=== PATIENT | female | born 1965 | race Caucasian/White ===

== ENCOUNTER 2020-01-24 09:22 | Emergency (ER) | payer OTHER, SELFPAY ==
[2020-01-24 09:30] VITALS: BP 113/73; PULSE 98; RESP 18; TEMP 36.8; O2SAT 97; BMI 27.4
[2020-01-24 09:40] VITALS: BP 113/73; PULSE 93; RESP 16; TEMP 36.8; O2SAT 96
--- NOTE | 2020-01-24 09:48 | XRR_ITS ---
PROCEDURE INFORMATION: Exam: XR Left Shoulder Exam date and time: 01/24/2020 9:48 AM Age: 54 years old Clinical indication: Pain; Shoulder; Left; Additional info: L shoulder pain TECHNIQUE: Imaging protocol: XR Left shoulder. Views: 2 or more views. COMPARISON: No relevant prior studies available. FINDINGS: Bones/joints: Moderate degenerative changes of the acromioclavicular joint. Degenerative changes of the glenohumeral joint including osteophytosis Scapula normal Visualized ribs and visualized pulmonary parenchyma normal Coracoid process normal Soft tissues: Normal. XR/XR shoulder LT min 2V* [id number] IMPRESSION: Degenerative changes of the acromioclavicular joint and glenohumeral joint.
--- NOTE | 2020-01-24 09:48 | W.ED.EXTPRO ---
HPI - Extremity Problem General: Chief complaint: Extremity Injury, Upper Stated complaint: l shoulder & arm pain Time Seen by Provider: 01/24/20 09:28 History of Present Illness: HPI Narrative: Left shoulder pain that began about 6 weeks ago she did use a heavy power until the day prior she been taking ibuprofen for it since then. She is not really seeing body she not had any previous injury or surgery to that shoulder. She has no radiation of pain down into the hand she does not have any neck pain. Sensation in the hand is normal strength 5 of 5 in the hand at the elbow she has some weakness at the shoulder girdle. She has noticed when she moves her neck that worsen the pain radiates down to the elbow but not past the elbow. MD Complaint: extremity pain Onset (ago): week(s) (6) Pain Consistency: intermittent Location: left (shoulder) Quality: aching Radiation: none Relieving factors: immobilization Exacerbating factors: range of motion Associated symptoms: Reports arthralgias; Deny chest pain, fever(s) or rash Review of Systems Const: Denies: fever(s) ENMT: Denies: throat pain, ear or mastoid pain, nasal discharge or nasal congestion Card: Denies: chest pain, edema, dyspnea on exertion or orthopnea Resp: Denies: dyspnea, productive cough or non-productive cough GI: Denies: abdominal pain, nausea, vomiting, hematemesis, coffee ground emesis, diarrhea, constipation, bloating, hematochezia or melena : Denies: flank pain, difficulty voiding, dysuria, urinary frequency or urinary urgency Skin/Breast: Denies: rash or pruritus PFSH ED PFSH: Medical History (Updated 01/24/20 @ 10:29 by Wilfred Hernandez DO) Asthma Diabetes mellitus Surgical History (Updated 01/24/20 @ 09:52 by Wilfred Hernandez DO) H/O section X5 History of bladder suspension procedure History of endometrial ablation History of tonsillectomy and adenoidectomy Status post tonsillectomy and adenoidectomy Social History (Updated 01/24/20 @ 09:52 by Wilfred Hernandez DO) Smoking and tobacco status: never smoked Alcohol intake: never Physical Exam Const: COMMON NORMALS: no acute distress GENERAL APPEARANCE: cooperative and comfortable ORIENTATION/CONSCIOUSNESS: Yes awake, Yes oriented to person, Yes oriented to place and Yes oriented to time HENMT: COMMON NORMALS: normocephalic and atraumatic HEAD & SCALP: normocephalic and atraumatic Eye: COMMON NORMALS: Equal, round and reactive pupils present, EOMs intact bilaterally, conjunctivae normal and no scleral icterus CONJUNCTIVA: Yes conjunctivae normal PUPIL: Yes Equal, round and reactive pupils present Neck/C-Spine: COMMON NORMALS: full ROM, no lymphadenopathy, supple and no JVD Lymph: LYMPHATIC: no lymphadenopathy noted and no lymphedema noted Resp: COMMON NORMALS: normal respiratory effort, No retractions, No use of accessory muscles and clear to auscultation bilaterally AUSCULTATION: clear to auscultation bilaterally Cardio: COMMON NORMALS: no JVD, regular rate, regular rhythm and No murmurs present (Cardio) RATE: regular rate RHYTHM: regular rhythm GI: COMMON NORMALS: Soft to palpation and No hepatosplenomegaly present AUSCULTATION: Yes normoactive bowel sounds PALPATION: Yes Soft to palpation, No Tenderness to palpation present (GI), No Guarding due to palpation present (GI) and Yes No hepatosplenomegaly present Extremity: COMMON NORMALS: normal to inspection, capillary refill normal, no clubbing, cyanosis or edema, no calf tenderness and no pedal edema NARRATIVE EXTREMITY EXAM: Negative shoulder impingement on range of motion full strength in the upper extremity sensation slightly diminished Neuro: SENSORIUM/ORIENTATION: Yes oriented to person, Yes oriented to place and Yes oriented to time Skin: COMMON NORMALS: no rashes or lesions noted GENERAL SKIN EXAM: no rashes or lesions noted Course Vital Signs: Vital signs: Vital Signs Temperature 98.3 F 01/24/20 09:40 Pulse Rate 93 01/24/20 09:40 Respiratory Rate 16 01/24/20 09:40 Blood Pressure 113/73 01/24/20 09:40 Pulse Oximetry 96 01/24/20 09:40 MDM - Extremity (Nontraumatic) MDM Narrative: Medical decision making narrative: We will go ahead and get her set up for an MRI of her neck and then referral to neurosurgery started on Lyrica tizanidine and diclofenac. Discharge Plan Discharge Patient Disposition: Home Clinical Impression: Cervical radiculopathy Condition: Stable Prescriptions: New diclofenac sodium 75 mg tablet,delayed release (DR/EC) 75 mg PO Q12H PRN (Reason: pain) Qty: 20 RF: 0 Lyrica 75 mg capsule 75 mg PO BID Qty: 60 RF: 0 tizanidine 4 mg capsule 4 mg PO Q6H PRN (Reason: muscle spasticity) Qty: 30 RF: 0 No Action ibuprofen 600 mg Tablet 600 mg PO DAILY PRN (Reason: Pain) RF: 0 Discharge Orders: Discharge Order (Routine); Ordered 01/24/20 Ordered By: Wilfred Hernandez Discharge Diet: Usual diet Discharge Activity: Limit activity as instructed Activity Restrictions/Additional Instructions: Case management will call with referral to MRI of the neck and referral to neurosurgery Interventions: ED Discharge Assessment Last Done: 01/24/20 10:25 ED Charges Last Done: 01/24/20 10:25 Coding Level of Care Code ED Roll Up Machine Operator for Yelena Fwd Exam Comprehensive
[2020-01-24] MEDS: ketorolac 30 mg/mL INJ 60 MG IM (10:12)
[2020-01-24 10:25] VITALS: BP 117/66; PULSE 82; RESP 16; TEMP 36.4; O2SAT 96
--- NOTE | 2020-02-05 14:31 | DCPLANNER ---
wine manager had message to schedule an outpatient MRI for patient. Patient has [employer] insurance, case advocate called [facility] to inform the [facility] that patient was seen in the ED and what patient needed. wine manager was told that patient does not have VA benefits, has insurance thru her , patient is not a vet. wine manager called patient to confirm who patient sees for primary care, patient stated that she does not have a primary care physician at this time, case advocate will get patient established with Dr. Salgado. wine manager will have the results sent to Dr. Salgado and to Mercedes Barrera. wine manager faxed order to centralized scheduling for the MRI, after MRI is scheduled, case advocate will call the office of Dr. Salgado, and Mercedes Barrera to scheduled follow up appointments for patient.
--- NOTE | 2020-02-12 11:36 | DCPLANNER ---
Patient has an outpatient MRI scheduled for Tuesday, February 17 at 4:00 patient is aware of appointment. rehab department manager called the office of Dr. Salgado spoke with Sylvia, a follow up appointment is scheduled for Thursday, February 27, 2020 at 10:[address] Salgado. rehab department manager called patient and informed patient of the scheduled appointment. rehab department manager also called [facility] in [place] to schedule a follow up appointment for patient after MRI. rehab department manager had MRI results sent to [facility], will fax patients records from ED visit to [facility] to start referral. rehab department manager faxed records to [phone]. rehab department manager will call for appointment information.
--- NOTE | 2020-02-26 15:34 | DCPLANNER ---
Patient did attend appointment scheduled for 02.18.20 for an MRI. Patient has an appointment scheduled for Tuesday, March 10, 2020 at [facility] in [place] with [facility].
--- NOTE | 2020-03-13 14:51 | DCPLANNER ---
Patient had an appointment scheduled for 02.27.[address] Salgado - patient did attend the appointment. Patient had an appointment scheduled for 03.10.20 with Mercedes Barrera - patient did attend the appointment.
== END 2020-01-24 10:30 | disposition home or self-care (01) ==
PROVIDERS: Emergency Provider Family Medicine
DX: M54.12 Radiculopathy, cervical region (principal); E11.9 Type 2 diabetes mellitus without complications
CPT/HCPCS: 12345; 73030; 96372; 99281; 99283; J1885

== ENCOUNTER 2020-02-18 15:14 | Outpatient (CLI) | payer OTHER, SELFPAY ==
--- NOTE | 2020-02-18 15:24 | MR_ITS ---
WS: [id number] MRI CERVICAL SPINE NONCONTRAST TECHNIQUE: Sagittal T1, T2 and STIR imaging. Axial T2, gradient, and fiesta imaging. CLINICAL INFORMATION: CERIVICAL RADICULOPATHY COMPARISON: None. FINDINGS: Straightening of the normal cervical lordosis. Disc bulging worse at C5-C6. Cord signal is normal. C2-C3: Mild left and no significant right foraminal narrowing. Mild facet arthropathy. Spinal canal i s patent. C3-C4: Mild disc osteophyte complex with endplate ridging. Moderate left and no significant right for aminal narrowing. Mild facet arthropathy. Mild central canal stenosis. C4-C5: Disc osteophyte complex with endplate ridging. Mild central canal stenosis. Moderate left fora seng narrowing. Mild to moderate facet arthropathy. C5-C6: Disc osteophyte complex with endplate ridging. Moderate central canal stenosis. Severe left [place] foraminal narrowing. Mild contact of the cord with mild flattening. Right foramen is patent. Mild facet arthropathy. C6-C7: Mild disc osteophytic ridging. Mild bilateral foraminal narrowing. Mild facet arthropathy. Spi nal canal is patent. C7-T1: Tiny right pericentral protrusion. Spinal canal is patent. Mild left and no significant right foraminal narrowing. Visualized brain stem structures: Normal. Prevertebral soft tissues: Normal. MR/MR cervical spin wo con* [id number] IMPRESSION: 1. Mild cervical curve with straightening of the normal cervical lordosis. 2. Prominent left pericentral disc osteophyte protrusion with indentation on t he left ventral cervical cord. Moderate central canal stenosis. Severe left for aminal narrowing at this level. 3. Mild central canal stenosis C3-C4 and C4-C5. Mild central canal stenosis C6 -C7. 4. Multilevel bony foraminal narrowing worse at left C3-C4, left C4-C5, left C 5-C6 and right C6-C7. 5. Tiny right pericentral protrusion C7-T1 without significant spinal canal na rrowing.
== END 2020-02-18 15:15 | disposition home or self-care (01) ==
LOC: RADSHAW 15:20
PROVIDERS: Visit Provider Family Medicine
DX: M54.12 Radiculopathy, cervical region (principal); M25.78 Osteophyte, vertebrae; M48.02 Spinal stenosis, cervical region; M50.23 Other cervical disc displacement, cervicothoracic region
CPT/HCPCS: 72141

== ENCOUNTER → 2020-02-27 11:33 | Outpatient (BNVA) | payer OTHER, SELFPAY | PROVIDERS: Visit Provider Family Medicine | DX: E11.9 Type 2 diabetes mellitus without complications (principal); Z79.4 Long term (current) use of insulin | CPT/HCPCS: 80053; 80061; 82043; 83036; 83721; 85025 ==

== ENCOUNTER → 2020-03-31 08:43 | Outpatient (BNVA) | payer OTHER, SELFPAY | PROVIDERS: Visit Provider Family Medicine | DX: R79.89 Other specified abnormal findings of blood chemistry (principal); E11.9 Type 2 diabetes mellitus without complications; Z79.4 Long term (current) use of insulin; K29.60 Other gastritis without bleeding | CPT/HCPCS: 80053; 80074 ==

== ENCOUNTER → 2020-04-30 10:11 | Outpatient (BNVA) | payer OTHER, SELFPAY | PROVIDERS: Visit Provider Family Medicine | DX: Z23 Encounter for immunization (principal); R79.89 Other specified abnormal findings of blood chemistry; M54.12 Radiculopathy, cervical region; E78.5 Hyperlipidemia, unspecified; E11.9 Type 2 diabetes mellitus without complications; Z79.4 Long term (current) use of insulin; Z68.29 Body mass index [BMI] 29.0-29.9, adult; Z71.89 Other specified counseling | CPT/HCPCS: 80053 ==

== ENCOUNTER → 2020-06-25 08:18 | Outpatient (BNVA) | payer OTHER, SELFPAY | PROVIDERS: Visit Provider Family Medicine | DX: E11.9 Type 2 diabetes mellitus without complications (principal); Z79.4 Long term (current) use of insulin; E78.5 Hyperlipidemia, unspecified; K29.60 Other gastritis without bleeding; R53.83 Other fatigue | CPT/HCPCS: 80053; 80061; 83036; 85025 ==

== ENCOUNTER → 2020-09-09 08:47 | Outpatient (BNVA) | payer OTHER, SELFPAY | PROVIDERS: PCP Family Medicine; Visit Provider Family Medicine | DX: E11.9 Type 2 diabetes mellitus without complications (principal); Z79.4 Long term (current) use of insulin; E78.5 Hyperlipidemia, unspecified; K29.60 Other gastritis without bleeding; R53.83 Other fatigue; J30.89 Other allergic rhinitis; F51.02 Adjustment insomnia; Z68.26 Body mass index [BMI] 26.0-26.9, adult | CPT/HCPCS: 80053; 80061; 83036 ==

== ENCOUNTER → 2020-12-09 08:37 | Outpatient (BNVA) | payer OTHER, SELFPAY | PROVIDERS: PCP Family Medicine; Visit Provider Family Medicine | DX: E11.9 Type 2 diabetes mellitus without complications (principal); Z79.4 Long term (current) use of insulin; E78.5 Hyperlipidemia, unspecified | CPT/HCPCS: 82043; 83036 ==

== ENCOUNTER → 2020-12-10 14:51 | Outpatient (BNVA) | payer OTHER, SELFPAY | PROVIDERS: PCP Family Medicine; Visit Provider Family Medicine | DX: E78.5 Hyperlipidemia, unspecified (principal); E11.9 Type 2 diabetes mellitus without complications; Z79.4 Long term (current) use of insulin | CPT/HCPCS: 80053; 80061 ==

== ENCOUNTER → 2021-06-09 09:45 | Outpatient (BNVA) | payer OTHER, SELFPAY | PROVIDERS: PCP Family Medicine; Visit Provider Family Medicine | DX: E11.9 Type 2 diabetes mellitus without complications (principal); Z79.4 Long term (current) use of insulin; R19.4 Change in bowel habit | CPT/HCPCS: 80053; 80061; 82043; 83036; 85025 ==

== ENCOUNTER → 2021-07-06 09:17 | Outpatient (BNVA) | payer OTHER, SELFPAY | PROVIDERS: PCP Family Medicine; Visit Provider Surgery | DX: Z20.822 Contact with and (suspected) exposure to COVID-19 (principal) | CPT/HCPCS: 87635 ==

== ENCOUNTER 2021-07-10 06:50 | Day surgery (SDC) | payer OTHER, SELFPAY ==
[2021-07-07 10:56] VITALS: BMI 26.6
--- NOTE | 2021-07-10 07:20 | ANES.PREANE2 ---
Pre-Anesthetic Assessment Pre-Anesthetic Assessment: Height/Weight: Height 1.63 m Weight 70.307 kg Preop Diagnosis: diagnostic Proposed Procedure: Operation Date: 07/10/21 08:00 Proposed Procedures p Colonoscopy 77045 R19.4(Not Applicable) - Carlos Chavira MD Familial anesthetic complications: None Was Beta Stanton taken within 24 hours: N/A Was Clonidine taken within 24 hours: N/A Last intake: > 8hrs Social: Social History: No alcohol and No tobacco Exam: Pre-Anes Outpt Exam: alert, oriented x 3, clear to auscultation bilaterally and regular rate & rhythm Airway: MP: 2 Dentition: Chipped (multiple) Pulmonary: Pulmonary: Asthma Metabolic: Metabolic: DM (type 2 ) Anesthetic Plan: ASA status: 2 Anesthesia: MAC Risk of > 500 ml blood loss (7ml/kg in children): No PFSH Anesthesia PFSH: Medical History (Updated 06/09/21 @ 11:40 by Effie Salgado DO) Asthma Surgical History H/O section X5 History of bladder suspension procedure History of endometrial ablation History of neck surgery History of tonsillectomy and adenoidectomy Status post tonsillectomy and adenoidectomy Social History Second hand smoke exposure: No Alcohol intake: never Desire information about alcohol rehabilitation?: No Desire information about substance/drug rehabilitation?: No Data Anesthesia Cardiac Studies: No Data to Display
[2021-07-10 07:35] VITALS: BP 100/61; PULSE 88; RESP 18; TEMP 36.3; O2SAT 97
[2021-07-10] MEDS: sodium chloride 0.9% 1,000 ML 30 ML IV (07:40)
--- NOTE | 2021-07-10 07:42 | W.PM.OPSFHP ---
Same Day Surgery H&P Indication for Procedure/HPI DATE OF PROCEDURE: July 10, 2021 CHIEF COMPLAINT/INDICATIONFOR SURGICAL PROCEDURE: colonoscopy PREOP DIAGNOSIS: diagnostic PLANNED PROCEDURE: Operation Date: 07/10/21 08:00 Proposed Procedures p Colonoscopy 51380 R19.4(Not Applicable) - Carlos Chavira MD Medications/Allergies* Home Medications Medication Instructions Recorded Confirmed Type No Known Home Medications 04/14/21 07/07/21 History Allergies/Adverse Reactions Allergy/AdvReac Type Severity Reaction Status Date / Time morphine Allergy ADR-Itching Verified 06/29/21 10:44 Current Medications: Generic Name Dose Route Start Last Admin Trade Name Freq PRN Reason Stop Dose Admin Sodium Chloride 1,000 mls @ 30 mls/hr 07/10/21 07:15 07/10/21 07:40 Sodium Chloride 0.9% IV 07/11/21 07:14 30 mls/hr .Q24H MELANIE Administration Pertinent History/Comorbid Conditions* Medical History (Updated 06/09/21 @ 11:40 by Effie Salgado DO) Asthma Surgical History (Updated 05/28/20 @ 10:14 by Effie Salgado DO) H/O section X5 History of bladder suspension procedure History of endometrial ablation History of neck surgery History of tonsillectomy and adenoidectomy Status post tonsillectomy and adenoidectomy Social History Second hand smoke exposure: No Alcohol intake: never Desire information about alcohol rehabilitation?: No Desire information about substance/drug rehabilitation?: No Pertinent Exam Findings alert, oriented x 3 and regular rate & rhythm Recommendations Surgery/Procedure today Coding Level of Care Code Acute Dough Mixing Machine Operator for Yelena Tyler
[2021-07-10 08:09] VITALS: BP 92/55; PULSE 65; RESP 15; TEMP 36.1; O2SAT 100
[2021-07-10 08:22] VITALS: BP 94/66; PULSE 75; RESP 18; O2SAT 97
--- NOTE | 2021-07-10 10:26 | ANE.PACU2 ---
Inpatient post-anesthesia follow up: Airway intact: Yes Vital signs: Temperature 97.0 F Pulse Rate 75 Respiratory Rate 18 Blood Pressure 94/66 Pulse Oximetry 97 Oxygen Delivery Me thod Room Air Oxygen Flow Rate 3 Fraction of Inspir ed Oxygen Hydration adequate: Yes Mental status: Baseline
== END 2021-07-10 08:42 | disposition home or self-care (01) ==
PROVIDERS: PCP Family Medicine; Visit Provider Surgery
PROC: 0DJD8ZZ Inspection of Lower Intestinal Tract, Via Natural or Artificial Opening Endoscopic (ICD-10-PCS; CPT 45378; principal; 2021-07-10 08:00)
DX: R19.4 Change in bowel habit (principal)
CPT/HCPCS: 45378; J2704; J7030

== ENCOUNTER → 2021-12-13 13:08 | Outpatient (BNVA) | payer OTHER, SELFPAY | PROVIDERS: PCP Family Medicine; Visit Provider Family Medicine | DX: R39.9 Unspecified symptoms and signs involving the genitourinary system (principal); N39.0 Urinary tract infection, site not specified; N76.0 Acute vaginitis; B96.89 Other specified bacterial agents as the cause of diseases classified elsewhere; B37.3 Candidiasis of vulva and vagina | CPT/HCPCS: 81000 ==

== ENCOUNTER 2023-10-04 13:32 | Emergency (ER) | payer OTHER, SELFPAY ==
[2023-10-04 13:35] VITALS: BP 125/72; PULSE 92; RESP 16; TEMP 36.7; O2SAT 97
--- NOTE | 2023-10-04 14:24 | ED_ITS ---
HPI - General Adult 2 General: Chief complaint: General Medical Stated complaint: right foot, middle two pain Time Seen by Provider: 10/04/23 14:10 Source: patient Mode of arrival: ambulatory Limitations: no limitations History of Present Illness: 57-year-old female who has history of di abetes states she has had redness to her left middle toe for the last 3 weeks she states she has had some gradual redness to her foot now states she has not seen her primary care doctor was concerned she is getting a cellulitis she denies any fever denies any pain denies any worse improved factors Associated symptoms: Deny chest pain, dyspnea, headache(s), nausea, rash or vomiting Review of Systems 2 Const: Denies: fever(s), chills, body aches or change in appetite Eyes: Denies: blurry vision or eye discomfort Card: Denies: chest pain Resp: Denies: dyspnea GI: Denies: abdominal pain, nausea, vomiting or diarrhea Musc: Reports: extremity pain; Denies: neck pain or back pain Skin/Breast: Reports: erythema; Denies: rash Neuro: Denies: headache(s) PFSH ED 2 PFSH: Medical History Asthma Surgical History Status post colonoscopy (07/10/21) Repeat in 10 years History of neck surgery History of tonsillectomy and adenoidectomy History of endometrial ablation Status post tonsillectomy and adenoidectomy History of bladder suspension procedure H/O section X5 Social History Smoking and tobacco/nicotine status: never used tobacco/nicotine Second hand smoke exposure: No Alcohol intake: never Substance/Drug Use: never Physical Exam 2 Const: COMMON NORMALS: no acute distress, patient oriented x3 and healthy appearing HENMT: COMMON NORMALS: normocephalic and atraumatic HEAD & SCALP: n ormocephalic and atraumatic Neck/C-Spine: COMMON NORMALS: full ROM and supple Chest: COMMONS NORMALS: normal inspection of the chest Resp: COMMON NORMALS: normal respiratory effort Cardio: COMMON NORMALS: regular rate, regular rhythm and No murmurs present (Cardio) RATE: regular rate RHYTHM: regular rhythm Extremity: COMMON NORMALS: full ROM NARRATIVE EXTREMITY EXAM: Erythema noted to the right middle toe Neuro: COMMON NORMALS: patient oriented x3, moves all extremities and no focal motor deficits Psych: COMMON NORMALS: mental status grossly normal, Normal thought process present and cooperative THOUGHT PROCESS: Normal thought process present Skin: COMMON NORMALS: no rashes or lesions noted and no wounds GENERAL SKIN EXAM: no rashes or lesions noted Course 2 Vital Signs: Vital signs: Vital Signs Temperature 98.0 F 10/04/23 13:35 Pulse Rate 86 10/04/23 14:54 Respiratory Rate 18 10/04/23 14:54 Blood Pressure 125/72 10/04/23 13:35 Pulse Oximetry 96 10/04/23 14:54 Oxygen Delivery Me thod Room Air 10/04/23 14:54 MDM - General Adult Medical Decision Making Patient presents here with cellulitis to her right middle toe she refused her x- ray here blood works normal no signs of necrosis we will start her on antibiotics we will get her follow-up with podiatry she is return if worsening she understands agrees to plan. Distal pulses were intact her foot. Medical Records I reviewed the patient's medical records. Lab Data I reviewed the patient's lab results. 10/04/23 14:32 10/04/23 14:32 Laboratory Results WBC 7.39 10^3/uL (3.29-11.43) 10/04/23 14:32 RBC 4.13 10^6/uL (3.85-5.65) 10/04/23 14:32 Hgb 12.50 g/dL (11.27-16.99) 10/04/23 14:32 Hct 37.6 % (36-47) 10/04/23 14:32 MCV 91.0 fl (85-98) 10/04/23 14:32 MCH 30.3 pg (27-33) 10/04/23 14:32 MCHC 33.2 g/dL (30-55) 10/04/23 14:32 RDW 12.5 % (12.1-15.1) 10/04/23 14:32 Plt Count 312 10^3/cmm (157-399) 10/04/23 14:32 MPV 10.2 fL (7.4-10.4) 10/04/23 14:32 Neut % (Auto) 51.3 % 10/04/23 14:32 Lymph % (Auto) 36.4 % 10/04/23 14:32 Alpine % (Auto) 8.0 % 10/04/23 14:32 Eos % (Auto) 3.7 % 10/04/23 14:32 Baso % (Auto) 0.5 % 10/04/23 14:32 Neut # (Auto) 3.79 10^3/uL (1.8-7.7) 10/04/23 14:32 Lymph # (Auto) 2.7 10^3/uL (0.8-4.8) 10/04/23 14:32 Alpine # (Auto) 0.6 10^3/uL (0.2-0.9) 10/04/23 14:32 Eos # (Auto) 0.3 10^3/uL (0.0-0.8) 10/04/23 14:32 Baso # (Auto) 0.0 10^3/uL (0.0-0.1) 10/04/23 14:32 Nucleated RBC % (auto) 0 % 10/04/23 14:32 Nucleated RBCs # 0.0 /100WBC 10/04/23 14:32 Sodium 135 mmol/L (136-145) L 10/04/23 14:32 Potassium 4.6 mmol/L (3.5-5.1) 10/04/23 14:32 Chloride 99 mmol/L (98-107) 10/04/23 14:32 Carbon Dioxide 27 mmol/L (22-29) 10/04/23 14:32 Anion Gap 13.6 (5-19) 10/04/23 14:32 BUN 14 mg/dL (6-20) 10/04/23 14:32 Creatinine 1.1 mg/dL (0.5-0.9) H 10/04/23 14:32 GFR Calculation 50.8 mL/min (90-130) L 10/04/23 14:32 Glucose 377 mg/dL (65-115) H 10/04/23 14:32 Calculated Osmolality 296 mOsm/kg (285-295) H 10/04/23 14:32 Calcium 9.2 mg/dL (8.5-10.5) 10/04/23 14:32 C-Reactive Protein 14.3 mg/L (0.0-4.9) H 10/04/23 14:32 No radiology studies performed this visit Discharge Plan Discharge Patient Disposition: Home Clinical Impression: Cellulitis Condition: Stable Prescriptions: New Augmentin 500-125 mg tablet 1 tab PO BID Qty: 14 0RF Discharge Orders: Discharge ED (Routine); Ordered 10/04/23 Ordered By: Will Roque Referrals: Channing Bolanos DPM [Physician] - 1-3 days Effie Salgado DO [Primary Care Provider] - Discharge Diet: Advance as tolerated Discharge Activity: Resume usual activity Patient Instructions: Cellulitis (ED) Coding Level of Care Code ED Aircraft Instrument Mechanic for Yelena Tyler
[2023-10-04 14:42] LABS: Basophils % 0.5 %; Eosinophils # 0.3 10^3/uL (0.0-0.8); Eosinophils % 3.7 %; Hematocrit 37.6 % (36-47); Lymphocytes # 2.7 10^3/uL (0.8-4.8); Lymphocytes % 36.4 %; Mean Corpuscular HGB Conc 33.2 g/dL (30-55); Mean Corpuscular Hemoglobin 30.3 pg (27-33); Mean Platelet Volume 10.2 fL (7.4-10.4); Monocytes # 0.6 10^3/uL (0.2-0.9); Neutrophils # 3.79 10^3/uL (1.8-7.7); Neutrophils % 51.3 %; Nucleated Red Blood Cells % 0 %; Platelet Count 312 10^3/cmm (157-399); Red Blood Count 4.13 10^6/uL (3.85-5.65); Red Cell Distribution Width 12.5 % (12.1-15.1); White Blood Count 7.39 10^3/uL (3.29-11.43)
[2023-10-04 14:54] VITALS: PULSE 86; RESP 18; O2SAT 96
[2023-10-04 15:02] LABS: Anion Gap 13.6 (5-19); Blood Urea Nitrogen 14 mg/dL (6-20); C Reactive Protein 14.3 mg/L (0.0-4.9); Calcium 9.2 mg/dL (8.5-10.5); Carbon Dioxide 27 mmol/L (22-29); Chloride 99 mmol/L (98-107); Creatinine Clr Calc Pharmacy 53.7673; Glomerular Filtration Rate 50.8 mL/min (90-130); Glucose 377 mg/dL (65-115); Osmolality Calculated 296 mOsm/kg (285-295); Potassium 4.6 mmol/L (3.5-5.1); Sodium 135 mmol/L (136-145)
[2023-10-04 15:14] VITALS: PULSE 80; RESP 16; O2SAT 97
--- NOTE | 2023-10-04 15:33 | PC.SOCIAL ---
Podiatry Referral Referral to clinic at this time. Clinic to contact patient with appt date/time.
== END 2023-10-04 15:15 | disposition home or self-care (01) ==
PROVIDERS: Emergency Provider Emergency Medicine; PCP Family Medicine
DX: L03.031 Cellulitis of right toe (principal)
CPT/HCPCS: 36415; 80048; 85025; 86140; 87070; 87075; 87077; 87186; 87205; 99283

== ENCOUNTER → 2023-10-06 10:07 | Outpatient (BNVA) | payer OTHER, SELFPAY | PROVIDERS: PCP Family Medicine; Visit Provider Podiatrist Foot & Ankle Surgery | DX: E11.621 Type 2 diabetes mellitus with foot ulcer; L97.514 Non-pressure chronic ulcer of other part of right foot with necrosis of bone; L03.115 Cellulitis of right lower limb; G62.9 Polyneuropathy, unspecified; M86.8X7 Other osteomyelitis, ankle and foot | CPT/HCPCS: 11044; 73630; 99203; A6219 ==

== ENCOUNTER → 2023-10-10 12:51 | Outpatient (BNVA) | payer OTHER, SELFPAY | PROVIDERS: PCP Family Medicine; Visit Provider Podiatrist Foot & Ankle Surgery | DX: I96 Gangrene, not elsewhere classified (principal); E11.621 Type 2 diabetes mellitus with foot ulcer; G62.9 Polyneuropathy, unspecified; L03.031 Cellulitis of right toe; L97.514 Non-pressure chronic ulcer of other part of right foot with necrosis of bone | CPT/HCPCS: 99214 ==

== ENCOUNTER 2023-10-12 09:40 | Day surgery (SDC) | payer OTHER, SELFPAY ==
[2023-10-12 09:58] VITALS: BMI 27.4
[2023-10-12] MEDS: sodium chloride 0.9% 1,000 ML 30 ML IV (10:27)
[2023-10-12] MEDS: acetaminophen 1,000 MG/100 ML PIGGYBACK 400 MG IV (10:28)
[2023-10-12] MEDS: gabapentin 300 mg Capsule PO (10:28)
[2023-10-12 10:30] LABS: Glucose Point of Care 201 mg/dL (70-110)
--- NOTE | 2023-10-12 11:16 | P.ANESASSM_ITS ---
Pre-Anesthetic Assessment Height/Weight: Height 1.63 m Weight 72.575 kg O2 Del Method Room Air 10/12/23 09:59 Preop Diagnosis: Gangrene Operation Date: 10/12/23 11:40 Proposed Procedures p Amputation Toe/s/ Right foot third digit amputation(Right) - Hao Denton DPM Last intake: Intake Last Liquid Date 10/11/23 Last Liquid Time 20:00 Last Solid Date 10/11/23 Last Solid Time 16:00 Social No tobacco Exam alert, oriented x 3, clear to auscultation bilaterally and regular rate & rhythm Airway Submandibular: within normal limits Cervical ROM: within normal limits Mallampati: Class I Pulmonary None reported Metabolic Diabetes Mellitus Anesthetic Plan ASA status: 3 Anesthesia: MAC Risk of > 500 ml blood loss (7ml/kg in children): No Medications/Allergies Home Medications Medication Instructions Recorded Confirmed Last Taken Type clindamycin HCl 300 mg capsule 300 mg PO TID #21 caps 10/10/23 10/11/23 10/11/23 Rx insulin aspart U-100 100 unit/mL 30 unit SUBCUT TID 10/11/23 10/11/23 10/11/23 History subcutaneous solution (Novolog U-100 Insulin aspart) insulin glargine 100 unit/mL 30 unit SUBCUT DAILY 10/11/23 10/11/23 10/11/23 History subcutaneous solution (Lantus U-100 Insulin) Allergies Allergy/AdvReac Type Severity Reaction Status Date / Time morphine Allergy ADR-Itching Verified 10/10/23 13:03 Alpha-Gal AdvReac ADR-Vomitin Verified 10/11/23 10:19 ([id number]-Ylnus-3,3-Gala g [facility] Anesthesia Medical History Asthma Surgical History Status post colonoscopy (07/10/21) Repeat in 10 years History of neck surgery History of tonsillectomy and adenoidectomy History of endometrial ablation Status post tonsillectomy and adenoidectomy History of bladder suspension procedure H/O section X5 Social History Smoking and tobacco/nicotine status: never used tobacco/nicotine Second hand smoke exposure: No Alcohol intake: never Substance/Drug Use: never Data Anesthesia Cardiac Studies: No Data to Display
--- NOTE | 2023-10-12 12:04 | W.PM.OPSUD ---
Surgery/Procedure H&P Update DATE OF PROCEDURE: October 12, 2023 DATE H&P PERFORMED: 10/10/23 H&P UPDATE INFORMATION: I have reviewed H&P completed within last 30 days, I have examined patient prior to procedure, No changes to prior documentation and H&P is in [facility] EMR on date indicated PREOP DIAGNOSIS: Gangrene PLANNED PROCEDURE: Operation Date: 10/12/23 11:40 Proposed Procedures p Amputation Toe/s/ Right foot third digit amputation(Right) - Hao Denton DPM
[2023-10-12] MEDS: ceFAZolin 2,000 MG in sodium chloride 0.9% (plus) 50 ML 100 MG IV (12:06)
[2023-10-12] MEDS: BUPivacaine 0.5% INJ 30 mL INJECTION (12:44)
--- NOTE | 2023-10-12 12:44 | W.PM.BPON ---
Date of procedure: 10/12/2023 Surgeon name: Yeimi MillerPMayi Cuff Turner Machine Operator(s) name(s): Yadira Procedure(s) performed: Right foot third digit amputation Description of findings: Gangrenous right third toe Estimated blood loss: 2 cc Tourniquet time: 15 minutes Specimen(s) removed: Third toe right foot Post-operative diagnosis: Gangrene right foot third digit
--- NOTE | 2023-10-12 12:45 | P.OP_ITS ---
Operative Report Date of procedure: October 12, 2023 Pre-op diagnosis: Right foot third digit gangrene Post-op diagnosis: Same Post-op findings: Gangrene right foot third digit Procedure done: Right foot third digit amputation CPT 50882 Specimens removed/disposition: Third digit right foot sent as surgical specimen to pathology. Cultures aerobic and anaerobic sent to micro for ID and sensitivity Surgeon: Hao Denton DPM [employer]: Yadira Estimated blood loss: 2 cc 15 minutes Complications: None Findings: See above Procedure: Patient is a 57-year-old female that has a history of gangrenous right foot third digit with underlying osteomyelitis. The patient has had the aforementioned chief complaint for some time. Conservative treatment measures have been attempted and the patient has opted for surgical intervention at this time. A lengthy discussion regarding the procedure, including risks and complications has been had with the patient and is noted in the recent clinic note. Written and verbal consent have been obtained. All patient questions have been answered to the patient?s satisfaction. No written or verbal guarantees have been given or implied. The patient has been NPO since midnight. The history has been reviewed and the history and physical is current. The signed consent was confirmed and placed in the patient chart. Patient imaging has been reviewed and is consistent with the diagnosis. Under mild sedation, the patient was brought into the operating room and placed on the table in the supine position. IV antibiotics were given by the anesthesia team as preoperative surgical prophylaxis. IV sedation was then performed by the anesthesiateam. A local field block was performed using 0.5% Marcaine plain. A pneumatic tourniquet was then placed about the right ankle. The operative extremity was then prepped and draped in the usual fashion. The extremity was then elevated and exsanguinated before the tourniquet was inflated to 250 mmHg. After inflation, the following procedure was then performed. Attention was directed to the right foot where gangrenous third digit was noted. An elliptical incision was made at the base of the third digit using a #15 blade. This was carried full-thickness down to the level of the metatarsophalangeal joint. The digit was dissected free from capsular attachments of the third metatarsal phalangeal joint and passed from the operative field to be sent as specimen. The remaining tissue appeared healthy and viable in nature. No underlying abscess was visualized. Metatarsal head of the third metatarsal appears free from any erosions or discoloration. Cultures both aerobic and anaerobic were taken of the third digit that was passed from the operative field. These were sent to micro for ID and sensitivity. The site was next irrigated with copious months sterile saline before attention was directed to closure. Skin edges were approximated using simple interrupted sutures using 3-0 nylon. The site was then dressed with Xeroform, 4 x 4 gauze, Kerlix, Yanick. The tourniquet was let down and good hyperemic response was noted to all remaining digits of the right foot. The patient tolerated the procedure and anesthesia well and without complication. The patient was transported from the operating room to the recovery room with vital signs stable and vascular status intact to all irving ining digits of the right foot. The patient was given both written and verbal instructions to remain weightbearing as tolerated to the operative extremity, to keep dressings/splint clean, dry and intact and to take pain medication as directed. The patient will follow-up in the outpatient setting at their scheduled appointment. The patient was discharged with my personal number and was instructed to call if any questions or issues should arise. They were discharged home once anesthesia criteria was met.
[2023-10-12 12:50] VITALS: BP 95/48; PULSE 84; RESP 14; TEMP 36.8; O2SAT 95
[2023-10-12 12:55] VITALS: BP 96/57; PULSE 80; RESP 14; O2SAT 94
[2023-10-12 13:00] VITALS: BP 101/54; PULSE 78; RESP 16; O2SAT 93
[2023-10-12 13:05] VITALS: BP 107/59; PULSE 75; RESP 20; TEMP 36.2; O2SAT 93
[2023-10-12 13:09] VITALS: BP 104/59; PULSE 75; RESP 18; TEMP 36.4; O2SAT 94
[2023-10-12 13:30] VITALS: BP 102/53; PULSE 72; RESP 17; TEMP 36.3; O2SAT 95
--- NOTE | 2023-10-12 14:14 | ANE.PACU2 ---
Inpatient post-anesthesia follow up: Vital signs: Temperature 97.4 F Pulse Rate 72 Respiratory Rate 17 Blood Pressure 102/53 Pulse Oximetry 95 Oxygen Delivery Me thod Room Air Oxygen Flow Rate Fraction of Inspir ed Oxygen Hydration adequate: Yes Nausea and vomiting: No Mental status: Baseline Additional Comments: no known anesthetic complications noted
== END 2023-10-12 14:00 | disposition home or self-care (01) ==
PROVIDERS: PCP Family Medicine; Visit Provider Podiatrist Foot & Ankle Surgery
PROC: (CPT 28820; principal; 2023-10-12 11:30)
DX: I96 Gangrene, not elsewhere classified (principal); Z79.4 Long term (current) use of insulin; J45.909 Unspecified asthma, uncomplicated; E11.9 Type 2 diabetes mellitus without complications; E11.621 Type 2 diabetes mellitus with foot ulcer; L97.504 Non-pressure chronic ulcer of other part of unspecified foot with necrosis of bone; G62.9 Polyneuropathy, unspecified; L03.90 Cellulitis, unspecified
CPT/HCPCS: 28820; 36416; 82962; 87070; 87075; 87077; 87176; 87186; 87205; 88305; 88311; J0131; J0690; J2704; J3010; J3490; J7030

== ENCOUNTER → 2023-10-19 15:16 | Outpatient (BNVA) | payer OTHER, SELFPAY | PROVIDERS: PCP Family Medicine; Visit Provider Podiatrist Foot & Ankle Surgery | DX: I96 Gangrene, not elsewhere classified (principal); E11.621 Type 2 diabetes mellitus with foot ulcer; G62.9 Polyneuropathy, unspecified; L97.514 Non-pressure chronic ulcer of other part of right foot with necrosis of bone; Z79.4 Long term (current) use of insulin | CPT/HCPCS: 99213 ==

== ENCOUNTER → 2023-10-26 15:01 | Outpatient (BNVA) | payer OTHER, SELFPAY | PROVIDERS: PCP Family Medicine; Visit Provider Podiatrist Foot & Ankle Surgery | DX: I96 Gangrene, not elsewhere classified (principal); E11.621 Type 2 diabetes mellitus with foot ulcer; L97.514 Non-pressure chronic ulcer of other part of right foot with necrosis of bone; G62.9 Polyneuropathy, unspecified; Z79.4 Long term (current) use of insulin | CPT/HCPCS: 99213; A6219 ==

== ENCOUNTER → 2023-10-31 12:56 | Outpatient (BNVA) | payer OTHER, SELFPAY | PROVIDERS: PCP Family Medicine; Visit Provider Podiatrist Foot & Ankle Surgery | DX: Z98.890 Other specified postprocedural states; I96 Gangrene, not elsewhere classified; E11.621 Type 2 diabetes mellitus with foot ulcer; L97.514 Non-pressure chronic ulcer of other part of right foot with necrosis of bone; G62.9 Polyneuropathy, unspecified | CPT/HCPCS: 99213 ==

== ENCOUNTER 2023-11-04 08:47 | Outpatient (CLI) | payer OTHER, SELFPAY ==
--- NOTE | 2023-11-04 09:00 | CTR_ITS ---
PROCEDURE INFORMATION: Exam: CTA Abdominal Aorta and Bilateral Lower Extremities (Run-off) With Contrast Exam date and time: 11/04/2023 9:20 AM Age: 57 years old Clinical indication: Condition or disease; Other: Ischemic ulcer, prior surgery; Surgery date: 6+ months; Surgery type: Csection, tubal; Patient HX: Ischemic ulcer. RT 3rd digit amputation x3 wks ago. PT is insulin dep diabetic, states toe was black; Additional info: Ischemic ulcer, call 's phone number to schedule TECHNIQUE: Imaging protocol: Computed tomographic angiography of the of the abdominal aorta, pelvis and bilateral lower extremities with contrast. 3D rendering (Not supervised by radiologist): MIP and/or 3D reconstructed images were created by the technologist. Radiation optimization: All CT scans at this facility use at least one of these dose optimization techniques: automated exposure control; mA and/or kV adjustment per patient size (includes targeted exams where dose is matched to clinical indication); or iterative reconstruction. Contrast material: OMNI 350; Contrast volume: 125 ml; Contrast route: INTRAVENOUS (IV); COMPARISON: CR XR foot RT min 3V* [id number] 10/06/2023 10:12 AM RADIATION DOSE METRICS: Total DLP (mGy-cm): 1449.25 FINDINGS: Aorta: See Celiac trunk and mesenteric arteries finding. Celiac trunk and mesenteric arteries: Splenic artery arises from the aorta proper and is the 1st intra-abdominal branch, there is proximal 50-75% narrowing by soft plaque. Celiac axis is narrowed by a proximally 25-50% stenosis by soft plaque. 25% stenosis of the superior mesenteric artery by calcified and noncalcified plaque. Renal arteries: No occlusion or significant stenosis. Right iliac arteries: Proximal right iliac artery is narrowed by 50% with calcified and noncalcified plaque, a small ulceration is present within the soft plaque at the proximal aspect of the stenosis. Right femoral/popliteal arteries: No occlusion or significant stenosis. Right infrapopliteal arteries: No occlusion or significant stenosis. Left iliac arteries: 25% stenosis of the left common iliac artery. Left femoral/popliteal arteries: No occlusion or significant stenosis. Left infrapopliteal arteries: No occlusion or significant stenosis. Other arteries: Extensive calcified atherosclerotic disease of the distal bilateral arteries below the popliteal hiatus precludes definitive characterization, there are multifocal regions of presumed narrowing after the trifurcation of the bilateral lower extremities. Contrast is seen faintly in the distal arteries of the bilateral feet. Liver: No mass. Gallbladder and bile ducts: Unremarkable. No calcified stones. No ductal dilation. Pancreas: Unremarkable. No mass. No ductal dilation. Spleen: Normal. No splenomegaly. Adrenal glands: Partially calcified mass in the left adrenal gland. Underlying nodular hypertrophy is noted of the bilateral adrenal glands. Kidneys and ureters: Normal. No mass. Stomach and bowel: Unremarkable. No obstruction. No mucosal thickening. Appendix: No evidence of appendicitis. Urinary bladder: Unremarkable. No mass. Reproductive: Unremarkable as visualized. Intraperitoneal space: Unremarkable. No free air. No significant fluid collection. Lymph nodes: No lymphadenopathy. Bones/joints: Postsurgical change of the 3rd digit of the right foot without rim enhancing fluid collection. Scattered degenerative change of the visualized osseous structures without evidence for acute or aggressive abnormality. Bilateral L5 pars defects with grade 1 anterolisthesis of L5 on S1. Soft tissues: Unremarkable. Other findings: Sequela of medical injection of the right lower quadrant abdominal fat. There is extensive calcified and noncalcified atherosclerotic disease of the visualized vasculature. Bilateral multifocal 50-75% stenosis of the internal iliac arteries. CT/CT angio abd aorta runof 23212 IMPRESSION: 1. Postsurgical change of amputation of the 3rd digit of the right foot without rim enhancing fluid collection. Soft tissue infection is not excluded, Correlate with physical examination. 2. Below the popliteal hiatus after the trifurcation of the bilateral lower extremity arterial vasculature there is extensive calcified plaque which precludes definitive characterization of the distal vasculature, there is suggestion of distal opacification of the arteries of the bilateral feet, however again regions of stenosis are not entirely excluded on this exam. Correlate with physical exam findings congruent with vascular compromise. 3. Additional vascular findings as above without acute abnormality. 4. Left adrenal calcification in the setting of nodular hypertrophy, likely represents sequela of prior hemorrhage, infectious inflammatory foci. Underlying neoplasm is not entirely excluded, however there is no definitive evidence by imaging on today's modality. 5. Additional findings as above.
[2023-11-04] MEDS: iohexol 300 mg/mL 100 mL Btl IV (09:15)
== END 2023-11-04 08:48 | disposition home or self-care (01) ==
LOC: RAD 08:48
PROVIDERS: PCP Family Medicine; Visit Provider Podiatrist Foot & Ankle Surgery
DX: E11.621 Type 2 diabetes mellitus with foot ulcer (principal); L97.509 Non-pressure chronic ulcer of other part of unspecified foot with unspecified severity; Z89.421 Acquired absence of other right toe(s); E27.9 Disorder of adrenal gland, unspecified; I77.1 Stricture of artery
CPT/HCPCS: 75635; Q9967

== ENCOUNTER → 2023-11-09 14:42 | Outpatient (BNVA) | payer OTHER, SELFPAY | PROVIDERS: PCP Family Medicine; Visit Provider Podiatrist Foot & Ankle Surgery | DX: Z98.890 Other specified postprocedural states (principal); I96 Gangrene, not elsewhere classified; E11.621 Type 2 diabetes mellitus with foot ulcer; G62.9 Polyneuropathy, unspecified; L97.514 Non-pressure chronic ulcer of other part of right foot with necrosis of bone; Z89.421 Acquired absence of other right toe(s) | CPT/HCPCS: 99213; A6219 ==

== ENCOUNTER → 2023-11-17 15:30 | Outpatient (BNVA) | payer OTHER, SELFPAY | PROVIDERS: PCP Family Medicine; Visit Provider Podiatrist Foot & Ankle Surgery | DX: L97.509 Non-pressure chronic ulcer of other part of unspecified foot with unspecified severity (principal); E11.621 Type 2 diabetes mellitus with foot ulcer; L97.514 Non-pressure chronic ulcer of other part of right foot with necrosis of bone; Z98.890 Other specified postprocedural states; I96 Gangrene, not elsewhere classified; G62.9 Polyneuropathy, unspecified; Z79.4 Long term (current) use of insulin | CPT/HCPCS: 85025; 85651; 86140; 99213 ==

== ENCOUNTER → 2023-11-24 14:53 | Outpatient (BNVA) | payer OTHER, SELFPAY | PROVIDERS: PCP Family Medicine; Visit Provider Podiatrist Foot & Ankle Surgery | DX: Z98.890 Other specified postprocedural states; I96 Gangrene, not elsewhere classified; E11.621 Type 2 diabetes mellitus with foot ulcer; G62.9 Polyneuropathy, unspecified; L97.514 Non-pressure chronic ulcer of other part of right foot with necrosis of bone; Z79.4 Long term (current) use of insulin | CPT/HCPCS: 99213 ==

== ENCOUNTER → 2023-11-30 13:28 | Outpatient (BNVA) | payer OTHER, SELFPAY | PROVIDERS: PCP Family Medicine; Visit Provider Thoracic Surgery (Cardiothoracic Vascular Surgery) | DX: T81.31XD Disruption of external operation (surgical) wound, not elsewhere classified, subsequent encounter (principal); I96 Gangrene, not elsewhere classified; Y83.8 Other surgical procedures as the cause of abnormal reaction of the patient, or of later complication, without mention of misadventure at the time of the procedure; E11.52 Type 2 diabetes mellitus with diabetic peripheral angiopathy with gangrene; E11.621 Type 2 diabetes mellitus with foot ulcer; L97.511 Non-pressure chronic ulcer of other part of right foot limited to breakdown of skin | CPT/HCPCS: 11042; 97597; 99213 ==

== ENCOUNTER → 2023-12-07 15:02 | Outpatient (BNVA) | payer OTHER, SELFPAY | PROVIDERS: PCP Family Medicine; Visit Provider Thoracic Surgery (Cardiothoracic Vascular Surgery) | DX: E11.52 Type 2 diabetes mellitus with diabetic peripheral angiopathy with gangrene (principal); E11.621 Type 2 diabetes mellitus with foot ulcer; L97.512 Non-pressure chronic ulcer of other part of right foot with fat layer exposed | CPT/HCPCS: 11042; 97597 ==

== ENCOUNTER → 2023-12-14 13:23 | Outpatient (BNVA) | payer OTHER, SELFPAY | PROVIDERS: PCP Family Medicine; Visit Provider Thoracic Surgery (Cardiothoracic Vascular Surgery) | DX: E11.52 Type 2 diabetes mellitus with diabetic peripheral angiopathy with gangrene (principal); E11.621 Type 2 diabetes mellitus with foot ulcer; L97.512 Non-pressure chronic ulcer of other part of right foot with fat layer exposed | CPT/HCPCS: 11042; 97597 ==

== ENCOUNTER → 2023-12-21 15:32 | Outpatient (BNVA) | payer OTHER, SELFPAY | PROVIDERS: PCP Family Medicine; Visit Provider Thoracic Surgery (Cardiothoracic Vascular Surgery) | DX: E11.52 Type 2 diabetes mellitus with diabetic peripheral angiopathy with gangrene (principal); E11.621 Type 2 diabetes mellitus with foot ulcer; L97.511 Non-pressure chronic ulcer of other part of right foot limited to breakdown of skin | CPT/HCPCS: 97597 ==

== ENCOUNTER → 2023-12-28 14:24 | Outpatient (BNVA) | payer OTHER, SELFPAY | PROVIDERS: PCP Family Medicine; Visit Provider Thoracic Surgery (Cardiothoracic Vascular Surgery) | DX: E11.52 Type 2 diabetes mellitus with diabetic peripheral angiopathy with gangrene (principal); E11.621 Type 2 diabetes mellitus with foot ulcer; L97.412 Non-pressure chronic ulcer of right heel and midfoot with fat layer exposed | CPT/HCPCS: 11042; 97597; A6446 ==

== ENCOUNTER → 2024-01-04 15:32 | Outpatient (BNVA) | payer OTHER, SELFPAY | PROVIDERS: PCP Family Medicine; Visit Provider Thoracic Surgery (Cardiothoracic Vascular Surgery) | DX: E11.52 Type 2 diabetes mellitus with diabetic peripheral angiopathy with gangrene (principal); E11.621 Type 2 diabetes mellitus with foot ulcer; L97.411 Non-pressure chronic ulcer of right heel and midfoot limited to breakdown of skin | CPT/HCPCS: 11042; 97597 ==

== ENCOUNTER → 2024-01-10 14:56 | Outpatient (BNVA) | payer OTHER, SELFPAY | PROVIDERS: PCP Family Medicine; Visit Provider Thoracic Surgery (Cardiothoracic Vascular Surgery) | DX: E11.52 Type 2 diabetes mellitus with diabetic peripheral angiopathy with gangrene (principal); E11.621 Type 2 diabetes mellitus with foot ulcer; L97.521 Non-pressure chronic ulcer of other part of left foot limited to breakdown of skin | CPT/HCPCS: 11042; 87070; 87176; 87205; 97597 ==

== ENCOUNTER → 2024-01-11 11:00 | Outpatient (BNVA) | payer OTHER, SELFPAY | PROVIDERS: PCP Family Medicine; Visit Provider Podiatrist Foot & Ankle Surgery | DX: L97.512 Non-pressure chronic ulcer of other part of right foot with fat layer exposed (principal); E11.621 Type 2 diabetes mellitus with foot ulcer; Z79.4 Long term (current) use of insulin | CPT/HCPCS: 99213 ==

== ENCOUNTER → 2024-01-17 14:42 | Outpatient (BNVA) | payer OTHER, SELFPAY | PROVIDERS: PCP Family Medicine; Visit Provider Nurse Practitioner Family | DX: E11.52 Type 2 diabetes mellitus with diabetic peripheral angiopathy with gangrene (principal); E11.621 Type 2 diabetes mellitus with foot ulcer; L97.515 Non-pressure chronic ulcer of other part of right foot with muscle involvement without evidence of necrosis; L97.512 Non-pressure chronic ulcer of other part of right foot with fat layer exposed | CPT/HCPCS: 11042; 11043 ==

== ENCOUNTER → 2024-01-24 15:00 | Outpatient (BNVA) | payer OTHER, SELFPAY | PROVIDERS: PCP Family Medicine; Visit Provider Thoracic Surgery (Cardiothoracic Vascular Surgery) | DX: E11.52 Type 2 diabetes mellitus with diabetic peripheral angiopathy with gangrene (principal); E11.621 Type 2 diabetes mellitus with foot ulcer; L97.515 Non-pressure chronic ulcer of other part of right foot with muscle involvement without evidence of necrosis | CPT/HCPCS: 97597 ==

== ENCOUNTER → 2024-01-31 12:56 | Outpatient (BNVA) | payer OTHER, SELFPAY | PROVIDERS: PCP Family Medicine; Visit Provider Thoracic Surgery (Cardiothoracic Vascular Surgery) | DX: E11.52 Type 2 diabetes mellitus with diabetic peripheral angiopathy with gangrene (principal); E11.621 Type 2 diabetes mellitus with foot ulcer; Z09 Encounter for follow-up examination after completed treatment for conditions other than malignant neoplasm; L97.515 Non-pressure chronic ulcer of other part of right foot with muscle involvement without evidence of necrosis | CPT/HCPCS: 11043 ==

== ENCOUNTER 2024-02-06 15:44 | Outpatient (CLI) | payer OTHER, SELFPAY ==
--- NOTE | 2024-02-06 15:58 | XR_ITS ---
WS: [id number] Examination: XR foot RT min 3V* [id number] Reason for Exam: E11.621 - Type 2 diabetes mellitus with foot ulcer Date: February 06, 2024 Comparison: October 06, 2023 Findings: There is soft tissue swelling. The bone density is generally diminished.. There has been amputation of the third digit. There is soft tissue wound identified at the level of the right fifth metatarsal phalangeal joint. Ra diopaque density at the wound margin is noted. There is bony destruction of the distal fifth metatarsal and base of the fifth proximal phalanx. Vascular calcifications present. XR/XR foot RT min 3V* [id number] Impression: Destructive changes are present consistent with osteomyelitis at the level of t he right fifth metatarsal phalangeal joint. There is destruction across both si lucas of the joint space with an adjacent soft tissue wound. I reviewed these findings with Dr. Denton at 4:20 p.m. February 06, 2024.
== END 2024-02-06 15:45 | disposition home or self-care (01) ==
LOC: RAD 15:46
PROVIDERS: Visit Provider Thoracic Surgery (Cardiothoracic Vascular Surgery)
DX: E11.621 Type 2 diabetes mellitus with foot ulcer (principal); L97.509 Non-pressure chronic ulcer of other part of unspecified foot with unspecified severity; Z89.421 Acquired absence of other right toe(s); E11.52 Type 2 diabetes mellitus with diabetic peripheral angiopathy with gangrene; L97.519 Non-pressure chronic ulcer of other part of right foot with unspecified severity; L97.515 Non-pressure chronic ulcer of other part of right foot with muscle involvement without evidence of necrosis
CPT/HCPCS: 73630; 97597

== ENCOUNTER → 2024-02-07 13:00 | Outpatient (BNVA) | payer OTHER, SELFPAY | PROVIDERS: Visit Provider Podiatrist Foot & Ankle Surgery | DX: L08.9 Local infection of the skin and subcutaneous tissue, unspecified (principal); M86.9 Osteomyelitis, unspecified | CPT/HCPCS: 99214 ==

== ENCOUNTER → 2024-02-13 13:45 | Outpatient (BNVA) | payer OTHER, SELFPAY | PROVIDERS: Visit Provider Thoracic Surgery (Cardiothoracic Vascular Surgery) | DX: E11.52 Type 2 diabetes mellitus with diabetic peripheral angiopathy with gangrene (principal); E11.621 Type 2 diabetes mellitus with foot ulcer; L97.511 Non-pressure chronic ulcer of other part of right foot limited to breakdown of skin | CPT/HCPCS: 97597 ==

== ENCOUNTER 2024-02-15 06:59 | Day surgery (SDC) | payer OTHER, SELFPAY ==
--- NOTE | 2024-02-14 09:08 | P.ANESASSM_ITS ---
Pre-Anesthetic Assessment Height/Weight: Height 1.63 m Operation Date: 02/15/24 08:20 Proposed Procedures p Partial 5th ray resection right foot(Right) - Hao Denton DPM Familial anesthetic complications: None Social No alcohol and No tobacco Exam alert, oriented x 3, clear to auscultation bilaterally and regular rate & rhythm Airway Mallampati: Class I Dentition: chipped Pulmonary Asthma CV/HEM orthostatic hypotension (low bp) Metabolic Diabetes Mellitus Anesthetic Plan ASA status: 3 Anesthesia: MAC Risk of > 500 ml blood loss (7ml/kg in children): No Medications/Allergies Home Medications Medication Instructions Recorded Confirmed Last Taken Type insulin aspart U-100 100 unit/mL 30 unit SUBCUT TID 10/11/23 02/14/24 02/14/24 History subcutaneous solution (Novolog U-100 Insulin aspart) insulin glargine 100 unit/mL 30 unit SUBCUT DAILY 10/11/23 02/14/24 02/14/24 History subcutaneous solution (Lantus U-100 Insulin) ondansetron 8 mg disintegrating 8 mg PO Q12H PRN nausea and 10/12/23 02/14/24 Unknown Rx tablet vomiting #20 tabs sodium chloride 0.9 % irrigation 1 irrig irrigation DAILY PRN wound 01/04/24 02/14/24 02/14/24 Rx solution (Sterile Saline) care #1,000 mL Aspir-81 81 mg PO DAILY 02/14/24 02/14/24 02/13/24 History atorvastatin 80 mg tablet (Lipitor) 80 mg PO DAILY 02/14/24 02/14/24 02/14/24 History clopidogrel 75 mg tablet 75 mg PO DAILY 02/14/24 02/14/24 1 Day Ago History ~02/13/24 Allergies Allergy/AdvReac Type Severity Reaction Status Date / Time morphine Allergy ADR-Itching Verified 02/07/24 13:03 Alpha-Gal AdvReac ADR-Vomitin Verified 02/07/24 13:03 (Ciyfeaonl-Owvoo-3,3-Gala g [facility] Anesthesia Medical History Asthma Surgical History Status post colonoscopy (07/10/21) Repeat in 10 years History of neck surgery History of tonsillectomy and adenoidectomy History of endometrial ablation Status post tonsillectomy and adenoidectomy History of bladder suspension procedure H/O section X5 Social History Smoking and tobacco/nicotine status: unknown if used tobacco/nicotine Second hand smoke exposure: No Alcohol intake: never Substance/Drug Use: never Data Anesthesia Cardiac Studies: No Data to Display
[2024-02-15] VITALS (7 sets, daily range): BP systolic 107–126; BP diastolic 59–62; PULSE 65–79; RESP 16–17; TEMP 36.2–36.3; O2SAT 95–98; BMI 27.4
[2024-02-15] MEDS: acetaminophen 1,000 MG/100 ML PIGGYBACK 400 MG IV (07:28)
[2024-02-15] MEDS: sodium chloride 0.9% 1,000 ML 30 ML IV (07:28)
--- NOTE | 2024-02-15 07:28 | P.ANESUD_ITS ---
Pre-Anesthetic Update Pre-Anesthetic Assessment: Date of Surgery/Procedure: 02/15/24 Preop Grecia gnosis: Osteomyelitis Proposed Procedure: Operation Date: 02/15/24 08:20 Proposed Procedures p Partial 5th ray resection right foot(Right) - Hao Denton DPM Any changes to Pre-Anesthetic Assessment?: No Last Intake: Intake Last Liquid Date 02/14/24 Last Liquid Time 18:00 Last Solid Date 02/14/24 Last Solid Time 18:00 Vitals: Temperature 97.3 F L 02/15/24 07:09 Temperature Source Temporal Artery S can 02/15/24 07:09 Pulse Rate 79 02/15/24 07:09 Respiratory Rate 17 02/15/24 07:09 Blood Pressure 107/59 02/15/24 07:09 Blood Pressure Velma n 75 02/15/24 07:09 Pulse Oximetry 98 02/15/24 07:09 Oxygen Delivery Me thod Room Air 02/15/24 07:13 Exam: Pre-Anes Outpt Exam: alert, oriented x 3, clear to auscultation bilaterally and regular rate & rhythm Cardiac Studies: No Data to Display
[2024-02-15 08:01] LABS: Glucose Point of Care 167 mg/dL (70-110)
--- NOTE | 2024-02-15 08:29 | W.PM.OPSUD ---
Surgery/Procedure H&P Update DATE OF PROCEDURE: February 15, 2024 DATE H&P PERFORMED: 02/07/24 H&P UPDATE INFORMATION: I have reviewed H&P completed within last 30 days, I have examined patient prior to procedure, No changes to prior documentation and H&P is in [facility] on date indicated PREOP DIAGNOSIS: Osteomyelitis PLANNED PROCEDURE: Operation Date: 02/15/24 08:20 Proposed Procedures p Partial 5th ray resection right foot(Right) - Hao Denton DPM
[2024-02-15] MEDS: ceFAZolin 2,000 mg SDV 2000 MG IVP (08:50)
[2024-02-15] MEDS: BUPivacaine 0.5% INJ 30 mL 20 ML INJECTION (09:25)
--- NOTE | 2024-02-15 09:43 | P.BOP_ITS ---
Date of procedure: 02/15/2024 Surgeon name: Yeimi MillerPMayi Patient Transition Specialist(s) name(s): Yadira Procedure(s) performed: Right foot partial fifth ray resection Description of findings: Remaining tissue healthy and viable. Osteomyelitis right foot fifth metatarsal head. Clear, gelatinous mass lateral aspect fifth metatarsal Estimated blood loss: 5 cc Tourniquet time: 21 minutes Specimen(s) removed: Soft tissue mass right foot, fifth digit and partial fifth metatarsal right foot Post-operative diagnosis: Osteomyelitis
--- NOTE | 2024-02-15 09:44 | PM.OP ---
Operative Report Date of procedure: February 15, 2024 Pre-op diagnosis: Right foot osteomyelitis fifth metatarsal Post-op diagnosis: Same Post-op findings: Remaining tissue healthy and viable. Osteomyelitis right foot fifth metatarsal head. Clear, gelatinous mass lateral aspect fifth metatarsal Procedure done: Partial fifth ray resection right foot CPT 38045 Pathology: Fifth metatarsal right foot, soft tissue mass right foot Surgeon: Hao Denton DPM [employer]: Yadira Estimated blood loss: 5 cc 21-minute Complications: None Findings: See above Procedure: Indications for Surgery: The patient is a 58-year-old female with a history of diabetes mellitus who presented with chronic osteomyelitis of the fifth metatarsal, refractory to conservative management including antibiotics and wound care. After thorough discussion of the risks, benefits, and alternatives, the decision was made to proceed with a partial fifth ray resection to eradicate the infection and prevent further complications. Procedure Description: The patient was brought to the operating room and placed in a supine position on the operating table. After the induction of IV anesthesia, right foot was anesthetized using 0.5% Marcaine plain. Next, the right lower extremity was prepped and draped in the usual sterile fashion. A time-out was performed to confirm the correct patient, procedure, and site. A well-padded tourniquet was applied to the right ankle and inflated to 250 mmHg to maintain a bloodless field. A longitudinal incision was made over the dorsolateral aspect of the fifth metatarsal, extending from the base of the metatarsal to the level of the metatarsophalangeal joint. The incision was deepened through subcutaneous tissue, and meticulous dissection was carried out to expose the fifth metatarsal. Care was taken to preserve the surrounding soft tissues and neurovascular structures. Once the fifth metatarsal was adequately exposed, the periosteum was incised and elevated to expose the bone. A sagittal saw was used to perform the osteotomy at the base of the fifth metatarsal, taking care to remove all infected and necrotic bone. The osteotomy site was inspected, and any remaining devitalized tissue was debrided using curettes and rongeurs. The remaining portion of the fifth metatarsal was inspected to ensure that all infected bone had been removed. The bone ends were smoothened, and the wound was irrigated with copious amounts of normal saline solution. Fifth metatarsal and fifth digit were sent to pathology as surgical specimen. Small clear, gelatinous soft tissue mass along lateral aspect of fifth metatarsal was also excised from the operative field and sent as surgical specimen. Hemostasis was achieved using electrocautery. The tourniquet was deflated, and adequate perfusion to the foot was confirmed. The wound was closed with 3-0 nylon. A sterile dressing was applied, followed by a compressive bandage. The patient tolerated the procedure well, and there were no complications. The patient tolerated the procedure and anesthesia well and without complication. The patient was transported from the operating room to the recovery room with vital signs stable and vascular status intact to all digits of the right foot. The patient was given both written and verbal instructions to remain nonweightbearing to the operative extremity, to keep dressings/splint clean, dry and intact and to take pain medication as directed. The patient will follow-up in the outpatient setting at their scheduled appointment. The patient was discharged with my personal number and was instructed to call if any questions or issues should arise. They were discharged home once anesthesia criteria was met.
[2024-02-15] MEDS: TRAMadol 50 mg Tablet PO (10:35)
--- NOTE | 2024-02-15 10:40 | SUR.PHASEII ---
Patient waiting in post op room for verification of medication by pharmacy dur to patient's Alpha-Gal.
--- NOTE | 2024-02-15 10:55 | ANE.PACU2 ---
Inpatient post-anesthesia follow up: Airway intact: Yes Vital signs: Temperature 97.4 F Pulse Rate 68 Respiratory Rate 17 Blood Pressure 126/60 Pulse Oximetry 98 Oxygen Delivery Me thod Room Air Oxygen Flow Rate Fraction of Inspir ed Oxygen Hydration adequate: Yes Nausea and vomiting: No Pain level: 1 Mental status: Baseline
== END 2024-02-15 10:56 | disposition home or self-care (01) ==
PROVIDERS: Visit Provider Podiatrist Foot & Ankle Surgery
PROC: (CPT 28810; principal; 2024-02-15 08:10)
DX: M86.8X7 Other osteomyelitis, ankle and foot (principal); Z79.4 Long term (current) use of insulin
CPT/HCPCS: 28810; 36416; 82962; 88305; 88307; 88311; J0131; J0690; J1100; J1200; J3010; J3490; J7030

== ENCOUNTER → 2024-02-22 14:06 | Outpatient (BNVA) | payer OTHER, SELFPAY | PROVIDERS: Visit Provider Podiatrist Foot & Ankle Surgery | DX: L08.9 Local infection of the skin and subcutaneous tissue, unspecified (principal); M86.8X7 Other osteomyelitis, ankle and foot; L97.528 Non-pressure chronic ulcer of other part of left foot with other specified severity | CPT/HCPCS: 99024 ==

== ENCOUNTER → 2024-02-29 15:58 | Outpatient (BNVA) | payer OTHER, SELFPAY | PROVIDERS: PCP Family Medicine; Visit Provider Podiatrist Foot & Ankle Surgery | DX: L02.611 Cutaneous abscess of right foot (principal) | CPT/HCPCS: 87070; 87075; 87205 ==

== ENCOUNTER → 2024-03-07 14:33 | Outpatient (BNVA) | payer OTHER, SELFPAY | PROVIDERS: PCP Family Medicine; Visit Provider Podiatrist Foot & Ankle Surgery | DX: S91.302A Unspecified open wound, left foot, initial encounter (principal); X58.XXXA Exposure to other specified factors, initial encounter; Z98.890 Other specified postprocedural states; L08.9 Local infection of the skin and subcutaneous tissue, unspecified; M86.8X7 Other osteomyelitis, ankle and foot | CPT/HCPCS: 73630; 99213 ==

== ENCOUNTER → 2024-03-14 14:25 | Outpatient (BNVA) | payer OTHER, SELFPAY | PROVIDERS: PCP Family Medicine; Visit Provider Podiatrist Foot & Ankle Surgery | DX: Z98.890 Other specified postprocedural states (principal); L08.9 Local infection of the skin and subcutaneous tissue, unspecified; M86.9 Osteomyelitis, unspecified | CPT/HCPCS: 99213 ==

== ENCOUNTER → 2024-03-29 12:56 | Outpatient (BNVA) | payer OTHER, SELFPAY | PROVIDERS: PCP Family Medicine; Visit Provider Podiatrist Foot & Ankle Surgery | DX: E11.621 Type 2 diabetes mellitus with foot ulcer (principal); L97.522 Non-pressure chronic ulcer of other part of left foot with fat layer exposed; E11.69 Type 2 diabetes mellitus with other specified complication; Z79.4 Long term (current) use of insulin | CPT/HCPCS: 99213 ==

== ENCOUNTER → 2024-04-05 14:59 | Outpatient (BNVA) | payer OTHER, SELFPAY | PROVIDERS: PCP Family Medicine; Visit Provider Podiatrist Foot & Ankle Surgery | DX: E11.621 Type 2 diabetes mellitus with foot ulcer (principal); L97.522 Non-pressure chronic ulcer of other part of left foot with fat layer exposed; Z79.4 Long term (current) use of insulin | CPT/HCPCS: 99213 ==

== ENCOUNTER → 2024-04-10 13:35 | Outpatient (BNVA) | payer OTHER, SELFPAY | PROVIDERS: PCP Family Medicine; Visit Provider Podiatrist Foot & Ankle Surgery | DX: M79.672 Pain in left foot (principal); E11.621 Type 2 diabetes mellitus with foot ulcer; L97.522 Non-pressure chronic ulcer of other part of left foot with fat layer exposed; Z79.4 Long term (current) use of insulin | CPT/HCPCS: 73630 ==

== ENCOUNTER 2024-04-10 14:21 | Inpatient (IN) | payer OTHER, SELFPAY ==
[2024-04-10] VITALS (8 sets, daily range): BP systolic 112–155; BP diastolic 50–74; PULSE 77–95; RESP 14–16; TEMP 36.3–36.7; O2SAT 98–100; BMI 27.4
[2024-04-10 15:55] LABS: Basophils % 0.3 %; Eosinophils # 0.3 10^3/uL (0.0-0.8); Eosinophils % 2.4 %; Hematocrit 34.2 % (36-47); Lymphocytes # 1.4 10^3/uL (0.8-4.8); Lymphocytes % 13.5 %; Mean Corpuscular HGB Conc 32.7 g/dL (30-55); Mean Corpuscular Hemoglobin 28.4 pg (27-33); Mean Corpuscular Volume 86.6 fl (85-98); Mean Platelet Volume 9.3 fL (7.4-10.4); Monocytes # 0.8 10^3/uL (0.2-0.9); Monocytes % 7.4 %; Neutrophils % 75.7 %; Nucleated Red Blood Cells % 0 %; Platelet Count 309 10^3/cmm (157-399); Red Blood Count 3.95 10^6/uL (3.85-5.65); Red Cell Distribution Width 14.1 % (12.1-15.1)
[2024-04-10 16:18] LABS: Alanine Aminotransferase 16 U/L (0-33); Albumin Level 4.1 g/dL (3.5-5.2); Alkaline Phosphatase 114 U/L (35-105); Anion Gap 16.6 (5-19); Aspartate Amino Transferase 24 U/L (0-32); Blood Urea Nitrogen 16 mg/dL (8-23); C Reactive Protein 14.9 mg/L (0.0-4.9); Calcium 9.1 mg/dL (8.5-10.5); Carbon Dioxide 26 mmol/L (22-29); Chloride 101 mmol/L (98-107); Creatinine Clr Calc Pharmacy 64.9043; Globulin 4.4 g/dL (1.3-4.6); Glomerular Filtration Rate 63.9 mL/min (90-130); Glucose 74 mg/dL (65-115); Osmolality Calculated 290 mOsm/kg (285-295); Potassium 3.6 mmol/L (3.5-5.1); Sodium 140 mmol/L (136-145); Total Bilirubin 0.3 mg/dL (0.15-1.2); Total Protein 8.5 g/dL (6.6-8.7)
--- NOTE | 2024-04-10 16:28 | XRR_ITS ---
PROCEDURE INFORMATION: Exam: XR Chest Exam date and time: 04/10/2024 4:34 PM Age: 58 years old Clinical indication: Fever TECHNIQUE: Imaging protocol: Radiologic exam of the chest. Views: 1 view. COMPARISON: CT angio abd aorta runof [id number] 11/04/2023 9:20 AM FINDINGS: Lungs: Unremarkable. No consolidation. Pleural spaces: Unremarkable. No pleural effusion. No pneumothorax. Heart/Mediastinum: Unremarkable. No cardiomegaly. Bones/joints: C-spine fusion hardware. XR/XR chest 1V portable [id number] IMPRESSION: No acute findings.
[2024-04-10 16:39] LABS: Erythrocyte Sedimentation Rate 35 mm/hr (0-15)
--- NOTE | 2024-04-10 16:39 | W.ED.EXTPRO ---
HPI - Extremity Problem General: Chief complaint: Extremity Problem,Nontraumatic Stated complaint: left foot toe swollen and pain( sent) Time Seen by Provider: 04/10/24 15:43 Source: patient Mode of arrival: ambulatory Limitations: no limitations History of Present Illness: 58-year-old female who states she has been having erythema to the left fourth toe for over a week she has been following with podiatry Dr. Becerra she has been on antibiotics had seen her today he is concerned she has developed osteomyelitis and is failed outpatient treatment center here for admission for an amputation states she has had some subjective fevers and is not felt well over the last 2 days denies any vomiting or diarrhea Associated symptoms: Deny chest pain, fever(s) or rash Related Data Home Medications Medication Instructions Recorded Confirmed insulin aspart U-100 100 unit/mL 30 unit SUBCUT TID 10/11/23 04/10/24 subcutaneous solution (Novolog U-100 Insulin aspart) insulin glargine 100 unit/mL 30 unit SUBCUT DAILY 10/11/23 04/10/24 subcutaneous solution (Lantus U-100 Insulin) Aspir-81 81 mg PO DAILY 02/14/24 04/10/24 atorvastatin 80 mg tablet (Lipitor) 80 mg PO DAILY 02/14/24 04/10/24 clopidogrel 75 mg tablet 75 mg PO DAILY 02/14/24 04/10/24 Previous Rx's Medication Instructions Recorded ondansetron 8 mg disintegrating 8 mg PO Q12H PRN nausea and 10/12/23 tablet vomiting #20 tabs sodium chloride 0.9 % irrigation 1 irrig irrigation DAILY PRN wound 01/04/24 solution (Sterile Saline) care #1,000 mL tramadol 50 mg tablet 50 mg PO Q6H PRN pain #12 tabs 02/15/24 levofloxacin 500 mg tablet 500 mg PO DAILY #7 tabs 02/22/24 clindamycin HCl 300 mg capsule 300 mg PO TID #30 caps 02/29/24 doxycycline hyclate 100 mg capsule 100 mg PO BID #20 caps 03/07/24 ciprofloxacin HCl 500 mg tablet 500 mg PO BID #20 tabs 03/29/24 (Cipro) diabetic shoes with 3 inserts #1 ea 03/29/24 Allergies Allergy/AdvReac Type Severity Reaction Status Date / Time morphine Allergy ADR-Itching Verified 04/10/24 13:38 Alpha-Gal AdvReac ADR-Vomitin Verified 04/10/24 13:38 (Tkfbuwcww-Xftil-4,3-Gala g Review of Systems Const: Reports: chills, body aches and fatigue; Denies: fever(s) or change in appetite Eyes: Denies: eye discomfort ENMT: Denies: throat pain or dental pain Card: Denies: chest pain Resp: Denies: dyspnea GI: Denies: abdominal pain, nausea, vomiting or diarrhea : Denies: dysuria Musc: Denies: neck pain or back pain Skin/Breast: Denies: rash Neuro: Denies: headache(s) Psych: Denies: depression Hao/Lymph: Denies: easy bruising All/Imm: Denies: urticaria PFSH ED PFSH: Medical History Asthma Surgical History Status post colonoscopy (07/10/21) Repeat in 10 years History of neck surgery History of tonsillectomy and adenoidectomy History of endometrial ablation Status post tonsillectomy and adenoidectomy History of bladder suspension procedure H/O section X5 Social History Smoking and tobacco/nicotine status: unknown if used tobacco/nicotine Second hand smoke exposure: No Alcohol intake: never Substance/Drug Use: never Physical Exam Const: COMMON NORMALS: no acute distress, patient oriented x3 and healthy appearing HENMT: COMMON NORMALS: normocephalic and atraumatic HEAD & SCALP: normocephalic and atraumatic Neck/C-Spine: COMMON NORMALS: full ROM and supple Chest: COMMONS NORMALS: normal inspection of the chest Resp: COMMON NORMALS: normal respiratory effort Cardio: COMMON NORMALS: regular rate, regular rhythm and No murmurs present (Cardio) RATE: regular rate RHYTHM: regular rhythm Extremity: COMMON NORMALS: full ROM NARRATIVE EXTREMITY EXAM: erythema to left 4th toe Neuro: COMMON NORMALS: patient oriented x3, moves all extremities and no focal motor deficits Psych: COMMON NORMALS: mental status grossly normal, Normal thought process present and cooperative THOUGHT PROCESS: Normal thought process present Skin: COMMON NORMALS: no rashes or lesions noted and no wounds GENERAL SKIN EXAM: no rashes or lesions noted Course Vital Signs: Vital signs: Vital Signs Temperature 97.3 F L 04/10/24 15:51 Pulse Rate 82 04/10/24 15:51 Respiratory Rate 16 04/10/24 15:51 Blood Pressure 142/73 04/10/24 15:51 Pulse Oximetry 99 04/10/24 15:51 Oxygen Delivery Me thod Room Air 04/10/24 15:51 MDM - Extremity (Nontraumatic) Medical Decision Making Patient presents here with osteomyelitis to the left fourth toe I did speak to her other spatial scientist will admit at this time on antibiotics patient's to go to the OR tomorrow for amputation Medical Records I reviewed the patient's medical records. Lab Data I reviewed the patient's lab results. 04/10/24 15:46 04/10/24 15:46 Laboratory Results WBC 10.70 10^3/uL (3.29-11.43) 04/10/24 15:46 RBC 3.95 10^6/uL (3.85-5.65) 04/10/24 15:46 Hgb 11.20 g/dL (11.27-16.99) L 04/10/24 15:46 Hct 34.2 % (36-47) L 04/10/24 15:46 MCV 86.6 fl (85-98) 04/10/24 15:46 MCH 28.4 pg (27-33) 04/10/24 15:46 MCHC 32.7 g/dL (30-55) 04/10/24 15:46 RDW 14.1 % (12.1-15.1) 04/10/24 15:46 Plt Count 309 10^3/cmm (157-399) 04/10/24 15:46 MPV 9.3 fL (7.4-10.4) 04/10/24 15:46 Neut % (Auto) 75.7 % 04/10/24 15:46 Lymph % (Auto) 13.5 % 04/10/24 15:46 [place] % (Auto) 7.4 % 04/10/24 15:46 Eos % (Auto) 2.4 % 04/10/24 15:46 Baso % (Auto) 0.3 % 04/10/24 15:46 Neut # (Auto) 8.10 10^3/uL (1.8-7.7) H 04/10/24 15:46 Lymph # (Auto) 1.4 10^3/uL (0.8-4.8) 04/10/24 15:46 [place] # (Auto) 0.8 10^3/uL (0.2-0.9) 04/10/24 15:46 Eos # (Auto) 0.3 10^3/uL (0.0-0.8) 04/10/24 15:46 Baso # (Auto) 0.0 10^3/uL (0.0-0.1) 04/10/24 15:46 Nucleated RBC % (auto) 0 % 04/10/24 15:46 Nucleated RBCs # 0.0 /100WBC 04/10/24 15:46 ESR 35 mm/hr (0-15) H 04/10/24 15:46 Sodium 140 mmol/L (136-145) 04/10/24 15:46 Potassium 3.6 mmol/L (3.5-5.1) 04/10/24 15:46 Chloride 101 mmol/L (98-107) 04/10/24 15:46 Carbon Dioxide 26 mmol/L (22-29) 04/10/24 15:46 Anion Gap 16.6 (5-19) 04/10/24 15:46 BUN 16 mg/dL (8-23) 04/10/24 15:46 Creatinine 0.9 mg/dL (0.5-0.9) 04/10/24 15:46 GFR Calculation 63.9 mL/min (90-130) L 04/10/24 15:46 Glucose 74 mg/dL (65-115) 04/10/24 15:46 Calculated Osmolality 290 mOsm/kg (285-295) 04/10/24 15:46 Calcium 9.1 mg/dL (8.5-10.5) 04/10/24 15:46 Total Bilirubin 0.3 mg/dL (0.15-1.2) 04/10/24 15:46 AST 24 U/L (0-32) 04/10/24 15:46 ALT 16 U/L (0-33) 04/10/24 15:46 Alkaline Phosphatase 114 U/L (35-105) H 04/10/24 15:46 C-Reactive Protein 14.9 mg/L (0.0-4.9) H 04/10/24 15:46 Total Protein 8.5 g/dL (6.6-8.7) 04/10/24 15:46 Albumin 4.1 g/dL (3.5-5.2) 04/10/24 15:46 Globulin 4.4 g/dL (1.3-4.6) 04/10/24 15:46 All radiology interpretation(s) finalized by discharge Discharge Plan Discharge Condition: Stable Prescriptions: No Action sodium chloride [Sterile Saline] 0.9 % solution 1 irrig irrigation DAILY PRN (Reason: wound care) Qty: 1000 0RF clindamycin HCl 300 mg capsule 300 mg PO TID Qty: 30 0RF ciprofloxacin HCl [Cipro] 500 mg tablet 500 mg PO BID Qty: 20 0RF (DME) diabetic shoes with 3 inserts See Rx Instructions .Route .MEDSUPPLY Qty: 1 0RF Rx Instructions: As directed to the shoe jonah levofloxacin 500 mg tablet 500 mg PO DAILY Qty: 7 0RF doxycycline hyclate 100 mg capsule 100 mg PO BID Qty: 20 0RF insulin glargine [Lantus U-100 Insulin] 100 unit/mL Solution 30 unit SUBCUT DAILY insulin aspart U-100 [Novolog U-100 Insulin aspart] 100 unit/mL Solution 30 unit SUBCUT TID ondansetron 8 mg tablet,disintegrating 8 mg PO Q12H PRN (Reason: nausea and vomiting) Qty: 20 0RF Aspir-81 81 mg PO DAILY Lipitor 80 mg tablet 80 mg PO DAILY clopidogrel 75 mg tablet 75 mg PO DAILY tramadol 50 mg tablet 50 mg PO Q6H PRN (Reason: pain) Qty: 12 0RF Referrals: Huma Pappas MD [Primary Care Provider] - Coding Level of Care Code ED In Service Coordinator for Yelena Tyler
--- NOTE | 2024-04-10 17:16 | P.HP_ITS ---
Providers/Chief Complaint 2 Admitting Physician: Terrance Sagastume MD Primary Care Provider: Huma Pappas MD Chief Complaint: left foot toe swollen and pain( sent) History of Present Illness Fouzia Esquivel is a 58 year old female with past medical type II diabetes mellitus, peripheral arterial disease, Post peripheral angioplasty of the right leg, amputation of the toes on the right leg because of ischemic ulcers who has been following up with podiatry team as an outpatient for last 5 weeks because of developing ulcer on the left toe. As per the patient she for started noticing a blister between the left small toe and the fourth toe for which she started following up with podiatry team and she was started on oral antibiotics which she has been taking for last 5 weeks but the pain has been getting worse over last 3 days with foul-smelling secretions with occasional chills for last 2 days. Patient most recently has been on ciprofloxacin but prior to that has tried clindamycin and doxycycline over last 5 weeks. She was transferred to ER from podiatry office today with concern for osteomyelitis and with plan for amputation in AM. Review of Systems 2 General: Reports: 10 or more systems reviewed and unremarkable except in HPI and below Const: Denies: fever(s), chills, body aches, change in appetite, change in weight, malaise, night sweats, diaphoresis, change in sleep pattern, daytime sleepiness or snoring Eyes: Denies: change in vision, blurry vision, photophobia, eye discomfort or eye discharge ENMT: Denies: throat pain, enlarged tonsils, hoarseness, mouth pain, oral sores, dry mouth, tinnitus, nasal congestion or post nasal drip Card: Denies: chest pain, palpitations, irregular heart rhythm, edema, swelling of feet/ankles, lightheadedness, syncope, pre-syncope, dyspnea on exertion, orthopnea, leg pain with exertion or acrocyanosis Resp: Denies: dyspnea, productive cough, non-productive cough, wheezing, stridor, pain on inspiration, change in phlegm color, hemoptysis or chest congestion GI: Denies: abdominal pain, nausea, vomiting, hematemesis, coffee ground emesis, dysphagia, heartburn, diarrhea, constipation, bloating, GI cramping, change in bowel habits, pain on defecation, hematochezia or melena : Denies: flank pain, dysuria, urinary frequency, urinary urgency, urinary hesitancy, nocturia or hematuria Musc: Denies: neck pain, back pain, extremity pain, joint pain, joint swelling, joint redness, joint stiffness or limited range of motion Neuro: Denies: headache(s), numbness in extremities, weakness in extremities, sensory changes, lack of coordination, difficulty walking, frequent falls, dizziness, vertigo, confusion, Slurred speech present, difficulty communicating thoughts or seizure-like activity Psych: Denies: anxiety, depression, mood swings, panic attacks, hopelessness or irritability Endo: Denies: polyuria, polydipsia, tired all the time, cold intolerance, excessive sweating, flushing or heat intolerance Hao/Lymph: Denies: easy bruising or easy bleeding All/Imm: Denies: tongue swelling, facial swelling or acute wheezing Medications/Allergies Home Medications Medication Instructions Recorded Confirmed Last Taken Type insulin aspart U-100 100 unit/mL 30 unit SUBCUT TID 10/11/23 04/10/24 02/14/24 History subcutaneous solution (Novolog U-100 Insulin aspart) insulin glargine 100 unit/mL 30 unit SUBCUT DAILY 10/11/23 04/10/24 02/14/24 History subcutaneous solution (Lantus U-100 Insulin) ondansetron 8 mg disintegrating 8 mg PO Q12H PRN nausea and 10/12/23 04/10/24 Unknown Rx tablet vomiting #20 tabs sodium chloride 0.9 % irrigation 1 irrig irrigation DAILY PRN wound 01/04/24 04/10/24 02/14/24 Rx solution (Sterile Saline) care #1,000 mL Aspir-81 81 mg PO DAILY 02/14/24 04/10/24 02/13/24 History atorvastatin 80 mg tablet (Lipitor) 80 mg PO DAILY 02/14/24 04/10/24 02/14/24 History clopidogrel 75 mg tablet 75 mg PO DAILY 02/14/24 04/10/24 1 Day Ago History ~02/13/24 tramadol 50 mg tablet 50 mg PO Q6H PRN pain #12 tabs 02/15/24 04/10/24 Unknown Rx levofloxacin 500 mg tablet 500 mg PO DAILY #7 tabs 02/22/24 04/10/24 Unknown Rx clindamycin HCl 300 mg capsule 300 mg PO TID #30 caps 02/29/24 04/10/24 Unknown Rx doxycycline hyclate 100 mg capsule 100 mg PO BID #20 caps 03/07/24 04/10/24 Unknown Rx ciprofloxacin HCl 500 mg tablet 500 mg PO BID #20 tabs 03/29/24 04/10/24 Unknown Rx (Cipro) diabetic shoes with 3 inserts #1 ea 03/29/24 04/10/24 Unknown Rx Allergies Allergy/AdvReac Type Severity Reaction Status Date / Time morphine Allergy ADR-Itching Verified 04/10/24 13:38 Alpha-Gal AdvReac ADR-Vomitin Verified 04/10/24 13:38 (Fumsraafy-Yemcd-8,3-Gala g PFSH Acute 2 PFSH: Medical History (Updated 04/10/24 @ 17:33 by Terrance Sagastume MD) Peripheral vascular angioplasty status PAD (peripheral artery disease) Osteomyelitis Ischemic ulcer of foot Ischemic ulcer diabetic foot 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 Type 2 diabetes mellitus Asthma Surgical History Status post colonoscopy (07/10/21) Repeat in 10 years History of neck surgery History of tonsillectomy and adenoidectomy History of endometrial ablation Status post tonsillectomy and adenoidectomy History of bladder suspension procedure H/O section X5 Social History Smoking and tobacco/nicotine status: unknown if used tobacco/nicotine Second hand smoke exposure: No Alcohol intake: never Substance/Drug Use: never Vitals/I&O/Wt Last Vital Signs Temp 97.3 F L 04/10/24 15:51 Pulse 82 04/10/24 15:51 Resp 16 04/10/24 15:51 BP 142/73 04/10/24 15:51 Pulse Ox 99 04/10/24 15:51 O2 Del Method Room Air 04/10/24 15:51 Weight last 48 hrs Weight 72.575 kg Physical Exam 2 Narrative: General: No acute distress, AO x3 HEENT: PERRLA, pupils bilaterally equal and reactive Chest: Normal vesicular breath sounds, no added sounds, equal good air entry bilaterally CVS: S1-S2 regular, no murmurs, no tachycardia, no gallops, no rubs Abdomen: Soft, nontender, no organomegaly, bowel sounds present Neuro: No focal deficits, no facial deformity, AO x3, power 5/5 in all limbs Skin: NARRATIVE SKIN EXAM: Data 04/10/24 15:46 04/10/24 15:46 A&P Assessment and plan (1) Failure of outpatient treatment: (2) Osteomyelitis: (3) Cellulitis of left foot: (4) 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 Check blood culture, MRSA swab, procalcitonin, bacterial antigen. For now empirically start patient on IV vancomycin and IV Zosyn. Will request OR cultures. Appreciate ESR, CRP. Will plan for CT of the foot with contrast for further evaluation of osteomyelitis. Podiatry has been consulted from the ER. Tramadol 50 mg Q6 hourly as needed for pain control along with [place] 5 mg every 8 hourly as needed for breakthrough pain. Type 2 diabetes mellitus: Check A1c. Continue with home dose of 20 units of Humalog Premeal along with sliding scale and Lantus 30 units nightly. Peripheral arterial disease: Continue with home dose of aspirin, statin. Hold off on Plavix for now as patient is going to the OR tomorrow. Will request documentation from out side hospital. Patient follows up with vascular surgery at [facility] in [place]. Check lipid panel. Full code Carb consistent diet N.p.o. 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
[2024-04-10] MEDS: piperacillin-tazobactam 3.375 GM in sodium chloride 0.9% (plus) 50 ML IV ×2 (17:24→23:38)
--- NOTE | 2024-04-10 17:31 | CTR_ITS ---
PROCEDURE INFORMATION: Exam: CT Left Lower Extremity, Foot Exam date and time: 04/10/2024 5:56 PM Age: 58 years old Clinical indication: Other: Osteo TECHNIQUE: Imaging protocol: CT of the left lower extremity with intravenous contrast was performed. Exam focused on the foot. Radiation optimization: All CT scans at this facility use at least one of these dose optimization techniques: automated exposure control; mA and/or kV adjustment per patient size (includes targeted exams where dose is matched to clinical indication); or iterative reconstruction. Contrast material: OMNI 350; Contrast volume: 100 ml; Contrast route: INTRAVENOUS (IV); COMPARISON: CT angio abd aorta runof [id number] 11/04/2023 9:20 AM RADIATION DOSE METRICS: Total DLP (mGy-cm): 279 FINDINGS: Bones/joints: Small ankle effusion. Permeative appearance with cortical destruction and pathologic fractures in the 4th proximal and middle phalanges. The other bones are intact. Soft tissues: Subcutaneous soft tissue edema in the dorsal foot and extending into the 4th toe. CT/CT foot LT w con [id number] IMPRESSION: 1. Osteomyelitis with pathologic fractures in the 4th proximal and middle phalanges. 2. Cellulitis in the 4th toe and dorsal foot.
[2024-04-10] MEDS: iohexol 350 mg/mL 500 mL Btl (per mL) IV (18:03)
[2024-04-10] MEDS: vancomycin 1,000 MG in sodium chloride 0.9% 250 ML 250 MG IV (18:23)
--- NOTE | 2024-04-10 18:56 | PC.NURSE ---
This nurse assumed care at shift change from Jennifer Pennington.
[2024-04-10 19:04] LABS: Procalcitonin 0.11 ng/mL (0-0.5); Thyroid Stimulating Hormone 1.37 uIU/mL (0.27-4.20); Vitamin B12 235 pg/mL (232-1245)
[2024-04-10 19:15] LABS: Iron 28 ug/dL (37-145); Percent Saturation 9.5 % (20-50); Total Iron Binding Capacity 292 mcg/dl; Unsaturated Iron Binding 264 ug/dL (112-347)
--- NOTE | 2024-04-10 19:37 | P.CONIM_ITS ---
Providers/Reason For Consult 2 Consulting Physician/Specialty*: Dr. Hao Denton, DPM/Podiatry Reason for Consult*: Left foot fourth digit osteomyelitis Attending Physician: Trerance Sagastume MD Primary Care Provider: Huma Pappas MD History of Present Illness History of Present Illness Fouzia Esquivel is a 58 year old female who presented to podiatry clinic today with chief complaint of general malaise, fever, chills over the course of the past couple of days. Patient has had chronic ulceration to left foot fourth digit that has continued to worsen despite outpatient antibiotic therapy. X- rays taken in the podiatry office showed destructive changes to the fourth digit intermediate and proximal phalanges of the left foot. Given the circumstance of failed outpatient antibiotics and worsening osteomyelitis patient was directed to the emergency department for admission, IV antibiotic therapy and surgical debridement. Review of Systems 2 General: Reports: 10 or more systems reviewed and unremarkable except in HPI and below Const: Denies: fever(s), chills, body aches or change in appetite Eyes: Denies: change in vision or blurry vision Card: Denies: chest pain, palpitations or irregular heart rhythm Resp: Denies: dyspnea GI: Denies: abdominal pain, nausea, vomiting or diarrhea Musc: Reports: joint stiffness Skin/Breast: Reports: non-healing lesions and lesions Neuro: Reports: numbness in extremities Medications/Allergies Home Medications Medication Instructions Recorded Confirmed Last Taken Type insulin aspart U-100 100 unit/mL 30 unit SUBCUT TID 10/11/23 04/10/24 02/14/24 History subcutaneous solution (Novolog U-100 Insulin aspart) insulin glargine 100 unit/mL 30 unit SUBCUT DAILY 10/11/23 04/10/24 02/14/24 History subcutaneous solution (Lantus U-100 Insulin) ondansetron 8 mg disintegrating 8 mg PO Q12H PRN nausea and 10/12/23 04/10/24 Unknown Rx tablet vomiting #20 tabs sodium chloride 0.9 % irrigation 1 irrig irrigation DAILY PRN wound 01/04/24 04/10/24 02/14/24 Rx solution (Sterile Saline) care #1,000 mL Aspir-81 81 mg PO DAILY 02/14/24 04/10/24 02/13/24 History atorvastatin 80 mg tablet (Lipitor) 80 mg PO DAILY 02/14/24 04/10/24 02/14/24 History clopidogrel 75 mg tablet 75 mg PO DAILY 02/14/24 04/10/24 1 Day Ago History ~02/13/24 tramadol 50 mg tablet 50 mg PO Q6H PRN pain #12 tabs 02/15/24 04/10/24 Unknown Rx levofloxacin 500 mg tablet 500 mg PO DAILY #7 tabs 02/22/24 04/10/24 Unknown Rx clindamycin HCl 300 mg capsule 300 mg PO TID #30 caps 02/29/24 04/10/24 Unknown Rx doxycycline hyclate 100 mg capsule 100 mg PO BID #20 caps 03/07/24 04/10/24 Unknown Rx ciprofloxacin HCl 500 mg tablet 500 mg PO BID #20 tabs 03/29/24 04/10/24 Unknown Rx (Cipro) diabetic shoes with 3 inserts #1 ea 03/29/24 04/10/24 Unknown Rx Allergies Allergy/AdvReac Type Severity Reaction Status Date / Time morphine Allergy ADR-Itching Verified 04/10/24 13:38 Alpha-Gal AdvReac ADR-Vomitin Verified 04/10/24 13:38 (Nfsfnryzu-Bvmkr-2,3-Gala g PFSH Acute 2 PFSH: Medical History (Updated 04/10/24 @ 17:33 by Terrance Sagastume MD) Peripheral vascular angioplasty status PAD (peripheral artery disease) Osteomyelitis Ischemic ulcer of foot Ischemic ulcer diabetic foot 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 Type 2 diabetes mellitus Asthma Surgical History Status post colonoscopy (07/10/21) Repeat in 10 years History of neck surgery History of tonsillectomy and adenoidectomy History of endometrial ablation Status post tonsillectomy and adenoidectomy History of bladder suspension procedure H/O section X5 Social History Smoking and tobacco/nicotine status: unknown if used tobacco/nicotine Second hand smoke exposure: No Alcohol intake: never Substance/Drug Use: never Vitals/I&O/Wt Last Vital Signs Temp 97.3 F L 04/10/24 15:51 Pulse 85 04/10/24 19:30 Resp 16 04/10/24 15:51 BP 127/51 04/10/24 19:30 Pulse Ox 99 04/10/24 19:30 O2 Del Method Room Air 04/10/24 18:47 04/10/24 04/10/24 04/10/24 06:59 14:59 22:59 Intake Total 50 / 50 Balance 50 / 50 Weight last 48 hrs Weight 160 lb Physical Exam 2 Narrative: BELOW IS A FOCUSED LOWER EXTREMITY EXAM GENERAL: A&O x 3 VASCULAR: DP/PT pulses diminished to left lower extremity, weakly biphasic on hand-held Doppler DERMATOLOGICAL: Left foot fourth digit is edematous and erythematous with full- thickness ulceration to lateral aspect of fourth digit with positive probe to bone. Serosanguineous drainage. MUSCULOSKELETAL: Ankle joint and hindfoot range of motion within normal limits bilaterally. No tenderness with palpation of medial, lateral or anterior ankle bilaterally. No tenderness with palpation of lateral ankle ligaments bilaterally. No pain with palpation of midfoot bilaterally. 5/5 muscle strength in all 4 quadrants of the lower extremity when tested against resistance. No gross musculoskeletal deformities noted. NEUROLOGICAL: Neurological sensation to the affected foot and ankle is diminished through L4-S1 dermatomes via 10g SWMF, diminished sensation extends proximally to the level of the ankle IMAGING: Three-view x-rays taken of left foot in the podiatry office today show degenerative changes of the left foot fourth digit intermediate phalanx and proximal phalanx consistent with osteomyelitis. No subcutaneous emphysema noted. 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 at midnight for procedure 04/11/2024 -Osteomyelitis left foot fourth digit. Plan will be for surgical amputation of left fourth digit tomorrow 04/11/2024. Patient is scheduled to see cardiology on 04/13/2024 Dr. Romo for evaluation of peripheral arterial disease and to ensure vascular optimization. However, infection control is priority at this time. We will proceed with amputation and patient will be evaluated for vascular optimization after the procedure in the outpatient setting. 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
[2024-04-10 20:12] LABS: Bilirubin Urine Negative (Negative); Blood Urine Negative (Negative); Glucose Urine UA Negative (Normal); Ketones Urine Negative (Negative); Leukocyte Esterase Urine 1+ (Negative); Nitrate Urine Negative (Negative); Protein Urine Negative (Negative); Urine Appearance Clear (CLEAR); Urine Color Yellow (Yellow); Urobilinogen Urine 0.2 mg/dL (Negative)
[2024-04-10 20:15] LABS: Add Urine Microscopic? YES; Bacteria Urine None Seen /hpf; RBC Urine 0-2 /hpf (0-2); Squamous Epithelial Cell Urine 0-5 /hpf (0-5); WBC Urine 0-5 /hpf (0-5)
[2024-04-10 20:19] LABS: Specific Gravity, Urine 1.039 (1.005-1.030)
[2024-04-10 20:20] LABS: Add Urine Culture? No
--- NOTE | 2024-04-10 20:33 | PHA.VACGOAL ---
Vancomycin Goal - Goal Vancomycin Goal:: 15-20 mg/L Vancomycin Indication:: Osteo - Therapy Current therapy:: Pip/Tazo Day of therpy:: Day 1 of [] Actual body weight (kg): 160 lb [place] body weight: 54.7 Dosing weight (kg): 61.9 - Data Labs: WBC 10.70 10^3/uL (3.29-11.43) 04/10/24 15:46 RBC 3.95 10^6/uL (3.85-5.65) 04/10/24 15:46 Hgb 11.20 g/dL (11.27-16.99) L 04/10/24 15:46 Hct 34.2 % (36-47) L 04/10/24 15:46 MCV 86.6 fl (85-98) 04/10/24 15:46 MCH 28.4 pg (27-33) 04/10/24 15:46 MCHC 32.7 g/dL (30-55) 04/10/24 15:46 RDW 14.1 % (12.1-15.1) 04/10/24 15:46 Sodium 140 mmol/L (136-145) 04/10/24 15:46 Potassium 3.6 mmol/L (3.5-5.1) 04/10/24 15:46 Chloride 101 mmol/L (98-107) 04/10/24 15:46 Carbon Dioxide 26 mmol/L (22-29) 04/10/24 15:46 Anion Gap 16.6 (5-19) 04/10/24 15:46 BUN 16 mg/dL (8-23) 04/10/24 15:46 Creatinine 0.9 mg/dL (0.5-0.9) 04/10/24 15:46 GFR Calculation 63.9 mL/min (90-130) L 04/10/24 15:46 Last dialysis session:: N/A Treatment plan:: new consult Regimen:: INITIAL DOSE 750 MG Q12H BASED ON DOSING PROTOCOL Follow up:: WILL CONTINUE TO MONITOR AND FOLLOW UP DAILY
[2024-04-10 20:34] LABS: Glucose Point of Care 196 mg/dL (70-110)
[2024-04-10] MEDS: HYDROcodone-acetaminophen 5-325 mg Tablet 1 TAB PO (21:09)
[2024-04-10] MEDS: heparin 5,000 unit/mL INJ 1 mL 5000 UNIT SUBCUT (21:10)
[2024-04-10] MEDS: insulin lispro 100 unit/1 mL SUBCUT (21:10)
[2024-04-10] MEDS: TRAMadol 50 mg Tablet PO (23:45)
[2024-04-11] VITALS (13 sets, daily range): BP systolic 100–126; BP diastolic 56–97; PULSE 64–77; RESP 12–17; TEMP 36.4–36.8; O2SAT 94–98
[2024-04-11] MEDS: HYDROcodone-acetaminophen 5-325 mg Tablet 1 TAB PO (05:21)
[2024-04-11 06:06] LABS: Glucose Point of Care 87 mg/dL (70-110)
[2024-04-11 06:19] LABS: Basophils % 0.3 %; Eosinophils # 0.4 10^3/uL (0.0-0.8); Eosinophils % 5.5 %; Hematocrit 30.9 % (36-47); Lymphocytes # 2.7 10^3/uL (0.8-4.8); Lymphocytes % 39.3 %; Mean Corpuscular Hemoglobin 27.6 pg (27-33); Mean Corpuscular Volume 86.1 fl (85-98); Mean Platelet Volume 9.7 fL (7.4-10.4); Monocytes # 0.7 10^3/uL (0.2-0.9); Monocytes % 10.5 %; Neutrophils # 3.03 10^3/uL (1.8-7.7); Neutrophils % 44.3 %; Nucleated Red Blood Cells % 0 %; Platelet Count 262 10^3/cmm (157-399); Red Blood Count 3.59 10^6/uL (3.85-5.65); Red Cell Distribution Width 14.1 % (12.1-15.1); White Blood Count 6.85 10^3/uL (3.29-11.43)
[2024-04-11] MEDS: vancomycin 750 MG in sodium chloride 0.9% 250 ML 250 MG IV (06:29)
[2024-04-11 06:33] LABS: Estmated Average Glucose 163; Hemoglobin A1C 7.3 % (4.0-6.0)
[2024-04-11 06:42] LABS: Alanine Aminotransferase 15 U/L (0-33); Albumin Level 3.6 g/dL (3.5-5.2); Alkaline Phosphatase 97 U/L (35-105); Aspartate Amino Transferase 25 U/L (0-32); Blood Urea Nitrogen 13 mg/dL (8-23); Calcium 8.5 mg/dL (8.5-10.5); Carbon Dioxide 26 mmol/L (22-29); Chloride 104 mmol/L (98-107); Creatinine Clr Calc Pharmacy 65.5898; Globulin 3.4 g/dL (1.3-4.6); Glomerular Filtration Rate 63.9 mL/min (90-130); Glucose 83 mg/dL (65-115); Magnesium 1.9 mg/dL (1.7-2.3); Osmolality Calculated 287 mOsm/kg (285-295); Phosphorus 4.1 mg/dL (2.5-4.5); Sodium 139 mmol/L (136-145); Total Bilirubin 0.3 mg/dL (0.15-1.2)
[2024-04-11 06:46] LABS: Chol HDL Ratio 3.42 mg/dL (0.0-4.40); Cholesterol 123 mg/dL (0-200); HDL Cholesterol 36 mg/dL (60-100); LDL Cholesterol Calculated 69 mg/dL (50-129); LDL HDL Ratio 1.92 RATIO (0.00-3.22); Triglycerides 92 mg/dL (0-150)
[2024-04-11 06:49] LABS: Procalcitonin 0.11 ng/mL (0-0.5)
[2024-04-11 06:59] LABS: Folate Level 14.6 ng/mL (4.8-37.3)
[2024-04-11] MEDS: piperacillin-tazobactam 3.375 GM in sodium chloride 0.9% (plus) 50 ML IV (07:28)
[2024-04-11] MEDS: heparin 5,000 unit/mL INJ 1 mL 5000 UNIT SUBCUT (07:29)
[2024-04-11] MEDS: atorvastatin 40 mg Tablet PO (08:46)
[2024-04-11 09:18] LABS: MRSA PCR OZH (swab) NOT DETECTED (Not Detecte)
[2024-04-11 10:08] LABS: Glucose Point of Care 96 mg/dL (70-110)
--- NOTE | 2024-04-11 10:18 | P.ANESASSM_ITS ---
Pre-Anesthetic Assessment Height/Weight: Height 5 ft 4 in Weight 163 lb 9.6 oz Temp Pulse Resp BP Pulse Ox O2 Del Method 97.9 F 69 16 100/57 95 Room Air 04/11/24 07:18 04/11/24 07:18 04/11/24 07:18 04/11/24 07:18 04/11/24 07:18 04/11/24 07:18 Preop Diagnosis: Osteomyelitis Operation Date: 04/11/24 10:10 Proposed Procedures p Amputation Toe/s- 4th toe(Left) - Hao Denton DPM Was Beta Stanton taken within 24 hours: N/A Was Clonidine taken within 24 hours: N/A Social No alcohol and No tobacco Exam alert, oriented x 3, clear to auscultation bilaterally and regular rate & rhythm Airway Submandibular: within normal limits Cervical ROM: within normal limits Mallampati: Class III Dentition: other (Multiple chipped/decaying teeth. Patient denies any loose teeth) Anesthetic Plan ASA status: 3 Anesthesia: MAC Other: Multiple prior anesthetics without issue NPO since yesterday Alpha gal allergy, anesthesia team aware Very poor dentition, denies any loose teeth Type 2 diabetes on insulin. AM BS 83 PAD on chronic Plavix Labs 04/11/2024 reviewed acceptable for procedure Plan for MAC anesthetic with local via surgeon Medications/Allergies Home Medications Medication Instructions Recorded Confirmed Last Taken Type insulin aspart U-100 100 unit/mL 30 unit SUBCUT TID 10/11/23 04/11/24 02/14/24 History subcutaneous solution (Novolog U-100 Insulin aspart) insulin glargine 100 unit/mL 30 unit SUBCUT DAILY 10/11/23 04/11/24 02/14/24 History subcutaneous solution (Lantus U-100 Insulin) Aspir-81 81 mg PO DAILY 02/14/24 04/11/24 02/13/24 History atorvastatin 80 mg tablet (Lipitor) 80 mg PO DAILY 02/14/24 04/11/24 02/14/24 History clopidogrel 75 mg tablet 75 mg PO DAILY 02/14/24 04/11/24 1 Day Ago History ~02/13/24 tramadol 50 mg tablet 50 mg PO Q6H PRN pain #12 tabs 02/15/24 04/11/24 Unknown Rx ciprofloxacin HCl 500 mg tablet 500 mg PO BID #20 tabs 03/29/24 04/11/24 Unknown Rx (Cipro) diabetic shoes with 3 inserts #1 ea 03/29/24 04/11/24 Unknown Rx Allergies Allergy/AdvReac Type Severity Reaction Status Date / Time morphine Allergy ADR-Itching Verified 04/10/24 13:38 Alpha-Gal AdvReac ADR-Vomitin Verified 04/10/24 13:38 (Arfbduhni-Qyvis-4,3-Gala g Current Medications Generic Name Dose Route Start Last Admin Trade Name Freq PRN Reason Stop Dose Admin Hydrocodone Bitart/Acetaminophen 1 tab 04/10/24 20:00 04/11/24 05:21 Hydrocodone-Acetaminophen 5-325 Mg Tablet PO 1 tab Q8H PRN Administration MODERATE PAIN Aspirin 81 mg 04/11/24 09:00 04/11/24 08:47 Aspirin 81 Mg Chew Tablet PO Not Given DAILY MELANIE Atorvastatin Calcium 40 mg 04/11/24 09:00 04/11/24 08:46 Atorvastatin 40 Mg Tablet PO 40 mg DAILY MELANIE Administration Heparin Sodium (Porcine) 5,000 unit 04/10/24 20:00 04/11/24 07:29 Heparin 5,000 Unit/Ml Inj 1 Ml SUBCUT 5,000 unit Q12H MELANIE Administration Piperacillin Sod/Tazobactam 50 mls @ 12.5 mls/hr 04/10/24 23:30 04/11/24 07:28 Sod 3.375 gm/ Sodium Chloride IV 12.5 mls/hr Q8H MELANIE Administration Vancomycin HCl 750 mg/ Sodium 250 mls @ 250 mls/hr 04/11/24 06:30 04/11/24 08:33 Chloride IV Infused Q12H [facility] Infusion Insulin Glargine 30 unit 04/11/24 09:00 04/11/24 07:42 Insulin Glargine 100 Units/1 Ml SUBCUT Not Given DAILY [facility] Insulin Human Lispro 0 unit 04/10/24 20:00 04/11/24 07:41 Insulin Lispro 100 Unit/1 Ml SUBCUT Not Given WM&BEDTIME [facility] Protocol Tramadol HCl 50 mg 04/10/24 20:00 04/10/24 23:45 Tramadol 50 Mg Tablet PO 50 mg Q6H PRN Administration pain PFSH Anesthesia Medical History (Updated 04/10/24 @ 17:33 by Terrance Sagastume MD) Peripheral vascular angioplasty status PAD (peripheral artery disease) Osteomyelitis Ischemic ulcer of foot Ischemic ulcer diabetic foot 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 Type 2 diabetes mellitus Asthma Surgical History Status post colonoscopy (07/10/21) Repeat in 10 years History of neck surgery History of tonsillectomy and adenoidectomy History of endometrial ablation Status post tonsillectomy and adenoidectomy History of bladder suspension procedure H/O section X5 Social History Smoking and tobacco/nicotine status: unknown if used tobacco/nicotine Second hand smoke exposure: No Alcohol intake: never Substance/Drug Use: never Data Anesthesia 04/11/24 06:03 04/11/24 06:03 Short CBC 04/10/24 04/11/24 Range/Units 15:46 06:03 WBC 10.70 6.85 (3.29-11.43) 10^3/uL Hgb 11.20 L 9.90 L (11.27-16.99) g/dL Hct 34.2 L 30.9 L (36-47) % MCV 86.6 86.1 (85-98) fl Plt Count 309 262 (157-399) 10^3/cmm Neut % (Auto) 75.7 44.3 % Neut # (Auto) 8.10 H 3.03 (1.8-7.7) 10^3/uL BMP 04/10/24 04/11/24 15:46 06:03 Sodium 140 139 Potassium 3.6 4.0 Chloride 101 104 Carbon Dioxide 26 26 BUN 16 13 Creatinine 0.9 0.9 Glucose 74 83 Calcium 9.1 8.5 Liver Function 04/10/24 04/11/24 Range/Units 15:46 06:03 Total Bilirubin 0.3 0.3 (0.15-1.2) mg/dL AST 24 25 (0-32) U/L ALT 16 15 (0-33) U/L Alkaline Phosphatase 114 H 97 (35-105) U/L Albumin 4.1 3.6 (3.5-5.2) g/dL Urine 04/10/24 Range/Units 19:35 Urine Color Yellow (Yellow) Urine Appearance Clear (CLEAR) Urine pH 6.0 (5-7) Ur Specific [place] 1.039 H (1.005-1.030) Urine Protein Negative (Negative) Urine Glucose (UA) Negative (Normal) Urine Ketones Negative (Negative) Urine Nitrate Negative (Negative) Urine Bilirubin Negative (Negative) Ur Leukocyte Esterase 1+ A (Negative) Urine RBC 0-2 (0-2) /hpf Urine WBC 0-5 (0-5) /hpf Coags 04/10/24 15:46 ESR 35 H C-Reactive Protein 14.9 H Microbiology 04/10/24 19:35 Bacterial Antigens - Final Urine Kidney 04/10/24 18:41 Blood Culture - Preliminary Blood SPECIMEN COLLECTED 04/10/24 18:35 Blood Culture - Preliminary Blood SPECIMEN COLLECTED Cardiac Studies: 2 No Data to Display
--- NOTE | 2024-04-11 10:34 | PC.CHAP ---
Pastoral Care Encounter/Spiritual Assessment Type of Contact [] Declined drug purchaser visit [] Patient/Family/Request visit [] Outpatient visit [] Follow-up visit [] Physician referral [] Code/Alert [x] Routine visit [] Staff referral [] Actively dying [] Patient sleeping [x] Family support [] [] Out of room [] Palliative care [] [] Receiving care in room [] Pre-surgical visit [] Trauma [] Long length of stay [] ICU visit [] Other: Relational/Emotional Strength [x] Patient feels connected with others/family/visitors/staff [] Distress [] Loneliness/isolation [] Abandonment Spirituality of Patient [x] Person of Tiff [] Attends Orthodox of their Tiff [x] Believes in Prayer [] Reads Bible or Protestant materials [] There are Spiritual issues to be addressed Road Crew Member Interventions [x] Prayer [x] Active listening [x] Non-anxious presence [x] Spiritual/emotional support [] Crisis/trauma care [] Spiritual counseling [] Bereavement support [] Provided bereavement packet [] Provided Bible/devotional materials [] Provided toy/stuffed animal, coloring book to patient or family member [] Provided Communion [] Anointing/[place] [] Salvation [x] Completed spiritual assessment [] Other: Impact on Illness or Injury [] Angry [] Fearful [] Anxious [] Often cries [] Exhaustion [] Unable to work [] Unable to attend hinduism [] Unable to walk/stand [] Unable to read [] Unable to drive [] Unable to eat/drink [] Unable to sleep [] Unable to be with family [] Patient intubated [] Other: Summary Time spent with patient 5 min
[2024-04-11] MEDS: sodium chloride 0.9% 1,000 ML 30 ML IV (10:42)
--- NOTE | 2024-04-11 10:48 | P.HPUD_ITS ---
Surgery/Procedure H&P Update DATE OF PROCEDURE: April 11, 2024 DATE H&P PERFORMED: 02/07/24 H&P UPDATE INFORMATION: I have reviewed H&P completed within last 30 days, I have examined patient prior to procedure, No changes to prior documentation and H&P is in [facility] EMR on date indicated PREOP DIAGNOSIS: Osteomyelitis PLANNED PROCEDURE: Operation Date: 04/11/24 10:10 Proposed Procedures p Amputation Toe/s- 4th toe(Left) - Hao Denton DPM
[2024-04-11] MEDS: BUPivacaine 0.5% INJ 30 mL INJECTION (11:21)
--- NOTE | 2024-04-11 11:42 | P.OP_ITS ---
Operative Report Date of procedure: April 11, 2024 Surgeon: Hao Denton DPM Procedure: Date of procedure: 04/11/2024 Pre-op diagnosis: Left foot fourth digit osteomyelitis Post-op diagnosis: Same Post-op findings: Osteomyelitis of fourth proximal phalanx and intermediate phalanx left foot Procedure done: Left foot fourth digit amputation Implants: None Specimens removed: Left foot fourth digit sent as surgical specimen Surgeon: Dr. Hao Denton DPM Photograph Editor: Nelson Estimated blood loss: 5 cc Tourniquet time: Tourniquet not used Complications: None The patient presents with a severe foot infection involving left foot fourth digit, characterized by erythema, swelling, and drainage. The infection is complicated by underlying conditions, including peripheral arterial disease, which have contributed to the progression of the infection despite conservative management. Preoperative imaging and laboratory results indicate osteomyelitis, necessitating surgical intervention. The planned procedure is intended to addre ss the infection, debride necrotic tissue, and, if necessary, assess the viability of surrounding structures to prevent further complications. The patient has been NPO since midnight. The history has been reviewed and the history and physical is current. The signed consent was confirmed and placed in the patient chart. Patient imaging has been reviewed and is consistent with the diagnosis. Under mild sedation, the patient was brought into the operating room and placed on the table in the supine position. Patient is receiving antibiotics around the clock on the floor, Therefore, additional antibiotic prophylaxix was not administered. MAC sedation was then performed by the anesthesiateam. A pneumatic tourniquet was then placed about the left ankle. The operative extremity was then prepped and draped in the usual fashion. The tourniquet was not inflated. Following procedure was then performed. Attention was directed to the left fourth digit where a fishmouth incision was made circumferentially about the toe with care to preserve as much soft tissue as possible. Dissection was carried full-thickness down to level of bone. Dissection was carried out to the level of the fourth metatarsophalangeal joint. The collateral ligaments and attachments of the first metatarsal phalangeal joint capsule were excised. A penetrating towel clamp was then used to grasp the end of the toe to joystick the digit for amputation. All connections of the fourth metatarsophalangeal joint were released using a #15 blade. The fourth digit was then passed from the operative field be sent as specimen. The remaining tissues appeared healthy and viable in nature. The metatarsal head appeared healthy without any degenerative changes. The flexor and extensor tendons were then grasped and pulled distally before being incised as proximally as possible using a #15 blade. All remaining tissue appeared healthy. The site was then irrigated with copious amounts of sterile saline via cystoscopy tubing. The amputation site was then closed using 3-0 nylon in simple interrupted, horizontal mattress and retention type fashion. The tourniquet was let down and good hyperemic response was noted to all remaining digits of the operative extremity. The incision site was then dressed with Xeroform, 4 x 4 gauze, Kerlix, Yanick. The patient tolerated the procedure and anesthesia well and without com plication. The patient was transported from the operating room to the recovery room with vital signs stable and vascular status intact to all digits of the left foot. Thepatient was instructed to remain weightbearing as tolerated for transfers only to the operative extremity, to keep surgical dressing clean, dry and intact. The patient will be transferred back to the floor once anesthesia criteria is met. I will continue to round on and follow the patient in the inpatientsetting and provide recommendations to stabilize the patient for discharge. Based on intraoperative findings patient can be discharged home on oral antibiotics. PICC line not warranted.
--- NOTE | 2024-04-11 12:00 | ANE.PACU2 ---
Inpatient post-anesthesia follow up: Airway intact: Yes Vital signs: Temperature 97.8 F Pulse Rate 76 Respiratory Rate 16 Blood Pressure 104/56 Pulse Oximetry 98 Oxygen Delivery Me thod Room Air Oxygen Flow Rate Fraction of Inspir ed Oxygen Hydration adequate: Yes Nausea and vomiting: No Pain level: 1 Mental status: Baseline
[2024-04-11 12:19] LABS: Glucose Point of Care 92 mg/dL (70-110)
--- NOTE | 2024-04-11 13:16 | P.DS_ITS ---
Discharge Providers 2 Date of Admission: 04/10/24 17:02 Date of Discharge: April 11, 2024 Attending Provider at Admission: Terrance Sagastume MD Attending Provider at Discharge: Terrance Sagastume MD Consults: Podiatry: Dr. 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 As per the patient she for started noticing a blister between the left small toe and the fourth toe for which she started following up with podiatry team and she was started on oral antibiotics which she has been taking for last 5 weeks but the pain has been getting worse over last 3 days with foul-smelling secretions with occasional chills for last 2 days. Patient most recently has been on ciprofloxacin but prior to that has tried clindamycin and doxycycline over last 5 weeks. Patient was admitted to the hospital for the evaluation and management of cellulitis with osteomyelitis with concern for failure of outpatient treatment. She was started on broad-spectrum antibiotics. She underwent amputation with podiatry team on 04/11. Intraoperatively she was thought to have clean bony margins without any sign of infection hence she has been discharged on oral antibiotics for next 7 days for advised to follow-up with the podiatry team as an outpatient. Her OR and blood cultures will be followed up for next 5 days and if needed antibiotics will be changed accordingly. Physical Exam 2 Narrative: General: No acute distress, AO x3 HEENT: PERRLA, pupils bilaterally equal and reactive Chest: Normal vesicular breath sounds, no added sounds, equal good air entry bilaterally CVS: S1-S2 regular, no murmurs, no tachycardia, no gallops, no rubs Abdomen: Soft, nontender, no organomegaly, bowel sounds present Neuro: No focal deficits, no facial deformity, AO x3, power 5/5 in all limbs Skin: NARRATIVE SKIN EXAM: Discharge Data Studies Completed and Pending Completed Studies During Hospitalization Category Date Time Status CT foot LT w con [id number] Stat Cat Scan 04/10/24 17:31 Completed CXRP [XR chest 1V portable [id number]] Stat Exams 04/10/24 16:28 Completed Pending at discharge Category Date Time Status Blood Culture Stat Lab 04/10/24 18:41 Results Pathology: Surgical [PTH] Routine Pth 04/11/24 11:30 Received Radiology Impressions Chest X-Ray 04/10/24 16:28 IMPRESSION: No acute findings. Foot CT 04/10/24 17:31 IMPRESSION: 1. Osteomyelitis with pathologic fractures in the 4th proximal and middle phalanges. 2. Cellulitis in the 4th toe and dorsal foot. Laboratory Results WBC 6.85 10^3/uL (3.29-11.43) 04/11/24 06:03 RBC 3.59 10^6/uL (3.85-5.65) L 04/11/24 06:03 Hgb 9.90 g/dL (11.27-16.99) L 04/11/24 06:03 Hct 30.9 % (36-47) L 04/11/24 06:03 MCV 86.1 fl (85-98) 04/11/24 06:03 MCH 27.6 pg (27-33) 04/11/24 06:03 MCHC 32.0 g/dL (30-55) 04/11/24 06:03 RDW 14.1 % (12.1-15.1) 04/11/24 06:03 Plt Count 262 10^3/cmm (157-399) 04/11/24 06:03 MPV 9.7 fL (7.4-10.4) 04/11/24 06:03 Neut % (Auto) 44.3 % 04/11/24 06:03 Lymph % (Auto) 39.3 % 04/11/24 06:03 [place] % (Auto) 10.5 % 04/11/24 06:03 Eos % (Auto) 5.5 % 04/11/24 06:03 Baso % (Auto) 0.3 % 04/11/24 06:03 Neut # (Auto) 3.03 10^3/uL (1.8-7.7) 04/11/24 06:03 Lymph # (Auto) 2.7 10^3/uL (0.8-4.8) 04/11/24 06:03 [place] # (Auto) 0.7 10^3/uL (0.2-0.9) 04/11/24 06:03 Eos # (Auto) 0.4 10^3/uL (0.0-0.8) 04/11/24 06:03 Baso # (Auto) 0.0 10^3/uL (0.0-0.1) 04/11/24 06:03 Nucleated RBC % (auto) 0 % 04/11/24 06:03 Nucleated RBCs # 0.0 /100WBC 04/11/24 06:03 ESR 35 mm/hr (0-15) H 04/10/24 15:46 Sodium 139 mmol/L (136-145) 04/11/24 06:03 Potassium 4.0 mmol/L (3.5-5.1) 04/11/24 06:03 Chloride 104 mmol/L (98-107) 04/11/24 06:03 Carbon Dioxide 26 mmol/L (22-29) 04/11/24 06:03 Anion Gap 13.0 (5-19) 04/11/24 06:03 BUN 13 mg/dL (8-23) 04/11/24 06:03 Creatinine 0.9 mg/dL (0.5-0.9) 04/11/24 06:03 GFR Calculation 63.9 mL/min (90-130) L 04/11/24 06:03 Glucose 83 mg/dL (65-115) 04/11/24 06:03 POC Glucose 92 mg/dL (70-110) 04/11/24 12:16 Estimat Average Glucose 163 04/11/24 06:03 Hemoglobin A1c 7.3 % (4.0-6.0) H 04/11/24 06:03 Calculated Osmolality 287 mOsm/kg (285-295) 04/11/24 06:03 Calcium 8.5 mg/dL (8.5-10.5) 04/11/24 06:03 Phosphorus 4.1 mg/dL (2.5-4.5) 04/11/24 06:03 Magnesium 1.9 mg/dL (1.7-2.3) 04/11/24 06:03 Iron 28 ug/dL (37-145) L 04/10/24 15:46 TIBC 292 mcg/dl 04/10/24 15:46 % Saturation 9.5 % (20-50) L 04/10/24 15:46 Unsat Iron Binding 264 ug/dL (112-347) 04/10/24 15:46 Total Bilirubin 0.3 mg/dL (0.15-1.2) 04/11/24 06:03 AST 25 U/L (0-32) 04/11/24 06:03 ALT 15 U/L (0-33) 04/11/24 06:03 Alkaline Phosphatase 97 U/L (35-105) 04/11/24 06:03 C-Reactive Protein 14.9 mg/L (0.0-4.9) H 04/10/24 15:46 Total Protein 7.0 g/dL (6.6-8.7) 04/11/24 06:03 Albumin 3.6 g/dL (3.5-5.2) 04/11/24 06:03 Globulin 3.4 g/dL (1.3-4.6) 04/11/24 06:03 Triglycerides 92 mg/dL (0-150) 04/11/24 06:03 Cholesterol 123 mg/dL (0-200) 04/11/24 06:03 LDL Cholesterol, Calc 69 mg/dL (50-129) 04/11/24 06:03 HDL Cholesterol 36 mg/dL (60-100) L 04/11/24 06:03 LDL/HDL Ratio 1.92 RATIO (0.00-3.22) 04/11/24 06:03 Cholesterol/HDL Ratio 3.42 mg/dL (0.0-4.40) 04/11/24 06:03 Vitamin B12 235 pg/mL (232-1245) 04/10/24 15:46 Folate 14.6 ng/mL (4.8-37.3) 04/11/24 06:03 Procalcitonin 0.11 ng/mL (0-0.5) 04/11/24 06:03 TSH 1.37 uIU/mL (0.27-4.20) 04/10/24 15:46 Urine Color Yellow (Yellow) 04/10/24 19:35 Urine Appearance Clear (CLEAR) 04/10/24 19:35 Urine pH 6.0 (5-7) 04/10/24 19:35 Ur Specific [place] 1.039 (1.005-1.030) H 04/10/24 19:35 Urine Protein Negative (Negative) 04/10/24 19:35 Urine Glucose (UA) Negative (Normal) 04/10/24 19:35 Urine Ketones Negative (Negative) 04/10/24 19:35 Urine Blood Negative (Negative) 04/10/24 19:35 Urine Nitrate Negative (Negative) 04/10/24 19:35 Urine Bilirubin Negative (Negative) 04/10/24 19:35 Urine Urobilinogen 0.2 mg/dL (Negative) 04/10/24 19:35 Ur Leukocyte Esterase 1+ (Negative) A 04/10/24 19:35 Urine RBC 0-2 /hpf (0-2) 04/10/24 19:35 Urine WBC 0-5 /hpf (0-5) 04/10/24 19:35 Ur Squamous Epith Cells 0-5 /hpf (0-5) 04/10/24 19:35 Amorphous Sediment Not Reportable 04/10/24 19:35 Urine Bacteria None seen /hpf (NONE) 04/10/24 19:35 Hyaline Casts 3.30 /lpf 04/10/24 19:35 Nasal MRSA (PCR) Not detected (Not Detecte) 04/11/24 08:00 Vitals Last Vital Signs Temp 97.8 F 04/11/24 11:58 Pulse 70 04/11/24 11:58 Resp 16 04/11/24 11:58 BP 123/63 04/11/24 11:58 Pulse Ox 96 04/11/24 11:58 O2 Del Method Room Air 04/11/24 11:58 Discharge Plan Discharge Patient Disposition: Home Condition: Stable Prescriptions: New amoxicillin-pot clavulanate 875-125 mg tablet 1 tab PO BID Qty: 14 0RF levofloxacin 750 mg tablet 750 mg PO Q24H 7 Days Qty: 7 0RF Continued (DME) diabetic shoes with 3 inserts See Rx Instructions .Route .MEDSUPPLY Qty: 1 0RF Rx Instructions: As directed to the shoe jonah insulin glargine [Lantus U-100 Insulin] 100 unit/mL Solution 30 unit SUBCUT DAILY insulin aspart U-100 [Novolog U-100 Insulin aspart] 100 unit/mL Solution 30 unit SUBCUT TID Aspir-81 81 mg PO DAILY atorvastatin [Lipitor] 80 mg tablet 80 mg PO DAILY clopidogrel 75 mg tablet 75 mg PO DAILY tramadol 50 mg tablet 50 mg PO Q6H PRN (Reason: pain) Qty: 12 0RF No Action ciprofloxacin HCl [Cipro] 500 mg tablet 500 mg PO BID Qty: 20 0RF Discharge Orders: Discharge Order (Routine); Ordered 04/11/24 Ordered By: Terrance Sagastume Referrals: Hao Denton DPM [Physician] - 04/19/24 1:00 pm Huma Pappas MD [Primary Care Provider] - 04/16/24 2:00 pm Discharge Diet: Cardiac Discharge Activity: Resume usual activity and Increase activity as tolerated Patient Instructions: Amoxicillin (By mouth), Levofloxacin (By mouth) (Levaquin, Levaquin Leva-neda), Cellulitis (GEN), Acute Wound Care (DC), Opioid Safety, Post Anesthesia Care Activity Restrictions/Additional Instructions: Take Augmentin and Levaquin which is the antibiotic for next 7 days. New cultures to be followed up by podiatry team and if needed antibiotics will be changed accordingly. Follow-up with a primary care provider within next 1 week. Discharge Attestations 2 Time Spent in Discharge Care*: greater than 30 min Specific Discharge Activities: educating patient, educating and/or supporting family/caregiver, discussing with pcp/other providers, discussing with cyanide case hardener/social workers/dc planners, documenting/other paperwork and evaluating patient/reviewing data Status at Discharge: Cognitive status at discharge: cognitively intact , B ehavioral status at discharge: cooperative , Functional status at discharge: i ndependent ambulation , Overall status at discharge: patient is back to baseline Quality Metrics Clinical Quality Measures [ No reported AMI, CVA or VTE this stay] Coding Level of Care Code 32407 Total time (in minutes) for Discharge: 60 Diagnoses Osteomyelitis M86.9 Peripheral neuropathy G62.9 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
== END 2024-04-11 14:38 | disposition home or self-care (01) | DRG 617 ==
LOC: ER 16:42 → MEDSURG 17:03
PROVIDERS: Podiatrist Foot & Ankle Surgery; Admitting Provider Student in an Organized Health Care Education/Training Program; Emergency Provider Emergency Medicine; PCP Family Medicine; Visit Provider Student in an Organized Health Care Education/Training Program
PROC: 0Y6W0Z0 Detachment at Left 4th Toe, Complete, Open Approach (ICD-10-PCS; principal; 2024-04-11 10:00)
DX: E11.69 Type 2 diabetes mellitus with other specified complication (principal); M86.172 Other acute osteomyelitis, left ankle and foot; E11.621 Type 2 diabetes mellitus with foot ulcer; L97.524 Non-pressure chronic ulcer of other part of left foot with necrosis of bone; E11.42 Type 2 diabetes mellitus with diabetic polyneuropathy; E11.51 Type 2 diabetes mellitus with diabetic peripheral angiopathy without gangrene; Z79.4 Long term (current) use of insulin; Z89.421 Acquired absence of other right toe(s); Z79.82 Long term (current) use of aspirin; Z79.02 Long term (current) use of antithrombotics/antiplatelets
CPT/HCPCS: 36415; 36416; 71045; 73701; 80053; 80061; 81001; 82607; 82746; 82962; 83036; 83540; 83550; 83735; 84100; 84145; 84443; 85025; 85651; 86140; 86403; 87040; 87070; 87075; 87205; 88305; 88311; 94664; 96365; 96367; 96372; 99285; J1644; J1815; J2543; J2704; J3010; J3370; J3490; J7030; J7050

== ENCOUNTER → 2024-04-13 08:22 | Outpatient (BNVA) | payer OTHER, SELFPAY | PROVIDERS: PCP Family Medicine; Visit Provider Internal Medicine Cardiovascular Disease | DX: E11.51 Type 2 diabetes mellitus with diabetic peripheral angiopathy without gangrene (principal); E11.621 Type 2 diabetes mellitus with foot ulcer; L97.509 Non-pressure chronic ulcer of other part of unspecified foot with unspecified severity; Z79.4 Long term (current) use of insulin | CPT/HCPCS: 99204 ==

== ENCOUNTER 2024-04-16 06:00 | Outpatient (CLI) | payer OTHER, SELFPAY ==
[2024-04-16] VITALS (20 sets, daily range): BP systolic 109–147; BP diastolic 58–77; PULSE 63–91; RESP 12–27; TEMP 36.7; O2SAT 96–100; BMI 27.6
[2024-04-16] MEDS: aspirin 325 mg Tablet PO (06:30)
--- NOTE | 2024-04-16 07:00 | XACV_ITS ---
Exam Room: 2 Ht: 155 cm Wt: 73 kg BSA: 1.80 m2 Gender: Female : 1965 Any Known Allergies: Morphine Exam Priority: Routine Procedure(s): Procedure Description: Diagnostic procedure Procedure Description: Peripheral Cath Diagnostic Procedure Procedure Description: Abdominal aortic angiography Procedure Description: Lower extremities' angiography Procedure Description: Miscellaneous Procedure Description: ACT [id number], Romo; Diagnostic Cath Status: Elective PCI Status: Elective Lower Extremity Diagnostic Findings Indication for peripheral angiogram: S/P amputation of fourth left sided toe concerning for critial limb ischemia. Catheters used: Rim .Right common femoral artery was used to perform the peripheral angiogram, after placing a 5 Fijian sheath rim catheter was placed at the level of T10-12 perform the abdominal angiogram Rim catheter was directed towards the left common iliac and crossed into it with the help of wire all the way to left common femoral artery to perform the left lower leg angiogram Through right common femoral artery sheath right leg angiogram was performed.Abdominal aortogram: No significant stenosis or aneurysm noted Right renal artery patent Left renal artery: PatentRight common iliac: Patent no significant stenosis Right external iliac: Patent no significant stenosis Right internal iliac: Patent no significant stenosis Right common femoral artery: Patent no significant stenosis Right profundofemoral artery: Patent no significant Right SFA: Patent luminal irregularities without significant stenosis Right popliteal artery: Patent luminal irregularity without significant stenosis Right tibioperoneal trunk: Patent Right anterior tibial artery: Patent and proximal mid without significant stenosis, distal segment appeared to be small atretic but a lot of collaterals Right posterior tibial artery: Appeared to be occluded Right peroneal artery: Patent with luminal irregularityLeft common iliac artery: Patent Left external iliac artery: Patent Left internal iliac artery: Patent Left common femoral artery: Patent Left profundofemoral artery: Patent Left SFA artery: Patent without significant stenosis Left popliteal artery: Patent without significant stenosis Left tibioperoneal artery: Patent without significant stenosis Left anterior tibial artery: Medium size caliber vessel which is patent but has severe proximal mid and distal ecentric flow limiting stenosis and appeared to be atretic in his distal course, it is the culprit vessel since only vessel supplies the foot with ischemc ulcer, therefore needs to be addressed. Left posterior tibial artery: Appeared to be chronically occluded with collaterals from peroneal and tibial vessels were noted on the digital images Left peroneal artery: Patent and proximal to mid segment has moderate lesion but overall provide and received collaterals from the neighboring vessels.Left arch foot: Collaterals noted forming the arch Right arch huy: Collaterals noted forming the arch. Lower Extremity Interventional Findings Percutaneous intervention to left anterior tibial vessel: We were able to cross into the left anterior tibial artery with the help of wire please see inventory. Using [place] 2x40 millimeter [id number] balloon multiple balloon angioplasty of distal mid and proximal left anterior tibial artery was performed at high atmosphere which resulted in reducing those severe lesion to mildly stenotic lesion and pentecostal of good flow through the left anterior tibial artery which was confirmed at the end of the case through digital images. Good anterior tibial pulse was also obtained which was palpable. Foot appeared to be warm now. Conclusions 1-year-old female past medical history significant for hypertension hyperlipidemia diabetes mellitus with severe peripheral vascular disease diabetic foot ulcer underwent peripheral angiogram yesterday for critical limb ischemia history of osteomyelitis cellulitis and amputation of left fourth toe, she was noted to have single-vessel runoff before the left knee with anterior tibial which also has proximal mid and distal high-grade stenosis. We were able to cross the anterior tibial lesions which were treated with balloon angioplasty using 2.0 x 40 mm balloon at 8 hiro for 2 minutes each. Good angiographic result with pentecostal of flow noted up to the left foot. After revascularization of the anterior tibial good robust collaterals were seen in the leg as well as her left foot arch was also visualized however it has small diffusely disease vessels. . Recommendations Usual post cath care Continue aspirin statin Will add Xarelto low-dose Follow-up with podiatry and primary care physician. Pressures Phase:Rest AO : 145 / 54 ( 92 ) @ 8:50:00 AM 110 / 50 ( 76 ) @ 9:00:00 AM 108 / 44 ( 70 ) @ 9:32:00 AM 100 / 44 ( 67 ) @ 9:36:00 AM 130 / 50 ( 80 ) @ 9:46:00 AM Hemodynamic Data Phase:Rest AO : 145.0 / 54.0 ( 92.0 ) @ 8:50:00 AM 110.0 / 50.0 ( 76.0 ) @ 9:00:00 AM 108.0 / 44.0 ( 70.0 ) @ 9:32:00 AM 100.0 / 44.0 ( 67.0 ) @ 9:36:00 AM 130.0 / 50.0 ( 80.0 ) @ 9:46:00 AM Clinical Evaluation EBL: 5mL-10mL Procedural Details Pre-Procedure Time Out. Identified patient by full name and date of as verbalized by the patient/guarantor. Does the consent match the physician's order: Yes. Accurate & Complete Informed Consent: Yes. Inpatient/Outpatient History & Physical on Chart: Yes. If H&P is completed, is and addenduem needed: No; If yes, is the addendum complete: N/A. Visualize and Verify Site with Patient/Guarantor: N/A. Relevant Radiology Images available: Yes. Pre-op teaching completed and patient verbalized understanding. The risks, benefits, and alternatives of sedation and/or procedure were discussed by physician. The patient agrees to continue. Procedure started. [facility] Clinical Fraility Score: 3: Managing Well. Miniature Set Constructor Indications: PVD. Correct patient, site and procedure confirmed by cath team. PERRLA. Strong, equal hand business systems manager bilaterally. Lungs clear x 5 lobes. IV Site on Arrival: 20 gauge in the right anticubital. IV Fluids: 0.9% NaCl at KVO. 0 mL infused prior to seed laboratory technician. Pre Procedural Pulses: right dorsalis pedis was Doppled. Pre Procedural Pulses: right posterior tibial was Doppled. Pre Procedural Pulses: bilateral radial was 2+. Pre Procedural Pulses: left dorsalis pedis was unable to assess d/t surgical dressing. Pre Procedural Pulses: left posterior tibial was unable to assess d/t surgical dressing. Oxygen started at 2liters/min via nasal canula. bilateral groins was prepped with chloroprep then draped in the usual sterile fashion. Physician notified. Baseline sample Acquired. HR: 69 BPM. Patient's family in the seed laboratory technician waiting room. Dr. Romo will update at the completion of the procedure. Equipment: 6F - Femoral. Cardiac Cath Pack. ACIST Manifold Kit Model BT 2000. Heparinized Saline (2 units/mL), 1000 mL bag. Kit, Micropuncture. Physician arrived. Physician scrubbed in. Immediate Pre-Procedure Time Out. Correct Patient: Yes; Correct Procedure: Yes; Correct Site: Yes; Correct Patient Position: Yes; Correct Supplies: Yes; Dried Flammable Prep: Yes; Blood Products Available: N/A. Lidocaine 1% infiltrated to the right groin. Arterial access obtained with micropuncture set. A 5FrFr UF catheter in over wire. Abdominal aortogram performed in AP @ 10 mL/sec for a total of 30 mL. Standard J wire out, 0.035 stiff angled glidewire in. Left superficial femoral selected and arteriogram with runoff performed @ 10 mL/sec for a total of 30 mL. Catheter removed over the glide wire. Sheath upsized to a 6 Fr. Seeker catheter inserted over the wire. Glidewire out. 300cm Runthrough guidewire in through the Seeker support catheter. Seeker support catheter out OTW. Inflation number : 1 A AB ARMADA 14 OTW [id number] was prepped and advanced across the Anterior Tibial, Left , then inflated to 4 HIRO for 0:33 seconds. Inflation number: 2 The AB ARMADA 14 OTW [id number] was reinflated across the Anterior Tibial, Left, to 8 HIRO for 1:05 seconds. Inflation number: 3 The AB ARMADA 14 OTW [id number] was reinflated across the Anterior Tibial, Left, to 8 HIRO for 1:07 seconds. Inflation number: 4 The AB ARMADA 14 OTW [id number] was reinflated across the Anterior Tibial, Left, to 8 HIRO for 1:03 seconds. Inflation number: 5 The AB ARMADA 14 OTW [id number] was reinflated across the Anterior Tibial, Left, to 8 HIRO for 1:03 seconds. Inflation number: 6 The AB ARMADA 14 OTW [id number] was reinflated across the Anterior Tibial, Left, to 8 HIRO for 2:00 seconds. Balloon out over wire. Runthrough guidewire out. Sheath upsized to a 6 Fr. ACT drawn. Results 202 seconds. Therapeutic limits - pre-heparin administration 90-150 seconds and monitoring heparin during a vascular procedure >250 seconds. Sheath injected in Right common femoral artery and runoff performed at 10mL/sec for a total of 30mL. Left superficial femoral selected and arteriogram with runoff performed @ 10 mL/sec for a total of 30 mL. Left superficial femoral selected and arteriogram with runoff performed @ 10 mL/sec for a total of 30 mL. A Suture was successful obtaining hemostatsis at the Right Femoral artery insertion site. Sheath(s) sutured into position with 2-0 silk and sterile 4x4's and Op-site applied over the site. No oozing or signs and symptoms of hematoma noted. Arterial sheath flushed and connected to tranducer and pressure bag with heparinized saline. Post Procedure: Pulses reassessed and unchanged. PERRLA. Strong, equal hand business systems manager bilaterally. No VTE prophylaxis required. Medication's Wasted: Lidocaine 1% = 10 mL. Medication's Wasted: Nitro = 49.2 mg. Medication's Wasted: Heparin = 4000 units. Total IV fluids: 50 mL. Post-op diagnosis: Ballooning of the left AT. Complications: none. Estimated blood loss: 5mL-10mL. Responsiveness - Normal response to verbal stimuli; alert and oriented, PERRLA. Airway - Unaffected, no intervention required; spontaneous ventilation. Circulation: W/N/L, pulses unchanged. Procedure completed. Nausea/Vomiting: No. Patient transferred by bed to CPRU. Vital chart was stopped. Access Site Site: Right Femoral artery Sheath Size: 6 Fr Hemostasis Method: Suture Hemostasis Success: Successful Procedure Medications Start: 7:24 AM Stop: 7:24 AM Medication: Solu-Medrol (methylprednisolone) Amount: 125 mg Route: I.V. Start: 7:24 AM Stop: 7:24 AM Medication: Benadryl Amount: 50 mg Route: I.V. Start: 7:31 AM Stop: 7:31 AM Medication: Versed Amount: 1 mg Route: I.V. Start: 7:31 AM Stop: 7:31 AM Medication: Fentanyl Amount: 50 mcg Route: I.V. Start: 7:48 AM Stop: 7:48 AM Medication: Versed Amount: 1 mg Route: I.V. Start: 7:48 AM Stop: 7:48 AM Medication: Fentanyl Amount: 50 mcg Route: I.V. Start: 8:05 AM Stop: 8:05 AM Medication: Heparin Amount: 5000 units Route: I.V. Start: 8:10 AM Stop: 8:10 AM Medication: Heparin Amount: 2000 units Route: I.V. Start: 8:31 AM Stop: 8:31 AM Medication: Nitrogylcerin Amount: 400 mcg Route: I.A. Start: 8:35 AM Stop: 8:35 AM Medication: Nitrogylcerin Amount: 400 mcg Route: I.A. Start: 8:55 AM Stop: 8:55 AM Medication: Plavix Amount: 75 mg Route: P.O. I, the attending physician, have reviewed and verified all procedure medications. Yes, all medications given per verbal order History/Risk Factors Hypertension: No Dyslipidemia: Yes Peripheral Arterial Disease (PAD): Yes Myocardial Infarction ([place]): No Obesity: No Renal Disease: No Tobacco Use: Never Prior Interventions PCI: No CABG: No Valve Surgery: No Report Signatures Finalized by Annemarie Romo MD on 05/13/2024 09:30 PM
--- NOTE | 2024-04-16 07:39 | W.PM.OPSUD ---
Surgery/Procedure H&P Update DATE OF PROCEDURE: April 16, 2024 DATE H&P PERFORMED: 02/12/24 PREOP DIAGNOSIS: Critical limb ischemia/status post amputation of left fourth toe PLANNED PROCEDURE: Operation Date: 04/16/24 07:00 Proposed Procedures p Peripheral Diagnostic - Peripheral angio, Angioplasty of Left leg(Left) - Annemarie Romo MD PATIENT REASSESSED PRIOR TO SEDATION, WITH NO CHANGE NOTED: Yes PHYSICAL EXAM: alert, oriented x 3, clear to auscultation bilaterally, regular rate & rhythm and operative site marked AIRWAY EVAL/ANESTHESIA PLAN: ASA II, Risks, benefits & alternatives of sedation and/or procedure discussed and Patient agrees to continue as planned ADDITIONAL INFORMATION: Mallampati 2
[2024-04-16 11:55] LABS: Partial Thromboplastin Time 69.8 SECONDS (23.9-36.7)
[2024-04-16 14:26] LABS: Partial Thromboplastin Time 29.2 SECONDS (23.9-36.7)
[2024-04-16] MEDS: ALPRAZolam 0.5 mg Tablet 0.25 MG PO (14:39)
[2024-04-16] MEDS: fentaNYL 50 mcg/mL INJ 2mL IVP (14:40)
--- NOTE | 2024-04-16 20:04 | PC.NURSE ---
shift report received pt from equipment operator/laborer. awake, alert oriented. Pt has right groin 6 fr sheath in the right femoral artery attached to pressure bag. no hematoma, swelling or bleeding. pedal pulses +2, pt has a wound on left foot w/4th toe amputation, pt stated not to touched or changed her dressing inpt per dr order outpt, activity restrictions discuss to pt. call light provided. 1445PM- sheath removed on right femoral artery, manual pressure held for 20 mins and hemostasis achieved. no hematoma, swelling or bleeding. pedal pulses checked, vs monitored. discuss pt about 6 hr bedrest post pci sheath removal. to call nurse BROWN if any unusual pain, bleeding, pressure or swelling noted on right groin. call light provided.
[2024-04-16 20:55] LABS: Glucose Point of Care 427 mg/dL (70-110)
[2024-04-16] MEDS: amoxicillin-clav 875-125 mg Tablet 1 TAB PO (21:42)
[2024-04-16] MEDS: insulin lispro 100 unit/1 mL SUBCUT (21:42)
[2024-04-17] VITALS: BP 147/74; PULSE 84; RESP 18; O2SAT 97
[2024-04-17 01:00] VITALS: BP 131/64; PULSE 83; RESP 20; O2SAT 99
[2024-04-17] MEDS: ondansetron 2 mg/ML SDV 2 mL 4 MG IVP (02:02)
[2024-04-17 04:46] LABS: Basophils % 0.1 %; Hematocrit 30.8 % (36-47); Lymphocytes # 1.6 10^3/uL (0.8-4.8); Lymphocytes % 13.1 %; Mean Corpuscular HGB Conc 32.8 g/dL (30-55); Mean Corpuscular Hemoglobin 27.5 pg (27-33); Mean Corpuscular Volume 83.9 fl (85-98); Mean Platelet Volume 9.8 fL (7.4-10.4); Monocytes # 0.7 10^3/uL (0.2-0.9); Monocytes % 5.6 %; Neutrophils # 10.03 10^3/uL (1.8-7.7); Neutrophils % 80.7 %; Nucleated Red Blood Cells % 0 %; Platelet Count 379 10^3/cmm (157-399); Red Blood Count 3.67 10^6/uL (3.85-5.65); Red Cell Distribution Width 13.8 % (12.1-15.1); White Blood Count 12.41 10^3/uL (3.29-11.43)
[2024-04-17 05:04] LABS: Anion Gap 16.1 (5-19); Blood Urea Nitrogen 19 mg/dL (8-23); Calcium 8.8 mg/dL (8.5-10.5); Carbon Dioxide 24 mmol/L (22-29); Chloride 101 mmol/L (98-107); Creatinine Clr Calc Pharmacy 65.0945; Glomerular Filtration Rate 63.9 mL/min (90-130); Glucose 280 mg/dL (65-115); Osmolality Calculated 296 mOsm/kg (285-295); Potassium 4.1 mmol/L (3.5-5.1); Sodium 137 mmol/L (136-145)
[2024-04-17 06:00] VITALS: PULSE 72
[2024-04-17 07:11] LABS: Glucose Point of Care 367 mg/dL (70-110)
[2024-04-17 07:54] VITALS: BP 131/85; PULSE 77; RESP 16; TEMP 36.9; O2SAT 96
[2024-04-17] MEDS: amoxicillin-clav 875-125 mg Tablet 1 TAB PO (08:26)
[2024-04-17] MEDS: insulin lispro 100 unit/1 mL SUBCUT (08:27)
[2024-04-17] MEDS: clopidogrel 75 mg Tablet PO (08:28)
[2024-04-17 12:02] VITALS: BP 100/59; PULSE 79; RESP 20; TEMP 36.9; O2SAT 98
[2024-04-17 12:03] LABS: Glucose Point of Care 226 mg/dL (70-110)
--- NOTE | 2024-04-17 14:23 | P.DS_ITS ---
Discharge Providers Date of Admission: 04/16/2024 Date of Discharge: April 17, 2024 Attending Provider at Admission: Annemarie Romo MD Attending Provider at Discharge: Annemarie Romo MD Primary Care Provider: Huma Pappas MD Reason for Visit Reason for Visit: I25.89, I70.222, I73.9 Brief History: Critical limb ischemia of left foot with severe peripheral vascular disease status post amputation of 4 toe Hospital Course Hospital Course 58-year-old female past medical history significant for hypertension hyperlipidemia diabetes mellitus with severe peripheral vascular disease diabetic foot ulcer underwent peripheral angiogram yesterday for critical limb ischemia history of osteomyelitis cellulitis and amputation of left fourth toe, she was noted to have single-vessel runoff before the left knee with anterior tibial which also has proximal mid and distal high-grade stenosis. We were able to cross the anterior tibial lesions which were treated with balloon angioplasty using 2.0 x 40 mm balloon at 8 hiro for 2 minutes each. Good angiographic result with jainism of flow noted up to the left foot. After revascularization of the anterior tibial good robust collaterals were seen in the leg as well as her left foot arch was also visualized however it has small diffusely disease vessels. This morning patient was examined by bedside, she was noted to have good dopplerable anterior tibial and faint posterior tibial pulses, left foot appeared to be warm moist. Patient denies any pain. Right groin looks good no hematoma no bruising. Patient is being discharged home, our plan is to add Xarelto 2.5 mg twice a day will continue Plavix 75 mg once a day and aspirin 81 mg once a day. I will add Protonix in order to prevent any GI bleed. Long-term plan would be I will stop aspirin after 1 month we will continue Plavix and Xarelto for next 3 months after 3-month I will stop Xarelto and bring back aspirin along with Plavix for at least 1 year. We will follow-up patient in our cardiology nurse practitioner clinic in 1 week. I will see her back in my clinic in 3 months. Physical Exam Const: OTHER: GENERAL: Patient is alert, awake and oriented x3. HEART: Regular S1 and S2. No murmur, rub or gallop. LUNGS: Clear to auscultate bilaterally. CENTRAL NERVOUS SYSTEM: Grossly nonfocal. EXTREMITIES: Lower extremities with out edema bilaterally. Pulses dopplerable anterior and posterior tibial on the left foot, Discharge Data Studies Completed and Pending Pending at discharge Category Date Time Status MANAGER BACKGROUND request for service Routine Exams 04/16/24 07:00 Taken Laboratory Results WBC 12.41 10^3/uL (3.29-11.43) H 04/17/24 04:09 RBC 3.67 10^6/uL (3.85-5.65) L 04/17/24 04:09 Hgb 10.10 g/dL (11.27-16.99) L 04/17/24 04:09 Hct 30.8 % (36-47) L 04/17/24 04:09 MCV 83.9 fl (85-98) L 04/17/24 04:09 MCH 27.5 pg (27-33) 04/17/24 04:09 MCHC 32.8 g/dL (30-55) 04/17/24 04:09 RDW 13.8 % (12.1-15.1) 04/17/24 04:09 Plt Count 379 10^3/cmm (157-399) 04/17/24 04:09 MPV 9.8 fL (7.4-10.4) 04/17/24 04:09 Neut % (Auto) 80.7 % 04/17/24 04:09 Lymph % (Auto) 13.1 % 04/17/24 04:09 [place] % (Auto) 5.6 % 04/17/24 04:09 Eos % (Auto) 0.0 % 04/17/24 04:09 Baso % (Auto) 0.1 % 04/17/24 04:09 Neut # (Auto) 10.03 10^3/uL (1.8-7.7) H 04/17/24 04:09 Lymph # (Auto) 1.6 10^3/uL (0.8-4.8) 04/17/24 04:09 [place] # (Auto) 0.7 10^3/uL (0.2-0.9) 04/17/24 04:09 Eos # (Auto) 0.0 10^3/uL (0.0-0.8) 04/17/24 04:09 Baso # (Auto) 0.0 10^3/uL (0.0-0.1) 04/17/24 04:09 Nucleated RBC % (auto) 0 % 04/17/24 04:09 Nucleated RBCs # 0.0 /100WBC 04/17/24 04:09 APTT 29.2 SECONDS (23.9-36.7) D 04/16/24 13:25 Sodium 137 mmol/L (136-145) 04/17/24 04:09 Potassium 4.1 mmol/L (3.5-5.1) 04/17/24 04:09 Chloride 101 mmol/L (98-107) 04/17/24 04:09 Carbon Dioxide 24 mmol/L (22-29) 04/17/24 04:09 Anion Gap 16.1 (5-19) 04/17/24 04:09 BUN 19 mg/dL (8-23) 04/17/24 04:09 Creatinine 0.9 mg/dL (0.5-0.9) 04/17/24 04:09 GFR Calculation 63.9 mL/min (90-130) L 04/17/24 04:09 Glucose 280 mg/dL (65-115) H 04/17/24 04:09 POC Glucose 226 mg/dL (70-110) H 04/17/24 12:01 Calculated Osmolality 296 mOsm/kg (285-295) H 04/17/24 04:09 Calcium 8.8 mg/dL (8.5-10.5) 04/17/24 04:09 Vitals Last Vital Signs Temp 98.5 F 04/17/24 12:02 Pulse 79 04/17/24 12:02 Resp 20 H 04/17/24 12:02 BP 100/59 04/17/24 12:02 Pulse Ox 98 04/17/24 12:02 O2 Del Method Room Air 04/17/24 12:02 Discharge Plan Discharge Patient Disposition: Home Prescriptions: New Xarelto 2.5 mg tablet 2.5 mg PO BID Qty: 180 2RF Continued (DME) diabetic shoes with 3 inserts See Rx Instructions .Route .MEDSUPPLY Qty: 1 0RF Rx Instructions: As directed to the shoe jonah cetirizine [Allergy Relief (cetirizine)] 10 mg tablet 10 mg PO DAILY insulin glargine [Lantus U-100 Insulin] 100 unit/mL Solution 30 unit SUBCUT DAILY insulin aspart U-100 [Novolog U-100 Insulin aspart] 100 unit/mL Solution 30 unit SUBCUT TID Aspir-81 81 mg PO DAILY clopidogrel 75 mg tablet 75 mg PO DAILY tramadol 50 mg tablet 50 mg PO Q6H PRN (Reason: pain) Qty: 12 0RF No Action amoxicillin-pot clavulanate 875-125 mg tablet 1 tab PO BID 7 Days Qty: 14 0RF (DME) Dexcom G7 Sensor Device See Rx Instructions .Route Qty: 1 0RF Rx Instructions: As directed (DME) Dexcom G7 Sensor Device See Rx Instructions .Route Qty: 3 5RF Rx Instructions: As directed atorvastatin [Lipitor] 80 mg tablet 80 mg PO DAILY Qty: 90 3RF pantoprazole [Protonix] 40 mg tablet,delayed release (DR/EC) 40 mg PO DAILY Qty: 90 3RF Discharge Orders: Discharge Order (Routine); Ordered 04/17/24 Ordered By: Annemarie Romo Referrals: Huma Pappas MD [Primary Care Provider] - 04/19/24 1:15 pm Katey Thomas FNP [Nurse Practitioner] - 04/26/24 10:00 am Diet: Diabetic Activity: Increase activity as tolerated Patient Instructions: Diabetes and Diet, Peripheral Artery Disease (DC), Peripheral Vascular Angioplasty (DC), Post Angiogram Home Care Instructions Activity Restrictions/Additional Instructions: add Xarelto 2.5 mg twice a day will continue Plavix 75 mg once a day and aspirin 81 mg once a day. I will add Protonix in order to prevent any GI bleed. Long-term plan would be I will stop aspirin after 1 month we will continue Plavix and Xarelto for next 3 months after 3-month I will stop Xarelto and bring back aspirin along with Plavix for at least 1 year. We will follow-up patient in our cardiology nurse practitioner clinic in 1 week. I will see her back in my clinic in 3 months. Follow-up with cardiology nurse practitioner in 1 week to 10 days Follow-up with podiatry Dr. Kulkarni Follow-up with Dr. Romo in 3 to 4 months. Discharge Date/Time: 04/17/24 14:54 Discharge Attestations Time Spent in Discharge Care*: greater than 30 min Status at Discharge: Cognitive status at discharge: cognitively intact , Behavioral status at discharge: cooperative , Quality Metrics Clinical Quality Measures [ No reported AMI, CVA or VTE this stay] Coding Level of Care Code Acute Code for Chg Fwd
--- NOTE | 2024-04-17 15:26 | PC.NURSE ---
called new Rx to [facility] all belongings sent with pt. discharge papers and instructions discuss to pt.
== END 2024-04-17 14:54 | disposition home or self-care (01) ==
LOC: CCL 06:05 → CSU 09:54
PROVIDERS: PCP Family Medicine; Visit Provider Internal Medicine Cardiovascular Disease
DX: I70.222 Atherosclerosis of native arteries of extremities with rest pain, left leg (principal); Z79.01 Long term (current) use of anticoagulants; I25.89 Other forms of chronic ischemic heart disease; Z89.422 Acquired absence of other left toe(s); I10 Essential (primary) hypertension; E78.5 Hyperlipidemia, unspecified; E11.69 Type 2 diabetes mellitus with other specified complication; E11.621 Type 2 diabetes mellitus with foot ulcer; Z79.4 Long term (current) use of insulin
CPT/HCPCS: 36415; 36416; 37228; 75625; 75716; 80048; 82962; 85025; 85347; 85730; 96372; 96374; 96375; 96376; 99152; 99153; C1725; C1769; C1887; C1894; J1200; J1644; J1815; J2250; J2405; J2919; J3010; J3490; J7030; Q9967

== ENCOUNTER → 2024-04-18 13:53 | Outpatient (BNVA) | payer OTHER, SELFPAY | PROVIDERS: PCP Family Medicine; Visit Provider Podiatrist Foot & Ankle Surgery | DX: E11.69 Type 2 diabetes mellitus with other specified complication (principal); Z89.422 Acquired absence of other left toe(s); Z79.4 Long term (current) use of insulin | CPT/HCPCS: 99213; A6222 ==

== ENCOUNTER 2024-04-24 12:27 | Emergency (ER) | payer OTHER, SELFPAY ==
[2024-04-24 12:48] VITALS: BP 99/64; PULSE 91; RESP 20; TEMP 36.7; O2SAT 98
[2024-04-24 13:44] LABS: Basophils % 0.4 %; Eosinophils # 0.3 10^3/uL (0.0-0.8); Eosinophils % 3.3 %; Hematocrit 32.3 % (36-47); Lymphocytes # 2.6 10^3/uL (0.8-4.8); Lymphocytes % 29.1 %; Mean Corpuscular HGB Conc 32.2 g/dL (30-55); Mean Corpuscular Hemoglobin 27.6 pg (27-33); Mean Corpuscular Volume 85.7 fl (85-98); Mean Platelet Volume 9.7 fL (7.4-10.4); Monocytes # 0.8 10^3/uL (0.2-0.9); Monocytes % 8.8 %; Neutrophils # 5.16 10^3/uL (1.8-7.7); Neutrophils % 58.1 %; Nucleated Red Blood Cells % 0 %; Platelet Count 304 10^3/cmm (157-399); Red Blood Count 3.77 10^6/uL (3.85-5.65); Red Cell Distribution Width 14.6 % (12.1-15.1); White Blood Count 8.89 10^3/uL (3.29-11.43)
[2024-04-24 13:57] LABS: INR 1.28 (0.8-1.2)
[2024-04-24 14:00] LABS: Alanine Aminotransferase 9 U/L (0-33); Albumin Level 3.7 g/dL (3.5-5.2); Alkaline Phosphatase 103 U/L (35-105); Anion Gap 12.2 (5-19); Aspartate Amino Transferase 12 U/L (0-32); Blood Urea Nitrogen 15 mg/dL (8-23); Calcium 8.8 mg/dL (8.5-10.5); Carbon Dioxide 30 mmol/L (22-29); Chloride 100 mmol/L (98-107); Creatinine Clr Calc Pharmacy 73.0174; Globulin 3.6 g/dL (1.3-4.6); Glomerular Filtration Rate 73.2 mL/min (90-130); Glucose 111 mg/dL (65-115); Osmolality Calculated 288 mOsm/kg (285-295); Potassium 4.2 mmol/L (3.5-5.1); Sodium 138 mmol/L (136-145); Total Bilirubin 0.2 mg/dL (0.15-1.2); Total Protein 7.3 g/dL (6.6-8.7)
[2024-04-24 16:40] VITALS: BP 139/70; PULSE 82; RESP 19; O2SAT 98
--- NOTE | 2024-04-24 16:40 | USR_ITS ---
PROCEDURE INFORMATION: Exam: US Duplex Right Lower Extremity Arteries Or Arterial Bypass Grafts Exam date and time: 04/24/2024 4:49 PM Age: 58 years old Clinical indication: Pain; Leg, lower; Right; Additional info: Recent angiogram; Pain TECHNIQUE: Imaging protocol: Right Real-time duplex scan of the arteries or arterial bypass grafts of the right lower extremity with 2-D dixon scale, color Doppler flow and spectral waveform analysis. Images documented and saved. COMPARISON: CT angio abd aorta runof [id number] 11/04/2023 9:20 AM FINDINGS: Right common femoral artery: No occlusion or significant stenosis. Normal waveform. No pseudoaneurysm in the inguinal region. Right superficial femoral artery: No occlusion or significant stenosis. Normal waveform. Right popliteal artery: No occlusion or significant stenosis. Normal waveform. Right calf/foot arteries: Examination of the right groin demonstrates normal arterial flow within the right common femoral artery and proximal aspect of the right SFA. There is also normal venous flow in the common femoral vein. I see no hematoma or pseudoaneurysm. Soft tissues: See Right calf/foot arteries finding. US/[place] [id number] IMPRESSION: No pseudoaneurysm noted
--- NOTE | 2024-04-24 16:41 | ED_ITS ---
HPI - Extremity Problem 2 General: Chief complaint: Extremity Injury, Lower Stated complaint: Right leg painful (had surgery) Time Seen by Provider: 04/24/24 16:31 Source: patient and family Mode of arrival: wheelchair Limitations: no limitations History of Present Illness: Patient is a 58-year-old female presents to ED today with complaint of right groin pain. Patient states she underwent peripheral angiogram by Dr. Romo on 04/16. Looking at his documentation she had a peripheral angiogram for critical limb ischemia to the left lower extremity. She vessels ballooned which resulted in restored flow. Patient states she began noticing right groin pain approximately 3 days ago. She has not noticed any significant swelling or bruising to the area but reportedly has a hard time seen the area. She is not having any back pain. She has not noticed any lightheadedness/dizziness/passing out episodes. Vital signs are stable upon arrival. She states her blood pressure always runs low. MD Complaint: other (R groin pain) Onset (ago): day(s) Pain Consistency: constant Location: right Radiation: none Relieving factors: nothing Exacerbating factors: nothing Associated symptoms: Reports no associated symptoms; Deny chest pain or fever(s) Related Data Home Medications Medication Instructions Recorded Confirmed insulin aspart U-100 100 unit/mL 30 unit SUBCUT TID 10/11/23 04/19/24 subcutaneous solution (Novolog U-100 Insulin aspart) insulin glargine 100 unit/mL 30 unit SUBCUT DAILY 10/11/23 04/19/24 subcutaneous solution (Lantus U-100 Insulin) Aspir-81 81 mg PO DAILY 02/14/24 04/19/24 atorvastatin 80 mg tablet (Lipitor) 80 mg PO DAILY 02/14/24 04/19/24 clopidogrel 75 mg tablet 75 mg PO DAILY 02/14/24 04/19/24 cetirizine 10 mg tablet (Allergy 10 mg PO DAILY 04/12/24 04/19/24 Relief (cetirizine)) Previous Rx's Medication Instructions Recorded tramadol 50 mg tablet 50 mg PO Q6H PRN pain #12 tabs 02/15/24 diabetic shoes with 3 inserts #1 ea 03/29/24 amoxicillin 875 mg-potassium 1 tab PO BID #14 tabs 04/11/24 clavulanate 125 mg tablet pantoprazole 40 mg tablet,delayed 40 mg PO DAILY #60 tabs 04/17/24 release (Protonix) rivaroxaban 2.5 mg tablet (Xarelto) 2.5 mg PO BID #180 tabs 04/17/24 levofloxacin 500 mg tablet 500 mg PO DAILY #7 tabs 04/18/24 blood-glucose sensor (Dexcom G7 #1 ea 04/19/24 Sensor device) blood-glucose sensor (Dexcom G7 #3 ea 04/19/24 Sensor device) Allergies Allergy/AdvReac Type Severity Reaction Status Date / Time morphine Allergy ADR-Itching Verified 04/19/24 13:01 Alpha-Gal AdvReac ADR-Vomitin Verified 04/19/24 13:01 (Pogxkpxxb-Mqvsv-3,3-Gala g Review of Systems 2 Const: Denies: fever(s), chills, body aches, fatigue or malaise Card: Denies: chest pain Resp: Denies: dyspnea GI: Denies: abdominal pain : Denies: flank pain or dysuria Musc: Reports: other (R groin pain); Denies: joint pain, joint swelling, joint redness or joint warmth Neuro: Denies: headache(s) or dizziness PFSH ED 2 PFSH: Medical History Postoperative anemia Uncontrolled type 2 diabetes mellitus with insulin therapy Allergic rhinitis Dyslipidemia Peripheral vascular angioplasty status PAD (peripheral artery disease) Osteomyelitis Ischemic ulcer of foot Ischemic ulcer diabetic foot 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 Asthma Surgical History History of amputation of toe 2 of Right; 1 of left Status post colonoscopy (07/10/21) Repeat in 10 years History of neck surgery anterior History of tonsillectomy and adenoidectomy History of endometrial ablation History of bladder suspension procedure H/O section X5 Family History Mother Stroke Father Diabetes mellitus, type 2 Congestive heart failure (CHF) Social History Smoking and tobacco/nicotine status: never used tobacco/nicotine Second hand smoke exposure: No Alcohol intake: never Substance/Drug Use: never Household members: spouse and children Marital status: Number of children: 5 Highest education level completed: High School Graduate Current occupational status: unemployed 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 Physical Exam 2 Const: COMMON NORMALS: no acute distress, average body habitus, patient oriented x3, no limitations, healthy appearing, alert and well nourished Resp: COMMON NORMALS: normal respiratory effort and clear to auscultation bilaterally AUSCULTATION: clear to auscultation bilaterally Cardio: COMMON NORMALS: regular rate and regular rhythm RATE: regular rate RHYTHM: regular rhythm Back/Pelvis: COMMON NORMALS: thoracic and lumbar spine normal to inspection Extremity: COMMON NORMALS: full ROM, capillary refill normal, no joint enlargement and no calf tenderness GENERAL: Yes normal exam except as noted OTHER: mild tenderness to R groin; no obvious swelling or ecchymosis noted she has easily palpable DP/PT pulses in bilateral lower extremities; they are warm to the touch Neuro: COMMON NORMALS: patient oriented x3, moves all extremities and no focal motor deficits SENSORIUM/ORIENTATION: Yes alert Course 2 Vital Signs: Vital signs: Vital Signs Temperature 98.1 F 04/24/24 12:48 Pulse Rate 82 04/24/24 16:40 Respiratory Rate 19 H 04/24/24 16:40 Blood Pressure 139/70 04/24/24 16:40 Pulse Oximetry 98 04/24/24 16:40 Oxygen Delivery Me thod Room Air 04/24/24 16:40 MDM - Extremity (Nontraumatic) Medical Decision Making US tech did not visualize any abnormalities to her right groin-no hematoma, active bleeding, or pseudoaneurysm. Based on symptoms, I would have an extremely low suspicion for any type of retroperitoneal bleeding this far out from surgery but considered (even though extremely low risk) given procedure. At this time patient is cleared for discharge. Return precautions given. Medical Records I reviewed the patient's medical records. Lab Data I reviewed the patient's lab results. 04/24/24 13:39 04/24/24 13:39 Laboratory Results WBC 8.89 10^3/uL (3.29-11.43) 04/24/24 13:39 RBC 3.77 10^6/uL (3.85-5.65) L 04/24/24 13:39 Hgb 10.40 g/dL (11.27-16.99) L 04/24/24 13:39 Hct 32.3 % (36-47) L 04/24/24 13:39 MCV 85.7 fl (85-98) 04/24/24 13:39 MCH 27.6 pg (27-33) 04/24/24 13:39 MCHC 32.2 g/dL (30-55) 04/24/24 13:39 RDW 14.6 % (12.1-15.1) 04/24/24 13:39 Plt Count 304 10^3/cmm (157-399) 04/24/24 13:39 MPV 9.7 fL (7.4-10.4) 04/24/24 13:39 Neut % (Auto) 58.1 % 04/24/24 13:39 Lymph % (Auto) 29.1 % 04/24/24 13:39 Ralls % (Auto) 8.8 % 04/24/24 13:39 Eos % (Auto) 3.3 % 04/24/24 13:39 Baso % (Auto) 0.4 % 04/24/24 13:39 Neut # (Auto) 5.16 10^3/uL (1.8-7.7) 04/24/24 13:39 Lymph # (Auto) 2.6 10^3/uL (0.8-4.8) 04/24/24 13:39 Ralls # (Auto) 0.8 10^3/uL (0.2-0.9) 04/24/24 13:39 Eos # (Auto) 0.3 10^3/uL (0.0-0.8) 04/24/24 13:39 Baso # (Auto) 0.0 10^3/uL (0.0-0.1) 04/24/24 13:39 Nucleated RBC % (auto) 0 % 04/24/24 13:39 Nucleated RBCs # 0.0 /100WBC 04/24/24 13:39 PT 16.40 SECONDS (12.1-14.9) H 04/24/24 13:39 INR 1.28 (0.8-1.2) H 04/24/24 13:39 Sodium 138 mmol/L (136-145) 04/24/24 13:39 Potassium 4.2 mmol/L (3.5-5.1) 04/24/24 13:39 Chloride 100 mmol/L (98-107) 04/24/24 13:39 Carbon Dioxide 30 mmol/L (22-29) H 04/24/24 13:39 Anion Gap 12.2 (5-19) 04/24/24 13:39 BUN 15 mg/dL (8-23) 04/24/24 13:39 Creatinine 0.8 mg/dL (0.5-0.9) 04/24/24 13:39 GFR Calculation 73.2 mL/min (90-130) L 04/24/24 13:39 Glucose 111 mg/dL (65-115) 04/24/24 13:39 Calculated Osmolality 288 mOsm/kg (285-295) 04/24/24 13:39 Calcium 8.8 mg/dL (8.5-10.5) 04/24/24 13:39 Total Bilirubin 0.2 mg/dL (0.15-1.2) 04/24/24 13:39 AST 12 U/L (0-32) 04/24/24 13:39 ALT 9 U/L (0-33) 04/24/24 13:39 Alkaline Phosphatase 103 U/L (35-105) 04/24/24 13:39 Total Protein 7.3 g/dL (6.6-8.7) 04/24/24 13:39 Albumin 3.7 g/dL (3.5-5.2) 04/24/24 13:39 Globulin 3.6 g/dL (1.3-4.6) 04/24/24 13:39 XR interpretation done by ED provider, pending radiology final review (per US tech-normal) Discharge Plan Discharge Patient Disposition: Home Clinical Impression: Right groin pain Condition: Stable Prescriptions: No Action (DME) diabetic shoes with 3 inserts See Rx Instructions .Route .MEDSUPPLY Qty: 1 0RF Rx Instructions: As directed to the shoe jonah levofloxacin 500 mg tablet 500 mg PO DAILY Qty: 7 0RF cetirizine [Allergy Relief (cetirizine)] 10 mg tablet 10 mg PO DAILY (DME) Dexcom G7 Sensor Device See Rx Instructions .Route Qty: 1 0RF Rx Instructions: As directed (DME) Dexcom G7 Sensor Device See Rx Instructions .Route Qty: 3 5RF Rx Instructions: As directed insulin glargine [Lantus U-100 Insulin] 100 unit/mL Solution 30 unit SUBCUT DAILY insulin aspart U-100 [Novolog U-100 Insulin aspart] 100 unit/mL Solution 30 unit SUBCUT TID Aspir-81 81 mg PO DAILY atorvastatin [Lipitor] 80 mg tablet 80 mg PO DAILY clopidogrel 75 mg tablet 75 mg PO DAILY tramadol 50 mg tablet 50 mg PO Q6H PRN (Reason: pain) Qty: 12 0RF amoxicillin-pot clavulanate 875-125 mg tablet 1 tab PO BID Qty: 14 0RF Xarelto 2.5 mg tablet 2.5 mg PO BID Qty: 180 2RF pantoprazole [Protonix] 40 mg tablet,delayed release (DR/EC) 40 mg PO DAILY Qty: 60 0RF Discharge Orders: Discharge ED (Routine); Ordered 04/24/24 Ordered By: Velia Lopez Referrals: Huma Pappas MD [Primary Care Provider] - Activity Restrictions/Additional Instructions: As we discussed your ultrasound was unremarkable. You may follow-up with your primary care provider and or Dr. Romo for further evaluation. You need to return to the emergency department for worsening groin pain, numbness/tingling/loss of sensation to your extremity, any coolness or pallor, severe back pain, lightheadedness/dizziness/passing out episodes, or any other concerns you may have. Coding Level of Care Code ED Central Office Operator Supervisor for Yelena Tyler
[2024-04-24 17:07] VITALS: BP 138/63; PULSE 87; O2SAT 100
== END 2024-04-24 17:08 | disposition home or self-care (01) ==
PROVIDERS: Emergency Medicine; Emergency Provider Physician Assistant; PCP Family Medicine
DX: R10.31 Right lower quadrant pain (principal); Z79.02 Long term (current) use of antithrombotics/antiplatelets; Z79.4 Long term (current) use of insulin; E11.621 Type 2 diabetes mellitus with foot ulcer; L97.504 Non-pressure chronic ulcer of other part of unspecified foot with necrosis of bone
CPT/HCPCS: 80053; 85025; 85610; 93926; 99284

== ENCOUNTER → 2024-04-25 15:06 | Outpatient (BNVA) | payer OTHER, SELFPAY | PROVIDERS: PCP Family Medicine; Visit Provider Podiatrist Foot & Ankle Surgery | DX: E11.621 Type 2 diabetes mellitus with foot ulcer (principal); L97.509 Non-pressure chronic ulcer of other part of unspecified foot with unspecified severity; Z98.890 Other specified postprocedural states | CPT/HCPCS: 99213 ==

== ENCOUNTER → 2024-04-26 09:55 | Outpatient (BNVA) | payer OTHER, SELFPAY | PROVIDERS: PCP Family Medicine; Visit Provider Nurse Practitioner Family | DX: I73.9 Peripheral vascular disease, unspecified (principal) | CPT/HCPCS: 99213 ==

== ENCOUNTER → 2024-07-12 08:21 | Outpatient (BNVA) | payer OTHER, SELFPAY | PROVIDERS: PCP Family Medicine; Visit Provider Family Medicine | DX: E11.9 Type 2 diabetes mellitus without complications (principal); D64.9 Anemia, unspecified; I73.9 Peripheral vascular disease, unspecified | CPT/HCPCS: 82043; 83036; 83540; 85025 ==

== ENCOUNTER → 2024-07-17 12:55 | Outpatient (BNVA) | payer OTHER, SELFPAY | PROVIDERS: PCP Family Medicine; Visit Provider Internal Medicine Cardiovascular Disease | DX: I70.229 Atherosclerosis of native arteries of extremities with rest pain, unspecified extremity (principal); E78.5 Hyperlipidemia, unspecified; M79.89 Other specified soft tissue disorders | CPT/HCPCS: 99204 ==

== ENCOUNTER → 2024-10-11 10:28 | Outpatient (BNVA) | payer OTHER, SELFPAY | PROVIDERS: PCP Family Medicine; Visit Provider Family Medicine | DX: E11.621 Type 2 diabetes mellitus with foot ulcer (principal); L97.504 Non-pressure chronic ulcer of other part of unspecified foot with necrosis of bone | CPT/HCPCS: 83036 ==

== ENCOUNTER 2024-10-22 12:05 | Emergency (ER) | payer OTHER, SELFPAY ==
--- NOTE | 2024-10-22 12:09 | CT_ITS ---
WS: [id number] CT HEAD NONCONTRAST HISTORY: Possible stroke TECHNIQUE: Contiguous axial imaging performed through the brain. Bone and soft tissue windows. Sagittal and coronal reformats reviewed. All CT scans at [facility] use at least one of these dose optimization techniques: automated exposure control; mA and/or kV adjustment per patient size (includes targeted exams where dose is matched to clinical indication); or iterative reconstruction. DLP: 1063.28 mGy.cm COMPARISON: None available. No acute intracranial hemorrhage, midline shift or mass effect. No atrophy or prior infarcts or herniation. Ventricles: Normal size with no hydrocephalus. Paranasal sinuses: As visualized are clear. Mastoid air cells: Well pneumatized. Calvarium and scalp: Skull is intact with no soft tissue edema or swelling. CT/CT head wo con* [id number] IMPRESSION: Negative head CT.
[2024-10-22 12:11] VITALS: BP 100/66; PULSE 78; RESP 16; TEMP 36.5; O2SAT 98
[2024-10-22 13:36] LABS: Basophils # 0.1 10^3/uL (0.0-0.1); Basophils % 0.8 %; Eosinophils # 0.4 10^3/uL (0.0-0.8); Hematocrit 38.2 % (36-47); Lymphocytes # 3.2 10^3/uL (0.8-4.8); Lymphocytes % 34.9 %; Mean Corpuscular HGB Conc 31.7 g/dL (30-55); Mean Corpuscular Hemoglobin 28.3 pg (27-33); Mean Corpuscular Volume 89.5 fl (85-98); Mean Platelet Volume 10.4 fL (7.4-10.4); Monocytes # 0.8 10^3/uL (0.2-0.9); Monocytes % 8.8 %; Neutrophils % 51.2 %; Nucleated Red Blood Cells % 0 %; Platelet Count 317 10^3/cmm (157-399); Red Blood Count 4.27 10^6/uL (3.85-5.65); Red Cell Distribution Width 14.9 % (12.1-15.1); White Blood Count 9.19 10^3/uL (3.29-11.43)
[2024-10-22 14:00] LABS: Alanine Aminotransferase 25 U/L (0-33); Albumin Level 4.1 g/dL (3.5-5.2); Alkaline Phosphatase 115 U/L (35-105); Anion Gap 14.1 (5-19); Aspartate Amino Transferase 26 U/L (0-32); Blood Urea Nitrogen 19 mg/dL (8-23); Calcium 9.4 mg/dL (8.5-10.5); Carbon Dioxide 28 mmol/L (22-29); Chloride 100 mmol/L (98-107); Creatinine Clr Calc Pharmacy 67.7603; Globulin 4.1 g/dL (1.3-4.6); Glomerular Filtration Rate 63.9 mL/min (90-130); Glucose 125 mg/dL (65-115); Osmolality Calculated 290 mOsm/kg (285-295); Potassium 4.1 mmol/L (3.5-5.1); Sodium 138 mmol/L (136-145); Total Bilirubin 0.5 mg/dL (0.15-1.2); Total Protein 8.2 g/dL (6.6-8.7)
[2024-10-22 14:02] LABS: INR 0.92 (0.8-1.2)
[2024-10-22 14:03] LABS: Partial Thromboplastin Time 26.3 SECONDS (23.9-36.7)
--- NOTE | 2024-10-22 15:41 | CTR_ITS ---
PROCEDURE INFORMATION: Exam: CT Orbits With Contrast Exam date and time: 10/22/2024 4:00 PM Age: 58 years old Clinical indication: Left eye pain; Double vision; Additional info: Left eye pain, double vision. TECHNIQUE: Imaging protocol: Computed tomography of the orbits with contrast. Radiation optimization: All CT scans at this facility use at least one of these dose optimization techniques: automated exposure control; mA and/or kV adjustment per patient size (includes targeted exams where dose is matched to clinical indication); or iterative reconstruction. Contrast material: OMNI 350; Contrast volume: 100 ml; Contrast route: INTRAVENOUS (IV); COMPARISON: CT head wo con* [id number] 10/22/2024 1:22 PM RADIATION DOSE METRICS: Total DLP (mGy-cm): 1363.23 FINDINGS: Brain: The visible portion of the brain is normal. Paranasal sinuses: There is a mucous retention cyst in the left maxillary sinus. Paranasal sinuses are otherwise clear. Mastoid air cells: Visible portions of the mastoid air cells are clear. Orbital cavities: Globes are intact. There is no orbital edema or mass. Optic nerves are symmetric and demonstrate no abnormal enhancement. Extraocular muscles are symmetric and enhance normally. There is no proptosis. Lacrimal glands are normal. Bones/joints: Visible facial bones are intact. Soft tissues: Unremarkable. CT/CT orbit BI w con [id number] IMPRESSION: No acute findings.
--- NOTE | 2024-10-22 15:41 | CTR_ITS ---
PROCEDURE INFORMATION: Exam: CT Head With Contrast Exam date and time: 10/22/2024 4:00 PM Age: 58 years old Clinical indication: Headache not specified; Left eye pain; Double vision; Additional info: Headache, eye pain, double vision TECHNIQUE: Imaging protocol: Computed tomography of the head with intravenous contrast. Radiation optimization: All CT scans at this facility use at least one of these dose optimization techniques: automated exposure control; mA and/or kV adjustment per patient size (includes targeted exams where dose is matched to clinical indication); or iterative reconstruction. Contrast material: OMNI 350; Contrast volume: 100 ml; Contrast route: INTRAVENOUS (IV); COMPARISON: CT head wo con* [id number] 10/22/2024 1:22 PM RADIATION DOSE METRICS: Total DLP (mGy-cm): 1363.23 FINDINGS: Brain: The brain is unremarkable. There is no mass effect or significant white matter disease. No pathologic enhancement of the brain. No visible intracranial hemorrhage. Evaluation for hemorrhage is mildly limited in the presence of IV contrast. Cerebral ventricles: There is no significant ventricular dilation. The basal cisterns are unremarkable. Bones/joints: The skull is unremarkable. Paranasal sinuses: There is a mucous retention cyst in the left maxillary sinus. There is no fluid in the paranasal sinuses to suggest acute sinusitis. Mastoid air cells: The mastoid air cells are clear. Vasculature: Visible portions of major cerebral arteries are patent. Veins: Dural venous sinuses are patent. Soft tissues: The visible extracranial soft tissues are unremarkable. CT/CT head w con [id number] IMPRESSION: No acute intracranial abnormality.
--- NOTE | 2024-10-22 15:49 | ED_ITS ---
HPI - Dizziness 2 General: Chief Complaint: Dizziness Stated Complaint: urgent care sent, double vision, n/v, dizzy Time Seen by Provider: 10/22/24 15:26 History of Present Illness: HPI Narrative: 58-year-old female with history of diabe svetlana, peripheral vascular disease on Plavix, asthma and hyperlipidemia who presents the emergency room with left eye pain and vision changes. She says she has been having double vision for about 2 days now. She keeps her left eye closed to prevent the double vision. She says its only objects at a distance and not close. She has some pain behind the eye. No pain with eye movement. No gross vision changes. No swelling. No redness. No altered mental status. No focal motor deficits. No fevers. Related Data Home Medications ?Medication ?Instructions ?Recorded ?Confirmed cetirizine 10 mg tablet (Allergy 10 mg PO DAILY 10/22/24 Relief (cetirizine)) Previous Rx's ?Medication ?Instructions ?Recorded atorvastatin 80 mg tablet (Lipitor) 80 mg PO DAILY #90 tabs 05/31/24 pantoprazole 40 mg tablet,delayed 40 mg PO DAILY #90 t abs 05/31/24 release (Protonix) insulin aspart U-100 100 unit/mL 30 unit (0.3 mL) SUBC UT TID #30 mL 07/12/24 subcutaneous solution (Novolog U-100 Insulin aspart) insulin glargine 100 unit/mL 30 unit (0.3 mL) SUBCUT B ID #30 mL 07/12/24 subcutaneous solution (Lantus U-100 Insulin) aspirin 81 mg tablet,delayed 81 mg PO DAILY #90 tabs 0 07/17/24 release clopidogrel 75 mg tablet 75 mg PO DAILY #90 tabs 06/28 07/21 furosemide 20 mg tablet 20 mg PO .PRN #30 tabs 07/17 Allergies Allergy/AdvReac Type Severity Reaction Status Date / Time morphine Allergy ADR-Itching Verified 10/22/24 12:18 Alpha-Gal AdvReac ADR-Vomitin Verified 10/22/24 12:18 (Myllihirx-Vwyvn-2,3-Gala g Review of Systems 2 Narrative: Constitutional symptoms: Negative except as documented in HPI. Skin symptoms: Negative except as documented in HPI. Eye symptoms: Negative except as documented in HPI. ENMT symptoms: Negative except as documented in HPI. Respiratory symptoms: Negative except as documented in HPI. Cardiovascular symptoms: Negative except as documented in HPI. Gastrointestinal symptoms: Negative except as documented in HPI. Genitourinary symptoms: Negative except as documented in HPI. Musculoskeletal symptoms: Negative except as documented in HPI. Neurologic symptoms: Negative except as documented in HPI. Psychiatric symptoms: Negative except as documented in HPI. Endocrine symptoms: Negative except as documented in HPI. PFSH ED 2 PFSH: Medical History (Updated 10/22/24 @ 17:39 by Kelly Rodriguez MD) Type 2 diabetes mellitus, with long-term current use of insulin Allergic rhinitis Dyslipidemia Peripheral vascular angioplasty status PAD (peripheral artery disease) Asthma Surgical History History of amputation of toe 2 of Right; 1 of left Status post colonoscopy (07/10/21) 1.14.22 Repeat in 10 years History of neck surgery anterior History of tonsillectomy and adenoidectomy History of endometrial ablation History of bladder suspension procedure H/O section X5 Family History Mother Stroke Father Diabetes mellitus, type 2 Congestive heart failure (CHF) Social History Smoking and tobacco/nicotine status: never used tobacco/nicotine Second hand smoke exposure: No Alcohol intake: never Substance/Drug Use: never Household members: spouse and children Marital status: Number of children: 5 Highest education level completed: High School Graduate Current occupational status: employed 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 Skin: Warm, dry. Head: Normocephalic, atraumatic. Neck: Supple, trachea midline. Eye: Extraocular movements are intact. No obvious strabismus. Vision is grossly intact. No redness. No swelling. No proptosis. Ears, nose, mouth and throat: mucosa moist. Cardiovascular: Regular, Normal peripheral perfusion. Respiratory: Lungs are clear to auscultation, respirations are non-labored, breath sounds are equal, Symmetrical chest wall expansion. Gastrointestinal: Soft, Nontender, Non distended Musculoskeletal: Normal ROM, no deformity. Neurological: Alert and oriented, No focal neurological deficit observed. Psychiatric: Cooperative, appropriate mood & affect. Course 2 Vital Signs: Vital signs: Vital Signs Temperature 97.7 F 10/22/24 12:11 Pulse Rate 74 10/22/24 17:00 Respiratory Rate 16 10/22/24 12:11 Blood Pressure 138/76 10/22/24 17:00 Pulse Oximetry 97 10/22/24 17:00 Oxygen Delivery Me thod Room Air 10/22/24 17:00 MDM - Dizziness Medical Decision Making CT head with and without contrast: No acute intracranial process. no intracranial hemorrhage, no evidence of infarct. no evidence of acute fracture.This was reviewed and interpreted by myself the ER physician. CT of the orbits with and without contrast: No acute process. This was reviewed and interpreted by myself the emergency room physician. I also reviewed the radiology report. Lab Review: Laboratory results were reviewed and interpreted by myself the emergency room physician. No leukocytosis. No anemia. No renal failure. No urinary tract infection. I reviewed the patient's medical record. Reexamination: Patient remained stable. No increased work of breathing. No altered mental status. No focal motor deficits. No changes in her vision or symptoms. Consultation: I spoke with Dr. Fuller with neurology. She agrees that there is really nothing more I can do for workup here in the emergency room. She will see the patient in clinic tomorrow morning at 8 AM. Consultation: I spoke with Dr. Marte with ophthalmology who agrees with the workup here as extensive and nothing more could be done here. He will evaluate the patient's eyes in clinic tomorrow after her appoint with Dr. Fuller. Assessment and plan: Double vision/diplopia - Discharged home - Discussed plan with patient. Answered any questions. - Evaluation and treatment of this problem were appropriate in the emergency setting. Lab Data 10/22/24 13:11 10/22/24 13:[address] 10/22/24 15:41 IMPRESSION: No acute intracranial abnormality. Orbit CT 10/22/24 15:41 IMPRESSION: No acute findings. Laboratory Results WBC 9.19 10^3/uL (3.29-11.43) 10/22/24 13:11 RBC 4.27 10^6/uL (3.85-5.65) 10/22/24 13:11 Hgb 12.10 g/dL (11.27-16.99) 10/22/24 13:11 Hct 38.2 % (36-47) 10/22/24 13:11 MCV 89.5 fl (85-98) 10/22/24 13:11 MCH 28.3 pg (27-33) 10/22/24 13:11 MCHC 31.7 g/dL (30-55) 10/22/24 13:11 RDW 14.9 % (12.1-15.1) 10/22/24 13:11 Plt Count 317 10^3/cmm (157-399) 10/22/24 13:11 MPV 10.4 fL (7.4-10.4) 10/22/24 13:11 Neut % (Auto) 51.2 % 10/22/24 13:11 Lymph % (Auto) 34.9 % 10/22/24 13:11 [place] % (Auto) 8.8 % 10/22/24 13:11 Eos % (Auto) 4.0 % 10/22/24 13:11 Baso % (Auto) 0.8 % 10/22/24 13:11 Neut # (Auto) 4.70 10^3/uL (1.8-7.7) 10/22/24 13:11 Lymph # (Auto) 3.2 10^3/uL (0.8-4.8) 10/22/24 13:11 [place] # (Auto) 0.8 10^3/uL (0.2-0.9) 10/22/24 13:11 Eos # (Auto) 0.4 10^3/uL (0.0-0.8) 10/22/24 13:11 Baso # (Auto) 0.1 10^3/uL (0.0-0.1) 10/22/24 13:11 Nucleated RBC % (auto) 0 % 10/22/24 13:11 Nucleated RBCs # 0.0 /100WBC 10/22/24 13:11 PT 13.00 SECONDS (12.1-14.9) 10/22/24 13:11 INR 0.92 (0.8-1.2) 10/22/24 13:11 APTT 26.3 SECONDS (23.9-36.7) 10/22/24 13:11 Sodium 138 mmol/L (136-145) 10/22/24 13:11 Potassium 4.1 mmol/L (3.5-5.1) 10/22/24 13:11 Chloride 100 mmol/L (98-107) 10/22/24 13:11 Carbon Dioxide 28 mmol/L (22-29) 10/22/24 13:11 Anion Gap 14.1 (5-19) 10/22/24 13:11 BUN 19 mg/dL (8-23) 10/22/24 13:11 Creatinine 0.9 mg/dL (0.5-0.9) 10/22/24 13:11 GFR Calculation 63.9 mL/min (90-130) L 10/22/24 13:11 Glucose 125 mg/dL (65-115) H 10/22/24 13:11 Calculated Osmolality 290 mOsm/kg (285-295) 10/22/24 13:11 Calcium 9.4 mg/dL (8.5-10.5) 10/22/24 13:11 Total Bilirubin 0.5 mg/dL (0.15-1.2) 10/22/24 13:11 AST 26 U/L (0-32) 10/22/24 13:11 ALT 25 U/L (0-33) 10/22/24 13:11 Alkaline Phosphatase 115 U/L (35-105) H 10/22/24 13:11 Total Protein 8.2 g/dL (6.6-8.7) 10/22/24 13:11 Albumin 4.1 g/dL (3.5-5.2) 10/22/24 13:11 Globulin 4.1 g/dL (1.3-4.6) 10/22/24 13:11 Urine Color Yellow (Yellow) 10/22/24 16:15 Urine Appearance Clear (CLEAR) 10/22/24 16:15 Urine pH 5.5 (5-7) 10/22/24 16:15 Ur Specific [place] 1.027 (1.005-1.030) 10/22/24 16:15 Urine Protein Negative (Negative) 10/22/24 16:15 Urine Glucose (UA) Negative (Normal) 10/22/24 16:15 Urine Ketones Negative (Negative) 10/22/24 16:15 Urine Blood Trace (Negative) A 10/22/24 16:15 Urine Nitrate Negative (Negative) 10/22/24 16:15 Urine Bilirubin Negative (Negative) 10/22/24 16:15 Urine Urobilinogen 0.2 mg/dL (Negative) 10/22/24 16:15 Ur Leukocyte Esterase 2+ (Negative) A 10/22/24 16:15 Urine RBC 21-50 /hpf (0-2) H 10/22/24 16:15 Urine WBC 11-20 /hpf (0-5) H 10/22/24 16:15 Ur Squamous Epith Cells 0-5 /hpf (0-5) 10/22/24 16:15 Amorphous Sediment Not Reportable 10/22/24 16:15 Urine Bacteria None seen /hpf (NONE) 10/22/24 16:15 Hyaline Casts 0.81 /lpf 10/22/24 16:15 All radiology interpretation(s) finalized by discharge Discharge Plan Discharge Patient Disposition: Home Clinical Impression: Diplopia, Left eye pain Condition: Stable Prescriptions: No Action cetirizine [Allergy Relief (cetirizine)] 10 mg tablet 10 mg PO DAILY insulin aspart U-100 [Novolog U-100 Insulin aspart] 100 unit/mL solution 30 unit SUBCUT TID Qty: 30 3RF insulin glargine [Lantus U-100 Insulin] 100 unit/mL solution 30 unit SUBCUT BID Qty: 30 3RF atorvastatin [Lipitor] 80 mg tablet 80 mg PO DAILY Qty: 90 3RF pantoprazole [Protonix] 40 mg tablet,delayed release (DR/EC) 40 mg PO DAILY Qty: 90 3RF aspirin 81 mg tablet,delayed release (DR/EC) 81 mg PO DAILY Qty: 90 3RF furosemide 20 mg tablet 20 mg PO .PRN Qty: 30 3RF clopidogrel 75 mg tablet 75 mg PO DAILY Qty: 90 3RF Discharge Orders: Discharge ED (Routine); Ordered 10/22/24 Ordered By: Kelly Rodriguez Referrals: Heather Fuller MD [Physician] - 10/23/24 8:00 am John Paul Galan [Referring] - (Please call for an appointment for tomorrow after your appointment with Dr. Fuller. Tell the supervisor front that Dr. Galan is expecting to see you tomorrow.) Huma Pappas MD [Primary Care Provider] - Patient Instructions: Diplopia (ED), Opioid Safety, Pain Management Activity Restrictions/Additional Instructions: Please attend appointment at Dr. Fuller's office at 8 AM. Then call for an appointment after you are done with Dr. Violetta [facility] [place]. Thank you for choosing [facility] for your healthcare needs today. You have been screened and evaluated and felt safe for discharge. Health conditions do change or evolve sometimes and as such it is important that you follow up with your Primary Doctor to be re checked, 3-5 days is a general good time frame for follow up. You are always welcome to return to the ED for re assessment if your symptoms are worsening or you have new concerns Print Language: Kiswahili Coding Level of Care Code ED Quilting Machine Helper for Yelena Tyler
[2024-10-22] MEDS: iohexol 350 mg/mL 500 mL Btl (per mL) IV (16:06)
[2024-10-22 16:19] VITALS: BP 142/70; PULSE 80; O2SAT 97
[2024-10-22 16:30] VITALS: BP 145/71; PULSE 70; O2SAT 96
[2024-10-22 16:37] LABS: Bilirubin Urine Negative (Negative); Blood Urine Trace (Negative); Glucose Urine UA Negative (Normal); Ketones Urine Negative (Negative); Leukocyte Esterase Urine 2+ (Negative); Nitrate Urine Negative (Negative); Protein Urine Negative (Negative); Specific Gravity, Urine 1.027 (1.005-1.030); Urine Appearance Clear (CLEAR); Urine Color Yellow (Yellow); Urobilinogen Urine 0.2 mg/dL (Negative); pH Urine 5.5 (5-7)
[2024-10-22 16:42] LABS: Bacteria Urine None Seen /hpf; Hyaline Casts Urine 0.81 /lpf; RBC Urine 21-50 /hpf (0-2); Squamous Epithelial Cell Urine 0-5 /hpf (0-5)
[2024-10-22 16:44] LABS: Add Urine Culture? Yes
[2024-10-22] MEDS: cefTRIAXone 1,000 mg SDV 1000 MG IVP (16:57)
[2024-10-22 17:00] VITALS: BP 138/76; PULSE 74; O2SAT 97
[2024-10-22 18:01] VITALS: BP 149/76; PULSE 77; O2SAT 99
== END 2024-10-22 18:06 | disposition home or self-care (01) ==
PROVIDERS: Emergency Provider Emergency Medicine; PCP Family Medicine
DX: H53.2 Diplopia (principal); H57.12 Ocular pain, left eye; Z79.4 Long term (current) use of insulin; Z79.82 Long term (current) use of aspirin; Z79.02 Long term (current) use of antithrombotics/antiplatelets; E11.9 Type 2 diabetes mellitus without complications; E78.5 Hyperlipidemia, unspecified
CPT/HCPCS: 36415; 70450; 70460; 70481; 80053; 81001; 85025; 85610; 85730; 87086; 96374; 99285; J0696

== ENCOUNTER → 2024-10-23 08:24 | Outpatient (BNVA) | payer OTHER, SELFPAY | PROVIDERS: PCP Family Medicine; Visit Provider Specialist | DX: R53.83 Other fatigue (principal); G60.3 Idiopathic progressive neuropathy; E11.9 Type 2 diabetes mellitus without complications | CPT/HCPCS: 36415; 84439; 84443; 85651; 86160; 86162; 86235; 86255; 86376; 86431; 99205 ==

== ENCOUNTER 2024-10-24 07:37 | Outpatient (CLI) | payer OTHER, SELFPAY ==
--- NOTE | 2024-10-24 07:42 | MR_ITS ---
WS: [id number] MRI HEAD WITHOUT AND WITH GADOLINIUM ENHANCED WITH ATTENTION TO THE ORBITS TECHNIQUE: Sagittal T1, T2 axial, T2 axial FLAIR, axial susceptibility weighted imaging, axial diffusion weighted images, and coronal T2 images were obtained. Pre and post-T1 axial and post T1 coronal images. ADC and FSPGR images. CLINICAL INFORMATION: H49.22 - Sixth [abducent] nerve palsy, left eye COMPARISON: None. FINDINGS: No evidence of restricted diffusion to suggest acute ischemia. Ventricular system and basal cisterns are patent. Mild small vessel changes. Minimal parenchymal volume loss. Normal posterior fossa. Normal vascular flow voids at the skull base. No extra-axial fluid collections. No evidence of mass or mass effect. LEFT maxillary retention cyst or polyp. No abnormal gadolinium enhancement. Visualized orbits are normal. Normal rectus muscles. Normal optic chiasm. No evidence of optic neuritis. No abnormal intracranial enhancement. 3 x 5 mm hypoenhancing focus in the inferior pituitary. MR/MR head orbits wo/w* [id number] IMPRESSION: 1. No acute intracranial findings. 2. No restricted diffusion to suggest acute ischemia. 3. Mild small vessel changes with minimal parenchymal volume loss. 4. No abnormal gadolinium enhancement. 5. Normal orbits. 6. Small focus of hypoenhancement 3 x 5 mm in the floor of the pituitary could represent a small microadenoma or incidentaloma. This can be followed up with pituitary protocol MRI on an elective basis. Recommend correlation with pituita ry function studies.
[2024-10-24] MEDS: gadobenate dimeglumine 20 mL vial IV (08:41)
--- NOTE | 2024-10-24 08:45 | MR_ITS ---
WS: [id number] MR venogram without gadolinium enhancement INDICATION: Cervical fusion TECHNIQUE: MR venogram without gadolinium enhancement with maximum intensity projection images. FINDINGS: Some images degraded by motion artifact. Normal sagittal sinus. Normal straight sinus. Normal internal cerebral veins. LEFT dominant transverse sinus. Hypoplastic RIGHT transverse sinus with prominent vein likely occipital emissary vein from the sigmoid sinus to the torcula. Normal torcula. MR/[place] [id number] IMPRESSION: No evidence of dural sinus thrombosis. Hypoplastic RIGHT transverse sinus often a normal variant
== END 2024-10-24 07:38 | disposition home or self-care (01) ==
PROVIDERS: PCP Family Medicine; Visit Provider Specialist
DX: H49.22 Sixth [abducent] nerve palsy, left eye (principal); R93.0 Abnormal findings on diagnostic imaging of skull and head, not elsewhere classified
CPT/HCPCS: 70543; 70544; 70553

== ENCOUNTER 2024-10-25 05:00 | Outpatient (CLI) | payer OTHER, SELFPAY | END 2024-10-25 05:01 | disposition home or self-care (01) | LOC: SPT 10-30 12:14 | PROVIDERS: Visit Provider Podiatrist Foot & Ankle Surgery | DX: Z46.89 Encounter for fitting and adjustment of other specified devices (principal); S86.011D Strain of right Achilles tendon, subsequent encounter; X58.XXXD Exposure to other specified factors, subsequent encounter | CPT/HCPCS: L3170; L4361 ==

== ENCOUNTER 2024-10-28 16:09 | Emergency (ER) | payer OTHER, SELFPAY ==
[2024-10-28 16:15] VITALS: BP 140/74; PULSE 62; RESP 16; TEMP 36.4; O2SAT 99
[2024-10-28 17:53] LABS: Basophils # 0.1 10^3/uL (0.0-0.1); Basophils % 0.8 %; Eosinophils # 0.1 10^3/uL (0.0-0.8); Eosinophils % 0.9 %; Hematocrit 43.4 % (36-47); Lymphocytes # 2.5 10^3/uL (0.8-4.8); Lymphocytes % 27.7 %; Mean Corpuscular HGB Conc 30.4 g/dL (30-55); Mean Corpuscular Volume 92.1 fl (85-98); Mean Platelet Volume 10.6 fL (7.4-10.4); Monocytes # 0.4 10^3/uL (0.2-0.9); Monocytes % 4.9 %; Neutrophils # 5.92 10^3/uL (1.8-7.7); Neutrophils % 65.6 %; Nucleated Red Blood Cells % 0 %; Platelet Count 307 10^3/cmm (157-399); Red Blood Count 4.71 10^6/uL (3.85-5.65); Red Cell Distribution Width 14.6 % (12.1-15.1); White Blood Count 9.02 10^3/uL (3.29-11.43)
[2024-10-28 18:15] LABS: Alanine Aminotransferase 21 U/L (0-33); Alkaline Phosphatase 120 U/L (35-105); Blood Urea Nitrogen 15 mg/dL (8-23); Calcium 9.8 mg/dL (8.5-10.5); Carbon Dioxide 20 mmol/L (22-29); Chloride 99 mmol/L (98-107); Creatinine Clr Calc Pharmacy 87.1204; Globulin 4.6 g/dL (1.3-4.6); Glomerular Filtration Rate 85.4 mL/min (90-130); Glucose 154 mg/dL (65-115); Lipase 8 U/L (13-60); Osmolality Calculated 286 mOsm/kg (285-295); Sodium 136 mmol/L (136-145); Total Bilirubin 0.4 mg/dL (0.15-1.2); Total Protein 8.6 g/dL (6.6-8.7)
[2024-10-28 18:17] LABS: Anion Gap 21.2 (5-19); Aspartate Amino Transferase 26 U/L (0-32); Potassium 4.2 mmol/L (3.5-5.1)
--- NOTE | 2024-10-28 18:50 | ED_ITS ---
HPI - Nausea/Vomiting/Diarrhea 2 General: Chief complaint: Nausea/Vomiting/Diarrhea Stated complaint: n/v Time Seen by Provider: 10/28/24 18:36 History of Present Illness: 58-year-old female presents with nausea vomiting. She reports she has had nausea and vomiting all day. Patient states that she has been recently diagnosed with 6th nerve palsy and every since being diagnosed and having issues with her vision she has had nausea and some vomiting episodes. She has nausea medicine at home but reports that it has not helped today. No other new symptoms. No abdominal pain. No fever or chills. Associated nausea: Yes Associated symtoms: Reports nausea; Denies chest pain, headache(s) or palpitations Related Data Home Medications ?Medication ?Instructions ?Recorded ?Confirmed cetirizine 10 mg tablet (Allergy 10 mg PO DAILY 10/26/24 Relief (cetirizine)) Previous Rx's ?Medication ?Instructions ?Recorded atorvastatin 80 mg tablet (Lipitor) 80 mg PO DAILY #90 tabs 05/31/24 pantoprazole 40 mg tablet,delayed 40 mg PO DAILY #90 t abs 05/31/24 release (Protonix) insulin aspart U-100 100 unit/mL 30 unit (0.3 mL) SUBC UT TID #30 mL 07/12/24 subcutaneous solution (Novolog U-100 Insulin aspart) insulin glargine 100 unit/mL 30 unit (0.3 mL) SUBCUT B ID #30 mL 07/12/24 subcutaneous solution (Lantus U-100 Insulin) aspirin 81 mg tablet,delayed 81 mg PO DAILY #90 tabs 0 07/17/24 release clopidogrel 75 mg tablet 75 mg PO DAILY #90 tabs 06/28 07/21 furosemide 20 mg tablet 20 mg PO .PRN #30 tabs 07/17 metoclopramide HCl 5 mg tablet 5 mg PO Q8H PRN nausea and 10/28/24 (Reglan) vomiting #10 tabs Allergies Allergy/AdvReac Type Severity Reaction Status Date / Time morphine Allergy ADR-Itching Verified 10/26/24 11:35 Alpha-Gal AdvReac ADR-Vomitin Verified 10/26/24 11:35 (Mxuibxlqs-Jutbo-9,3-Gala g Review of Systems 2 Const: Denies: fever(s) or chills Eyes: Reports: other (Please see HPI) Card: Denies: chest pain or palpitations Resp: Denies: dyspnea or productive cough GI: Reports: nausea and vomiting Musc: Denies: muscle weakness Skin/Breast: Denies: rash Neuro: Denies: headache(s) PFSH ED 2 PFSH: Medical History Rupture of right Achilles tendon Sixth nerve palsy of left eye Type 2 diabetes mellitus, with long-term current use of insulin Allergic rhinitis Dyslipidemia Peripheral vascular angioplasty status PAD (peripheral artery disease) Asthma Surgical History History of amputation of toe 2 of Right; 1 of left Status post colonoscopy (07/10/21) 1.14.22 Repeat in 10 years History of neck surgery anterior History of tonsillectomy and adenoidectomy History of endometrial ablation History of bladder suspension procedure H/O section X5 Family History Mother Stroke Father Diabetes mellitus, type 2 Congestive heart failure (CHF) Social History Smoking and tobacco/nicotine status: never used tobacco/nicotine Second hand smoke exposure: No Alcohol intake: never Substance/Drug Use: never Household members: spouse and children Marital status: Number of children: 5 Highest education level completed: High School Graduate Current occupational status: employed 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 Physical Exam 2 Const: COMMON NORMALS: average body habitus and patient oriented x3 GENERAL APPEARANCE: cooperative Eye: OTHER: Patch over left eye Resp: COMMON NORMALS: normal respiratory effort and clear to auscultation bilaterally AUSCULTATION: clear to auscultation bilaterally Cardio: COMMON NORMALS: regular rate and regular rhythm RATE: regular rate RHYTHM: regular rhythm GI: COMMON NORMALS: Soft to palpation and non-tender PALPATION: Yes Soft to palpation : COMMON NORMALS: Yes no CVA tenderness BLADDER/KIDNEY EXAM: Yes no CVA tenderness Back/Pelvis: COMMON NORMALS: no CVA tenderness Extremity: COMMON NORMALS: normal to inspection, full ROM and capillary refill normal Neuro: COMMON NORMALS: patient oriented x3, moves all extremities and no focal motor deficits Psych: COMMON NORMALS: mental status grossly normal, cooperative and normal affect Skin: COMMON NORMALS: no rashes or lesions noted GENERAL SKIN EXAM: no rashes or lesions noted Course 2 Vital Signs: Vital signs: Vital Signs Temperature 97.6 F 10/28/24 16:15 Pulse Rate 62 10/28/24 16:15 Respiratory Rate 16 10/28/24 16:15 Blood Pressure 140/74 10/28/24 16:15 Pulse Oximetry 99 10/28/24 16:15 Oxygen Delivery Me thod Room Air 10/28/24 16:15 MDM - Nausea/Vomiting/Diarrhea Medical Decision Making Patient's labs were reviewed and show no significant acute findings. She is feeling significant better following the IV fluids and Reglan. Patient reports that she would like to be discharged home as she is feeling some significantly better. Patient reports that she does not feel she needs a urinalysis. She will be discharged as requested. Lab Data 10/28/24 17:49 10/28/24 17:49 Laboratory Results WBC 9.02 10^3/uL (3.29-11.43) 10/28/24 17:49 RBC 4.71 10^6/uL (3.85-5.65) 10/28/24 17:49 Hgb 13.20 g/dL (11.27-16.99) 10/28/24 17:49 Hct 43.4 % (36-47) 10/28/24 17:49 MCV 92.1 fl (85-98) 10/28/24 17:49 MCH 28.0 pg (27-33) 10/28/24 17:49 MCHC 30.4 g/dL (30-55) 10/28/24 17:49 RDW 14.6 % (12.1-15.1) 10/28/24 17:49 Plt Count 307 10^3/cmm (157-399) 10/28/24 17:49 MPV 10.6 fL (7.4-10.4) H 10/28/24 17:49 Neut % (Auto) 65.6 % 10/28/24 17:49 Lymph % (Auto) 27.7 % 10/28/24 17:49 [place] % (Auto) 4.9 % 10/28/24 17:49 Eos % (Auto) 0.9 % 10/28/24 17:49 Baso % (Auto) 0.8 % 10/28/24 17:49 Neut # (Auto) 5.92 10^3/uL (1.8-7.7) 10/28/24 17:49 Lymph # (Auto) 2.5 10^3/uL (0.8-4.8) 10/28/24 17:49 [place] # (Auto) 0.4 10^3/uL (0.2-0.9) 10/28/24 17:49 Eos # (Auto) 0.1 10^3/uL (0.0-0.8) 10/28/24 17:49 Baso # (Auto) 0.1 10^3/uL (0.0-0.1) 10/28/24 17:49 Nucleated RBC % (auto) 0 % 10/28/24 17:49 Nucleated RBCs # 0.0 /100WBC 10/28/24 17:49 Sodium 136 mmol/L (136-145) 10/28/24 17:49 Potassium 4.2 mmol/L (3.5-5.1) 10/28/24 17:49 Chloride 99 mmol/L (98-107) 10/28/24 17:49 Carbon Dioxide 20 mmol/L (22-29) L 10/28/24 17:49 Anion Gap 21.2 (5-19) H 10/28/24 17:49 BUN 15 mg/dL (8-23) 10/28/24 17:49 Creatinine 0.7 mg/dL (0.5-0.9) 10/28/24 17:49 GFR Calculation 85.4 mL/min (90-130) L 10/28/24 17:49 Glucose 154 mg/dL (65-115) H 10/28/24 17:49 Calculated Osmolality 286 mOsm/kg (285-295) 10/28/24 17:49 Calcium 9.8 mg/dL (8.5-10.5) 10/28/24 17:49 Total Bilirubin 0.4 mg/dL (0.15-1.2) 10/28/24 17:49 AST 26 U/L (0-32) 10/28/24 17:49 ALT 21 U/L (0-33) 10/28/24 17:49 Alkaline Phosphatase 120 U/L (35-105) H 10/28/24 17:49 Total Protein 8.6 g/dL (6.6-8.7) 10/28/24 17:49 Albumin 4.0 g/dL (3.5-5.2) 10/28/24 17:49 Globulin 4.6 g/dL (1.3-4.6) 10/28/24 17:49 Lipase 8 U/L (13-60) L 10/28/24 17:49 No radiology studies performed this visit Discharge Plan Discharge Patient Disposition: Home Clinical Impression: Nausea & vomiting Condition: Stable Prescriptions: New metoclopramide HCl [Reglan] 5 mg tablet 5 mg PO Q8H PRN (Reason: nausea and vomiting) Qty: 10 0RF No Action cetirizine [Allergy Relief (cetirizine)] 10 mg tablet 10 mg PO DAILY insulin aspart U-100 [Novolog U-100 Insulin aspart] 100 unit/mL solution 30 unit SUBCUT TID Qty: 30 3RF insulin glargine [Lantus U-100 Insulin] 100 unit/mL solution 30 unit SUBCUT BID Qty: 30 3RF atorvastatin [Lipitor] 80 mg tablet 80 mg PO DAILY Qty: 90 3RF pantoprazole [Protonix] 40 mg tablet,delayed release (DR/EC) 40 mg PO DAILY Qty: 90 3RF aspirin 81 mg tablet,delayed release (DR/EC) 81 mg PO DAILY Qty: 90 3RF furosemide 20 mg tablet 20 mg PO .PRN Qty: 30 3RF clopidogrel 75 mg tablet 75 mg PO DAILY Qty: 90 3RF Discharge Orders: Discharge ED (Routine); Ordered 10/28/24 Ordered By: Yvon Coy Referrals: Huma Pappas MD [Primary Care Provider, [facility]] Discharge Diet: Advance as tolerated Discharge Activity: Resume usual activity Patient Instructions: Clear Liquid Diet (ED), Acute Nausea and Vomiting (ED), Opioid Safety, Pain Management Activity Restrictions/Additional Instructions: Clear liquid diet for the next 24 hours and advance as tolerated. Follow-up with your primary care provider as needed. Print Language: Somali Coding Level of Care Code ED Medical Imaging Technologist for Yelena Tyler
[2024-10-28] MEDS: sodium chloride 0.9% 1,000 ML 999 ML IV (19:12)
[2024-10-28] MEDS: metoclopramide 5 mg/mL SDV 2 mL 10 MG IVP (19:13)
== END 2024-10-28 20:37 | disposition home or self-care (01) ==
PROVIDERS: Family Medicine; Emergency Provider Student in an Organized Health Care Education/Training Program; PCP Family Medicine
DX: R11.2 Nausea with vomiting, unspecified (principal); Z79.4 Long term (current) use of insulin; Z79.82 Long term (current) use of aspirin; Z79.02 Long term (current) use of antithrombotics/antiplatelets; E11.9 Type 2 diabetes mellitus without complications; E78.5 Hyperlipidemia, unspecified
CPT/HCPCS: 36415; 80053; 83690; 85025; 96361; 96374; 99284; J2765; J7030

== ENCOUNTER → 2024-10-29 15:41 | Outpatient (BNVA) | payer OTHER, SELFPAY | PROVIDERS: PCP Family Medicine; Visit Provider Podiatrist Foot & Ankle Surgery | DX: S86.011A Strain of right Achilles tendon, initial encounter (principal); X58.XXXA Exposure to other specified factors, initial encounter | CPT/HCPCS: 73610; 99214 ==

== ENCOUNTER → 2024-11-07 08:36 | Outpatient (BNVA) | payer OTHER, SELFPAY | PROVIDERS: PCP Family Medicine; Visit Provider Podiatrist Foot & Ankle Surgery | DX: E11.8 Type 2 diabetes mellitus with unspecified complications (principal); S86.011A Strain of right Achilles tendon, initial encounter; X58.XXXA Exposure to other specified factors, initial encounter; Z79.4 Long term (current) use of insulin | CPT/HCPCS: 99213 ==

== ENCOUNTER 2024-11-12 14:54 | Outpatient (CLI) | payer OTHER, SELFPAY ==
--- NOTE | 2024-11-12 15:08 | XRR_ITS ---
PROCEDURE INFORMATION: Exam: XR Cervical Spine Exam date and time: 11/12/2024 3:13 PM Age: 59 years old Clinical indication: Neck pain; Prior surgery; Surgery date: 6+ months; Surgery type: Cervical fusion 3-4 years ago; X3-4 years neck surgery, x5-6 months tingling in hands when head is flexed forward; Additional info: Arm tingling bilateral if bends head forward TECHNIQUE: Imaging protocol: Radiologic exam of the cervical spine. Views: 2 or 3 views. COMPARISON: MR cervical spin wo con* [id number] 02/18/2020 3:37 PM FINDINGS: Bones/joints: Anterior plate and fusion C5 through C7. No abnormal motion with flexion or extension. Intact hardware. No acute fracture. Normal alignment. Soft tissues: Unremarkable. XR/XR cervical spine fl/ex [id number] IMPRESSION: No acute findings.
--- NOTE | 2024-11-12 16:30 | USCV_ITS ---
Fouzia Esquivel Age: 59 Gender: F : 1965 Exam Date: 11/12/2024 15:48 Ordering Phys: Huma Pappas MD Technologist: USR Exam Location: [facility] – [place] Indication: stenosis Risk Factors: Previous Vascular Surgery: Right Brachial BP: / Left Brachial BP: / Right Left Velocity (cm/s) Spectral Plaque Velocity (cm/s) Spectral Plaque Syst/Diast Broadening Syst/Diast Broadening 67.40/ 10.30 Prox CCA 96.50 / 14.40 70.70/ 17.60 Mid CCA 96.00 / 17.50 72.00/ 17.60 Distal CCA 70.50 / 15.70 79.40/ 21.30 Prox ICA 83.10 / 24.20 90.20/ 23.20 Mid ICA 85.50 / 25.70 78.50/ 21.20 Distal ICA 99.20 / 24.60 61.40 ECA 66.20 1.10 ICA/CCA 1.20 Antegrade Vertebral Antegrade 39.30/ 9.00 cm/s 53.70/ 11.80 cm/s Tri Subclavian Tri 60.20 102.6 0 CONCLUSIONS Right ICA stenosis <50%. Moderate atheromatous plaque right carotid bulb/ICA. Left ICA stenosis <50%. Moderate atheromatous plaque left carotid bulb/ICA. Intimal thickening in the common carotid arteries and internal carotid arteries bilaterally. Normal antegrade Doppler flow noted in the right vertebral artery. Normal antegrade Doppler flow noted in the left vertebral artery. Sajan Young MD (Electronically Signed) Final Date: 12 Nov 2024 16:09 S
== END 2024-11-12 14:55 | disposition home or self-care (01) ==
LOC: RAD 14:57
PROVIDERS: PCP Family Medicine; Visit Provider Family Medicine
DX: R20.2 Paresthesia of skin (principal); R09.89 Other specified symptoms and signs involving the circulatory and respiratory systems; H49.22 Sixth [abducent] nerve palsy, left eye; R53.1 Weakness; Z98.1 Arthrodesis status; I65.23 Occlusion and stenosis of bilateral carotid arteries
CPT/HCPCS: 72040; 93880

== ENCOUNTER → 2024-11-21 12:06 | Outpatient (BNVA) | payer OTHER, SELFPAY | PROVIDERS: PCP Family Medicine; Visit Provider Specialist | DX: H49.22 Sixth [abducent] nerve palsy, left eye (principal); R53.83 Other fatigue; G60.3 Idiopathic progressive neuropathy; E11.9 Type 2 diabetes mellitus without complications | CPT/HCPCS: 99214 ==

== ENCOUNTER → 2024-11-22 09:16 | Outpatient (BNVA) | payer OTHER, SELFPAY | PROVIDERS: PCP Family Medicine; Visit Provider Podiatrist Foot & Ankle Surgery | DX: S86.011A Strain of right Achilles tendon, initial encounter (principal); E11.8 Type 2 diabetes mellitus with unspecified complications; Z79.4 Long term (current) use of insulin; X58.XXXA Exposure to other specified factors, initial encounter | CPT/HCPCS: 99213 ==

== ENCOUNTER 2024-12-05 09:54 | Observation (INO) | payer OTHER, SELFPAY ==
--- NOTE | 2024-12-05 09:57 | XR_ITS ---
WS: [id number] Right foot, 3 views, 12/05/2024 . Clinical Data: r great toe ulcer Comparison: Right foot, 02/06/2024 Findings: The right fifth toe and distal half of the right fifth metatarsal have been amputated. There is absence of the right third toe. There is cystic change and irregularity at the head of the right first metatarsal but no bone destruction. There is minimal soft tissue swelling over the dorsum of the foot. There is a plantar spur and an Achilles spur. No fractures or dislocations are seen. XR/XR foot RT min 3V* [id number] Impression: 1. Amputation of right fifth toe and distal half of the right fifth metatarsal. 2. Absent right third toe. 3. Cystic change and irregularity over head of right first metatarsal.
[2024-12-05 09:59] VITALS: BP 98/63; PULSE 84; RESP 16; TEMP 36.5; O2SAT 100
--- NOTE | 2024-12-05 10:12 | ED_ITS ---
HPI - Skin/Abscess/Foreign Bdy 2 General: Chief complaint: Skin/Abscess/Foreign Body Stated complaint: rt toe infection Time Seen by Provider: 12/05/24 09:56 History of Present Illness: 59-year-old female presents with a right great toe infection. Patient was seen a couple days ago at urgent care and started on Bactrim which she reports had allergic reaction with intense severe itching per patient. Patient was seen in clinic today by the mining plant operator Dr. Denton who sent her in for further evaluation with concerned about possible sepsis and need probable toe debridement with concerns for osteomyelitis. Patient blood pressure was in the 80s at the clinic today. Associated symptoms: Reports chills; Deny fever(s) Related Data Home Medications ?Medication ?Instructions ?Recorded ?Confirmed cetirizine 10 mg tablet (Allergy 10 mg PO DAILY 12/05/24 Relief (cetirizine)) furosemide 20 mg tablet 20 mg PO DAILY PRN Edema 05/2112/05/24 Previous Rx's ?Medication ?Instructions ?Recorded atorvastatin 80 mg tablet (Lipitor) 80 mg PO DAILY #90 tabs 05/31/24 pantoprazole 40 mg tablet,delayed 40 mg PO DAILY #90 t abs 05/31/24 release (Protonix) insulin aspart U-100 100 unit/mL 30 unit (0.3 mL) SUBC UT TID #30 mL 07/12/24 subcutaneous solution (Novolog U-100 Insulin aspart) insulin glargine 100 unit/mL 30 unit (0.3 mL) SUBCUT B ID #30 mL 07/12/24 subcutaneous solution (Lantus U-100 Insulin) aspirin 81 mg tablet,delayed 81 mg PO DAILY #90 tabs 0 07/17/24 release clopidogrel 75 mg tablet 75 mg PO DAILY #90 tabs 06/28 07/21 metoclopramide HCl 5 mg tablet 5 mg PO Q8H PRN nausea and 10/28/24 (Reglan) vomiting #10 tabs CAM walker with Achilles wedge #1 ea 10/29/24 blood-glucose sensor (Dexcom G7 #1 ea 11/30/24 Sensor device) Allergies Allergy/AdvReac Type Severity Reaction Status Date / Time morphine Allergy ADR-Itching Verified 12/05/24 09:39 Sulfa (Sulfonamide Allergy Unknown Verified 12/05/24 10:05 Antibiotics) Alpha-Gal AdvReac ADR-Vomitin Verified 12/05/24 09:39 (Gjtvhxcmo-Vding-5,3-Gala g Review of Systems 2 Const: Reports: chills; Denies: fever(s) Card: Denies: chest pain or palpitations Resp: Denies: productive cough or wheezing Musc: Reports: other (Patient in cam walking boot right foot) Skin/Breast: Reports: other (Cellulitis right great toe, diabetic wound right great toe) PFSH ED 2 PFSH: Medical History Carotid artery disease bilateral 50% on US 11/18 Rupture of right Achilles tendon Sixth nerve palsy of left eye Type 2 diabetes mellitus, with long-term current use of insulin Allergic rhinitis Dyslipidemia Peripheral vascular angioplasty status PAD (peripheral artery disease) Asthma Surgical History History of amputation of toe 2 of Right; 1 of left Status post colonoscopy (07/10/21) 1.14.22 Repeat in 10 years History of neck surgery anterior History of tonsillectomy and adenoidectomy History of endometrial ablation History of bladder suspension procedure H/O section X5 Family History Mother Stroke Father Diabetes mellitus, type 2 Congestive heart failure (CHF) Social History Smoking and tobacco/nicotine status: never used tobacco/nicotine Second hand smoke exposure: No Alcohol intake: never Substance/Drug Use: never Household members: spouse and children Marital status: Number of children: 5 Highest education level completed: High School Graduate Current occupational status: employed 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 Physical Exam 2 Const: COMMON NORMALS: no acute distress, patient oriented x3 and alert Resp: COMMON NORMALS: normal respiratory effort and clear to auscultation bilaterally AUSCULTATION: clear to auscultation bilaterally Cardio: COMMON NORMALS: regular rate and regular rhythm RATE: regular rate RHYTHM: regular rhythm Extremity: NARRATIVE EXTREMITY EXAM: Cellulitis right great toe with diabetic wound infection, previous amputation of 2 other toes Neuro: COMMON NORMALS: patient oriented x3 SENSORIUM/ORIENTATION: Yes alert Psych: COMMON NORMALS: mental status grossly normal, cooperative and speech normal SPEECH: Yes normal speech Skin: NARRATIVE SKIN EXAM: Cellulitis/diabetic wound infection right great toe Course 2 Vital Signs: Vital signs: Vital Signs Temperature 97.7 F 12/05/24 09:59 Pulse Rate 84 12/05/24 09:59 Respiratory Rate 16 12/05/24 09:59 Blood Pressure 98/63 12/05/24 09:59 Pulse Oximetry 100 12/05/24 09:59 Oxygen Delivery Me thod Room Air 12/05/24 09:59 MDM - Skin/Abscess/Foreign Bdy Medicial Decision Making Patient's diagnostics were ordered and reviewed. Patient symptoms are consistent with diabetic toe ulcer with some mild cellulitis. There does not appear to be at this time significant osteomyelitis. Patient's lactic is just minimally elevated with no significant white count. Patient's blood pressure was slightly low however responded appropriately to fluids. Patient is afebrile, not tachycardic and has no significant findings for sepsis. She was treated with clindamycin and vancomycin upon arrival to the ER due to her history of diabetes is uncontrolled and diabetic foot ulcer. Patient to be admitted to Dr. Kenney for further inpatient management and likely consultation to podiatry for debridement. Patient was stable upon admission. Lab Data 12/05/24 10:07 12/05/24 10:07 Radiology Impressions Foot X-Ray 12/05/24 09:57 Impression: 1. Amputation of right fifth toe and distal half of the right fifth metatarsal. 2. Absent right third toe. 3. Cystic change and irregularity over head of right first metatarsal. Laboratory Results WBC 10.25 10^3/uL (3.29-11.43) 12/05/24 10:07 RBC 3.92 10^6/uL (3.85-5.65) 12/05/24 10:07 Hgb 11.10 g/dL (11.27-16.99) L 12/05/24 10:07 Hct 33.7 % (36-47) L 12/05/24 10:07 MCV 86.0 fl (85-98) 12/05/24 10:07 MCH 28.3 pg (27-33) 12/05/24 10:07 MCHC 32.9 g/dL (30-55) 12/05/24 10:07 RDW 14.3 % (12.1-15.1) 12/05/24 10:07 Plt Count 272 10^3/cmm (157-399) 12/05/24 10:07 MPV 10.3 fL (7.4-10.4) 12/05/24 10:07 Neut % (Auto) 64.6 % 12/05/24 10:07 Lymph % (Auto) 27.3 % 12/05/24 10:07 Garfield % (Auto) 5.7 % 12/05/24 10:07 Eos % (Auto) 1.7 % 12/05/24 10:07 Baso % (Auto) 0.4 % 12/05/24 10:07 Neut # (Auto) 6.63 10^3/uL (1.8-7.7) 12/05/24 10:07 Lymph # (Auto) 2.8 10^3/uL (0.8-4.8) 12/05/24 10:07 Garfield # (Auto) 0.6 10^3/uL (0.2-0.9) 12/05/24 10:07 Eos # (Auto) 0.2 10^3/uL (0.0-0.8) 12/05/24 10:07 Baso # (Auto) 0.0 10^3/uL (0.0-0.1) 12/05/24 10:07 Nucleated RBC % (auto) 0 % 12/05/24 10:07 Nucleated RBCs # 0.0 /100WBC 12/05/24 10:07 Sodium 130 mmol/L (136-145) L 12/05/24 10:07 Potassium 4.2 mmol/L (3.5-5.1) 12/05/24 10:07 Chloride 93 mmol/L (98-107) L 12/05/24 10:07 Carbon Dioxide 22 mmol/L (22-29) 12/05/24 10:07 Anion Gap 19.2 (5-19) H 12/05/24 10:07 BUN 22 mg/dL (8-23) 12/05/24 10:07 Creatinine 1.5 mg/dL (0.5-0.9) H 12/05/24 10:07 GFR Calculation 35.3 mL/min (90-130) L 12/05/24 10:07 Glucose 217 mg/dL (65-115) H 12/05/24 10:07 Calculated Osmolality 280 mOsm/kg (285-295) L 12/05/24 10:07 Lactic Acid 2.6 mmol/L (0.5-2.2) H 12/05/24 10:07 Calcium 9.0 mg/dL (8.5-10.5) 12/05/24 10:07 Total Bilirubin 0.6 mg/dL (0.15-1.2) 12/05/24 10:07 AST 33 U/L (0-32) H 12/05/24 10:07 ALT 18 U/L (0-33) 12/05/24 10:07 Alkaline Phosphatase 112 U/L (35-105) H 12/05/24 10:07 C-Reactive Protein 104.9 mg/L (0.0-4.9) H 12/05/24 10:07 Total Protein 6.9 g/dL (6.6-8.7) 12/05/24 10:07 Albumin 3.6 g/dL (3.5-5.2) 12/05/24 10:07 Globulin 3.3 g/dL (1.3-4.6) 12/05/24 10:07 All radiology interpretation(s) finalized by discharge Discharge Plan Discharge Patient Disposition: Admitted As Inpatient Admit Provider: Charbel Valderrama Clinical Impression: Cellulitis and abscess of toe of right foot, Diabetic ulcer of right great toe Condition: Stable Coding Level of Care Code ED Fishing Vessel Mate for Yelena Tyler
[2024-12-05 10:28] LABS: Basophils % 0.4 %; Eosinophils # 0.2 10^3/uL (0.0-0.8); Eosinophils % 1.7 %; Hematocrit 33.7 % (36-47); Lymphocytes # 2.8 10^3/uL (0.8-4.8); Lymphocytes % 27.3 %; Mean Corpuscular HGB Conc 32.9 g/dL (30-55); Mean Corpuscular Hemoglobin 28.3 pg (27-33); Mean Platelet Volume 10.3 fL (7.4-10.4); Monocytes # 0.6 10^3/uL (0.2-0.9); Monocytes % 5.7 %; Neutrophils # 6.63 10^3/uL (1.8-7.7); Neutrophils % 64.6 %; Nucleated Red Blood Cells % 0 %; Platelet Count 272 10^3/cmm (157-399); Red Blood Count 3.92 10^6/uL (3.85-5.65); Red Cell Distribution Width 14.3 % (12.1-15.1); White Blood Count 10.25 10^3/uL (3.29-11.43)
[2024-12-05] MEDS: sodium chloride 0.9% 1,000 ML 999 ML IV (10:32)
[2024-12-05] MEDS: clindamycin 600 MG/50 ML PREMIX 100 MG IV ×2 (10:33→17:45)
[2024-12-05 10:47] LABS: Alanine Aminotransferase 18 U/L (0-33); Albumin Level 3.6 g/dL (3.5-5.2); Alkaline Phosphatase 112 U/L (35-105); Anion Gap 19.2 (5-19); Aspartate Amino Transferase 33 U/L (0-32); Blood Urea Nitrogen 22 mg/dL (8-23); C Reactive Protein 104.9 mg/L (0.0-4.9); Carbon Dioxide 22 mmol/L (22-29); Chloride 93 mmol/L (98-107); Creatinine Clr Calc Pharmacy 39.5839; Globulin 3.3 g/dL (1.3-4.6); Glomerular Filtration Rate 35.3 mL/min (90-130); Glucose 217 mg/dL (65-115); Osmolality Calculated 280 mOsm/kg (285-295); Potassium 4.2 mmol/L (3.5-5.1); Sodium 130 mmol/L (136-145); Total Bilirubin 0.6 mg/dL (0.15-1.2); Total Protein 6.9 g/dL (6.6-8.7)
[2024-12-05 10:48] LABS: Lactic Sepsis W/Reflex 2.6 mmol/L (0.5-2.2)
[2024-12-05] MEDS: vancomycin 2,000 MG/400 ML PIGGYBACK 200 MG IV (11:28)
[2024-12-05 12:13] LABS: Reflex Lactate Order REFLEX LACTIC ORDERD
--- NOTE | 2024-12-05 12:40 | PC.PHAR ---
Pt started Bactrim ds yesterday but only took 1 dose due to allergic reaction to it. Removed from med list. 12/05/24
[2024-12-05 12:50] VITALS: BP 112/59; PULSE 69; O2SAT 100
[2024-12-05 13:06] LABS: Lactic Acid level (Lactate) 1.3 mmol/L (0.5-2.2)
[2024-12-05 14:14] VITALS: BMI 27.6
--- NOTE | 2024-12-05 15:13 | P.HP_ITS ---
Providers/Chief Complaint 2 Admitting Physician: Charbel Valderrama Primary Care Provider: Huma Pappas MD Chief Complaint: rt toe infection History of Present Illness Fouzia Esquivel is a 59 year old female with a history of type 2 diabetes, hyperlipidemia, peripheral arterial disease, prior toe amputations, and asthma presenting with infection of the right great toe. The patient was recently treated with Bactrim (sulfamethoxazole/trimethoprim) but developed intense itching and vomiting, leading to discontinuation of the medication. She reports no appetite and has eaten very little since Tuesday, except for a candy bar to raise her blood sugar. She denies fever, diarrhea, chest pain, abdominal pain, and new cough, though she has a chronic cough. She experienced chills. The redness in the right great toe was first noticed on Tuesday after working over the weekend. Her toenail detached in the shower on Tuesday. There was no chronic wound or drainage until the toenail was removed. She has a history of prior amputations (right fifth toe and distal half of right fifth metatarsal, absent right third toe). She sometimes uses a cane due to dizziness when her blood pressure is low. She lives with her . She wears a boot on her foot for an Achilles tendon rupture and is not supposed to remove it, even while sleeping. She has a history of stenting in the left leg for peripheral arterial disease here and right at [facility]. She was referred to the hospital after being found with low blood pressure (85/60) in the podiatry office, raising concern for possible sepsis. In the emergency department, she was afebrile and without leukocytosis. Labs showed sodium 130, creatinine 1.5, BUN 122, potassium 4.2, anion gap 19.2, bicarbonate 22, glucose 217, lactic acid 2.6, alkaline phosphatase 112, and CRP 104.9. Foot x-ray showed cystic change and irregularity of the right first metatarsal head, with evidence of prior amputations. She was started on clindamycin and vancomycin, and podiatry was consulted. Review of Systems 2 Const: Denies: fever(s), chills, body aches or malaise ENMT: Denies: throat pain Card: Denies: chest pain, edema, pre-syncope or dyspnea on exertion Resp: Denies: dyspnea, productive cough, change in phlegm color or hemoptysis GI: Reports: nausea and vomiting; Denies: abdominal pain, diarrhea, constipation, hematochezia or melena : Denies: flank pain, urinary frequency or hematuria Musc: Reports: other (R big toes swelling, redness, pain) Skin/Breast: Reports: pruritus (After Bactrim); Denies: rash or new lesions Neuro: Denies: headache(s) or confusion Medications/Allergies Home Medications ?Medication ?Instructions ?Recorded ?Confirmed ?Last Taken ?Type cetirizine 10 mg tablet (Allergy 10 mg PO DAILY 12/05/24 12/01/24 History Relief (cetirizine)) atorvastatin 80 mg tablet (Lipitor) 80 mg PO DAILY #90 tabs 05/31/24 12/05/24 10/21/24 Rx pantoprazole 40 mg tablet,delayed 40 mg PO DAILY #90 t abs 05/31/24 12/05/24 12/01/24 Rx release (Protonix) insulin aspart U-100 100 unit/mL 30 unit (0.3 mL) SUBC UT TID #30 mL 07/12/24 12/05/24 12/01/24 Rx subcutaneous solution (Novolog U-100 Insulin aspart) insulin glargine 100 unit/mL 30 unit (0.3 mL) SUBCUT B ID #30 mL 07/12/24 12/05/24 12/01/24 Rx subcutaneous solution (Lantus U-100 Insulin) aspirin 81 mg tablet,delayed 81 mg PO DAILY #90 tabs 0 07/17/24 12/05/24 12/01/24 Rx release clopidogrel 75 mg tablet 75 mg PO DAILY #90 tabs /07/2112/05/24 12/01/24 Rx metoclopramide HCl 5 mg tablet 5 mg PO Q8H PRN nausea and 10/28/24 12/05/24 Unknown Rx (Reglan) vomiting #10 tabs CAM walker with Achilles wedge #1 ea 10/29/24 12/05/24 Unknown Rx blood-glucose sensor (Dexcom G7 #1 ea 11/30/24 5 Unknown Rx Sensor device) furosemide 20 mg tablet 20 mg PO DAILY PRN Edema 05/2112/05/24 Unknown History Allergies Allergy/AdvReac Type Severity Reaction Status Date / Time morphine Allergy ADR-Itching Verified 12/05/24 09:39 Sulfa (Sulfonamide Allergy Unknown Verified 12/05/24 10:05 Antibiotics) Alpha-Gal AdvReac ADR-Vomitin Verified 12/05/24 09:39 (Fukmjwxxp-Smjnw-6,3-Gala g PFSH Acute 2 PFSH: Medical History Carotid artery disease bilateral 50% on US 11/18 Rupture of right Achilles tendon Sixth nerve palsy of left eye Type 2 diabetes mellitus, with long-term current use of insulin Allergic rhinitis Dyslipidemia Peripheral vascular angioplasty status PAD (peripheral artery disease) Asthma Surgical History History of amputation of toe 2 of Right; 1 of left Status post colonoscopy (07/10/21) 1.14.22 Repeat in 10 years History of neck surgery anterior History of tonsillectomy and adenoidectomy History of endometrial ablation History of bladder suspension procedure H/O section X5 Family History Mother Stroke Father Diabetes mellitus, type 2 Congestive heart failure (CHF) Social History Smoking and tobacco/nicotine status: never used tobacco/nicotine Second hand smoke exposure: No Alcohol intake: never Substance/Drug Use: never Household members: spouse and children Marital status: Number of children: 5 Highest education level completed: High School Graduate Current occupational status: employed 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 Vitals/I&O/Wt Last Vital Signs Temp 97.7 F 12/05/24 09:59 Pulse 69 12/05/24 12:50 Resp 16 12/05/24 09:59 BP 112/59 12/05/24 12:50 Pulse Ox 100 12/05/24 12:50 O2 Del Method Room Air 12/05/24 14:14 12/05/24 12/05/24 12/05/24 06:59 14:59 22:59 Intake Total 1050 / 1050 Balance 1050 / 1050 Weight last 48 hrs Weight 73.057 kg Weight 77.111 kg Physical Exam 2 Const: COMMON NORMALS: patient oriented x3 and alert GENERAL APPEARANCE: c ooperative ORIENTATION/CONSCIOUSNESS: Yes awake HENMT: COMMON NORMALS: oropharynx normal Neck/C-Spine: COMMON NORMALS: no JVD Resp: COMMON NORMALS: normal respiratory effort and clear to auscultation bilaterally AUSCULTATION: clear to auscultation bilaterally Cardio: COMMON NORMALS: no JVD, regular rhythm, S1 normal heart sound present, S2 normal heart sound present and No murmurs present (Cardio) RHYTHM: regular rhythm HEART SOUNDS: S1 normal heart sound present and S2 normal heart sound present GI: COMMON NORMALS: Normal to inspection, nondistended, normoactive bowel sounds present, Soft to palpation and non-tender PALPATION: Yes Soft to palpation Extremity: COMMON NORMALS: no joint enlargement and no pedal edema N ARRATIVE EXTREMITY EXAM: Redness, sweling of R big toes. Bruising over anterolateral aspect. OTHER: Biphasic PT and DP pulses dopplerable Neuro: COMMON NORMALS: patient oriented x3 and moves all extremities S ENSORIUM/ORIENTATION: Yes alert Skin: COMMON NORMALS: no rashes or lesions noted NARRATIVE SKIN EXAM: Small skin tear right medial heel GENERAL SKIN EXAM: no rashes or lesions noted Data 12/05/24 10:07 12/05/24 10:07 Micro: Microbiology 12/05/24 10:21 Blood Culture - Preliminary Blood SPECIMEN COLLECTED 12/05/24 10:07 Blood Culture - Preliminary Blood SPECIMEN COLLECTED A&P Assessment and plan (1) Diabetic foot infection: Diabetic infection of right big toe. She noticed her toe nail and falling off on Tuesday. Patient presented with redness and infection of the right great toe, first noticed on Tuesday. There was no chronic wound or drainage until the toenail was removed. Treated initially with Bactrim, which was discontinued due to itching and vomiting. In ED receiving clindamycin and vancomycin. Podiatry was consulted. X-ray showed cystic change and irregularity of the right first metatarsal head, but no clear evidence of osteomyelitis. CRP is elevated, likely due to soft tissue infection. Bone infection is considered less likely due to short duration of symptoms and negative x-ray, but x-ray is not sensitive for osteomyelitis. Poor perfusion due to peripheral arterial disease may contribute to infection risk. Reviewed vitals, CBC, CMP, foot x-ray, ED provider note, discussed with ED provider, podiatry. -Expanded gram-negative coverage, will add Zosyn, continue clindamycin. Monitor for risk of worsening MAYA, cytopenia, C. difficile. - Podiatry to reassess and consider debridement or drainage. - Monitor for signs of worsening infection or osteomyelitis. CRP elevated likely due to acute infection, she denies any chronic ulceration drainage to suggest chronic infection/osteomyelitis. Suspicion of osteomyelitis with current time is low, however, she is at risk of as discussed with current and will need follow-up.. - At current time biphasic dopplerable pulses are found at DP and PT on the right foot and effusion appears adequate. - Discussed referral to avoid walking barefoot and avoid manipulating the skin. (2) Hypotension: Episode of hypotension in podiatry office blood pressure 85/60. Not on antihypertensive. Blood pressure usually runs on the lower side, this was lower than usual. She has not eaten anything since about Tuesday. Received fluid challenge bolus in ER. Will give antiemetic as needed. Encourage oral intake. Monitor blood pressures. (3) MAYA (acute kidney injury): BUN 22, creatinine 1.5 on review. Suspect prerenal secondary to reduced oral intake. She did receive fluid challenge. Noted mild elevation of AST 33. Will check CK. Follow-up renal function. Continue gentle IV hydration, monitor for risk of fluid overload. (4) Type 2 diabetes mellitus: Continue insulin Lantus. Add sliding scale. Monitor POC glucose. Consult carbohydrate diet. Plan PAD: Status post adequacy of both left and right lower extremities, on aspirin and Plavix, continue DAPT and statin. HLD: Continue statin Asthma: Not in exacerbation. Albuterol nebs as needed. PDMP PDMP Reviewed: Not Reviewed Attestations 2 Medical Necessity Statement*: Please observation for additional assessment management after hypotension episode, hypovolemia, MAYA, diabetic right big toe infection. and High MDM includes amount and/or complexity of data reviewed/ordered [ previous or external records, resulted lab(s)/test(s), ordered lab(s)/test(s) and other healthcare professional discussion] and described risk of complication, morbidity or mortality of management as documented Diagnoses Diabetic foot infection E11.628; L08.9 Hypotension I95.9 MAYA (acute kidney injury) N17.9 Type 2 diabetes mellitus E11.9 Diabetes mellitus skilled nursing insulin use: with marine oil terminal superintendent use Diabetes mellitus complication status: with neurologic complications
[2024-12-05] MEDS: piperacillin-tazobactam 3.375 GM in sodium chloride 0.9% (plus) 50 ML IV ×2 (15:39→23:26)
[2024-12-05 15:59] VITALS: BP 130/68; PULSE 66; RESP 17; TEMP 36.6; O2SAT 99
[2024-12-05 16:22] LABS: Glucose Point of Care 175 mg/dL (70-110)
[2024-12-05 17:26] LABS: MRSA PCR OZH (swab) NOT DETECTED (Not Detecte)
[2024-12-05 17:31] VITALS: PULSE 75; RESP 16; O2SAT 97
[2024-12-05 17:32] LABS: Creatine Phosphokinase 616 U/L (26-192)
[2024-12-05] MEDS: lactated ringers 1,000 ML 75 ML IV (17:43)
[2024-12-05] MEDS: insulin glargine 100 units/1 mL 30 UNIT SUBCUT (17:45)
[2024-12-05] MEDS: insulin lispro 100 unit/1 mL SUBCUT ×2 (17:46→22:04)
[2024-12-05 17:57] LABS: Bilirubin Urine Negative (Negative); Blood Urine 1+ (Negative); Glucose Urine UA Trace (Normal); Ketones Urine Trace (Negative); Leukocyte Esterase Urine 2+ (Negative); Nitrate Urine Negative (Negative); Protein Urine Negative (Negative); Specific Gravity, Urine 1.017 (1.005-1.030); Urine Appearance Clear (CLEAR); Urine Color Yellow (Yellow); Urobilinogen Urine 0.2 mg/dL (Negative)
[2024-12-05 18:02] LABS: Add Urine Microscopic? YES; Bacteria Urine None Seen /hpf; Hyaline Casts Urine 1.65 /lpf; Squamous Epithelial Cell Urine 0-5 /hpf (0-5); WBC Urine 0-5 /hpf (0-5)
[2024-12-05 18:07] LABS: Add Urine Culture? No
[2024-12-05 20:00] VITALS: BP 123/63; PULSE 79; RESP 16; TEMP 36.6; O2SAT 97
[2024-12-05 20:17] LABS: Glucose Point of Care 141 mg/dL (70-110)
--- NOTE | 2024-12-05 20:56 | PM.CONSULT ---
Providers/Reason For Consult Consulting Physician/Specialty*: Dr. Hao Denton, DPShasha/Podiatry Reason for Consult*: Right hallux cellulitis Attending Physician: Charbel Valderrama Primary Care Provider: Huma Pappas MD History of Present Illness History of Present Illness Fouzia Esquivel is a 59 year old female who presented to the outpatient podiatry clinic for follow-up of chronic Achilles rupture right leg. Patient had new wound to right great toe. Patient states this has been ongoing since previous Tuesday when her nail fell off. It became subsequently infected. She was unable to get into the clinic so she went to walk-in clinic. Nail was removed patient was placed on Bactrim. She presents to clinic today with general malaise, lack of appetite and hypotensive. Patient was directed to the ED for further workup and evaluation. Sepsis workup was negative. Patient was admitted for evaluation. Podiatry was consulted Review of Systems General: Reports: 10 or more systems reviewed and unremarkable except in HPI and below Const: Denies: fever(s), chills, body aches or change in appetite Eyes: Denies: change in vision or blurry vision Card: Denies: chest pain, palpitations or irregular heart rhythm Resp: Denies: dyspnea GI: Denies: abdominal pain, nausea, vomiting or diarrhea Musc: Reports: joint stiffness Skin/Breast: Reports: non-healing lesions and lesions Neuro: Reports: numbness in extremities Medications/Allergies Home Medications ?Medication ?Instructions ?Recorded ?Confirmed ?Last Taken ?Type cetirizine 10 mg tablet (Allergy 10 mg PO DAILY 04/12/24 12/05/24 12/01/24 History Relief (cetirizine)) atorvastatin 80 mg tablet (Lipitor) 80 mg PO DAILY #90 tabs 05/31/24 12/05/24 10/21/24 Rx pantoprazole 40 mg tablet,delayed 40 mg PO DAILY #90 tabs 05/31/24 12/05/24 12/01/24 Rx release (Protonix) insulin aspart U-100 100 unit/mL 30 unit (0.3 mL) SUBCUT TID #30 mL 07/12/24 12/05/24 12/01/24 Rx subcutaneous solution (Novolog U-100 Insulin aspart) insulin glargine 100 unit/mL 30 unit (0.3 mL) SUBCUT BID #30 mL 07/12/24 12/05/24 12/01/24 Rx subcutaneous solution (Lantus U-100 Insulin) aspirin 81 mg tablet,delayed 81 mg PO DAILY #90 tabs 07/17/24 12/05/24 12/01/24 Rx release clopidogrel 75 mg tablet 75 mg PO DAILY #90 tabs 07/17/24 12/05/24 12/01/24 Rx metoclopramide HCl 5 mg tablet 5 mg PO Q8H PRN nausea and 10/28/24 12/05/24 Unknown Rx (Reglan) vomiting #10 tabs CAM walker with Achilles wedge #1 ea 10/29/24 12/05/24 Unknown Rx blood-glucose sensor (Dexcom G7 #1 ea 11/30/24 12/05/24 Unknown Rx Sensor device) furosemide 20 mg tablet 20 mg PO DAILY PRN Edema 12/05/24 12/05/24 Unknown History Allergies Allergy/AdvReac Type Severity Reaction Status Date / Time morphine Allergy ADR-Itching Verified 12/05/24 09:39 Sulfa (Sulfonamide Allergy Unknown Verified 12/05/24 10:05 Antibiotics) Alpha-Gal AdvReac ADR-Vomitin Verified 12/05/24 09:39 (Kbkpqwvnr-Hkwey-2,3-Gala g Current Medications Generic Name Dose Route Start Last Admin Trade Name Freq PRN Reason Stop Dose Admin Piperacillin Sod/Tazobactam 50 mls @ 12.5 mls/hr 12/05/24 15:15 12/05/24 19:48 Sod 3.375 gm/ Sodium Chloride IV Infused Q8H MELANIE Infusion Protocol Clindamycin HCl/Dextrose 600 mg in 50 mls @ 100 mls/hr 12/05/24 18:00 12/05/24 19:19 Cleocin IV Infused Q8H MELANIE Infusion Protocol Lactated Ringer's 1,000 mls @ 75 mls/hr 12/05/24 16:00 12/05/24 17:43 Lactated Ringers IV 75 mls/hr .[id number] MELANIE Administration Insulin Glargine 30 unit 12/05/24 18:00 12/05/24 17:45 Insulin Glargine 100 Units/1 Ml SUBCUT 30 unit BID MELANIE Administration Insulin Human Lispro 0 unit 12/05/24 18:00 12/05/24 17:46 Insulin Lispro 100 Unit/1 Ml SUBCUT 2 unit WM&BEDTIME MELANIE Administration Protocol PFSH Acute PFSH: Medical History Carotid artery disease bilateral 50% on US 11/18 Rupture of right Achilles tendon Sixth nerve palsy of left eye Type 2 diabetes mellitus, with long-term current use of insulin Allergic rhinitis Dyslipidemia Peripheral vascular angioplasty status PAD (peripheral artery disease) Asthma Surgical History History of amputation of toe 2 of Right; 1 of left Status post colonoscopy (07/10/21) 1.14.22 Repeat in 10 years History of neck surgery anterior History of tonsillectomy and adenoidectomy History of endometrial ablation History of bladder suspension procedure H/O section X5 Family History Mother Stroke Father Diabetes mellitus, type 2 Congestive heart failure (CHF) Social History Smoking and tobacco/nicotine status: never used tobacco/nicotine Second hand smoke exposure: No Alcohol intake: never Substance/Drug Use: never Household members: spouse and children Marital status: Number of children: 5 Highest education level completed: High School Graduate Current occupational status: employed 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 Right hallux nail has been partially removed. Hemorrhagic blister, lateral right hallux with surrounding erythema. MUSCULOSKELETAL: Ankle joint and hindfoot range of motion within normal limits bilaterally. No tenderness with palpation of medial, lateral or anterior ankle bilaterally. No tenderness with palpation of lateral ankle ligaments bilaterally. No pain with palpation of midfoot bilaterally. 5/5 muscle strength in all 4 quadrants of the lower extremity when tested against resistance. No gross musculoskeletal deformities noted. NEUROLOGICAL: Neurological sensation to the affected foot and ankle is present through L4-S1 dermatomes with no hyper/hypoesthesias, negative Tinel or Valleix's sign Data 12/06/24 04:44 12/06/24 04:44 Micro: Microbiology 12/05/24 10:21 Blood Culture - Preliminary Blood SPECIMEN COLLECTED 12/05/24 10:07 Blood Culture - Preliminary Blood SPECIMEN COLLECTED A&P Assessment and plan (1) Cellulitis of great toe, right: (2) Type 2 diabetes mellitus, with long-term current use of insulin: Plan - Right hallux cellulitis -Labs and vitals reviewed -WBC 10.25 -CRP 104.9 -VSS -Cultures NGTD -Abx Vanco/Zosyn -Diet: Okay for diet -Patient underwent bedside debridement of right hallux. Details below. -Pain Mgmt: Per primary team -Weight bearing: Weightbearing as tolerated -Dressings: Betadine wet-to-dry -Continue current Abx therapy until ID and Sensitivity results -Trend labs -Discharge plan: Likely discharge tomorrow 12/07/2024 -Podiatry will continue to round on patient daily and provide recommendations PROCEDURE: Right hallux excisional wound debridement Location: Right hallux Local Anesthesia: None needed due to neuropathy Details: Excisional debridement was carried down to level of subcutaneous tissue Predebridement measurements: 0.3 x 0.3 x 0.1 cm Postdebridement measurements: 0.5 x 0.5 x 0.1 cm Hemostasis: Via manual compression Dressing: Betadine wet-to-dry Estimated Blood Loss: 1 cc Offloading: None PDMP PDMP Reviewed: Not Reviewed Coding Level of Care Code Acute Code for [facility] Fwd Diagnoses Cellulitis of great toe, right L03.031 Type 2 diabetes mellitus without complication, with long-term current use of insulin E11.9; Z79.4 Diabetes mellitus complication status: without complication
[2024-12-05 23:48] VITALS: BP 101/60; PULSE 71; RESP 18; TEMP 36.8; O2SAT 95
[2024-12-06] MEDS: clindamycin 600 MG/50 ML PREMIX 100 MG IV (01:15)
[2024-12-06 04:00] VITALS: BP 115/63; PULSE 69; RESP 16; TEMP 36.9; O2SAT 97
[2024-12-06 05:12] LABS: Basophils % 0.4 %; Eosinophils # 0.5 10^3/uL (0.0-0.8); Eosinophils % 6.5 %; Hematocrit 31.4 % (36-47); Lymphocytes # 2.8 10^3/uL (0.8-4.8); Lymphocytes % 38.8 %; Mean Corpuscular HGB Conc 32.2 g/dL (30-55); Mean Corpuscular Hemoglobin 28.1 pg (27-33); Mean Corpuscular Volume 87.5 fl (85-98); Mean Platelet Volume 10.4 fL (7.4-10.4); Monocytes # 0.7 10^3/uL (0.2-0.9); Monocytes % 9.6 %; Neutrophils # 3.14 10^3/uL (1.8-7.7); Neutrophils % 44.4 %; Nucleated Red Blood Cells % 0 %; Platelet Count 227 10^3/cmm (157-399); Red Blood Count 3.59 10^6/uL (3.85-5.65); Red Cell Distribution Width 14.3 % (12.1-15.1); White Blood Count 7.08 10^3/uL (3.29-11.43)
[2024-12-06 05:38] LABS: Alanine Aminotransferase 18 U/L (0-33); Albumin Level 3.1 g/dL (3.5-5.2); Alkaline Phosphatase 102 U/L (35-105); Anion Gap 18.4 (5-19); Aspartate Amino Transferase 29 U/L (0-32); Blood Urea Nitrogen 17 mg/dL (8-23); Carbon Dioxide 22 mmol/L (22-29); Chloride 102 mmol/L (98-107); Creatinine Clr Calc Pharmacy 58.9864; Globulin 3.1 g/dL (1.3-4.6); Glomerular Filtration Rate 56.4 mL/min (90-130); Glucose 166 mg/dL (65-115); Osmolality Calculated 291 mOsm/kg (285-295); Potassium 4.4 mmol/L (3.5-5.1); Sodium 138 mmol/L (136-145); Total Bilirubin 0.3 mg/dL (0.15-1.2); Total Protein 6.2 g/dL (6.6-8.7)
[2024-12-06 05:51] LABS: Creatine Phosphokinase 399 U/L (26-192)
[2024-12-06 06:22] LABS: Glucose Point of Care 167 mg/dL (70-110)
[2024-12-06] MEDS: lactated ringers 1,000 ML 75 ML IV (06:59)
[2024-12-06] MEDS: piperacillin-tazobactam 3.375 GM in sodium chloride 0.9% (plus) 50 ML IV (06:59)
--- NOTE | 2024-12-06 07:17 | P.PN_ITS ---
Subjective 2 Subjective: Patient seen at bedside this morning. Resting comfortably. No overnight events. Pain is well-controlled. Vitals/I&O/Wt Last Vital Signs Temp 98.5 F 12/06/24 04:00 Pulse 69 12/06/24 04:00 Resp 16 12/06/24 04:00 BP 115/63 12/06/24 04:00 Pulse Ox 97 12/06/24 04:00 O2 Del Method Room Air 12/06/24 04:00 12/05/24 12/06/24 12/06/24 22:59 06:59 14:59 Intake Total 1680 / 2730 1295 / 4025 Balance 1680 / 2730 1295 / 4025 Weight last 48 hrs Weight 167 lb 11.2 oz Weight 161 lb 1 oz Weight 170 lb Physical Exam 2 Narrative: BELOW IS A FOCUSED LOWER EXTREMITY EXAM GENERAL: A&O x 3 VASCULAR: DP/PT pulses palpable 2/4 with CFT intact, <3seconds to distal digits DERMATOLOGICAL: Right hallux is erythema has resolved. Superficial wound to distal right lateral hallux. No underlying abscess negative probe to bone. MUSCULOSKELETAL: Ankle joint and hindfoot range of motion within normal limits bilaterally. No tenderness with palpation of medial, lateral or anterior ankle bilaterally. No tenderness with palpation of lateral ankle ligaments bilaterally. No pain with palpation of midfoot bilaterally. 5/5 muscle strength in all 4 quadrants of the lower extremity when tested against resistance. No gross musculoskeletal deformities noted. NEUROLOGICAL: Neurological sensation to the affected foot and ankle is present through L4-S1 dermatomes with no hyper/hypoesthesias, negative Tinel or Valleix's sign Data 12/06/24 04:44 12/06/24 04:44 Micro: Microbiology 12/05/24 10:21 Blood Culture - Preliminary Blood SPECIMEN COLLECTED 12/05/24 10:07 Blood Culture - Preliminary Blood SPECIMEN COLLECTED A&P Assessment and plan (1) Cellulitis of great toe, right: (2) Type 2 diabetes mellitus, with long-term current use of insulin: Plan - Right hallux cellulitis--> resolved -Labs and vitals reviewed -WBC 10.25--> 7.08 -CRP 104.9 -VSS -Cultures NGTD -Abx Vanco/Zosyn -Diet: Okay for diet - No further surgical intervention by podiatry during this admission. -Pain Mgmt: Per primary team -Weight bearing: Weightbearing as tolerated -Dressings: Betadine wet-to-dry -Discharge plan: Patient is okay to discharge home from podiatry standpoint. Recommend 10-day course of oral broad-spectrum antibiotics such as Augmentin. Patient will follow-up with podiatry in the outpatient setting within 1 week of discharge. Patient will also perform daily dressing changes consisting of Betadine wet-to-dry. Patient verbalized understand to this. PDMP PDMP Reviewed: Not Reviewed Attestations 2 Medical Necessity Statement*: See hospitalist note Coding Level of Care Code Acute Code for [facility] Fwd Diagnoses Cellulitis of great toe, right L03.031 Type 2 diabetes mellitus without complication, with long-term current use of insulin E11.9; Z79.4 Diabetes mellitus complication status: without complication
[2024-12-06 07:40] VITALS: BP 114/58; PULSE 77; RESP 18; TEMP 36.8; O2SAT 96
--- NOTE | 2024-12-06 08:10 | PM.DCS ---
Discharge Providers Date of Admission: 12/05/24 11:31 Date of Discharge: December 06, 2024 Attending Provider at Admission: Charbel Valderrama Attending Provider at Discharge: Charbel Valderrama Primary Care Provider: Huma Pappas MD Diagnoses at Discharge Discharge Diagnosis (1) Cellulitis of great toe, right: Status: Acute (2) Type 2 diabetes mellitus, with long-term current use of insulin: Status: Chronic Qualifiers: Diabetes mellitus complication status: without complication Qualified Code(s): E11.9 - Type 2 diabetes mellitus without complications; Z79.4 - snf (current) use of insulin Reason for Visit Reason for Visit: rt toe infection Brief History: Fouzia Esquivel is a 59 year old female with a history of type 2 diabetes, hyperlipidemia, peripheral arterial disease, prior toe amputations, and asthma presenting with infection of the right great toe. The patient was recently treated with Bactrim (sulfamethoxazole/trimethoprim) but developed intense itching and vomiting, leading to discontinuation of the medication. She reports no appetite and has eaten very little since Tuesday, except for a candy bar to raise her blood sugar. She denies fever, diarrhea, chest pain, abdominal pain, and new cough, though she has a chronic cough. She experienced chills. The redness in the right great toe was first noticed on Tuesday after working over the weekend. Her toenail detached in the shower on Tuesday. There was no chronic wound or drainage until the toenail was removed. She has a history of prior amputations (right fifth toe and distal half of right fifth metatarsal, absent right third toe). She sometimes uses a cane due to dizziness when her blood pressure is low. She lives with her . She wears a boot on her foot for an Achilles tendon rupture and is not supposed to remove it, even while sleeping. She has a history of stenting in the left leg for peripheral arterial disease here and right at [facility]. She was referred to the hospital after being found with low blood pressure (85/60) in the podiatry office, raising concern for possible sepsis. In the emergency department, she was afebrile and without leukocytosis. Labs showed sodium 130, creatinine 1.5, BUN 122, potassium 4.2, anion gap 19.2, bicarbonate 22, glucose 217, lactic acid 2.6, alkaline phosphatase 112, and CRP 104.9. Foot x-ray showed cystic change and irregularity of the right first metatarsal head, with evidence of prior amputations. She was started on clindamycin and vancomycin, and podiatry was consulted. Hospital Course Hospital Course She initially received Zosyn and vancomycin, with acute kidney injury, was continued on cefepime and clindamycin, MRSA PCR was obtained and returned negative. She had good biphasic dopplerable pulses of DP and PT of right lower extremity. She was assessed by podiatry underwent bedside debridement of the right big toe with follow-up next morning with good response to treatment and she was cleared for return home and outpatient follow-up with a course of Augmentin. Please follow-up and reassess. Revisit with her regarding footcare with diabetes as has been discussed during hospitalization. She is asked to hold atorvastatin for now due to mild rhabdomyolysis noted on presentation CK 616 which has show decreased down to 399. Please follow-up and assist her in resumption of statin. Hypotension noted preadmission has resolved. She received fluid challenge. She has been able to resume oral intake. Please reassess blood pressure. Please reassess small skin tear on the medial right heel. Physical Exam Const: COMMON NORMALS: patient oriented x3 and alert GENERAL APPEARANCE: cooperative ORIENTATION/CONSCIOUSNESS: Yes awake HENMT: COMMON NORMALS: oropharynx normal Neck/C-Spine: COMMON NORMALS: no JVD Resp: COMMON NORMALS: normal respiratory effort and clear to auscultation bilaterally AUSCULTATION: clear to auscultation bilaterally Cardio: COMMON NORMALS: no JVD, regular rhythm, S1 normal heart sound present, S2 normal heart sound present and No murmurs present (Cardio) RHYTHM: regular rhythm HEART SOUNDS: S1 normal heart sound present and S2 normal heart sound present GI: COMMON NORMALS: Normal to inspection, nondistended, normoactive bowel sounds present, Soft to palpation and non-tender PALPATION: Yes Soft to palpation Extremity: COMMON NORMALS: no joint enlargement and no pedal edema NARRATIVE EXTREMITY EXAM: Dressing over debrided right big toe. OTHER: Biphasic PT and DP pulses dopplerable Neuro: COMMON NORMALS: patient oriented x3 and moves all extremities SENSORIUM/ORIENTATION: Yes alert Skin: COMMON NORMALS: no rashes or lesions noted NARRATIVE SKIN EXAM: Small skin tear right medial heel GENERAL SKIN EXAM: no rashes or lesions noted Discharge Data Studies Completed and Pending Completed Studies During Hospitalization Category Date Time Status XR foot RT min 3V* [id number] Stat Exams 12/05/24 09:57 Completed Pending at discharge Category Date Time Status Blood Culture Stat Lab 12/05/24 10:21 Results Complete Blood Count w/Auto AM LABS Lab 12/07/24 04:00 Ordered Complete Blood Count w/Auto AM LABS Lab 12/08/24 04:00 Ordered Comprehensive Metabolic Panel AM LABS Lab 12/07/24 04:00 Ordered Comprehensive Metabolic Panel AM LABS Lab 12/08/24 04:00 Ordered Radiology Impressions Foot X-Ray 12/05/24 09:57 Impression: 1. Amputation of right fifth toe and distal half of the right fifth metatarsal. 2. Absent right third toe. 3. Cystic change and irregularity over head of right first metatarsal. Laboratory Results WBC 7.08 10^3/uL (3.29-11.43) 12/06/24 04:44 RBC 3.59 10^6/uL (3.85-5.65) L 12/06/24 04:44 Hgb 10.10 g/dL (11.27-16.99) L 12/06/24 04:44 Hct 31.4 % (36-47) L 12/06/24 04:44 MCV 87.5 fl (85-98) 12/06/24 04:44 MCH 28.1 pg (27-33) 12/06/24 04:44 MCHC 32.2 g/dL (30-55) 12/06/24 04:44 RDW 14.3 % (12.1-15.1) 12/06/24 04:44 Plt Count 227 10^3/cmm (157-399) 12/06/24 04:44 MPV 10.4 fL (7.4-10.4) 12/06/24 04:44 Neut % (Auto) 44.4 % 12/06/24 04:44 Lymph % (Auto) 38.8 % 12/06/24 04:44 [place] % (Auto) 9.6 % 12/06/24 04:44 Eos % (Auto) 6.5 % 12/06/24 04:44 Baso % (Auto) 0.4 % 12/06/24 04:44 Neut # (Auto) 3.14 10^3/uL (1.8-7.7) 12/06/24 04:44 Lymph # (Auto) 2.8 10^3/uL (0.8-4.8) 12/06/24 04:44 [place] # (Auto) 0.7 10^3/uL (0.2-0.9) 12/06/24 04:44 Eos # (Auto) 0.5 10^3/uL (0.0-0.8) 12/06/24 04:44 Baso # (Auto) 0.0 10^3/uL (0.0-0.1) 12/06/24 04:44 Nucleated RBC % (auto) 0 % 12/06/24 04:44 Nucleated RBCs # 0.0 /100WBC 12/06/24 04:44 Sodium 138 mmol/L (136-145) 12/06/24 04:44 Potassium 4.4 mmol/L (3.5-5.1) 12/06/24 04:44 Chloride 102 mmol/L (98-107) 12/06/24 04:44 Carbon Dioxide 22 mmol/L (22-29) 12/06/24 04:44 Anion Gap 18.4 (5-19) 12/06/24 04:44 BUN 17 mg/dL (8-23) 12/06/24 04:44 Creatinine 1.0 mg/dL (0.5-0.9) H 12/06/24 04:44 GFR Calculation 56.4 mL/min (90-130) L 12/06/24 04:44 Glucose 166 mg/dL (65-115) H 12/06/24 04:44 POC Glucose 167 mg/dL (70-110) H 12/06/24 06:17 Calculated Osmolality 291 mOsm/kg (285-295) 12/06/24 04:44 Lactic Acid 2.6 mmol/L (0.5-2.2) H 12/05/24 10:07 Lactic Acid (Sepsis) 1.3 mmol/L (0.5-2.2) 12/05/24 12:43 Calcium 8.0 mg/dL (8.5-10.5) L 12/06/24 04:44 Total Bilirubin 0.3 mg/dL (0.15-1.2) 12/06/24 04:44 AST 29 U/L (0-32) 12/06/24 04:44 ALT 18 U/L (0-33) 12/06/24 04:44 Alkaline Phosphatase 102 U/L (35-105) 12/06/24 04:44 Creatine Kinase 399 U/L (26-192) H* 12/06/24 04:44 C-Reactive Protein 104.9 mg/L (0.0-4.9) H 12/05/24 10:07 Total Protein 6.2 g/dL (6.6-8.7) L 12/06/24 04:44 Albumin 3.1 g/dL (3.5-5.2) L 12/06/24 04:44 Globulin 3.1 g/dL (1.3-4.6) 12/06/24 04:44 Urine Color Yellow (Yellow) 12/05/24 17:42 Urine Appearance Clear (CLEAR) 12/05/24 17:42 Urine pH 6.0 (5-7) 12/05/24 17:42 Ur Specific [place] 1.017 (1.005-1.030) 12/05/24 17:42 Urine Protein Negative (Negative) 12/05/24 17:42 Urine Glucose (UA) Trace (Normal) H 12/05/24 17:42 Urine Ketones Trace (Negative) 12/05/24 17:42 Urine Blood 1+ (Negative) A 12/05/24 17:42 Urine Nitrate Negative (Negative) 12/05/24 17:42 Urine Bilirubin Negative (Negative) 12/05/24 17:42 Urine Urobilinogen 0.2 mg/dL (Negative) 12/05/24 17:42 Ur Leukocyte Esterase 2+ (Negative) A 12/05/24 17:42 Urine RBC 3-5 /hpf (0-2) 12/05/24 17:42 Urine WBC 0-5 /hpf (0-5) 12/05/24 17:42 Ur Squamous Epith Cells 0-5 /hpf (0-5) 12/05/24 17:42 Amorphous Sediment Not Reportable 12/05/24 17:42 Urine Bacteria None seen /hpf (NONE) 12/05/24 17:42 Hyaline Casts 1.65 /lpf 12/05/24 17:42 Nasal MRSA (PCR) Not detected (Not Detecte) 12/05/24 15:40 Vitals Last Vital Signs Temp 98.2 F 12/06/24 07:40 Pulse 77 12/06/24 07:40 Resp 18 12/06/24 07:40 BP 114/58 12/06/24 07:40 Pulse Ox 96 12/06/24 07:40 O2 Del Method Room Air 12/06/24 07:40 Discharge Plan Discharge Patient Disposition: Home Condition: Stable Prescriptions: New amoxicillin-pot clavulanate 875-125 mg tablet 1 tab PO BID Qty: 20 0RF Continued cetirizine [Allergy Relief (cetirizine)] 10 mg tablet 10 mg PO DAILY insulin aspart U-100 [Novolog U-100 Insulin aspart] 100 unit/mL solution 30 unit SUBCUT TID Qty: 30 3RF insulin glargine [Lantus U-100 Insulin] 100 unit/mL solution 30 unit SUBCUT BID Qty: 30 3RF (DME) CAM walker with Achilles wedge See Rx Instructions .Route .MEDSUPPLY Qty: 1 0RF Rx Instructions: As directed pantoprazole [Protonix] 40 mg tablet,delayed release (DR/EC) 40 mg PO DAILY Qty: 90 3RF aspirin 81 mg tablet,delayed release (DR/EC) 81 mg PO DAILY Qty: 90 3RF clopidogrel 75 mg tablet 75 mg PO DAILY Qty: 90 3RF (DME) Dexcom G7 Sensor Device See Rx Instructions .Route Qty: 1 3RF Rx Instructions: As directed metoclopramide HCl [Reglan] 5 mg tablet 5 mg PO Q8H PRN (Reason: nausea and vomiting) Qty: 10 0RF furosemide 20 mg tablet 20 mg PO DAILY PRN (Reason: Edema) Held atorvastatin [Lipitor] 80 mg tablet 80 mg PO DAILY Qty: 90 3RF Hold Instructions: Resume on 12/12/24. Discharge Orders: Discharge Order (Routine); Ordered 12/06/24 Ordered By: Charbel Valderrama Referrals: Hao Denton DPM [Physician, Podiatry] - 12/13/24 10:30 am Referral Note: Huma Pappas MD [Primary Care Provider, Family Practice] - 4-7 days Referral Note: We have notified your physician's clinic of the need for a follow-up appointment to be scheduled. If you have not heard from them within the next 2 business days, please call them directly. Discharge Diet: Diabetic Patient Instructions: Amoxicillin/Clavulanate Potassium (By mouth), Foot Ulcers in a Person with Diabetes (DC), Hypotension (GEN) Activity Restrictions/Additional Instructions: Please take your antibiotic as prescribed and follow-up with your primary doctor as well as with podiatry for reassessment. Hold antibiotic and contact your provider in case of any rash. Contact provider in case of diarrhea. Avoid walking barefoot or picking at your feet. Please do not soak your feet in water. Keep them clean and dry. Continue dressing changes to the wound with Betadine wet-to-dry. Seek medical attention in case of any worsening or new concerning symptoms. Discharge Attestations Time Spent in Discharge Care*: greater than 30 min Status at Discharge: Cognitive status at discharge: cognitively intact, Behavioral status at discharge: cooperative, Quality Metrics Clinical Quality Measures [ No reported AMI, CVA or VTE this stay] Coding Level of Care Code 54049 Total time (in minutes) for Discharge: 40 Diagnoses Cellulitis of great toe, right L03.031 Type 2 diabetes mellitus without complication, with long-term current use of insulin E11.9; Z79.4 Diabetes mellitus complication status: without complication
[2024-12-06] MEDS: insulin glargine 100 units/1 mL 30 UNIT SUBCUT (08:35)
[2024-12-06] MEDS: insulin lispro 100 unit/1 mL SUBCUT (08:35)
[2024-12-06] MEDS: aspirin 81 mg EC Tablet PO (08:35)
[2024-12-06] MEDS: pantoprazole DR 40 mg Tablet PO (08:35)
[2024-12-06] MEDS: clopidogrel 75 mg Tablet PO (08:35)
[2024-12-06] MEDS: fondaparinux 2.5 mg/0.5 mL Syringe SUBCUT (08:36)
[2024-12-06 08:59] VITALS: PULSE 69; RESP 16; O2SAT 96
[2024-12-06 09:44] VITALS: BP 114/58; PULSE 69; RESP 16; TEMP 36.8; O2SAT 96
== END 2024-12-06 09:35 | disposition home or self-care (01) ==
LOC: ER 12:25 → MEDSURG 12:39
PROVIDERS: Family Medicine; Admitting Provider Internal Medicine; Emergency Provider Student in an Organized Health Care Education/Training Program; PCP Family Medicine; Visit Provider Internal Medicine
DX: L03.031 Cellulitis of right toe (principal); S86.011A Strain of right Achilles tendon, initial encounter; X58.XXXA Exposure to other specified factors, initial encounter; E11.621 Type 2 diabetes mellitus with foot ulcer; L97.518 Non-pressure chronic ulcer of other part of right foot with other specified severity; Z79.4 Long term (current) use of insulin; E78.5 Hyperlipidemia, unspecified; Z89.429 Acquired absence of other toe(s), unspecified side; Z98.62 Peripheral vascular angioplasty status; J45.909 Unspecified asthma, uncomplicated; K21.9 Gastro-esophageal reflux disease without esophagitis; Z79.82 Long term (current) use of aspirin
CPT/HCPCS: 36415; 36416; 73630; 80053; 81001; 82550; 82962; 83605; 85025; 86140; 87040; 96365; 96367; 96372; 99214; 99285; G0378; J1652; J1815; J2543; J3372; J3490; J7030; J7120; J9999

== ENCOUNTER → 2024-12-13 10:13 | Outpatient (BNVA) | payer OTHER, SELFPAY | PROVIDERS: PCP Family Medicine; Visit Provider Podiatrist Foot & Ankle Surgery | DX: S86.011A Strain of right Achilles tendon, initial encounter (principal); E11.8 Type 2 diabetes mellitus with unspecified complications; E11.621 Type 2 diabetes mellitus with foot ulcer; L97.511 Non-pressure chronic ulcer of other part of right foot limited to breakdown of skin; X58.XXXA Exposure to other specified factors, initial encounter | CPT/HCPCS: 99214 ==

== ENCOUNTER 2024-12-24 08:04 | Emergency (ER) | payer OTHER, SELFPAY ==
--- OUTSIDE RECORDS SUMMARY | 2024-12-24 08:10 | XMS_ITS | Clinical Summary ---
Author Organization [facility] Address [address] [place] [address] Care Team Providers Care Auto Bumper Straightener Name Role Phone Effie Salgado Primary Care Provider [phone]- [phone] Allergies Active Allergy Reactions Criticality Noted Date Comments Morphine Itching Low 12/05/2012 Medications pregabalin (LYRICA) 75 mg Capsule Take 75 mg by mouth 2 times daily. Active tiZANidine (ZANAFLEX) 4 mg Tablet Take 4 mg by mouth every 6 hours as needed for Spasm. Active metFORMIN (GLUCOPHAGE) 500 mg tablet Take 500 mg by mouth 2 times daily with meals. Active insulin detemir U-100 (LEVEMIR) 100 unit/mL pen syringe Inject 32 Units by subcutaneous injection 2 times daily. Active omeprazole (PriLOSEC) 20 mg Capsule, Delayed Release(E.C.) Take 20 mg by mouth daily. Active multivitamin (DAILY-NICANOR) tablet Take 1 Tablet by mouth daily. Active BIOTIN ORAL Take 10,000 mcg by mouth daily. Active HYDROcodone-acetam inophen (NORCO) 5-325 mg tabletIndications: Herniation of cervical intervertebral disc with radiculopathy Take 1-2 Tablets by mouth every 4 hours as needed for Pain. 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 04/28/2020 Other and unspecified hyperlipidemia 04/28/2020 Preoperative general physical examination 2019 Type 2 diabetes mellitus without complication Dyslipidemia 04/17/2020 Gastroesophageal reflux disease without esophagi tis 04/17/2020 Mild intermittent asthma without complication Cervical stenosis of spine 04/17/2020 Muscle spasm 04/17/2020 Elevated transaminase level 04/17/2020 Family History Medical History Relation Name Comments Cancer Brother 1 Maya prostate Unknown Brother 3 Jose Healthy Daughter Heart Disease Father Healthy Son 1 Healthy Son 2 Healthy Son 3 Diabetes Son 4 Luke Relation Name Status Comments Brother 1 Maya Alive Brother 2 Young Alive Brother 3 Jose Alive Daughter Alive Father Mother Sister Andreea Alive Son 1 Alive Son 2 Alive Son 3 Alive Son 4 Luke Alive Social History Tobacco Use Types Packs/Day Years Used Date Smoking Tobacco: Never Smokeless Tobacco: Never Alcohol Use Standard Drinks/Week Comments Never 0 (1 standard drink = 0.6 oz pur e alcohol) Comments No Sex and Gender Information Value Date Recorded Sex Assigned at Not on file Legal Sex Female 1:10 PM CDT Gender Identity Not on file Sexual Orientation Not on file Last Filed Vital Signs Vital Sign Reading Time Taken Comments Blood Pressure 114/76 05/27/2020 1:07 PM REVOLVING FIELD ASSEMBLER Pulse 91 05/27/2020 1:07 PM REVOLVING FIELD ASSEMBLER Temperature 36.5 C (97.7 F) 05/27/2020 1:07 PM REVOLVING FIELD ASSEMBLER Respiratory Rate 18 05/14/2020 11:30 AM REVOLVING FIELD ASSEMBLER Oxygen Saturation 97% 05/27/2020 1:07 PM REVOLVING FIELD ASSEMBLER Inhaled Oxygen Concentration - - Weight 74.2 kg (163 lb 9.6 oz) 05/27/2020 1:07 P M REVOLVING FIELD ASSEMBLER Height 162.6 cm (5' 4 ) 05/27/2020 1:07 PM REVOLVING FIELD ASSEMBLER Body Mass Index 28.08 05/27/2020 1:07 PM REVOLVING FIELD ASSEMBLER Plan of Treatment Health Maintenance Due Date Last Done Comments DIABETES ANNUAL FOOT EXAM 11/10/1981 DIABETES ANNUAL RETINAL EXAM 11/10/1981 DIABETES MICROALBUMIN ANNUAL SCREEN 11/10/1981 LDL CHOLESTEROL ANNUAL 11/10/1981 DTAP/TDAP/TD VACCINES (1 - Tdap) 11/10/1982 HPV/Cotest (21-29) 11/10/1984 CERVICAL CANCER SCREENING 11/10/1993 HPV/Cotest (30-65) 11/10/1993 PAP SMEAR 11/10/1993 BREAST CANCER SCREENING 2003 COLORECTAL SCREENING 11/10/2008 Colorectal Cancer Screening 11/10/2008 FIT-DNA Q 3 years 11/10/2008 FIT/FOBT Q 1 year 11/10/2008 Flex Sig/CT Colonography Q 5 years 11/10/2008 ZOSTER VACCINE (1 of 2) 11/10/2013 DIABETES HBA1C Q 6 MONTHS 10/16/2020 04/17/2020 RSV VACCINE (60+ or ) (1 - Risk 60-74 years 1-dose series) 2023 INFLUENZA VACCINE (#1) 2024 03/27/2017 Medical Devices Implanted Type Area Vessel Traffic Officer Device Identifier Shelf Expiration Date Model / Serial / Lot Hemostatic Surgiflo 8ml W/Thrombin 2994 - [id number] Implanted:Qty : 1 on 05/14/2020 by Sven Desouza MD at [facility] Hemostatic N/A: Spine Cervical Anterior [employer] [id number] 04/26/2021 [id number] / / [id number] Plate Zevo Ac 1lvl Ti 21mm [id number] - [id number] Implanted:Qty : 1 on 05/14/2020 by Sven Desouza MD at [facility] Plate N/A: Spine Cervical Anterior [employer] [id number] / / [id number] Screw Zevo Va Sd 3.5x15mm [id number] - [id number] Implanted:Qty : 1 on 05/14/2020 by Sven Desouza MD at [facility] Screw N/A: Spine Cervical Anterior [employer] [id number] / / [id number] Screw Zevo Va Sd 3.5x15mm [id number] - [id number] Implanted:Qty : 1 on 05/14/2020 by Sven Desouza MD at [facility] Screw N/A: Spine Cervical Anterior [employer] [id number] / / [id number] Screw Zevo Va Sd 3.5x15mm [id number] - [id number] Implanted:Qty : 1 on 05/14/2020 by Sven Desouza MD at [facility] Screw N/A: Spine Cervical Anterior [employer] [id number] / / [id number] Screw Zevo Va Sd 3.5x15mm [id number] - [id number] Implanted:Qty : 1 on 05/14/2020 by Sven Desouza MD at [facility] Screw N/A: Spine Cervical Anterior [employer] [id number] / / [id number] Graft Bone [employer] [id number] - [id number] Implanted:Qty : 1 on 05/14/2020 by Sven Desouza MD at [facility] Tissue N/A: Spine Cervical Anterior [employer] 08/14/2022 [id number] / / [id number] Procedures Procedure Name Priority Date/Time Associated Diagnosis Comments HEMOGLOBIN A1C Routine 04/17/2020 12:00 PM CDT from Last 3 Months or Most Recently Relevant to Health Maintenance Results * (ABNORMAL) HEMOGLOBIN A1C (04/17/2020 12:00 PM CDT) HEMOGLOBIN A1C 13.6(H) <=5.6 % 04/17/2020 12:[address] [facility] EST. AVG GLUCOSE, A1C 344 mg/dL 04/17/2020 12:[address] [facility] Blood Venipuncture / Unknown 04/17/2020 12:00 PM CDT 04/17/2020 12:07 PM CDT Narrative [facility] - 04/17/2020 12:36 PM CDT HGB A1C INTERPRETATION NORMAL: <5.7% PRE-DIABETES: 5.7 - 6.4% DIABETES: 6.5% OR GREATER us Fer Muñoz MD CHEMISTRY ORDERABLES Final Resu lt [facility] CLIA #[id number] [address] [place] [address] from Last 3 Months or Most Recently Relevant to Health Maintenance Insurance Care Teams Auto Bumper Straightener Relationship Specialty Start Date End Date Effie Salgado DO PCP - General Family Practice 04/17/20
--- OUTSIDE RECORDS SUMMARY | 2024-12-24 08:10 | XMS_ITS | Clinical Summary ---
Author Organization [facility] Address [address] [place] [address] Care Team Providers Care Locomotive Observer Name Role Phone Effie Salgado DO Primary Care Provider +1- [phone] Allergies Active Allergy Reactions Criticality Noted Date Comments Alpha-Gal (Wbofemkpm-Egsvv-7,3-Galactose) Nausea and Vomiting Low 11/09/2023 Morphine Itching Low 12/05/2012 Medications ondansetron (ZOFRAN ODT) 8 mg Tablet, Rapid Dissolve DISSOLVE ONE TABLET UNDER THE TONGUE EVERY TWELVE HOURS NEEDED FOR NAUSEA AND VOMITING 10/12/19 24 Active insulin glargine (LANTUS) 100 unit/mL pen syringe Inject 30 Units by subcutaneous injection daily. Active insulin aspart (NovoLOG) 100 unit/mL injection Inject by subcutaneous injection daily. Per sliding scale Active amoxicillin-clavul anate (AUGMENTIN) 875-125 mg tablet Take 1 Tablet by mouth 2 times daily. Right foot infection, last dose 11/0910/31/19 24 Active clopidogreL (PLAVIX) 75 mg Tablet Take 1 Tablet (75 mg) by mouth daily. 90 Tablet 3 11/09/19 24 Active aspirin (ECOTRIN EC) 81 mg Tablet, Delayed Release (E.C.)Indications: Mixed hyperlipidemia Take 1 Tablet (81 mg) by mouth daily. 01/09/20 24 Active atorvastatin (LIPITOR) 80 mg tabletIndications: Mixed hyperlipidemia Take 1 Tablet (80 mg) by mouth daily. 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 04/28/2020 Asthma without status asthmaticus 04/28/2020 Other and unspecified hyperlipidemia 04/28/2020 Type 2 diabetes mellitus without complication Preoperative general physical examination 2019 Gastroesophageal reflux disease without esophagi tis 04/17/2020 Mild intermittent asthma without complication Cervical stenosis of spine 04/17/2020 Dyslipidemia 04/17/2020 Muscle spasm 04/17/2020 Elevated transaminase level 04/17/2020 Encounters Date Type Department Care Team Description 12/12/2024 External Device Data [facility] ABSTRACTION Provider, Abstract 12/11/2024 External Device Data [facility] ABSTRACTION Provider, Abstract 11/27/2024 External Device Data [facility] ABSTRACTION Provider, Abstract from Last 3 Months Immunizations Immunization Administration Dates Next Due (PNEUMOVAX 23)(50 YRS UP) PN EUMOCOCCAL POLYSACCHARIDE (PPV23) 0.5 ML, IM 01/29/2015 DTaP, Unspecified Formulation 12/05/2012 Influenza Seasonal Unspecified Formulation IM ,04/02/2015 Influenza, Unspecified Formulation 04/17/2014, Family History Medical History Relation Name Comments Cancer Brother 1 Maya prostate Unknown Brother 2 Jose Healthy Daughter Heart Disease Father Diabetes Son 1 Luke Healthy Son 2 Healthy Son 3 Healthy Son 4 Relation Name Status Comments Brother 1 Maya Alive Brother 2 Jose Alive Brother 3 Young Alive Daughter Alive Father Mother Sister Andreea Alive Son 1 Luke Alive Son 2 Alive Son 3 Alive Son 4 Alive Social History Tobacco Use Types Packs/Day Years Used Date Smoking Tobacco: Never Smokeless Tobacco: Never Tobacco Cessation:Counseling Given: Not Answered Alcohol Use Standard Drinks/Week Comments Never 0 (1 standard drink = 0.6 oz pur e alcohol) Feeling Safe Answer Date Recorded Are you in a relationship wi th someone who hurts you emotionally and/or physically? No 11/23/2023 Food Insecurity Answer Date Recorded Patient needs follow up regardin 10/28/2024 Transportation Needs Answer Date Record ed Patient needs follow up regardin 10/28/2024 Housing Stability Answer Date Recorded Social/Environmental Concerns No concerns Utility Needs Answer Date Recorded Patient needs follow up regardin 10/28/2024 Comments No Sex and Gender Information Value Date Recorded Sex Assigned at Not on file Legal Sex Female 8:55 PM PERFUME MAKER Gender Identity Not on file Sexual Orientation Not on file Last Filed Vital Signs Vital Sign Reading Time Taken Comments Blood Pressure 118/64 01/23/2024 1:13 PM CDT Pulse 71 01/23/2024 1:13 PM CDT Temperature 36.1 C (96.9 F) 11/23/2023 2:25 PM CDT Respiratory Rate 16 11/23/2023 3:55 PM CDT Oxygen Saturation 94% 01/23/2024 1:13 PM CDT Inhaled Oxygen Concentration - - Weight 73 kg (161 lb) 01/23/2024 1:13 PM CDT Height 162.6 cm (5' 4 ) 11/23/2023 9:05 AM CDT Body Mass Index 27.64 11/23/2023 9:05 AM CDT Plan of Treatment Health Maintenance Due Date Last Done Comments DIABETES ANNUAL FOOT EXAM 11/10/1981 DIABETES ANNUAL RETINAL EXAM 11/10/1981 DIABETES MICROALBUMIN ANNUAL SCREEN 11/10/1981 LDL CHOLESTEROL ANNUAL 11/10/1981 HPV/Cotest (21-29) 11/10/1984 CERVICAL CANCER SCREENING 11/10/1993 HPV/Cotest (30-65) 11/10/1993 PAP SMEAR 11/10/1993 BREAST CANCER SCREENING 2003 FIT-DNA Q 3 years 11/10/2008 FIT/FOBT Q 1 year 11/10/2008 Flex Sig/CT Colonography Q 5 years 11/10/2008 DTAP/TDAP/TD VACCINES (1 - Tdap) 12/06/2012 12/06/19 13 ZOSTER VACCINE (1 of 2) 11/10/2013 RSV VACCINE (60+ or ) (1 - Risk 60-74 years 1-dose series) 2023 INFLUENZA VACCINE (#1) 2024 03/27/2017, 2014 DIABETES HBA1C Q 6 MONTHS 05/11/20242023, 04/17/2020, 04/17/2020 COLORECTAL SCREENING 07/10/2031 07/10/2021 Colorectal Cancer Screening 07/10/2031 Medical Devices Implanted Type Area Youth Support Worker Device Identifier Shelf Expiration Date Model / Serial / Lot Dev Closure Angioseal 6fr Vip [id number] - [id number] Implanted:Qty : 1 on 11/23/2023 by Hao Amaya MD at [facility] Closure Device Left: Groin [facility] [employer] 07/28/2024 [id number] / / [id number] Hemostatic Surgiflo 8ml W/Thrombin 2994 - [id number] Implanted:Qty : 1 on 05/14/2020 by Sven Desouza MD Hemostatic N/A: Spine Cervical Anterior [employer] [id number] 04/26/2021 [id number] / / [id number] Plate Zevo Ac 1lvl Ti 21mm [id number] - [id number] Implanted:Qty : 1 on 05/14/2020 by Sven Desouza MD Plate N/A: Spine Cervical Anterior [employer] [id number] / / [id number] Screw Zevo Va Sd 3.5x15mm [id number] - [id number] Implanted:Qty : 1 on 05/14/2020 by Sven Desouza MD Screw N/A: Spine Cervical Anterior [employer] [id number] / / [id number] Screw Zevo Va Sd 3.5x15mm [id number] - [id number] Implanted:Qty : 1 on 05/14/2020 by Sven Desouza MD Screw N/A: Spine Cervical Anterior [employer] [id number] / / [id number] Screw Zevo Va Sd 3.5x15mm [id number] - [id number] Implanted:Qty : 1 on 05/14/2020 by Sven Desouza MD Screw N/A: Spine Cervical Anterior [employer] [id number] / / [id number] Screw Zevo Va Sd 3.5x15mm [id number] - [id number] Implanted:Qty : 1 on 05/14/2020 by Sven Desouza MD Screw N/A: Spine Cervical Anterior [employer] [id number] / / [id number] Graft Bone [employer] [id number] - [id number] Implanted:Qty : 1 on 05/14/2020 by Sven Desouza MD Tissue N/A: Spine Cervical Anterior [employer] 08/14/2022 [id number] / / [id number] Procedures Procedure Name Priority Date/Time Associated Diagnosis Comments HEMOGLOBIN A1C Stat 11/09/2023 10:51 AM CDT Type 2 diabetes mellitus with right diabetic foot ulcer (CMS/HCC) Peripheral arterial disease Pre-operative exam from Last 3 Months or Most Recently Relevant to Health Maintenance Results * (ABNORMAL) HEMOGLOBIN A1C (11/09/2023 10:51 AM CDT) HEMOGLOBIN A1C 9.8(H) <=5.6 % 2023 7:33 AM CDT [facility] [employer] [facility] EST. AVG GLUCOSE, A1C 235 mg/dL 2023 7:33 AM CDT [facility] [employer] [facility] Blood Venipuncture / Unknown 11/09/2023 10:51 AM CDT 11/09/2023 11:37 AM CDT Narrative [facility] [employer] [facility] - 2023 7:33 AM CDT HGB A1C INTERPRETATION NORMAL: <5.7% PRE-DIABETES: 5.7 - 6.4% DIABETES: 6.5% OR GREATER us Hao Amaya MD CHEMISTRY ORDERABLES Final Resul t [facility] CLIA # [id number] [address] [place] [id number] from Last 3 Months or Most Recently Relevant to Health Maintenance Insurance Advance Directives For more information, please contact: [phone] * Full Code (Latest Code Status on File) Date Activated Date Inactivated Comments 11/23/2023 10:09 AM 11/23/2023 7:31 PM Care Teams Locomotive Observer Relationship Specialty Start Date End Date Effie Salgado DO PCP - General 09/04/20
--- NOTE | 2024-12-24 08:15 | XRR_ITS ---
PROCEDURE INFORMATION: Exam: XR Chest Exam date and time: 12/24/2024 8:29 AM Age: 59 years old Clinical indication: Cough and dyspnea; Prior surgery; Surgery date: 6+ months; Surgery type: C. Spine; Additional info: Dyspnea/cough TECHNIQUE: Imaging protocol: Radiologic exam of the chest. Views: 1 view. COMPARISON: CR XR chest 1V portable [id number] 04/10/2024 4:34 PM FINDINGS: Lungs: Unremarkable. No consolidation. Pleural spaces: Unremarkable. No pleural effusion. No pneumothorax. Heart/Mediastinum: Unremarkable. No cardiomegaly. Bones/joints: Unremarkable. XR/XR chest 1V portable [id number] IMPRESSION: No acute findings.
--- NOTE | 2024-12-24 08:15 | ECG_ITS ---
[facility]: 2024-12[facility]24 Pat Name: Fouzia Esquivel Department: Room: Gender: Female In Store Marketer: : 1965 Requested By: Wilfred Dai Order Number: [id number] Mitch MD: Natanael Hwang M.D. Measurements Intervals [place] Rate: 72 P: 71 GA: 163 QRS: 61 QRSD: 89 T: 75 QT: 383 QTc: 422 Interpretive Statements SINUS RHYTHM No previous ECG available for comparison Electronically Signed On 12-27-2024 09:09:37 CDT by Natanael Hwang M.D. [email or web address]
[2024-12-24 08:22] VITALS: PULSE 73; RESP 16; TEMP 36.6; O2SAT 97
[2024-12-24 08:27] VITALS: BP 115/63; PULSE 74; O2SAT 99
[2024-12-24 08:34] LABS: Glucose Point of Care 171 mg/dL (70-110)
--- NOTE | 2024-12-24 08:49 | ED_ITS ---
HPI - Weakness 2 General: Chief complaint: Weakness Stated complaint: weak sent from urgent care Time Seen by Provider: 12/24/24 08:15 History of Present Illness: 59-year-old female sent from urgent care concerned about hyperglycemia has not been checking her blood sugars using insulin as her that she also has infection in her right foot in the 1st and 2nd toes that is red and inflamed she is currently on antibiotics for this. Associated symptoms: Denies chest pain, chills, dysuria or fever(s) Review of Systems 2 Const: Denies: fever(s) or chills Card: Denies: chest pain Resp: Denies: dyspnea GI: Denies: abdominal pain : Denies: dysuria, urinary frequency or urinary urgency Musc: Denies: neck pain or back pain Skin/Breast: Denies: rash PFSH ED 2 PFSH: Medical History Fever and chills Uncontrolled diabetes mellitus Carotid artery disease bilateral 50% on US 11/18 Rupture of right Achilles tendon Sixth nerve palsy of left eye Type 2 diabetes mellitus, with long-term current use of insulin Allergic rhinitis Dyslipidemia Peripheral vascular angioplasty status PAD (peripheral artery disease) Asthma Surgical History History of amputation of toe 2 of Right; 1 of left Status post colonoscopy (07/10/21) 1.14.22 Repeat in 10 years History of neck surgery anterior History of tonsillectomy and adenoidectomy History of endometrial ablation History of bladder suspension procedure H/O section X5 Family History Mother Stroke Father Diabetes mellitus, type 2 Congestive heart failure (CHF) Social History Smoking and tobacco/nicotine status: never used tobacco/nicotine Second hand smoke exposure: No Alcohol intake: never Substance/Drug Use: never Household members: spouse and children Marital status: Number of children: 5 Highest education level completed: High School Graduate Current occupational status: employed 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 Physical Exam 2 Const: COMMON NORMALS: no acute distress GENERAL APPEARANCE: cooperative and comfortable ORIENTATION/CONSCIOUSNESS: Yes awake, Yes oriented to person, Yes oriented to place and Yes oriented to time HENMT: COMMON NORMALS: normocephalic, atraumatic and hearing grossly normal bilaterally HEAD & SCALP: normocephalic and atraumatic Resp: COMMON NORMALS: normal respiratory effort, No retractions, No use of accessory muscles and clear to auscultation bilaterally AUSCULTATION: clear to auscultation bilaterally Cardio: COMMON NORMALS: regular rate, regular rhythm and No murmurs present (Cardio) RATE: regular rate RHYTHM: regular rhythm GI: COMMON NORMALS: Soft to palpation and No hepatosplenomegaly present A USCULTATION: Yes normoactive bowel sounds PALPATION: Yes Soft to palpation, No Tenderness to palpation present (GI), No Guarding due to palpation present (GI) and Yes No hepatosplenomegaly present Extremity: COMMON NORMALS: normal to inspection, capillary refill normal, no clubbing, cyanosis or edema, no calf tenderness and no pedal edema Neuro: SENSORIUM/ORIENTATION: Yes oriented to person, Yes oriented to place and Yes oriented to time Skin: COMMON NORMALS: no rashes or lesions noted GENERAL SKIN EXAM: no rashes or lesions noted Course 2 Vital Signs: Vital signs: Vital Signs Temperature 97.8 F 12/24/24 08:22 Pulse Rate 70 12/24/24 12:15 Respiratory Rate 16 12/24/24 08:22 Blood Pressure 112/58 12/24/24 12:15 Pulse Oximetry 99 12/24/24 12:15 Oxygen Delivery Me thod Room Air 12/24/24 09:59 MDM - Weakness Medical Decision Making Blood sugar well-controlled in the right great toe there is signs of an early osteomyelitis she is currently on antibiotics she has been seen Dr. Denton I contacted him he has an appointment with her tomorrow he recommends that she stay on the antibiotics follow-up with her tomorrow with a look at it and discuss more definitive therapy as to whether or not they opt for elective amputation or a longer course of IV antibiotics. This was reviewed with the patient. There is no sign of DKA at this time. Medical Records I reviewed the patient's medical records. Lab Data I reviewed the patient's lab results. 12/24/24 08:42 12/24/24 08:42 Radiology Impressions Chest X-Ray 12/24/24 08:15 IMPRESSION: No acute findings. Foot X-Ray 12/24/24 10:31 IMPRESSION: Question early osteomyelitis in the distal phalanx of the toe as above. Laboratory Results WBC 4.70 10^3/uL (3.29-11.43) 12/24/24 08:42 RBC 3.82 10^6/uL (3.85-5.65) L 12/24/24 08:42 Hgb 10.80 g/dL (11.27-16.99) L 12/24/24 08:42 Hct 32.7 % (36-47) L 12/24/24 08:42 MCV 85.6 fl (85-98) 12/24/24 08:42 MCH 28.3 pg (27-33) 12/24/24 08:42 MCHC 33.0 g/dL (30-55) 12/24/24 08:42 RDW 14.4 % (12.1-15.1) 12/24/24 08:42 Plt Count 226 10^3/cmm (157-399) 12/24/24 08:42 MPV 10.2 fL (7.4-10.4) 12/24/24 08:42 Neut % (Auto) 69.9 % 12/24/24 08:42 Lymph % (Auto) 22.3 % 12/24/24 08:42 [place] % (Auto) 6.6 % 12/24/24 08:42 Eos % (Auto) 0.2 % 12/24/24 08:42 Baso % (Auto) 0.6 % 12/24/24 08:42 Neut # (Auto) 3.28 10^3/uL (1.8-7.7) 12/24/24 08:42 Lymph # (Auto) 1.1 10^3/uL (0.8-4.8) 12/24/24 08:42 [place] # (Auto) 0.3 10^3/uL (0.2-0.9) 12/24/24 08:42 Eos # (Auto) 0.0 10^3/uL (0.0-0.8) 12/24/24 08:42 Baso # (Auto) 0.0 10^3/uL (0.0-0.1) 12/24/24 08:42 Nucleated RBC % (auto) 0 % 12/24/24 08:42 Nucleated RBCs # 0.0 /100WBC 12/24/24 08:42 ESR 71 mm/hr (0-15) H 12/24/24 08:42 Specimen Type Arterial 12/24/24 09:03 Sample Site Radial, left 12/24/24 09:03 ABG pH 7.49 (7.35-7.45) H 12/24/24 09:03 ABG pCO2 31.3 mmHg (35-45) L 12/24/24 09:03 ABG pO2 71.9 mmHg (80.0-100.0) L 12/24/24 09:03 ABG PO2/FiO2 Ratio 342 12/24/24 09:03 ABG HCO3 24.1 mmol/L (22-26) 12/24/24 09:03 ABG O2 Saturation 96.2 12/24/24 09:03 ABG Base Excess 1.2 mmol/L (-2.0-2.0) 12/24/24 09:03 [place] Test Pos 12/24/24 09:03 A-a O2 Gradient 5.0 mmHg (5-10) 12/24/24 09:03 Hematocrit 33.9 % (37-47) L 12/24/24 09:03 Hgb O2 Saturation 94.1 % (95-100) L 12/24/24 09:03 Carboxyhemoglobin 1.1 %THgb (0.4-20.1) 12/24/24 09:03 Methemoglobin 1.2 % (0.4-1.5) 12/24/24 09:03 Total Hemoglobin 11.0 g/dL (12-16) L 12/24/24 09:03 Sodium 134.0 mmol/L (131-143) 12/24/24 09:03 Potassium 3.8 mmol/L (3.5-5.0) 12/24/24 09:03 Glucose 159.0 mg/dL (70-115) H 12/24/24 09:03 Ionized Calcium 1.2 mmol/L (1.1-1.4) 12/24/24 09:03 O2 Delivery Device Room air 12/24/24 09:03 FiO2 21.0 % 12/24/24 09:03 Heart Doctor ID [place] 12/24/24 09:03 Sodium 133 mmol/L (136-145) L 12/24/24 08:42 Potassium 4.4 mmol/L (3.5-5.1) 12/24/24 08:42 Chloride 96 mmol/L (98-107) L 12/24/24 08:42 Carbon Dioxide 21 mmol/L (22-29) L 12/24/24 08:42 Anion Gap 20.4 (5-19) H 12/24/24 08:42 BUN 13 mg/dL (8-23) 12/24/24 08:42 Creatinine 1.1 mg/dL (0.5-0.9) H 12/24/24 08:42 GFR Calculation 50.5 mL/min (90-130) L 12/24/24 08:42 Glucose 155 mg/dL (65-115) H 12/24/24 08:42 POC Glucose 171 mg/dL (70-110) H 12/24/24 08:30 Calculated Osmolality 279 mOsm/kg (285-295) L 12/24/24 08:42 Calcium 9.3 mg/dL (8.5-10.5) 12/24/24 08:42 Total Bilirubin 0.5 mg/dL (0.15-1.2) 12/24/24 08:42 AST 33 U/L (0-32) H 12/24/24 08:42 ALT 19 U/L (0-33) 12/24/24 08:42 Alkaline Phosphatase 95 U/L (35-105) 12/24/24 08:42 Total Protein 7.7 g/dL (6.6-8.7) 12/24/24 08:42 Albumin 3.6 g/dL (3.5-5.2) 12/24/24 08:42 Globulin 4.1 g/dL (1.3-4.6) 12/24/24 08:42 Lipase 9 U/L (13-60) L 12/24/24 08:42 Urine Color Yellow (Yellow) 12/24/24 09:53 Urine Appearance Slightly cloudy (CLEAR) 12/24/24 09:53 Urine pH TNP 12/24/24 09:53 Ur Specific [place] TNP 12/24/24 09:53 Urine Protein TNP 12/24/24 09:53 Urine Glucose (UA) TNP 12/24/24 09:53 Urine Ketones TNP 12/24/24 09:53 Urine Blood TNP 12/24/24 09:53 Urine Nitrate TNP 12/24/24 09:53 Urine Bilirubin TNP 12/24/24 09:53 Urine Urobilinogen TNP 12/24/24 09:53 Ur Leukocyte Esterase TNP 12/24/24 09:53 Urine RBC 3-5 /hpf (0-2) 12/24/24 09:53 Urine WBC 11-20 /hpf (0-5) H 12/24/24 09:53 Ur Squamous Epith Cells 51-100 /hpf (0-5) 12/24/24 09:53 Amorphous Sediment Not Reportable 12/24/24 09:53 Urine Bacteria 1+ /hpf (NONE) H 12/24/24 09:53 Hyaline Casts 3.30 /lpf 12/24/24 09:53 Serum Ketones Negative (Negative) 12/24/24 08:42 All radiology interpretation(s) finalized by discharge Discharge Plan Discharge Patient Disposition: Home Clinical Impression: Osteomyelitis of great toe of right foot Type 2 diabetes mellitus, with long-term current use of insulin Qualifiers: Diabetes mellitus complication status: without complication Qualified Code(s): E11.9 - Type 2 diabetes mellitus without complications Condition: Stable Prescriptions: No Action cetirizine [Allergy Relief (cetirizine)] 10 mg tablet 10 mg PO DAILY amoxicillin-pot clavulanate 875-125 mg tablet 1 tab PO BID insulin aspart U-100 [Novolog U-100 Insulin aspart] 100 unit/mL solution 30 unit SUBCUT TID Qty: 30 3RF insulin glargine [Lantus U-100 Insulin] 100 unit/mL solution 30 unit SUBCUT BID Qty: 30 3RF (DME) CAM walker with Achilles wedge See Rx Instructions .Route .MEDSUPPLY Qty: 1 0RF Rx Instructions: As directed atorvastatin [Lipitor] 80 mg tablet 80 mg PO DAILY Qty: 90 3RF pantoprazole [Protonix] 40 mg tablet,delayed release (DR/EC) 40 mg PO DAILY Qty: 90 3RF aspirin 81 mg tablet,delayed release (DR/EC) 81 mg PO DAILY Qty: 90 3RF clopidogrel 75 mg tablet 75 mg PO DAILY Qty: 90 3RF (DME) Phobious G7 Sensor Device See Rx Instructions .Route Qty: 3 3RF Rx Instructions: As directed metoclopramide HCl [Reglan] 5 mg tablet 5 mg PO Q8H PRN (Reason: nausea and vomiting) Qty: 10 0RF fluticasone propionate 50 mcg/actuation spray,suspension 2 spray INTRANASAL DAILY PRN (Reason: congestion/ear pain) furosemide 20 mg tablet 20 mg PO DAILY PRN (Reason: Edema) Discharge Orders: Discharge ED (Routine); Ordered 12/24/24 Ordered By: Wilfred Hernandez Referrals: Huma Pappas MD [Primary Care Provider, Family Practice] Patient Instructions: Opioid Safety, Pain Management, Patient Portal & Priyanka Instructions Activity Restrictions/Additional Instructions: [facility] you [facility] your healthcare needs today. It is very important that you follow up as instructed or that you return to the Emergency Department should you have concerns or if your condition changes or worsens in any way. You were seen in the emergency room with complaints of not feeling well. Your white count was normal x-ray shows elevated sed rate and evidence of infection in the bone on the right great toe. I discussed with your pathology technician he recommends at this time to keep your appointment tomorrow continue the current antibiotics that you were previously prescribed. He will discuss treatment options with you tomorrow in the office. You should use your insulin regularly and monitor your blood sugars and follow the insulin prescription dosing you were given previously at this time there is no sign of diabetic ketoacidosis. Print Language: Spanish Coding Level of Care Code ED Grain Merchandising Manager for Chg Fwd Related Data Home Medications ?Medication ?Instructions ?Recorded ?Confirmed cetirizine 10 mg tablet (Allergy 10 mg PO DAILY 12/24/24 Relief (cetirizine)) furosemide 20 mg tablet 20 mg PO DAILY PRN Edema 05/2112/24/24 amoxicillin 875 mg-potassium 1 tab PO BID 12/24/24 clavulanate 125 mg tablet fluticasone propionate 50 2 spray intranasal DAILY PRN 12/24/24 12/24/24 mcg/actuation nasal congestion/ear pain spray,suspension Previous Rx's ?Medication ?Instructions ?Recorded atorvastatin 80 mg tablet (Lipitor) 80 mg PO DAILY #90 tabs 05/31/24 Held on 12/06/24. Instructions: Resume on 12/12/24. pantoprazole 40 mg tablet,delayed 40 mg PO DAILY #90 t abs 05/31/24 release (Protonix) insulin aspart U-100 100 unit/mL 30 unit (0.3 mL) SUBC UT TID #30 mL 07/12/24 subcutaneous solution (Novolog U-100 Insulin aspart) insulin glargine 100 unit/mL 30 unit (0.3 mL) SUBCUT B ID #30 mL 07/12/24 subcutaneous solution (Lantus U-100 Insulin) aspirin 81 mg tablet,delayed 81 mg PO DAILY #90 tabs 0 07/17/24 release clopidogrel 75 mg tablet 75 mg PO DAILY #90 tabs /07/21 metoclopramide HCl 5 mg tablet 5 mg PO Q8H PRN nausea and 10/28/24 (Reglan) vomiting #10 tabs CAM walker with Achilles wedge #1 ea 10/29/24 blood-glucose sensor (Dexcom G7 #3 ea 12/12/24 Sensor device) Allergies Allergy/AdvReac Type Severity Reaction Status Date / Time morphine Allergy ADR-Itching Verified 12/24/24 07:34 Sulfa (Sulfonamide Allergy Unknown Verified 12/24/24 07:34 Antibiotics) Alpha-Gal AdvReac ADR-Vomitin Verified 12/24/24 07:34 (Zfcehppuk-Xefff-8,3-Gala g
[2024-12-24 08:58] LABS: Basophils % 0.6 %; Eosinophils % 0.2 %; Hematocrit 32.7 % (36-47); Lymphocytes # 1.1 10^3/uL (0.8-4.8); Lymphocytes % 22.3 %; Mean Corpuscular Hemoglobin 28.3 pg (27-33); Mean Corpuscular Volume 85.6 fl (85-98); Mean Platelet Volume 10.2 fL (7.4-10.4); Monocytes # 0.3 10^3/uL (0.2-0.9); Monocytes % 6.6 %; Neutrophils # 3.28 10^3/uL (1.8-7.7); Neutrophils % 69.9 %; Nucleated Red Blood Cells % 0 %; Platelet Count 226 10^3/cmm (157-399); Red Blood Count 3.82 10^6/uL (3.85-5.65); Red Cell Distribution Width 14.4 % (12.1-15.1)
[2024-12-24 09:14] LABS: ABG PCO2 31.3 mmHg (35-45); ABG PH Result 7.49 (7.35-7.45); Arterial Blood Gas Hematocrit 33.9 % (37-47); Base Excess ABG 1.2 mmol/L (-2.0-2.0); Blood Gas Allen Test Pos; Blood Gas Operator Identificat WALCI; Blood Gas Sample Site Radial, left; Blood Gas Sample Type Arterial; Carboxyhemoglobin 1.1 %THgb (0.4-20.1); HCO3 ABG 24.1 mmol/L (22-26); HGB O2 Sat 94.1 % (95-100); Ionized Calcium Level - ABG 1.2 mmol/L (1.1-1.4); Methemoglobin 1.2 % (0.4-1.5); Oxygen Device ROOM AIR; Oxygen Saturation ABG 96.2; PO2 ABG 71.9 mmHg (80.0-100.0); PO2 FiO2 Ratio Arterial Blood 342; Potassium Level - ABG 3.8 mmol/L (3.5-5.0)
[2024-12-24 09:19] LABS: Alanine Aminotransferase 19 U/L (0-33); Albumin Level 3.6 g/dL (3.5-5.2); Alkaline Phosphatase 95 U/L (35-105); Aspartate Amino Transferase 33 U/L (0-32); Blood Urea Nitrogen 13 mg/dL (8-23); Calcium 9.3 mg/dL (8.5-10.5); Carbon Dioxide 21 mmol/L (22-29); Chloride 96 mmol/L (98-107); Globulin 4.1 g/dL (1.3-4.6); Glomerular Filtration Rate 50.5 mL/min (90-130); Glucose 155 mg/dL (65-115); Lipase 9 U/L (13-60); Osmolality Calculated 279 mOsm/kg (285-295); Sodium 133 mmol/L (136-145); Total Bilirubin 0.5 mg/dL (0.15-1.2); Total Protein 7.7 g/dL (6.6-8.7)
[2024-12-24 09:20] LABS: Anion Gap 20.4 (5-19); Erythrocyte Sedimentation Rate 71 mm/hr (0-15); Potassium 4.4 mmol/L (3.5-5.1)
[2024-12-24 09:28] LABS: Ketone (Acetest) Serum Negative (Negative)
[2024-12-24] MEDS: sodium chloride 0.9% 1,000 ML 999 ML IV (09:55)
[2024-12-24] MEDS: ondansetron 2 mg/ML SDV 2 mL 4 MG IVP (09:56)
[2024-12-24 09:58] LABS: Add Urine Microscopic? NO
[2024-12-24 09:59] VITALS: BP 112/58; PULSE 70; O2SAT 99
--- NOTE | 2024-12-24 10:31 | XR_ITS ---
WS: [id number] XR foot RT min 3V* 21190 REASON FOR EXAM: Infections 1st and 2nd toe FINDINGS: Previous amputation of the third toe distal to the metacarpal. Amputation of the fifth toe distal to the mid metacarpal. Soft tissue swelling of the first and second toes. No underlying bone or joint abnormality is identified within the second toe. Questionable early osteomyelitis changes in the base of the distal phalanx of the great toe with loss of trabecular bone and lucency. XR/XR foot RT min 3V* [id number] IMPRESSION: Question early osteomyelitis in the distal phalanx of the toe as above.
[2024-12-24 10:42] LABS: Bacteria Urine 1+ /hpf; Squamous Epithelial Cell Urine 51-100 /hpf (0-5)
[2024-12-24 10:55] LABS: UA Slide Review UA Slide Review Perf; Urine Appearance Slightly Cloudy (CLEAR); Urine Color Yellow (Yellow)
[2024-12-24 11:00] LABS: Add Urine Culture? No; Charge for UA Resulting for Rev
[2024-12-24 12:15] VITALS: BP 112/58; PULSE 70; O2SAT 99
== END 2024-12-24 12:23 | disposition home or self-care (01) ==
PROVIDERS: Emergency Provider Family Medicine; PCP Family Medicine
DX: E11.69 Type 2 diabetes mellitus with other specified complication (principal); M86.9 Osteomyelitis, unspecified; Z79.84 Long term (current) use of oral hypoglycemic drugs; Z79.82 Long term (current) use of aspirin; Z79.02 Long term (current) use of antithrombotics/antiplatelets; E78.5 Hyperlipidemia, unspecified
CPT/HCPCS: 36415; 36416; 36600; 71045; 73630; 80051; 80053; 81003; 82009; 82330; 82805; 82962; 83690; 85025; 85651; 87040; 93005; 96374; 99285; J2405; J7030

== ENCOUNTER 2024-12-25 10:17 | Inpatient (IN) | payer OTHER, SELFPAY ==
[2024-12-25] VITALS (8 sets, daily range): BP systolic 70–131; BP diastolic 51–84; PULSE 73–94; RESP 16–17; TEMP 36.9–39.4; O2SAT 91–98
--- NOTE | 2024-12-25 10:19 | XR_ITS ---
WS: [id number] XR chest 1V portable [id number] REASON FOR EXAM: dyspnea/cough FINDINGS: The chest is unchanged compared to 12/24/2024. The heart and the mediastinum are within normal limits. Calcified granulomatous disease in both hemithoraces. No acute pulmonary parenchymal or pleural abnormality. Mild to moderate degenerative spondylosis in the mid and lower thoracic spine. XR/XR chest 1V portable [id number] IMPRESSION: Examination is unchanged compared to the previous day. No acute abnormality is identified.
--- OUTSIDE RECORDS SUMMARY | 2024-12-25 10:26 | XMS_ITS | Clinical Summary ---
Author Organization [facility] Address [address] [place] [address] Care Team Providers Care Gold Marker Name Role Phone Effie Salgado Primary Care Provider [phone] Allergies Active Allergy Reactions Criticality Noted Date [...] Comments Blood Pressure 114/76 05/27/2020 1:07 PM [employer] Pulse 91 05/27/2020 1:07 PM [employer] Temperature 36.5 C (97.7 F) 05/27/2020 1:07 PM [employer] Respiratory Rate 18 05/14/2020 11:30 AM [employer] Oxygen Saturation 97% 05/27/2020 1:07 PM [employer] Inhaled Oxygen Concentration - - Weight 74.2 kg (163 lb 9.6 oz) 05/27/2020 1:07 P M [employer] Height 162.6 cm (5' 4 ) 05/27/2020 1:07 PM [employer] Body Mass Index 28.08 05/27/2020 1:07 PM [employer] Plan of Treatment Health Maintenance Due Date [...] 2024 03/27/2017 Medical Devices Implanted Type Area Production Specialist Device Identifier Shelf Expiration Date Model / Serial / Lot Hemostatic Surgiflo 8ml W/Thrombin 2994 - [id number] Implanted:Qty : 1 on 05/14/2020 by Sven Desouza MD at [facility] Hemostatic N/A: Spine Cervical Anterior [employer] [id number] 04/26/2021 2994 / / [id number] Plate Zevo Ac 1lvl Ti 21mm [id number] - [id number] Implanted:Qty : 1 on 05/14/2020 by Sven Desouza MD at [facility] Plate N/A: Spine Cervical Anterior [employer] [id number] / / [id number] Screw Zevo Va Sd 3.5x15mm [id number] - [id number] Implanted:Qty : 1 on 05/14/2020 by Sven Desouza MD at [facility] Screw N/A: Spine Cervical Anterior [employer] [id number] / / [id number] Screw Zevo Va Sd 3.5x15mm [id number] - [id number] Implanted:Qty : 1 on 05/14/2020 by Sven Desouza MD at [facility] Screw N/A: Spine Cervical Anterior [employer] [id number] / / [id number] Screw Zevo Va Sd 3.5x15mm [id number] - [id number] Implanted:Qty : 1 on 05/14/2020 by Sven Desouza MD at [facility] Screw N/A: Spine Cervical Anterior [employer] [id number] / / [id number] Screw Zevo Va Sd 3.5x15mm [id number] - [id number] Implanted:Qty : 1 on 05/14/2020 by Sven Desouza MD at [facility] Screw N/A: Spine Cervical Anterior [employer] [id number] / / [id number] Graft Bone [employer] [id number] - [id number] Implanted:Qty : 1 on 05/14/2020 by Sven Desouza MD at [facility] Tissue N/A: Spine Cervical Anterior [employer] 08/14/2022 [id number] / / [id number] Procedures Procedure Name Priority Date/Time Associated Diagnosis Comments HEMOGLOBIN A1C Routine 04/17/2020 12:00 PM CDT from Last 3 Months or Most Recently Relevant to Health Maintenance Results * (ABNORMAL) HEMOGLOBIN A1C (04/17/2020 12:00 PM CDT) HEMOGLOBIN A1C 13.6(H) <=5.6 % 04/17/2020 12:36 PM CDT [facility] EST. AVG GLUCOSE, A1C 344 mg/dL 04/17/2020 12:36 PM CDT [facility] Blood Venipuncture / Unknown 04/17/2020 12:00 PM CDT 04/17/2020 12:07 PM CDT Narrative [facility] - 04/17/2020 12:36 PM CDT HGB A1C INTERPRETATION NORMAL: <5.7% PRE-DIABETES: 5.7 - 6.4% DIABETES: 6.5% OR GREATER us Fer Muñoz MD CHEMISTRY ORDERABLES Final Resu lt [facility] CLIA #[id number] [place] [id number] from Last 3 Months or Most Recently Relevant to Health Maintenance Insurance Care Teams Gold Marker Relationship Specialty Start Date End Date Effie Salgado DO PCP - General Family Practice 04/17/20
[2024-12-25 11:30] LABS: Hematocrit 33.7 % (36-47); Hemoglobin 10.90 g/dL (11.27-16.99); Mean Corpuscular HGB Conc 32.3 g/dL (30-55); Mean Corpuscular Hemoglobin 27.9 pg (27-33); Mean Corpuscular Volume 86.4 fl (85-98); Nucleated Red Blood Cells % 0 %; Platelet Count 232 10^3/cmm (157-399); Red Blood Count 3.90 10^6/uL (3.85-5.65); White Blood Count 6.27 10^3/uL (3.29-11.43)
--- NOTE | 2024-12-25 11:31 | W.ED.GENADLT ---
HPI - General Adult General: Chief complaint: General Medical Stated complaint: dr vern bates, low bp Time Seen by Provider: 12/25/24 10:17 History of Present Illness: 59-year-old female presents emergency room referred here by podiatry. 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 Patient is on Lasix states she is not taking the last couple days she denies any chest pain. Associated symptoms: Deny chest pain, dyspnea or rash Related Data Home Medications ?Medication ?Instructions ?Recorded ?Confirmed cetirizine 10 mg tablet (Allergy 10 mg PO DAILY 04/12/24 12/25/24 Relief (cetirizine)) furosemide 20 mg tablet 20 mg PO DAILY PRN Edema 12/05/24 12/25/24 fluticasone propionate 50 2 spray intranasal DAILY PRN 12/24/24 12/25/24 mcg/actuation nasal congestion/ear pain spray,suspension Previous Rx's ?Medication ?Instructions ?Recorded atorvastatin 80 mg tablet (Lipitor) 80 mg PO DAILY #90 tabs 05/31/24 Held on 12/06/24. Instructions: Resume on 12/12/24. pantoprazole 40 mg tablet,delayed 40 mg PO DAILY #90 tabs 05/31/24 release (Protonix) insulin aspart U-100 100 unit/mL 30 unit (0.3 mL) SUBCUT TID #30 mL 07/12/24 subcutaneous solution (Novolog U-100 Insulin aspart) insulin glargine 100 unit/mL 30 unit (0.3 mL) SUBCUT BID #30 mL 07/12/24 subcutaneous solution (Lantus U-100 Insulin) aspirin 81 mg tablet,delayed 81 mg PO DAILY #90 tabs 07/17/24 release clopidogrel 75 mg tablet 75 mg PO DAILY #90 tabs 07/17/24 metoclopramide HCl 5 mg tablet 5 mg PO Q8H PRN nausea and 10/28/24 (Reglan) vomiting #10 tabs CAM walker with Achilles wedge #1 ea 10/29/24 blood-glucose sensor (Dexcom G7 #3 ea 12/12/24 Sensor device) Allergies Allergy/AdvReac Type Severity Reaction Status Date / Time morphine Allergy ADR-Itching Verified 12/25/24 09:53 Sulfa (Sulfonamide Allergy Unknown Verified 12/25/24 09:53 Antibiotics) Alpha-Gal AdvReac ADR-Vomitin Verified 12/25/24 09:53 (Uyhchuajg-Pzmsm-6,3-Gala g Review of Systems Const: Denies: fever(s) or chills Card: Denies: chest pain Resp: Denies: dyspnea GI: Denies: abdominal pain : Denies: dysuria, urinary frequency or urinary urgency Musc: Denies: neck pain or back pain Skin/Breast: Denies: rash PFSH ED PFSH: Medical History Fever and chills Uncontrolled diabetes mellitus Carotid artery disease bilateral 50% on US 11/18 Rupture of right Achilles tendon Sixth nerve palsy of left eye Type 2 diabetes mellitus, with long-term current use of insulin Allergic rhinitis Dyslipidemia Peripheral vascular angioplasty status PAD (peripheral artery disease) Asthma Surgical History History of amputation of toe 2 of Right; 1 of left Status post colonoscopy (07/10/21) 1.14.22 Repeat in 10 years History of neck surgery anterior History of tonsillectomy and adenoidectomy History of endometrial ablation History of bladder suspension procedure H/O section X5 Family History Mother Stroke Father Diabetes mellitus, type 2 Congestive heart failure (CHF) Social History Smoking and tobacco/nicotine status: never used tobacco/nicotine Second hand smoke exposure: No Alcohol intake: never Substance/Drug Use: never Household members: spouse and children Marital status: Number of children: 5 Highest education level completed: High School Graduate Current occupational status: employed 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 Physical Exam Const: COMMON NORMALS: no acute distress GENERAL APPEARANCE: cooperative and comfortable ORIENTATION/CONSCIOUSNESS: Yes awake, Yes oriented to person, Yes oriented to place and Yes oriented to time HENMT: COMMON NORMALS: normocephalic, atraumatic and hearing grossly normal bilaterally HEAD & SCALP: normocephalic and atraumatic Resp: COMMON NORMALS: normal respiratory effort, No retractions, No use of accessory muscles and clear to auscultation bilaterally AUSCULTATION: clear to auscultation bilaterally Cardio: COMMON NORMALS: regular rate, regular rhythm and No murmurs present (Cardio) RATE: regular rate RHYTHM: regular rhythm GI: COMMON NORMALS: Soft to palpation and No hepatosplenomegaly present AUSCULTATION: Yes normoactive bowel sounds PALPATION: Yes Soft to palpation, No Tenderness to palpation present (GI), No Guarding due to palpation present (GI) and Yes No hepatosplenomegaly present Extremity: COMMON NORMALS: normal to inspection, capillary refill normal, no clubbing, cyanosis or edema, no calf tenderness and no pedal edema Neuro: SENSORIUM/ORIENTATION: Yes oriented to person, Yes oriented to place and Yes oriented to time Skin: COMMON NORMALS: no rashes or lesions noted GENERAL SKIN EXAM: no rashes or lesions noted Course Vital Signs: Vital signs: Vital Signs Temperature 98.4 F 12/25/24 10:24 Pulse Rate 73 12/25/24 14:13 Respiratory Rate 16 12/25/24 10:24 Blood Pressure 105/65 12/25/24 14:13 Pulse Oximetry 97 12/25/24 14:13 Oxygen Delivery Me thod Room Air 12/25/24 10:24 MDM - General Adult Medical Decision Making Positive orthostatics on arrival after liter of fluid patient still has significantly positive orthostatics no improvement after IV fluids her of the labs are unremarkable sed rate lactic acid white blood cell count low normal range. Will place patient on observation. Continue IV fluid discussed hospitalist orders written telemetry as well. Medical Records I reviewed the patient's medical records. Lab Data I reviewed the patient's lab results. 12/25/24 11:19 12/25/24 11:19 Radiology Impressions Chest X-Ray 12/25/24 10:19 IMPRESSION: Examination is unchanged compared to the previous day. No acute abnormality is identified. Laboratory Results WBC 6.27 10^3/uL (3.29-11.43) 12/25/24 11:19 RBC 3.90 10^6/uL (3.85-5.65) 12/25/24 11:19 Hgb 10.90 g/dL (11.27-16.99) L 12/25/24 11:19 Hct 33.7 % (36-47) L 12/25/24 11:19 MCV 86.4 fl (85-98) 12/25/24 11:19 MCH 27.9 pg (27-33) 12/25/24 11:19 MCHC 32.3 g/dL (30-55) 12/25/24 11:19 RDW 14.4 % (12.1-15.1) 12/25/24 11:19 Plt Count 232 10^3/cmm (157-399) 12/25/24 11:19 MPV 10.5 fL (7.4-10.4) H 12/25/24 11:19 Neut % (Auto) 47.9 % 12/25/24 11:19 Lymph % (Auto) 43.5 % 12/25/24 11:19 [place] % (Auto) 7.7 % 12/25/24 11:19 Eos % (Auto) 0.2 % 12/25/24 11:19 Baso % (Auto) 0.5 % 12/25/24 11:19 Neut # (Auto) 3.01 10^3/uL (1.8-7.7) 12/25/24 11:19 Lymph # (Auto) 2.7 10^3/uL (0.8-4.8) 12/25/24 11:19 [place] # (Auto) 0.5 10^3/uL (0.2-0.9) 12/25/24 11:19 Eos # (Auto) 0.0 10^3/uL (0.0-0.8) 12/25/24 11:19 Baso # (Auto) 0.0 10^3/uL (0.0-0.1) 12/25/24 11:19 Nucleated RBC % (auto) 0 % 12/25/24 11:19 Nucleated RBCs # 0.0 /100WBC 12/25/24 11:19 Sodium 134 mmol/L (136-145) L 12/25/24 11:19 Potassium 4.4 mmol/L (3.5-5.1) 12/25/24 11:19 Chloride 99 mmol/L (98-107) 12/25/24 11:19 Carbon Dioxide 20 mmol/L (22-29) L 12/25/24 11:19 Anion Gap 19.4 (5-19) H 12/25/24 11:19 BUN 10 mg/dL (8-23) 12/25/24 11:19 Creatinine 1.0 mg/dL (0.5-0.9) H 12/25/24 11:19 GFR Calculation 56.4 mL/min (90-130) L 12/25/24 11:19 Glucose 151 mg/dL (65-115) H 12/25/24 11:19 Calculated Osmolality 280 mOsm/kg (285-295) L 12/25/24 11:19 Lactic Acid 1.3 mmol/L (0.5-2.2) 12/25/24 11:19 Calcium 8.6 mg/dL (8.5-10.5) 12/25/24 11:19 Total Bilirubin 0.3 mg/dL (0.15-1.2) 12/25/24 11:19 AST 35 U/L (0-32) H 12/25/24 11:19 ALT 17 U/L (0-33) 12/25/24 11:19 Alkaline Phosphatase 84 U/L (35-105) 12/25/24 11:19 Total Protein 7.8 g/dL (6.6-8.7) 12/25/24 11:19 Albumin 3.7 g/dL (3.5-5.2) 12/25/24 11:19 Globulin 4.1 g/dL (1.3-4.6) 12/25/24 11:19 Serum Ketones Negative (Negative) 12/25/24 11:19 All radiology interpretation(s) finalized by discharge Discharge Plan Discharge Patient Disposition: Placed in Observation Clinical Impression: Orthostatic hypotension, Type 2 diabetes mellitus, with long-term current use of insulin, 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
--- NOTE | 2024-12-25 11:35 | ECG_ITS ---
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 Measurements Intervals [place] Rate: 77 P: 67 DC: 140 QRS: 50 QRSD: 96 T: 72 QT: 364 QTc: 414 Interpretive Statements SINUS RHYTHM Compared to ECG 12/24/2024 08:28:23 No significant changes Electronically Signed On 12-27-2024 09:03:16 CDT by Natanael Hwang M.D. [email or web address]
[2024-12-25 11:43] LABS: Ketone (Acetest) Serum Negative (Negative)
[2024-12-25 11:54] LABS: Alanine Aminotransferase 17 U/L (0-33); Albumin Level 3.7 g/dL (3.5-5.2); Alkaline Phosphatase 84 U/L (35-105); Anion Gap 19.4 (5-19); Aspartate Amino Transferase 35 U/L (0-32); Blood Urea Nitrogen 10 mg/dL (8-23); Calcium 8.6 mg/dL (8.5-10.5); Carbon Dioxide 20 mmol/L (22-29); Chloride 99 mmol/L (98-107); Creatinine Clr Calc Pharmacy 57.6837; Globulin 4.1 g/dL (1.3-4.6); Glucose 151 mg/dL (65-115); Osmolality Calculated 280 mOsm/kg (285-295); Potassium 4.4 mmol/L (3.5-5.1); Sodium 134 mmol/L (136-145); Total Protein 7.8 g/dL (6.6-8.7)
[2024-12-25 11:58] LABS: Slide Review Slide Review Perform
[2024-12-25 12:22] LABS: Lactic Sepsis W/Reflex 1.3 mmol/L (0.5-2.2)
--- NOTE | 2024-12-25 14:50 | CTR_ITS ---
PROCEDURE INFORMATION: Exam: CT Right Lower Extremity With Contrast, Foot Exam date and time: 12/25/2024 3:20 PM Age: 59 years old Clinical indication: Prior surgery; Surgery date: 6+ months; Surgery type: RT second digit diabetic infection; Additional info: Diabetic foot infection TECHNIQUE: Imaging protocol: CT of the right lower extremity with intravenous contrast was performed. Exam focused on the foot. Radiation optimization: All CT scans at this facility use at least one of these dose optimization techniques: automated exposure control; mA and/or kV adjustment per patient size (includes targeted exams where dose is matched to clinical indication); or iterative reconstruction. Contrast material: OMNI 350; Contrast volume: 100 ml; Contrast route: INTRAVENOUS (IV); COMPARISON: CT angio abd aorta runof [id number] 11/04/2023 9:20 AM RADIATION DOSE METRICS: Total DLP (mGy-cm): 151.74 FINDINGS: Bones/joints: No fractures, dislocations or osteolysis in the 2nd toe. Status post transmetatarsal amputation of the 5th ray. Status post amputation of the 3rd toe at the MTP joint. Polyarticular joint space narrowing in the midfoot and toes. Soft tissues: No soft tissue fluid collections or evidence of gas-forming soft tissue infection. There appears to be some skin induration subjacent to the 1st MTP joint suspicious for diabetic foot ulcer. Achilles and plantar calcaneal enthesophytes. Vasculature: Moderate vascular calcifications in the foot. CT/CT foot RT w con [id number] IMPRESSION: 1. No radiographic evidence of osteomyelitis in the 2nd toe or elsewhere in the right foot. 2. Other findings as above.
--- NOTE | 2024-12-25 14:54 | P.HP_ITS ---
Providers/Chief Complaint 2 Primary Care Provider: Huma Pappas MD Chief Complaint: dr porras sent, low bp History of Present Illness Fouzia Esquivel is a 59 year old female with a past medical history of type 2 diabetes, recent history of diabetic ulcer of the right great toe, history of CKD, peripheral arterial disease, hyperlipidemia, asthma who presents [facility] due to weakness, fatigue, lightheadedness, dizziness, diabetic foot infection with increased drainage from second digit right foot, with complaints of diarrhea. Patient tells me that over the last few days, she has had weakness, fatigue, poor appetite, she has not taken much of her insulin due to poor appetite, does report diarrhea, does report recent antibiotic use, reports lightheadedness, dizziness, no facial droop, no slurring of words, focal weakness, no chest pain, no palpitations, Review of Systems 2 Const: Reports: fatigue and malaise; Denies: fever(s) or chills Card: Denies: chest pain Resp: Denies: dyspnea Medications/Allergies Home Medications ?Medication ?Instructions ?Recorded ?Confirmed ?Last Taken ?Type cetirizine 10 mg tablet (Allergy 10 mg PO DAILY 12/25/24 12/23/24 History Relief (cetirizine)) atorvastatin 80 mg tablet (Lipitor) 80 mg PO DAILY #90 tabs 05/31/24 12/25/24 12/23/24 Rx Held on 12/06/24. Instructions: Resume on 12/12/24. pantoprazole 40 mg tablet,delayed 40 mg PO DAILY #90 t abs 05/31/24 12/25/24 12/23/24 Rx release (Protonix) insulin aspart U-100 100 unit/mL 30 unit (0.3 mL) SUBC UT TID #30 mL 07/12/24 12/25/24 12/23/24 Rx subcutaneous solution (Novolog U-100 Insulin aspart) insulin glargine 100 unit/mL 30 unit (0.3 mL) SUBCUT B ID #30 mL 07/12/24 12/25/24 12/23/24 Rx subcutaneous solution (Lantus U-100 Insulin) aspirin 81 mg tablet,delayed 81 mg PO DAILY #90 tabs 0 07/17/24 12/25/24 12/23/24 Rx release clopidogrel 75 mg tablet 75 mg PO DAILY #90 tabs 06/2812/25/24 12/23/24 Rx metoclopramide HCl 5 mg tablet 5 mg PO Q8H PRN nausea and 10/28/24 12/25/24 Unknown Rx (Reglan) vomiting #10 tabs CAM walker with Achilles wedge #1 ea 10/29/24 12/25/24 Unknown Rx furosemide 20 mg tablet 20 mg PO DAILY PRN Edema 05/2112/25/24 Unknown History blood-glucose sensor (Dexcom G7 #3 ea 12/12/24 5 Unknown Rx Sensor device) fluticasone propionate 50 2 spray intranasal DAILY PRN 12/24/24 12/25/24 Unknown History mcg/actuation nasal congestion/ear pain spray,suspension Allergies Allergy/AdvReac Type Severity Reaction Status Date / Time morphine Allergy ADR-Itching Verified 12/25/24 09:53 Sulfa (Sulfonamide Allergy Unknown Verified 12/25/24 09:53 Antibiotics) Alpha-Gal AdvReac ADR-Vomitin Verified 12/25/24 09:53 (Ogrpvudeb-Idjdm-2,3-Gala g PFSH Acute 2 PFSH: Medical History Fever and chills Uncontrolled diabetes mellitus Carotid artery disease bilateral 50% on US 11/18 Rupture of right Achilles tendon Sixth nerve palsy of left eye Type 2 diabetes mellitus, with long-term current use of insulin Allergic rhinitis Dyslipidemia Peripheral vascular angioplasty status PAD (peripheral artery disease) Asthma Surgical History History of amputation of toe 2 of Right; 1 of left Status post colonoscopy (07/10/21) 1.14.22 Repeat in 10 years History of neck surgery anterior History of tonsillectomy and adenoidectomy History of endometrial ablation History of bladder suspension procedure H/O section X5 Family History Mother Stroke Father Diabetes mellitus, type 2 Congestive heart failure (CHF) Social History Smoking and tobacco/nicotine status: never used tobacco/nicotine Second hand smoke exposure: No Alcohol intake: never Substance/Drug Use: never Household members: spouse and children Marital status: Number of children: 5 Highest education level completed: High School Graduate Current occupational status: employed 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 Vitals/I&O/Wt Last Vital Signs Temp 98.4 F 12/25/24 10:24 Pulse 73 12/25/24 14:13 Resp 16 12/25/24 10:24 BP 105/65 12/25/24 14:13 Pulse Ox 97 12/25/24 14:13 O2 Del Method Room Air 12/25/24 10:24 Weight last 48 hrs Weight 72.575 kg Physical Exam 2 Const: COMMON NORMALS: no acute distress and patient oriented x3 HENMT: COMMON NORMALS: normocephalic HEAD & SCALP: normocephalic Neck/C-Spine: COMMON NORMALS: no JVD Resp: COMMON NORMALS: normal respiratory effort, No retractions, No use of accessory muscles and clear to auscultation bilaterally AUSCULTATION: clear to auscultation bilaterally Cardio: COMMON NORMALS: no JVD, regular rate, regular rhythm, S1 normal heart sound present and S2 normal heart sound present RATE: regular rate RHYTHM: regular rhythm HEART SOUNDS: S1 normal heart sound present and S2 normal heart sound present GI: COMMON NORMALS: Normal to inspection, nondistended, normoactive bowel sounds present, Soft to palpation and non-tender Extremity: COMMON NORMALS: no calf tenderness and no pedal edema Neuro: COMMON NORMALS: patient oriented x3 Psych: COMMON NORMALS: mental status grossly normal Skin: NARRATIVE SKIN EXAM: Right foot, diabetic foot infection, second digit, measuring 1 x 1 cm, foul- smelling, first digit 1 x 1 cm, irregular borders, appears more chronic Data 12/25/24 11:19 12/25/24 11:19 A&P Assessment and plan (1) Diabetic foot infection: (2) Uncontrolled diabetes mellitus: (3) Sepsis: (4) Cellulitis: Plan Diabetic foot infection, with cellulitis - Right foot - Follows up with Dr. Porras as outpatient - Plan - CT right foot - IV fluids - IV vancomycin - IV Rocephin - Blood cultures - CRP, Pro-Matt, sed rate Complaints of diarrhea - C. difficile Sepsis - Due to diabetic foot infection Orthostatic hypotension, IV fluids Type 2 diabetes mellitus -Decrease Lantus to 15 units twice daily - Low-dose sliding scale Full code Lovenox for DVT prophylaxis PDMP PDMP Reviewed: Not Reviewed Attestations 2 Medical Necessity Statement*: Patient requires hospitalization, inpatient, greater than 2 midnights, for sepsis secondary to diabetic foot infection, cellulitis, orthostatic hypotension Diagnoses Diabetic foot infection E11.628; L08.9 Uncontrolled type 2 diabetes mellitus with hyperglycemia E11.65 Diabetes mellitus type: type 2 Glycemic state: with hyperglycemia Sepsis A41.9 Cellulitis L03.90
[2024-12-25 15:17] LABS: Glucose Urine UA Negative (Normal); Nitrate Urine Negative (Negative); Specific Gravity, Urine 1.012 (1.005-1.030)
[2024-12-25 15:22] LABS: Add Urine Microscopic? YES
[2024-12-25 15:24] LABS: Procalcitonin 0.28 ng/mL (0-0.5)
[2024-12-25] MEDS: iohexol 350 mg/mL 500 mL Btl (per mL) IV (15:29)
[2024-12-25 15:35] LABS: UA Slide Review UA Slide Review Perf
--- NOTE | 2024-12-25 16:24 | P.CONIM_ITS ---
Providers/Reason For Consult 2 Consulting Physician/Specialty*: Dr. Hao Denton, Yennifer.P.M./podiatry Reason for Consult*: Right foot diabetic ulcer with cellulitis Attending Physician: Yunior Mccabe MD Primary Care Provider: Huma Pappas MD History of Present Illness History of Present Illness Fouzia Esquivel is a 59 year old female who presented to the podiatry clinic today for evaluation of right foot wounds. Patient is also status post right Achilles tendon rupture treated conservatively. Patient is hypertensive in clinic today with feelings of malaise and weakness. Right hallux and second digit show full-thickness ulceration with cellulitis and active serous drainage. Patient was directed to the emergency department for further workup and evaluation, admission and IV antibiotics. It was discussed with patient that she would likely need to undergo transmetatarsal amputation during this admission. Review of Systems 2 General: Reports: 10 or more systems reviewed and unremarkable except in HPI and below Const: Denies: fever(s), chills, body aches or change in appetite Eyes: Denies: change in vision or blurry vision Card: Denies: chest pain, palpitations or irregular heart rhythm Resp: Denies: dyspnea GI: Denies: abdominal pain, nausea, vomiting or diarrhea Musc: Reports: joint stiffness Skin/Breast: Reports: non-healing lesions and lesions Neuro: Reports: numbness in extremities Medications/Allergies Home Medications ?Medication ?Instructions ?Recorded ?Confirmed ?Last Taken ?Type cetirizine 10 mg tablet (Allergy 10 mg PO DAILY 12/25/24 12/23/24 History Relief (cetirizine)) atorvastatin 80 mg tablet (Lipitor) 80 mg PO DAILY #90 tabs 05/31/24 12/25/24 12/23/24 Rx Held on 12/06/24. Instructions: Resume on 12/12/24. pantoprazole 40 mg tablet,delayed 40 mg PO DAILY #90 t abs 05/31/24 12/25/24 12/23/24 Rx release (Protonix) insulin aspart U-100 100 unit/mL 30 unit (0.3 mL) SUBC UT TID #30 mL 07/12/24 12/25/24 12/23/24 Rx subcutaneous solution (Novolog U-100 Insulin aspart) insulin glargine 100 unit/mL 30 unit (0.3 mL) SUBCUT B ID #30 mL 07/12/24 12/25/24 12/23/24 Rx subcutaneous solution (Lantus U-100 Insulin) aspirin 81 mg tablet,delayed 81 mg PO DAILY #90 tabs 0 07/17/24 12/25/24 12/23/24 Rx release clopidogrel 75 mg tablet 75 mg PO DAILY #90 tabs 06/2812/25/24 12/23/24 Rx metoclopramide HCl 5 mg tablet 5 mg PO Q8H PRN nausea and 10/28/24 12/25/24 Unknown Rx (Reglan) vomiting #10 tabs CAM walker with Achilles wedge #1 ea 10/29/24 12/25/24 Unknown Rx furosemide 20 mg tablet 20 mg PO DAILY PRN Edema 05/2112/25/24 Unknown History blood-glucose sensor (Dexcom G7 #3 ea 12/12/24 5 Unknown Rx Sensor device) fluticasone propionate 50 2 spray intranasal DAILY PRN 12/24/24 12/25/24 Unknown History mcg/actuation nasal congestion/ear pain spray,suspension Allergies Allergy/AdvReac Type Severity Reaction Status Date / Time morphine Allergy ADR-Itching Verified 12/25/24 09:53 Sulfa (Sulfonamide Allergy Unknown Verified 12/25/24 09:53 Antibiotics) Alpha-Gal AdvReac ADR-Vomitin Verified 12/25/24 09:53 (Exwkexxlj-Slwgt-2,3-Gala g PFSH Acute 2 PFSH: Medical History Fever and chills Uncontrolled diabetes mellitus Carotid artery disease bilateral 50% on US 11/18 Rupture of right Achilles tendon Sixth nerve palsy of left eye Type 2 diabetes mellitus, with long-term current use of insulin Allergic rhinitis Dyslipidemia Peripheral vascular angioplasty status PAD (peripheral artery disease) Asthma Surgical History History of amputation of toe 2 of Right; 1 of left Status post colonoscopy (07/10/21) 1.14.22 Repeat in 10 years History of neck surgery anterior History of tonsillectomy and adenoidectomy History of endometrial ablation History of bladder suspension procedure H/O section X5 Family History Mother Stroke Father Diabetes mellitus, type 2 Congestive heart failure (CHF) Social History Smoking and tobacco/nicotine status: never used tobacco/nicotine Second hand smoke exposure: No Alcohol intake: never Substance/Drug Use: never Household members: spouse and children Marital status: Number of children: 5 Highest education level completed: High School Graduate Current occupational status: employed 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 Active drainage to right foot second digit. MUSCULOSKELETAL: Ankle joint and hindfoot range of motion within normal limits bilaterally. No tenderness with palpation of medial, lateral or anterior ankle bilaterally. No tenderness with palpation of lateral ankle ligaments bilaterally. No pain with palpation of midfoot bilaterally. 5/5 muscle strength in all 4 quadrants of the lower extremity when tested against resistance. No gross musculoskeletal deformities noted. NEUROLOGICAL: Neurological sensation to the affected foot and ankle is present through L4-S1 dermatomes with no hyper/hypoesthesias, negative Tinel or Valleix's sign Data 12/25/24 11:19 12/25/24 11:19 Micro: Microbiology 12/25/24 15:03 Blood Culture - Preliminary Blood SPECIMEN COLLECTED 12/25/24 15:00 Blood Culture - Preliminary Blood SPECIMEN COLLECTED A&P Assessment and plan (1) Diabetic foot infection: (2) Uncontrolled diabetes mellitus: (3) Sepsis: (4) Cellulitis: Plan - Right foot chronic ulceration with cellulitis and gangrenous changes -Labs and vitals reviewed -WBC 6.27 -ESR 46 -CRP 54.8 -Abx Vanco/Rocephin -Diet: Okay for diet -Plan for surgical intervention 12/27/2024 for transmetatarsal amputation -Pain Mgmt: Per primary team -Weight bearing: as tolerated -Dressings: betadine, dsd -Continue current Abx therapy until ID and Sensitivity results -Trend labs -Discharge plan: to be determined -Podiatry will continue to round on patient daily and provide recommendations PDMP PDMP Reviewed: Not Reviewed Coding Level of Care Code Acute Code for [facility] Fwd Diagnoses Diabetic foot infection E11.628; L08.9 Uncontrolled type 2 diabetes mellitus with hyperglycemia E11.65 Diabetes mellitus type: type 2 Glycemic state: with hyperglycemia Sepsis A41.9 Cellulitis L03.90
--- NOTE | 2024-12-25 17:12 | PHA.VACGOAL ---
Vancomycin Goal - Goal Vancomycin Goal:: 10-15 mg/L Vancomycin Indication:: SSTI - Therapy Current therapy:: Other Antibiotic (CEFTRIAXONE) Day of therpy:: Day []of [] . Actual body weight (kg): 164 lb - Data Labs: WBC 6.27 10^3/uL (3.29-11.43) 12/25/24 11:19 RBC 3.90 10^6/uL (3.85-5.65) 12/25/24 11:19 Hgb 10.90 g/dL (11.27-16.99) L 12/25/24 11:19 Hct 33.7 % (36-47) L 12/25/24 11:19 MCV 86.4 fl (85-98) 12/25/24 11:19 MCH 27.9 pg (27-33) 12/25/24 11:19 MCHC 32.3 g/dL (30-55) 12/25/24 11:19 RDW 14.4 % (12.1-15.1) 12/25/24 11:19 Sodium 134 mmol/L (136-145) L 12/25/24 11:19 Potassium 4.4 mmol/L (3.5-5.1) 12/25/24 11:19 Chloride 99 mmol/L (98-107) 12/25/24 11:19 Carbon Dioxide 20 mmol/L (22-29) L 12/25/24 11:19 Anion Gap 19.4 (5-19) H 12/25/24 11:19 BUN 10 mg/dL (8-23) 12/25/24 11:19 Creatinine 1.0 mg/dL (0.5-0.9) H 12/25/24 11:19 GFR Calculation 56.4 mL/min (90-130) L 12/25/24 11:19 Last dialysis session:: N/A Treatment plan:: new consult Regimen:: INITIAL LOADING DOSE OF 1000 MG X1 PER DOSING PROTOCOL. MAINTENANCE DOSE OF 750 MG Q12H Follow up:: WILL CONTINUE TO MONITOR AND FOLLOW UP DAILY
[2024-12-25] MEDS: insulin glargine 100 units/1 mL 15 UNIT SUBCUT (17:28)
[2024-12-25] MEDS: pantoprazole 40 mg SDV IVP (17:29)
[2024-12-25] MEDS: cefTRIAXone 1,000 mg SDV 1000 MG IVP (17:29)
[2024-12-25] MEDS: VANCOMYCIN ADD-Vantage 1,000 MG in 0.9% NaCl ADD-Vantage 250 ML 250 MG IV (17:29)
[2024-12-25 17:45] LABS: Cholesterol 216 mg/dL (0-200); HDL Cholesterol 25 mg/dL (60-100); Thyroid Stimulating Hormone 1.98 uIU/mL (0.27-4.20); Triglycerides 184 mg/dL (0-150)
[2024-12-25 21:02] LABS: Estmated Average Glucose 171; Hemoglobin A1C 7.6 % (4.0-6.0)
[2024-12-26] VITALS (9 sets, daily range): BP systolic 95–127; BP diastolic 52–67; PULSE 59–87; RESP 16–17; TEMP 36.7–38.7; O2SAT 93–100
[2024-12-26 05:22] LABS: Hematocrit 30.2 % (36-47); Hemoglobin 9.50 g/dL (11.27-16.99); Mean Corpuscular HGB Conc 31.5 g/dL (30-55); Mean Corpuscular Hemoglobin 27.7 pg (27-33); Mean Corpuscular Volume 88.0 fl (85-98); Nucleated Red Blood Cells % 0 %; Platelet Count 191 10^3/cmm (157-399); Red Blood Count 3.43 10^6/uL (3.85-5.65); White Blood Count 4.05 10^3/uL (3.29-11.43)
[2024-12-26] MEDS: VANCOMYCIN ADD-Vantage 750 MG in 0.9% NaCl ADD-Vantage 250 ML 250 MG IV (05:29)
[2024-12-26 05:46] LABS: Alanine Aminotransferase 16 U/L (0-33); Albumin Level 3.2 g/dL (3.5-5.2); Alkaline Phosphatase 78 U/L (35-105); Anion Gap 15.9 (5-19); Aspartate Amino Transferase 32 U/L (0-32); Blood Urea Nitrogen 7 mg/dL (8-23); Calcium 8.4 mg/dL (8.5-10.5); Carbon Dioxide 24 mmol/L (22-29); Chloride 101 mmol/L (98-107); Creatinine Clr Calc Pharmacy 65.4091; Globulin 3.5 g/dL (1.3-4.6); Glucose 120 mg/dL (65-115); Osmolality Calculated 283 mOsm/kg (285-295); Potassium 3.9 mmol/L (3.5-5.1); Sodium 137 mmol/L (136-145); Total Protein 6.7 g/dL (6.6-8.7)
[2024-12-26 05:50] LABS: Slide Review Slide Review Perform
--- OUTSIDE RECORDS SUMMARY | 2024-12-26 07:35 | XMS_ITS | Clinical Summary ---
Author Organization 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 Gender Identity Not on file Sexual Orientation [...] - Risk 60-74 years 1-dose series) 2023 DIABETES HBA1C Q 6 MONTHS 05/11/20242023, 04/17/2020, 04/17/2020 INFLUENZA VACCINE (#1) 2025 03/27/2017, 2014 COLORECTAL SCREENING 07/10/2031 07/10/2021 Colorectal Cancer Screening 07/10/2031 Medical Devices Implanted Type Area Plastic Boat Patcher Device Identifier Shelf Expiration Date Model / Serial / Lot Dev Closure Angioseal 6fr Vip [id number] - [id number] Implanted:Qty : 1 on 11/23/2023 by Hao Amaya MD at [facility] Closure Device Left: Groin [facility] [employer] 07/28/2024 [id number] / / [id number] Hemostatic Surgiflo 8ml W/Thrombin 2994 - [id number] Implanted:Qty : 1 on 05/14/2020 by Sven Desouza MD Hemostatic N/A: Spine Cervical Anterior [employer] [id number] 04/26/2021 2994 / / [id number] Plate Zevo Ac 1lvl Ti 21mm [id number] - [id number] Implanted:Qty : 1 on 05/14/2020 by Sven Desouza MD Plate N/A: Spine Cervical Anterior [employer] [id number] / / [id number] Screw Zevo Va Sd 3.5x15mm [id number] - [id number] Implanted:Qty : 1 on 05/14/2020 by Sven Desouza MD Screw N/A: Spine Cervical Anterior [employer] [id number] / / [id number] Screw Zevo Va Sd 3.5x15mm [id number] - [id number] Implanted:Qty : 1 on 05/14/2020 by Sven Desouza MD Screw N/A: Spine Cervical Anterior [employer] [id number] / / [id number] Screw Zevo Va Sd 3.5x15mm [id number] - [id number] Implanted:Qty : 1 on 05/14/2020 by Sven Desouza MD Screw N/A: Spine Cervical Anterior [employer] [id number] / / [id number] Screw Zevo Va Sd 3.5x15mm [id number] - [id number] Implanted:Qty : 1 on 05/14/2020 by Sven Desouza MD Screw N/A: Spine Cervical Anterior [employer] [id number] / / [id number] Graft Bone Cornerstone [id number] - [id number] Implanted:Qty : 1 on 05/14/2020 by Sven Desouza MD Tissue N/A: Spine Cervical Anterior [employer] 08/14/2022 [id number] / / [id number] Procedures Procedure Name Priority Date/Time Associated Diagnosis Comments HEMOGLOBIN A1C Stat 11/09/2023 10:51 AM CDT Type 2 diabetes mellitus with right diabetic foot ulcer (CMS/HCC) Peripheral arterial disease Pre-operative exam from Last 3 Months or Most Recently Relevant to Health Maintenance Results * (ABNORMAL) HEMOGLOBIN A1C (11/09/2023 10:51 AM CDT) HEMOGLOBIN A1C 9.8(H) <=5.6 % 2023 7:33 AM CDT [facility] [place] [facility] EST. AVG GLUCOSE, A1C 235 mg/dL 2023 7:33 AM CDT [facility] [place] [facility] Blood Venipuncture / Unknown 11/09/2023 10:51 AM CDT 11/09/2023 11:37 AM CDT Narrative [facility] [place] [facility] - 2023 7:33 AM CDT HGB A1C INTERPRETATION NORMAL: <5.7% PRE-DIABETES: 5.7 - 6.4% DIABETES: 6.5% OR GREATER us Hao mAaya MD CHEMISTRY ORDERABLES Final Resul t [facility] CLIA # [id number] [address] [place] [id number] from Last 3 Months or Most Recently Relevant to Health Maintenance Insurance Advance Directives For more information, please contact: [phone] * Full Code (Latest Code Status on File) Date Activated Date Inactivated Comments 11/23/2023 10:09 AM 11/23/2023 7:31 PM Care Teams Hose Tester Relationship Specialty Start Date End Date Effie Salgado DO PCP - General 09/04/20
--- OUTSIDE RECORDS SUMMARY | 2024-12-26 07:35 | XMS_ITS | Clinical Summary ---
Author Organization [facility] Address [address] [place] [address] Care Team Providers Care Math Instructor Name Role Phone Effie Salgado Primary Care Provider +1- [phone] Allergies Active Allergy Reactions Criticality Noted Date [...] Comments Blood Pressure 114/76 05/27/2020 1:07 PM LOCKS INSPECTOR Pulse 91 05/27/2020 1:07 PM LOCKS INSPECTOR Temperature 36.5 C (97.7 F) 05/27/2020 1:07 PM LOCKS INSPECTOR Respiratory Rate 18 05/14/2020 11:30 AM LOCKS INSPECTOR Oxygen Saturation 97% 05/27/2020 1:07 PM LOCKS INSPECTOR Inhaled Oxygen Concentration - - Weight 74.2 kg (163 lb 9.6 oz) 05/27/2020 1:07 P M LOCKS INSPECTOR Height 162.6 cm (5' 4 ) 05/27/2020 1:07 PM LOCKS INSPECTOR Body Mass Index 28.08 05/27/2020 1:07 PM LOCKS INSPECTOR Plan of Treatment Health Maintenance Due Date [...] 2024 03/27/2017 Medical Devices Implanted Type Area Hide Splitter Device Identifier Shelf Expiration Date Model / Serial / Lot Hemostatic Surgiflo 8ml W/Thrombin 2994 - [id number] Implanted:Qty : 1 on 05/14/2020 by Sven Desouza MD at [facility] Hemostatic N/A: Spine Cervical Anterior [employer] [id number] 04/26/2021 2994 / / [id number] Plate Zevo Ac 1lvl Ti 21mm [id number] - [id number] Implanted:Qty : 1 on 05/14/2020 by Sven Desouza MD at [facility] Plate N/A: Spine Cervical Anterior [employer] [id number] / / [id number] Screw Zevo Va Sd 3.5x15mm [id number] - [id number] Implanted:Qty : 1 on 05/14/2020 by Sven Desouza MD at [facility] Screw N/A: Spine Cervical Anterior [employer] [id number] / / [id number] Screw Zevo Va Sd 3.5x15mm [id number] - [id number] Implanted:Qty : 1 on 05/14/2020 by Sven Desouza MD at [facility] Screw N/A: Spine Cervical Anterior [employer] [id number] / / [id number] Screw Zevo Va Sd 3.5x15mm [id number] - [id number] Implanted:Qty : 1 on 05/14/2020 by Sven Desouza MD at [facility] Screw N/A: Spine Cervical Anterior [employer] [id number] / / [id number] Screw Zevo Va Sd 3.5x15mm [id number] - [id number] Implanted:Qty : 1 on 05/14/2020 by Sven Desouza MD at [facility] Screw N/A: Spine Cervical Anterior [employer] [id number] / / [id number] Graft Bone [employer] [id number] - [id number] Implanted:Qty : 1 on 05/14/2020 by Sven Desouza MD at [facility] Tissue N/A: Spine Cervical Anterior [employer] 08/14/2022 [id number] / / [id number] Procedures Procedure Name Priority Date/Time Associated Diagnosis Comments HEMOGLOBIN A1C Routine 04/17/2020 12:00 PM CDT from Last 3 Months or Most Recently Relevant to Health Maintenance Results * (ABNORMAL) HEMOGLOBIN A1C (04/17/2020 12:00 PM CDT) HEMOGLOBIN A1C 13.6(H) <=5.6 % 04/17/2020 12:36 PM CDT [facility] EST. AVG GLUCOSE, A1C 344 mg/dL 04/17/2020 12:36 PM CDT [facility] Blood Venipuncture / Unknown 04/17/2020 12:00 PM CDT 04/17/2020 12:07 PM CDT Narrative [facility] - 04/17/2020 12:36 PM CDT HGB A1C INTERPRETATION NORMAL: <5.7% PRE-DIABETES: 5.7 - 6.4% DIABETES: 6.5% OR GREATER us Fer Muñoz MD CHEMISTRY ORDERABLES Final Resu lt [facility] CLIA #[id number] [address] [place] [id number] from Last 3 Months or Most Recently Relevant to Health Maintenance Insurance Care Teams Math Instructor Relationship Specialty Start Date End Date Effie Salgado DO PCP - General Family Practice 04/17/20
[2024-12-26] MEDS: insulin glargine 100 units/1 mL 15 UNIT SUBCUT ×2 (08:55→17:17)
[2024-12-26 09:46] LABS: Respiratory Syncytial Virus Ce NEGATIVE (Negative); SARS-CoV-2 PCR NEGATIVE (Negative)
--- NOTE | 2024-12-26 11:01 | CT_ITS ---
WS: [id number] CT CHEST, ABDOMEN, AND PELVIS TECHNIQUE: Noncontrast CT of the chest, abdomen, and pelvis with coronal and sagittal reformatted images. CLINICAL INFORMATION: fevers, fatigue, malaise COMPARISON: None. DLP: 737.[address] scans at [facility] use at least one of these dose optimization techniques: automated exposure control; mA and/or kV adjustment per patient size (includes targeted exams where dose is matched to clinical indication); or iterative reconstruction. CT CHEST: Posterior mediastinal soft tissue mass in the RIGHT upper lobe. This abuts the posterior mediastinal pleura and thoracic esophagus. Pleural-based mass measures approximately 1.6 x 3.1 cm. This can be further evaluated with PET/CT. No comparisons available. 4 mm nodule RIGHT lower lobe. Additional several noncalcified nodules in the RIGHT upper lobe subcentimeter in size. 6.3 mm nodule along the LEFT fissure. Bibasilar atelectasis. Aortic calcification. Numerous slightly prominent anterior mediastinal and RIGHT peribronchial lymph nodes. Coronary calcification. No axillary lymphadenopathy. Moderate esophageal hiatal hernia. Postoperative changes lower cervical spine. CT ABDOMEN AND PELVIS: Normal noncontrast liver. Hepatomegaly. Trace sludge or contrast in the gallbladder. No gallbladder wall thickening. Moderate esophageal hernia. Splenic artery calcification. Adrenal glands are normal. Residual contrast in the ureters and bladder. Urine distended bladder. Normal noncontrast pancreas. N ormal caliber abdominal aorta. Grade 1-2 anterolisthesis L5 on S1 with chronic spondylolysis. CT/[place] [id number] IMPRESSION: 1. Pleural-based posterior mediastinal mass in the RIGHT upper lobe measuring 1.6 x 3.1 x 3.2 cm. Recommend further evaluation with PET/CT and pulmonary cons ult. Finding suspicious for neoplasm. 2. Several scattered noncalcified nodules in both lungs the largest along the LEFT fissure measuring 6.3 mm. 3. Numerous slightly prominent anterior mediastinal and RIGHT peribronchial ly mph nodes. 4. Moderate esophageal hiatal hernia 5. Grade 1-2 anterolisthesis L5 on S1 with chronic spondylolysis. 6. Hepatomegaly. 7. Urine distended bladder with contrast. Notified Yunior Mccabe MD at 12/26/2024 12:52 PM.
--- NOTE | 2024-12-26 12:16 | P.PN_ITS ---
Subjective 2 Subjective: Patient was seen this morning, she tells me that she was miserable during the night due to fevers, chills, does have a cough, no abdominal pain does report diarrhea Vitals/I&O/Wt Last Vital Signs Temp 98.7 F 12/26/24 12:00 Pulse 73 12/26/24 12:00 Resp 16 12/26/24 12:00 BP 99/56 12/26/24 12:00 Pulse Ox 93 12/26/24 12:00 O2 Del Method Room Air 12/26/24 12:00 12/25/24 12/26/24 12/26/24 22:59 06:59 14:59 Intake Total 2270 / 2270 250 / 2520 1220 / 1220 Output Total 800 / 800 Balance 1470 / 1470 250 / 1720 1220 / 1220 Weight last 48 hrs Weight 75.75 kg Weight 74.389 kg Weight 72.575 kg Physical Exam 2 Const: COMMON NORMALS: no acute distress and patient oriented x3 Resp: COMMON NORMALS: normal respiratory effort, No retractions, No use of accessory muscles and clear to auscultation bilaterally AUSCULTATION: clear to auscultation bilaterally Cardio: COMMON NORMALS: regular rate, regular rhythm, S1 normal heart sound present and S2 normal heart sound present RATE: regular rate RHYTHM: r egular rhythm HEART SOUNDS: S1 normal heart sound present and S2 normal heart sound present GI: COMMON NORMALS: Normal to inspection, nondistended, normoactive bowel sounds present and non-tender Extremity: COMMON NORMALS: no pedal edema NARRATIVE EXTREMITY EXAM: Diabetic foot infection First digit erythema, swelling, tenderness Second digit, diabetic ulcer 1 x 1 cm Dorsal aspect is erythema, swelling, tenderness, around base of digit Neuro: COMMON NORMALS: patient oriented x3 and CN's II-XII intact bilaterally Psych: COMMON NORMALS: mental status grossly normal Data 12/26/24 04:32 12/26/24 04:32 Micro: Microbiology 12/25/24 15:03 Blood Culture - Preliminary Blood SPECIMEN COLLECTED 12/25/24 15:00 Blood Culture - Preliminary Blood SPECIMEN COLLECTED A&P Assessment and plan (1) Diabetic foot infection: (2) Uncontrolled diabetes mellitus: (3) Sepsis: (4) Cellulitis: Plan Diabetic foot infection, with cellulitis - Right foot - Follows up with Dr. Denton as outpatient - Plan - CT right foot CT/CT foot RT w con [id number] IMPRESSION: 1. No radiographic evidence of osteomyelitis in the 2nd toe or elsewhere in the right foot. 2. Other findings as above. CT/CT foot RT w con [id number] IMPRESSION: 1. No radiographic evidence of osteomyelitis in the 2nd toe or elsewhere in the right foot. 2. Other findings as above. - IV fluids - IV vancomycin - IV Rocephin - Blood cultures - CRP 55, Pro-Matt 0.28, sed rate 46 Febrile throughout the night - Follow cultures - CT chest abdomen pelvis Complaints of diarrhea - C. difficile Sepsis - Due to diabetic foot infection Orthostatic hypotension, IV fluids Type 2 diabetes mellitus -Decrease Lantus to 15 units twice daily - Low-dose sliding scale Full code Lovenox for DVT prophylaxis PDMP PDMP Reviewed: Not Reviewed Attestations 2 Medical Necessity Statement*: Patient requires hospitalization for diabetic foot infection, cellulitis, persistent fevers Diagnoses Diabetic foot infection E11.628; L08.9 Uncontrolled type 2 diabetes mellitus with hyperglycemia E11.65 Diabetes mellitus type: type 2 Glycemic state: with hyperglycemia Sepsis A41.9 Cellulitis L03.90
--- NOTE | 2024-12-26 15:18 | PC.NURSE ---
Bladder scan shows post void residual of 374ml. Dr. Mccabe advised.
[2024-12-26] MEDS: pantoprazole 40 mg SDV IVP (15:40)
[2024-12-26] MEDS: cefTRIAXone 1,000 mg SDV 1000 MG IVP (15:40)
--- NOTE | 2024-12-26 17:26 | P.PN_ITS ---
Subjective 2 Subjective: Patient seen at bedside resting comfortably. Pain is well-controlled. States that she feels much better today than she did yesterday. Vitals/I&O/Wt Last Vital Signs Temp 98.0 F 12/26/24 16:00 Pulse 59 L 12/26/24 16:00 Resp 16 12/26/24 16:00 BP 127/67 12/26/24 16:00 Pulse Ox 97 12/26/24 16:00 O2 Del Method Room Air 12/26/24 16:00 12/26/24 12/26/24 12/26/24 06:59 14:59 22:59 Intake Total 250 / 2520 1220 / 1220 120 / 1340 Output Total 300 / 300 Balance 250 / 1720 1220 / 1220 -180 / 1040 Weight last 48 hrs Weight 167 lb Weight 164 lb Weight 160 lb Physical Exam 2 Narrative: BELOW IS A FOCUSED LOWER EXTREMITY EXAM GENERAL: A&O x 3 VASCULAR: DP/PT pulses palpable 2/4 with CFT intact, <3seconds to distal digits DERMATOLOGICAL: Right hallux and adjacent second digit are erythematous and edematous with full-thickness ulcerations. Active drainage to right foot second digit. MUSCULOSKELETAL: Ankle joint and hindfoot range of motion within normal limits bilaterally. No tenderness with palpation of medial, lateral or anterior ankle bilaterally. No tenderness with palpation of lateral ankle ligaments bilaterally. No pain with palpation of midfoot bilaterally. 5/5 muscle strength in all 4 quadrants of the lower extremity when tested against resistance. No gross musculoskeletal deformities noted. NEUROLOGICAL: Neurological sensation to the affected foot and ankle is present through L4-S1 dermatomes with no hyper/hypoesthesias, negative Tinel or Valleix's sign Urinary Catheter Management: Chun: Cath Placed During This Visit: yes Reason for Continuing Indwelling Catheter: Acute Urinary Retention or Obstruction Urinary Catheter Date of Insertion: 12/26/24 Urinary Catheter Time of Insertion: 15:33 Data 12/26/24 04:32 12/26/24 04:32 Micro: Microbiology 12/25/24 15:03 Blood Culture - Preliminary Blood NEGATIVE TO DATE 12/25/24 15:00 Blood Culture - Preliminary Blood NEGATIVE TO DATE A&P Assessment and plan (1) Diabetic foot infection: (2) Uncontrolled diabetes mellitus: (3) Sepsis: (4) Cellulitis: Plan - Right foot chronic ulceration with cellulitis and gangrenous changes -Labs and vitals reviewed -WBC 6.27 -ESR 46 -CRP 54.8 -Abx Vanco/Rocephin -Diet: N.p.o. at midnight -Plan for amputation of hallux, second toe and fourth toe right foot tomorrow 12/27/2024 -Pain Mgmt: Per primary team -Weight bearing: as tolerated -Dressings: betadine, dsd -Continue current Abx therapy until ID and Sensitivity results -Trend labs -Discharge plan: to be determined -Podiatry will continue to round on patient daily and provide recommendations PDMP PDMP Reviewed: Not Reviewed Attestations 2 Medical Necessity Statement*: Plan 4 OR tomorrow 12/27/2024 Coding Level of Care Code Acute Code for [facility] Fwd Diagnoses Diabetic foot infection E11.628; L08.9 Uncontrolled type 2 diabetes mellitus with hyperglycemia E11.65 Diabetes mellitus type: type 2 Glycemic state: with hyperglycemia Sepsis A41.9 Cellulitis L03.90
[2024-12-27] VITALS (16 sets, daily range): BP systolic 102–137; BP diastolic 54–73; PULSE 62–92; RESP 15–20; TEMP 36.5–37.3; O2SAT 91–98
[2024-12-27] MEDS: VANCOMYCIN ADD-Vantage 750 MG in 0.9% NaCl ADD-Vantage 250 ML 250 MG IV (05:13)
[2024-12-27 05:25] LABS: Hematocrit 28.1 % (36-47); Hemoglobin 9.00 g/dL (11.27-16.99); Mean Corpuscular HGB Conc 32.0 g/dL (30-55); Mean Corpuscular Hemoglobin 28.0 pg (27-33); Mean Corpuscular Volume 87.3 fl (85-98); Nucleated Red Blood Cells % 0 %; Platelet Count 195 10^3/cmm (157-399); Red Blood Count 3.22 10^6/uL (3.85-5.65); White Blood Count 5.59 10^3/uL (3.29-11.43)
[2024-12-27 05:45] LABS: Alanine Aminotransferase 15 U/L (0-33); Albumin Level 2.8 g/dL (3.5-5.2); Alkaline Phosphatase 75 U/L (35-105); Anion Gap 16.8 (5-19); Aspartate Amino Transferase 27 U/L (0-32); Blood Urea Nitrogen 5 mg/dL (8-23); Calcium 8.1 mg/dL (8.5-10.5); Carbon Dioxide 21 mmol/L (22-29); Chloride 105 mmol/L (98-107); Creatinine Clr Calc Pharmacy 84.4449; Globulin 3.6 g/dL (1.3-4.6); Glucose 108 mg/dL (65-115); Osmolality Calculated 286 mOsm/kg (285-295); Potassium 3.8 mmol/L (3.5-5.1); Slide Review Slide Review Perform; Sodium 139 mmol/L (136-145); Total Protein 6.4 g/dL (6.6-8.7)
--- NOTE | 2024-12-27 06:16 | ANES.PREANE2 ---
Pre-Anesthetic Assessment Height/Weight: Height 5 ft 4 in Weight 168 lb 7 oz Temp Pulse Resp BP Pulse Ox O2 Del Method 98.5 F 81 16 137/56 94 Room Air 12/27/24 04:00 12/27/24 04:00 12/27/24 04:00 12/27/24 04:00 12/27/24 04:00 12/27/24 04:00 Preop Diagnosis: Osteomyelitis of great toe Operation Date: 12/27/24 07:00 Proposed Procedures p Right great toe, second and fourth toe amputations(Right) - NEETU GarciaM Was Beta Stanton taken within 24 hours: N/A Was Clonidine taken within 24 hours: N/A Social No alcohol and No tobacco Exam alert, oriented x 3, clear to auscultation bilaterally and regular rate & rhythm Airway Submandibular: within normal limits Cervical ROM: within normal limits Mallampati: Class III Comments: Comments: Multiple chipped/decaying teeth. Patient denies any loose teeth Anesthetic Plan ASA status: 3 Anesthesia: MAC Other: Multiple prior anesthetics without issue NPO since yesterday Alpha gal allergy, anesthesia team aware Patient states that her blood pressure has been low recently. Preop BP 130/67 Very poor dentition, denies any loose teeth Type 2 diabetes on insulin. AM BS 108 PAD on chronic Plavix Labs 12/27/2024 reviewed acceptable for procedure Plan for MAC anesthetic with local via surgeon Medications/Allergies Home Medications ?Medication ?Instructions ?Recorded ?Confirmed ?Last Taken ?Type cetirizine 10 mg tablet (Allergy 10 mg PO DAILY 04/12/24 12/25/24 12/23/24 History Relief (cetirizine)) atorvastatin 80 mg tablet (Lipitor) 80 mg PO DAILY #90 tabs 05/31/24 12/25/24 12/23/24 Rx Held on 12/06/24. Instructions: Resume on 12/12/24. pantoprazole 40 mg tablet,delayed 40 mg PO DAILY #90 tabs 05/31/24 12/25/24 12/23/24 Rx release (Protonix) insulin aspart U-100 100 unit/mL 30 unit (0.3 mL) SUBCUT TID #30 mL 07/12/24 12/25/24 12/23/24 Rx subcutaneous solution (Novolog U-100 Insulin aspart) insulin glargine 100 unit/mL 30 unit (0.3 mL) SUBCUT BID #30 mL 07/12/24 12/25/24 12/23/24 Rx subcutaneous solution (Lantus U-100 Insulin) aspirin 81 mg tablet,delayed 81 mg PO DAILY #90 tabs 07/17/24 12/25/24 12/23/24 Rx release clopidogrel 75 mg tablet 75 mg PO DAILY #90 tabs 07/17/24 12/25/24 12/23/24 Rx metoclopramide HCl 5 mg tablet 5 mg PO Q8H PRN nausea and 10/28/24 12/25/24 Unknown Rx (Reglan) vomiting #10 tabs CAM walker with Achilles wedge #1 ea 10/29/24 12/25/24 Unknown Rx furosemide 20 mg tablet 20 mg PO DAILY PRN Edema 12/05/24 12/25/24 Unknown History blood-glucose sensor (Dexcom G7 #3 ea 12/12/24 12/25/24 Unknown Rx Sensor device) fluticasone propionate 50 2 spray intranasal DAILY PRN 12/24/24 12/25/24 Unknown History mcg/actuation nasal congestion/ear pain spray,suspension Allergies Allergy/AdvReac Type Severity Reaction Status Date / Time morphine Allergy ADR-Itching Verified 12/25/24 09:53 Sulfa (Sulfonamide Allergy Unknown Verified 12/25/24 09:53 Antibiotics) Alpha-Gal AdvReac ADR-Vomitin Verified 12/25/24 09:53 (Fjwfcxgcl-Ounha-4,3-Gala g Current Medications Generic Name Dose Route Start Last Admin Trade Name Freq PRN Reason Stop Dose Admin Acetaminophen 650 mg 12/25/24 16:52 12/26/24 07:42 Acetaminophen 325 Mg Tablet PO 650 mg On Hold: 12/27/24 06:14 Q6H PRN Administration Comment: Order held by Process Mild/Mod Pain Or Temp >/= 101 Transfer Aspirin 81 mg 12/26/24 09:00 12/26/24 07:42 Aspirin 81 Mg Ec Tablet PO 81 mg On Hold: 12/27/24 06:14 DAILY MELANIE Administration Comment: Order held by Process Transfer Atorvastatin Calcium 40 mg 12/26/24 09:00 12/26/24 07:42 Atorvastatin 40 Mg Tablet PO 40 mg On Hold: 12/27/24 06:14 DAILY MELANIE Administration Comment: Order held by Process Transfer Ceftriaxone Sodium 1,000 mg 12/25/24 16:52 12/26/24 15:40 Ceftriaxone 1,000 Mg Sdv IVP 1,000 mg On Hold: 12/27/24 06:14 Q24H MELANIE Administration Comment: Order held by Process Protocol Transfer Clopidogrel Bisulfate 75 mg 12/26/24 09:00 12/26/24 07:42 Clopidogrel 75 Mg Tablet PO 75 mg On Hold: 12/27/24 06:14 DAILY MELANIE Administration Comment: Order held by Process Transfer Enoxaparin Sodium 40 mg 12/25/24 16:52 12/26/24 15:40 Enoxaparin 40 Mg/0.4 Ml Syringe SUBCUT 40 mg On Hold: 12/27/24 06:14 Q24H MELANIE Administration Comment: Order held by Process Transfer Sodium Chloride 1,000 mls @ 75 mls/hr 12/25/24 16:52 12/26/24 20:57 Sodium Chloride 0.9% IV 75 mls/hr On Hold: 12/27/24 06:14 .[id number] MELANIE Administration Comment: Order held by Process Transfer Vancomycin HCl 750 mg/ Sodium 250 mls @ 250 mls/hr 12/26/24 05:30 12/27/24 05:13 Chloride IV 250 mls/hr On Hold: 12/27/24 06:14 Q24H MELANIE Administration Comment: Order held by Process Transfer Insulin Glargine 15 unit 12/26/24 18:00 12/26/24 17:17 Insulin Glargine 100 Units/1 Ml SUBCUT 15 unit On Hold: 12/27/24 06:14 BIDWM MELANIE Administration Comment: Order held by Process Transfer Insulin Human Lispro 0 unit 12/25/24 18:00 12/26/24 17:01 Insulin Lispro 100 Unit/1 Ml SUBCUT Not Given On Hold: 12/27/24 06:14 TIDWM MELANIE Comment: Order held by Process Protocol Transfer Pantoprazole Sodium 40 mg 12/26/24 09:00 12/26/24 07:[address] 40 Mg Tablet PO 40 mg On Hold: 12/27/24 06:14 DAILY MELANIE Administration Comment: Order held by Process Transfer Pantoprazole Sodium 40 mg 12/25/24 16:52 12/26/24 15:40 Pantoprazole 40 Mg Sdv IVP 40 mg On Hold: 12/27/24 06:14 Q24H MELANIE Administration Comment: Order held by Process Transfer [facility] Anesthesia Medical History Fever and chills Uncontrolled diabetes mellitus Carotid artery disease bilateral 50% on US 11/18 Rupture of right Achilles tendon Sixth nerve palsy of left eye Type 2 diabetes mellitus, with long-term current use of insulin Allergic rhinitis Dyslipidemia Peripheral vascular angioplasty status PAD (peripheral artery disease) Asthma Surgical History History of amputation of toe 2 of Right; 1 of left Status post colonoscopy (07/10/21) 1.14.22 Repeat in 10 years History of neck surgery anterior History of tonsillectomy and adenoidectomy History of endometrial ablation History of bladder suspension procedure H/O section X5 Family History Mother Stroke Father Diabetes mellitus, type 2 Congestive heart failure (CHF) Social History Smoking and tobacco/nicotine status: never used tobacco/nicotine Second hand smoke exposure: No Alcohol intake: never Substance/Drug Use: never Household members: spouse and children Marital status: Number of children: 5 Highest education level completed: High School Graduate Current occupational status: employed 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 Data Anesthesia 12/27/24 04:30 12/27/24 04:30 Short CBC 12/25/24 12/26/24 12/27/24 Range/Units 11:19 04:32 04:30 WBC 6.27 4.05 5.59 (3.29-11.43) 10^3/uL Hgb 10.90 L 9.50 L 9.00 L (11.27-16.99) g/dL Hct 33.7 L 30.2 L 28.1 L (36-47) % MCV 86.4 88.0 87.3 (85-98) fl Plt Count 232 191 195 (157-399) 10^3/cmm Neut % (Auto) 47.9 43.0 31.0 % Neut # (Auto) 3.01 1.74 L 1.73 L (1.8-7.7) 10^3/uL BMP 12/25/24 12/26/24 12/27/24 11:19 04:32 04:30 Sodium 134 L 137 139 Potassium 4.4 3.9 3.8 Chloride 99 101 105 Carbon Dioxide 20 L 24 21 L BUN 10 7 L 5 L Creatinine 1.0 H 0.9 0.7 Glucose 151 H 120 H 108 Calcium 8.6 8.4 L 8.1 L Cardiac Enzymes 12/25/24 Range/Units 11:19 Creatine Kinase 381 H* (26-192) U/L Liver Function 12/25/24 12/26/24 12/27/24 Range/Units 11:19 04:32 04:30 Total Bilirubin 0.3 0.2 0.2 (0.15-1.2) mg/dL AST 35 H 32 27 (0-32) U/L ALT 17 16 15 (0-33) U/L Alkaline Phosphatase 84 78 75 (35-105) U/L Albumin 3.7 3.2 L 2.8 L (3.5-5.2) g/dL Urine 12/25/24 Range/Units 13:45 Urine Color Yellow (Yellow) Urine Appearance Cloudy A (CLEAR) Urine pH 6.0 (5-7) Ur Specific [place] 1.012 (1.005-1.030) Urine Protein Trace A (Negative) Urine Glucose (UA) Negative (Normal) Urine Ketones Negative (Negative) Urine Nitrate Negative (Negative) Urine Bilirubin Negative (Negative) Ur Leukocyte Esterase 2+ A (Negative) Urine RBC 0-2 (0-2) /hpf Urine WBC 6-10 (0-5) /hpf COVID Results 12/26/24 08:45 SARS-CoV-2 (PCR) Negative Coags 12/25/24 11:19 ESR 46 H C-Reactive Protein 54.8 H Microbiology 12/25/24 15:03 Blood Culture - Preliminary Blood NEGATIVE TO DATE 12/25/24 15:00 Blood Culture - Preliminary Blood NEGATIVE TO DATE
--- NOTE | 2024-12-27 06:55 | P.HPUD_ITS ---
Surgery/Procedure H&P Update DATE OF PROCEDURE: December 27, 2024 DATE H&P PERFORMED: 12/25/24 H&P UPDATE INFORMATION: I have reviewed H&P completed within last 30 days, I have examined patient prior to procedure, No changes to prior documentation, H&P is in [facility] EMR on date indicated and Risks and benefits of the procedure reviewed PREOP DIAGNOSIS: Osteomyelitis of great toe PLANNED PROCEDURE: Operation Date: 12/27/24 07:00 Proposed Procedures p Right great toe, second and fourth toe amputations(Right) - Hao Denton DPM
[2024-12-27] MEDS: BUPivacaine 0.5% INJ 30 mL INJECTION (07:13)
--- NOTE | 2024-12-27 07:51 | P.OP_ITS ---
Operative Report Date of procedure: December 27, 2024 Surgeon: Hao Denton DPM Procedure: Date of procedure: 12/27/2024 Pre-op diagnosis: Gangrene right foot hallux and second digit Post-op diagnosis: Same Post-op findings: Gangrenous right hallux and second digit. No deep space abscess Procedure done: 1. Right hallux amputation CPT 94108 2. Right foot second toe amputation CPT 87239 3. Right foot fourth toe amputation CPT 30515 Implants: None Specimens removed: Right hallux, second toe, fourth toe Surgeon: Dr. Hao Denton DPM Ground Control Approach Technician: Jonathan Estimated blood loss: 5 cc Tourniquet time: 25 minutes Complications: None The patient presents with a severe foot infection involving right foot hallux, second toe, fourth toe, characterized by erythema, swelling, and drainage. The infection is complicated by underlying conditions, including diabetes, PAD, which have contributed to the progression of the infection despite conservative management. Preoperative imaging and laboratory results indicate gangrene, necessitating surgical intervention. The planned procedure is intended to address the infection, debride necrotic tissue, and, if necessary, assess the viability of surrounding structures to prevent further complications. The patient has been NPO since midnight. The history has been reviewed and the history and physical is current. The signed consent was confirmed and placed in the patient chart. Patient imaging has been reviewed and is consistent with the diagnosis. Under mild sedation, the patient was brought into the operating room and placed on the table in the supine position. A local field block was performed using 0.5% Marcaine plain. Patient is receiving antibiotics around the clock on the floor, Therefore, additional antibiotic prophylaxix was not administered. MAC sedation was then performed by the anesthesiateam. A pneumatic tourniquet was then placed about the right ankle. The operative extremity was then prepped and draped in the usual fashion. After prep, the following procedure was then performed. Attention was directed to the right foot where a racquet style incision was made over the hallux using a #15 blade. Dissection was carried down to the level of the first metatarsal phalangeal joint. Capsule was incised to release attachments of first metatarsophalangeal joint. Hallux was then passed from the operative field be sent as specimen. Attention was then directed to the adjacent second digit where a dorsal plantar elliptical incision was made at the base of the second toe using a #15 blade. Dissection was carried down to the level of the second metatarsophalangeal joint. The joint was released and the second toe was passed from the operative field be sent to specimen. Attention was then directed to the fourth toe of the right foot where a dorsal plantar elliptical incision was made at the base of the toe. Dissection was carried down to the level of the metatarsophalangeal joint which was released. The toe was then passed from the operative field to be sent as specimen. Hemostasis was achieved via electrocautery. All amputation sites were irrigated with copious amounts of sterile saline before attention was directed to closure. Incisions w ere closed using 3-0 nylon and simple interrupted fashion. The tourniquet was let down and good hyperemic response noted to the distal aspect of the right foot. Incision sites were dressed with Xeroform, 4 x 4 gauze, Kerlix, Yanick. The patient tolerated the procedure and anesthesia well and without complication. The patient was transported from the operating room to the recovery room with vital signs stable and vascular status intact to the right foot. Thepatient was instructed to remain weightbearing as tolerated in postop shoe to the operative extremity, to keep surgical dressing clean, dry and intact. The patient will be transferred back to the floor once anesthesia criteria is met. I will continue to round on and follow the patient in the inpatientsetting and provide recommendations to stabilize the patient for discharge. No plan for surgical intervention by podiatry during this admission.
--- NOTE | 2024-12-27 08:07 | ANE.PACU2 ---
Inpatient post-anesthesia follow up: Airway intact: Yes Vital signs: Temperature 99.1 F Pulse Rate [Orthos tatic 89 Standing] Pulse Rate [Orthos tatic 79 Sitting] Pulse Rate [Orthos tatic Lying] 75 Pulse Rate 76 Respiratory Rate 16 Blood Pressure [Or thostatic 70/52 Standing] Blood Pressure [Or thostatic 97/51 Sitting] Blood Pressure [Or thostatic 99/55 Lying] Blood Pressure 113/64 Pulse Oximetry 92 Oxygen Delivery Me thod Room Air Oxygen Flow Rate Fraction of Inspir ed Oxygen Hydration adequate: Yes Nausea and vomiting: No Pain level: 1 Mental status: Baseline
--- NOTE | 2024-12-27 08:36 | PC.NURSE ---
0830-pt returns from the OR. VSS.
--- NOTE | 2024-12-27 13:17 | P.PN_ITS ---
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, discussed my concerns, discussed plans on outpatient pulmonary follow-up with consideration of bronchoscopy and biopsy, Vitals/I&O/Wt Last Vital Signs Temp 98.6 F 12/27/24 12:20 Pulse 65 12/27/24 12:20 Resp 17 12/27/24 12:20 BP 116/67 12/27/24 12:20 Pulse Ox 96 12/27/24 11:15 O2 Del Method Room Air 12/27/24 11:15 12/26/24 12/27/24 12/27/24 22:59 06:59 14:59 Intake Total 1120 / 2340 1346.25 / 1346.25 Output Total 600 / 600 400 / 1000 5 / 5 Balance 520 / 1740 -400 / 1340 1341.25 / 1341.25 Weight last 48 hrs Weight 76.402 kg Weight 75.75 kg Weight 74.389 kg Physical Exam 2 Const: COMMON NORMALS: no acute distress and patient oriented x3 Resp: COMMON NORMALS: normal respiratory effort, No retractions, No use of accessory muscles and clear to auscultation bilaterally AUSCULTATION: clear to auscultation bilaterally Cardio: COMMON NORMALS: regular rate, regular rhythm, S1 normal heart sound present and S2 normal heart sound present RATE: regular rate RHYTHM: r egular rhythm HEART SOUNDS: S1 normal heart sound present and S2 normal heart sound present GI: COMMON NORMALS: Normal to inspection, nondistended, normoactive bowel sounds present and non-tender Extremity: COMMON NORMALS: no pedal edema NARRATIVE EXTREMITY EXAM: Surgical site right lower extremity wrapped Neuro: COMMON NORMALS: patient oriented x3 Psych: COMMON NORMALS: mental status grossly normal Urinary Catheter Management: Chun: Cath Placed During This Visit: yes Reason for Continuing Indwelling Catheter: Acute Urinary Retention or Obstruction Urinary Catheter Date of Insertion: 12/26/24 Urinary Catheter Time of Insertion: 15:33 Data 12/27/24 04:30 12/27/24 04:30 Micro: Microbiology 12/25/24 15:03 Blood Culture - Preliminary Blood NEGATIVE TO DATE 12/25/24 15:00 Blood Culture - Preliminary Blood NEGATIVE TO DATE A&P Assessment and plan (1) Diabetic foot infection: (2) Uncontrolled diabetes mellitus: (3) Sepsis: (4) Cellulitis: Plan Diabetic foot infection, with cellulitis - Right foot - Follows up with Dr. Denton as outpatient -Status post Procedure done: 1. Right hallux amputation CPT 66395 2. Right foot second toe amputation CPT 27441 3. Right foot fourth toe amputation CPT 10435 - Plan - CT right foot CT/CT foot RT w con [id number] IMPRESSION: 1. No radiographic evidence of osteomyelitis in the 2nd toe or elsewhere in the right foot. 2. Other findings as above. CT/CT foot RT w con [id number] IMPRESSION: 1. No radiographic evidence of osteomyelitis in the 2nd toe or elsewhere in the right foot. 2. Other findings as above. 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 Pleural-based posterior mediastinal mass in the RIGHT upper lobe measuring 1.6 x 3.1 x 3.2 cm. Recommend further evaluation with PET/CT and pulmonary consult. Finding suspicious for neoplasm. 2. Several scattered noncalcified nodules in both lungs the largest along the LEFT fissure measuring 6.3 mm. 3. Numerous slightly prominent anterior mediastinal and RIGHT peribronchial lymph nodes. Plan -Will need an outpatient follow-up Urinary retention, Chun catheter placed Complaints of diarrhea - C. difficile Sepsis - Due to diabetic foot infection Orthostatic hypotension, IV fluids Type 2 diabetes mellitus -Decrease Lantus to 15 units twice daily - Low-dose sliding scale Full code Lovenox for DVT prophylaxis PDMP PDMP Reviewed: Not Reviewed Attestations 2 Medical Necessity Statement*: Patient requires hospitalization for diabetic foot infection with cellulitis, Diagnoses Diabetic foot infection E11.628; L08.9 Uncontrolled type 2 diabetes mellitus with hyperglycemia E11.65 Diabetes mellitus type: type 2 Glycemic state: with hyperglycemia Sepsis A41.9 Cellulitis L03.90
[2024-12-27] MEDS: cefTRIAXone 1,000 mg SDV 1000 MG IVP (16:45)
[2024-12-27] MEDS: pantoprazole 40 mg SDV IVP (16:45)
[2024-12-27] MEDS: insulin glargine 100 units/1 mL 15 UNIT SUBCUT (16:48)
[2024-12-28 03:59] VITALS: BP 128/53; PULSE 60; RESP 15; TEMP 36.6; O2SAT 97
[2024-12-28 04:59] LABS: Hematocrit 27.8 % (36-47); Hemoglobin 9.00 g/dL (11.27-16.99); Mean Corpuscular HGB Conc 32.4 g/dL (30-55); Mean Corpuscular Hemoglobin 27.6 pg (27-33); Mean Corpuscular Volume 85.3 fl (85-98); Nucleated Red Blood Cells % 0 %; Platelet Count 205 10^3/cmm (157-399); Red Blood Count 3.26 10^6/uL (3.85-5.65); White Blood Count 7.39 10^3/uL (3.29-11.43)
[2024-12-28 05:19] LABS: Alanine Aminotransferase 14 U/L (0-33); Albumin Level 3.1 g/dL (3.5-5.2); Alkaline Phosphatase 80 U/L (35-105); Anion Gap 16.7 (5-19); Aspartate Amino Transferase 21 U/L (0-32); Blood Urea Nitrogen 9 mg/dL (8-23); Calcium 8.5 mg/dL (8.5-10.5); Carbon Dioxide 22 mmol/L (22-29); Chloride 103 mmol/L (98-107); Creatinine Clr Calc Pharmacy 83.6380; Globulin 3.7 g/dL (1.3-4.6); Glucose 195 mg/dL (65-115); Osmolality Calculated 290 mOsm/kg (285-295); Potassium 3.7 mmol/L (3.5-5.1); Sodium 138 mmol/L (136-145); Total Protein 6.8 g/dL (6.6-8.7)
[2024-12-28 05:23] LABS: Slide Review Slide Review Perform
[2024-12-28] MEDS: VANCOMYCIN ADD-Vantage 750 MG in 0.9% NaCl ADD-Vantage 250 ML 250 MG IV (06:06)
[2024-12-28 07:17] VITALS: BP 130/67; PULSE 60; RESP 18; TEMP 36.7; O2SAT 95
[2024-12-28] MEDS: insulin glargine 100 units/1 mL 15 UNIT SUBCUT (08:37)
[2024-12-28 09:30] VITALS: PULSE 77; RESP 16; O2SAT 97
--- NOTE | 2024-12-28 10:07 | PM.DCS ---
Discharge Providers Date of Admission: 12/25/24 16:19 Date of Discharge: December 28, 2024 Attending Provider at Admission: Yunior Mccabe MD Attending Provider at Discharge: Yunior Mccabe MD Primary Care Provider: Huma Pappas MD Diagnoses at Discharge Discharge Diagnosis (1) Diabetic foot infection: Status: Acute (2) Uncontrolled diabetes mellitus: Status: Acute Qualifiers: Diabetes mellitus type: type 2 Glycemic state: with hyperglycemia Qualified Code(s): E11.65 - Type 2 diabetes mellitus with hyperglycemia (3) Sepsis: Status: Acute (4) Cellulitis: Status: Inactive Reason for Visit Reason for Visit: dr vern bates, low bp Hospital Course Hospital Course Fouzia Esquivel is a 59 year old female with a past medical history of type 2 diabetes, recent history of diabetic ulcer of the right great toe, history of CKD, peripheral arterial disease, hyperlipidemia, asthma who presents [facility] due to weakness, fatigue, lightheadedness, dizziness, diabetic foot infection with increased drainage from second digit right foot, with complaints of diarrhea. Patient tells me that over the last few days, she has had weakness, fatigue, poor appetite, she has not taken much of her insulin due to poor appetite, does report diarrhea, does report recent antibiotic use, reports lightheadedness, dizziness, no facial droop, no slurring of words, focal weakness, no chest pain, no palpitations, Patient was admitted to [facility] for Diabetic foot infection, with cellulitis - Right foot - Follows up with Dr. Denton as outpatient - CT right foot CT/CT foot RT w con [id number] IMPRESSION: 1. No radiographic evidence of osteomyelitis in the 2nd toe or elsewhere in the right foot. 2. Other findings as above. CT/CT foot RT w con [id number] IMPRESSION: 1. No radiographic evidence of osteomyelitis in the 2nd toe or elsewhere in the right foot. 2. Other findings as above. - IV fluids - IV vancomycin - IV Rocephin - Blood cultures - CRP 55, Pro-Matt 0.28, sed rate 46 -Dr. Denton was consulted -Status post Procedure done: 1. Right hallux amputation CPT 59151 2. Right foot second toe amputation CPT 47155 3. Right foot fourth toe amputation CPT 36573 - Tolerated procedure well - Will be discharged with p.o. 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 Pleural-based posterior mediastinal mass in the RIGHT upper lobe measuring 1.6 x 3.1 x 3.2 cm. Recommend further evaluation with PET/CT and pulmonary consult. Finding suspicious for neoplasm. 2. Several scattered noncalcified nodules in both lungs the largest along the LEFT fissure measuring 6.3 mm. 3. Numerous slightly prominent anterior mediastinal and RIGHT peribronchial lymph nodes. - I have had a detailed discussion with patient about her CT scan findings - She will need to follow-up with pulmonary in 2 to 4 weeks for consideration of bronchoscopy/biopsy - Follow-up with hematology oncology For type 2 diabetes mellitus - Discharged on Lantus 15 units twice daily - Moderate dose sliding scale -Please monitor your blood sugars closely -Monitor your blood sugars 3 times daily as after meals -Please record your blood sugars, and a blood sugar log -For your NovoLog -Please inject blood sugar after meals based on sliding scale provided -Do not inject insulin if you do not eat as hypoglycemia kills -This is a NovoLog sliding scale -Insulin sliding ?fingerstick? Insulin ?141-180?0 units/sq 181-220?2 units/sq ?221-260?4 units/sq ?261-300 6 units/sq ?301-350?8 units/sq ?351-400 10 units/sq ?401-450?12 units/sq >450? 14units/sq -If your blood sugar is greater than 500 go to the emergency room -If your blood sugar is less than 60 or at anytime you feel lightheaded or dizzy or diaphoretic or have chest palpitations check your blood sugar, and eat a hard candy or drink orange juice and go immediately to the emergency room -Remember hypoglycemia kills, so if his blood sugar is less than 60 we have to increase it by taking in a sugary meal such as a hard candy or orange juice and go to the emergency room -If you have any questions please call us where here to help Physical Exam Const: COMMON NORMALS: no acute distress and patient oriented x3 Resp: COMMON NORMALS: normal respiratory effort, No retractions, No use of accessory muscles and clear to auscultation bilaterally AUSCULTATION: clear to auscultation bilaterally Cardio: COMMON NORMALS: regular rate, regular rhythm, S1 normal heart sound present and S2 normal heart sound present RATE: regular rate RHYTHM: regular rhythm HEART SOUNDS: S1 normal heart sound present and S2 normal heart sound present GI: COMMON NORMALS: Normal to inspection, nondistended, normoactive bowel sounds present and non-tender Extremity: COMMON NORMALS: no pedal edema Neuro: COMMON NORMALS: patient oriented x3 Psych: COMMON NORMALS: mental status grossly normal Urinary Catheter Management: Chun: Cath Placed During This Visit: yes, but has since been removed by the nurse Reason for Continuing Indwelling Catheter: Acute Urinary Retention or Obstruction Urinary Catheter Date of Insertion: 12/26/24 Urinary Catheter Time of Insertion: 15:33 Date Urinary Catheter Removed: 12/27/24 Time Urinary Catheter Discontinued: 17:00 Discharge Data Studies Completed and Pending Completed Studies During Hospitalization Category Date Time Status CT chest abdomen pelvis [[place] [id number] Cat Scan 12/26/24 11:01 Completed ] Routine CT foot RT w con [id number] Stat Cat Scan 12/25/24 14:50 Completed XR chest 1V portable [id number] Stat Exams 12/25/24 10:19 Completed Pending at discharge Category Date Time Status Blood Culture Stat Lab 12/25/24 15:03 Results C.Diff PCR (Lab) Routine Lab 12/25/24 11:57 Uncollected CDIFF [C.Diff PCR (Lab)] Stat Lab 12/26/24 12:21 Uncollected Urine Culture Stat Lab 12/26/24 15:10 Received Vancomycin Trough Timed Lab 12/29/24 04:30 Ordered Pathology: Surgical [PTH] Routine Pth 12/27/24 07:53 Received Radiology Impressions Chest X-Ray 12/25/24 10:19 IMPRESSION: Examination is unchanged compared to the previous day. No acute abnormality is identified. Foot CT 12/25/24 14:50 IMPRESSION: 1. No radiographic evidence of osteomyelitis in the 2nd toe or elsewhere in the right foot. 2. Other findings as above. Chest/Abdomen/Pelvis CT 12/26/24 11:01 IMPRESSION: 1. Pleural-based posterior mediastinal mass in the RIGHT upper lobe measuring 1.6 x 3.1 x 3.2 cm. Recommend further evaluation with PET/CT and pulmonary consult. Finding suspicious for neoplasm. 2. Several scattered noncalcified nodules in both lungs the largest along the LEFT fissure measuring 6.3 mm. 3. Numerous slightly prominent anterior mediastinal and RIGHT peribronchial lymph nodes. 4. Moderate esophageal hiatal hernia 5. Grade 1-2 anterolisthesis L5 on S1 with chronic spondylolysis. 6. Hepatomegaly. 7. Urine distended bladder with contrast. Notified Yunior Mccabe MD at 12/26/2024 12:52 PM. Laboratory Results WBC 7.39 10^3/uL (3.29-11.43) 12/28/24 03:55 RBC 3.26 10^6/uL (3.85-5.65) L 12/28/24 03:55 Hgb 9.00 g/dL (11.27-16.99) L 12/28/24 03:55 Hct 27.8 % (36-47) L 12/28/24 03:55 MCV 85.3 fl (85-98) 12/28/24 03:55 MCH 27.6 pg (27-33) 12/28/24 03:55 MCHC 32.4 g/dL (30-55) 12/28/24 03:55 RDW 14.4 % (12.1-15.1) 12/28/24 03:55 Plt Count 205 10^3/cmm (157-399) 12/28/24 03:55 MPV 11.1 fL (7.4-10.4) H 12/28/24 03:55 Neut % (Auto) 42.3 % 12/28/24 03:55 Lymph % (Auto) 50.2 % 12/28/24 03:55 Summers % (Auto) 6.9 % 12/28/24 03:55 Eos % (Auto) 0.0 % 12/28/24 03:55 Baso % (Auto) 0.3 % 12/28/24 03:55 Neut # (Auto) 3.13 10^3/uL (1.8-7.7) 12/28/24 03:55 Lymph # (Auto) 3.7 10^3/uL (0.8-4.8) 12/28/24 03:55 Summers # (Auto) 0.5 10^3/uL (0.2-0.9) 12/28/24 03:55 Eos # (Auto) 0.0 10^3/uL (0.0-0.8) 12/28/24 03:55 Baso # (Auto) 0.0 10^3/uL (0.0-0.1) 12/28/24 03:55 Nucleated RBC % (auto) 0 % 12/28/24 03:55 Nucleated RBCs # 0.0 /100WBC 12/28/24 03:55 ESR 46 mm/hr (0-15) H 12/25/24 11:19 Sodium 138 mmol/L (136-145) 12/28/24 03:55 Potassium 3.7 mmol/L (3.5-5.1) 12/28/24 03:55 Chloride 103 mmol/L (98-107) 12/28/24 03:55 Carbon Dioxide 22 mmol/L (22-29) 12/28/24 03:55 Anion Gap 16.7 (5-19) 12/28/24 03:55 BUN 9 mg/dL (8-23) 12/28/24 03:55 Creatinine 0.7 mg/dL (0.5-0.9) 12/28/24 03:55 GFR Calculation 85.1 mL/min (90-130) L 12/28/24 03:55 Glucose 195 mg/dL (65-115) H 12/28/24 03:55 POC Glucose 186 mg/dL (70-110) H 12/28/24 06:18 Estimat Average Glucose 171 12/25/24 11:19 Hemoglobin A1c 7.6 % (4.0-6.0) H 12/25/24 11:19 Calculated Osmolality 290 mOsm/kg (285-295) 12/28/24 03:55 Lactic Acid 1.3 mmol/L (0.5-2.2) 12/25/24 11:19 Calcium 8.5 mg/dL (8.5-10.5) 12/28/24 03:55 Total Bilirubin 0.2 mg/dL (0.15-1.2) 12/28/24 03:55 AST 21 U/L (0-32) 12/28/24 03:55 ALT 14 U/L (0-33) 12/28/24 03:55 Alkaline Phosphatase 80 U/L (35-105) 12/28/24 03:55 Creatine Kinase 381 U/L (26-192) H* 12/25/24 11:19 C-Reactive Protein 54.8 mg/L (0.0-4.9) H 12/25/24 11:19 Total Protein 6.8 g/dL (6.6-8.7) 12/28/24 03:55 Albumin 3.1 g/dL (3.5-5.2) L 12/28/24 03:55 Globulin 3.7 g/dL (1.3-4.6) 12/28/24 03:55 Triglycerides 184 mg/dL (0-150) H 12/25/24 11:19 Cholesterol 216 mg/dL (0-200) H 12/25/24 11:19 LDL Cholesterol, Calc 154 mg/dL (50-129) H 12/25/24 11:19 HDL Cholesterol 25 mg/dL (60-100) L 12/25/24 11:19 LDL/HDL Ratio 6.16 RATIO (0.00-3.22) H 12/25/24 11:19 Cholesterol/HDL Ratio 8.64 mg/dL (0.0-4.40) H 12/25/24 11:19 Procalcitonin 0.28 ng/mL (0-0.5) 12/25/24 11:19 TSH 1.98 uIU/mL (0.27-4.20) 12/25/24 11:19 Urine Color Yellow (Yellow) 12/25/24 13:45 Urine Appearance Cloudy (CLEAR) A 12/25/24 13:45 Urine pH 6.0 (5-7) 12/25/24 13:45 Ur Specific [place] 1.012 (1.005-1.030) 12/25/24 13:45 Urine Protein Trace (Negative) A 12/25/24 13:45 Urine Glucose (UA) Negative (Normal) 12/25/24 13:45 Urine Ketones Negative (Negative) 12/25/24 13:45 Urine Blood Negative (Negative) 12/25/24 13:45 Urine Nitrate Negative (Negative) 12/25/24 13:45 Urine Bilirubin Negative (Negative) 12/25/24 13:45 Urine Urobilinogen 0.2 mg/dL (Negative) 12/25/24 13:45 Ur Leukocyte Esterase 2+ (Negative) A 12/25/24 13:45 Urine RBC 0-2 /hpf (0-2) 12/25/24 13:45 Urine WBC 6-10 /hpf (0-5) 12/25/24 13:45 Ur Squamous Epith Cells 21-50 /hpf (0-5) H 12/25/24 13:45 Amorphous Sediment Not Reportable 12/25/24 13:45 Urine Bacteria None seen /hpf (NONE) 12/25/24 13:45 Hyaline Casts 4.11 /lpf 12/25/24 13:45 Serum Ketones Negative (Negative) 12/25/24 11:19 Influenza A (PCR) Negative (Negative) 12/26/24 08:45 Influenza Type B (PCR) Negative (Negative) 12/26/24 08:45 RSV (PCR) Negative (Negative) 12/26/24 08:45 SARS-CoV-2 (PCR) Negative (Negative) 12/26/24 08:45 Vitals Last Vital Signs Temp 98.1 F 12/28/24 07:17 Pulse 77 12/28/24 09:30 Resp 16 12/28/24 09:30 BP 130/67 12/28/24 07:17 Pulse Ox 97 12/28/24 09:30 O2 Del Method Room Air 12/28/24 09:30 Discharge Plan Discharge Patient Disposition: Home Condition: Stable Prescriptions: New linezolid [Zyvox] 600 mg tablet 600 mg PO BID 7 Days Qty: 14 0RF cefdinir 300 mg capsule 300 mg PO BID 7 Days Qty: 14 0RF Continued cetirizine [Allergy Relief (cetirizine)] 10 mg tablet 10 mg PO DAILY atorvastatin [Lipitor] 80 mg tablet 80 mg PO DAILY Qty: 90 3RF pantoprazole [Protonix] 40 mg tablet,delayed release (DR/EC) 40 mg PO DAILY Qty: 90 3RF aspirin 81 mg tablet,delayed release (DR/EC) 81 mg PO DAILY Qty: 90 3RF clopidogrel 75 mg tablet 75 mg PO DAILY Qty: 90 3RF metoclopramide HCl [Reglan] 5 mg tablet 5 mg PO Q8H PRN (Reason: nausea and vomiting) Qty: 10 0RF fluticasone propionate 50 mcg/actuation spray,suspension 2 spray INTRANASAL DAILY PRN (Reason: congestion/ear pain) furosemide 20 mg tablet 20 mg PO DAILY PRN (Reason: Edema) Changed insulin aspart U-100 [Novolog U-100 Insulin aspart] 100 unit/mL solution See Rx Instructions .ROUTE .COMPLEX Qty: 30 3RF Rx Instructions: inject, subcut, tid during meals, based on moderate dose insulin sliding scale insulin glargine [Lantus U-100 Insulin] 100 unit/mL solution 15 unit SUBCUT BID Qty: 30 3RF No Action (DME) CAM walker with Achilles wedge See Rx Instructions .Route .MEDSUPPLY Qty: 1 0RF Rx Instructions: As directed (DME) Dexcom G7 Sensor Device See Rx Instructions .Route Qty: 3 3RF Rx Instructions: As directed Discharge Orders: Discharge Order (Routine); Ordered 12/28/24 Ordered By: Yunior Mccabe Referrals: Betty Bruno MD [Physician, Pulmonology] - 2 weeks Referral Note: 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 If you have not heard from them within the next 2 business days, please call them directly. 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 - Please follow-up with oncology - Please follow-up with pulmonary - Please take antibiotics as prescribed - Have your primary care provider recheck CBC and a basic metabolic panel in 1 week - Please follow-up with Dr. Denton -Please monitor your blood sugars closely -Monitor your blood sugars 3 times daily as after meals -Please record your blood sugars, and a blood sugar log -For your NovoLog -Please inject blood sugar after meals based on sliding scale provided -Do not inject insulin if you do not eat as hypoglycemia kills -This is a NovoLog sliding scale -Insulin sliding ?fingerstick? Insulin ?141-180?0 units/sq 181-220?2 units/sq ?221-260?4 units/sq ?261-300 6 units/sq ?301-350?8 units/sq ?351-400 10 units/sq ?401-450?12 units/sq >450? 14units/sq -If your blood sugar is greater than 500 go to the emergency room -If your blood sugar is less than 60 or at anytime you feel lightheaded or dizzy or diaphoretic or have chest palpitations check your blood sugar, and eat a hard candy or drink orange juice and go immediately to the emergency room -Remember hypoglycemia kills, so if his blood sugar is less than 60 we have to increase it by taking in a sugary meal such as a hard candy or orange juice and go to the emergency room -If you have any questions please call us where here to help Discharge Attestations Time Spent in Discharge Care*: greater than 30 min Status at Discharge: Cognitive status at discharge: cognitively intact, Behavioral status at discharge: cooperative, Quality Metrics Clinical Quality Measures [ No reported AMI, CVA or VTE this stay] Coding Level of Care Code 59559 Total time (in minutes) for Discharge: 45 Diagnoses Diabetic foot infection E11.628; L08.9 Uncontrolled type 2 diabetes mellitus with hyperglycemia E11.65 Diabetes mellitus type: type 2 Glycemic state: with hyperglycemia Sepsis A41.9 Cellulitis L03.90
[2024-12-28 10:12] VITALS: BP 130/67; PULSE 77; RESP 16; TEMP 36.7; O2SAT 97
[2024-12-28 11:04] VITALS: BP 134/70; PULSE 68; RESP 18; TEMP 36.7; O2SAT 97
== END 2024-12-28 11:40 | disposition home or self-care (01) | DRG 854 ==
LOC: ER 14:46 → MEDSURG 12-26 07:33
PROVIDERS: Podiatrist Foot & Ankle Surgery; Admitting Provider Family Medicine; Emergency Provider Family Medicine; PCP Family Medicine; Visit Provider Family Medicine
PROC: 0Y6R0Z0 Detachment at Right 2nd Toe, Complete, Open Approach (ICD-10-PCS; principal; 2024-12-27 07:00)
DX: A41.9 Sepsis, unspecified organism (principal); E11.52 Type 2 diabetes mellitus with diabetic peripheral angiopathy with gangrene; I96 Gangrene, not elsewhere classified; L03.115 Cellulitis of right lower limb; E11.621 Type 2 diabetes mellitus with foot ulcer; L97.519 Non-pressure chronic ulcer of other part of right foot with unspecified severity; E11.649 Type 2 diabetes mellitus with hypoglycemia without coma; E11.628 Type 2 diabetes mellitus with other skin complications; E11.22 Type 2 diabetes mellitus with diabetic chronic kidney disease; I12.9 Hypertensive chronic kidney disease with stage 1 through stage 4 chronic kidney disease, or unspecified chronic kidney disease; E11.51 Type 2 diabetes mellitus with diabetic peripheral angiopathy without gangrene; N18.9 Chronic kidney disease, unspecified; Z79.4 Long term (current) use of insulin; E78.5 Hyperlipidemia, unspecified; R19.7 Diarrhea, unspecified; R91.8 Other nonspecific abnormal finding of lung field; I95.1 Orthostatic hypotension; Z79.02 Long term (current) use of antithrombotics/antiplatelets; Z79.82 Long term (current) use of aspirin
CPT/HCPCS: 36415; 36416; 51702; 51798; 71045; 71250; 73701; 74176; 80053; 80061; 81001; 82009; 82550; 82962; 83036; 83605; 84145; 84443; 85025; 85651; 86140; 87040; 87086; 87637; 88305; 88311; 93005; 94664; 96360; 96361; 96372; 99214; 99285; J0696; J1100; J1650; J1815; J2470; J2704; J3010; J3370; J3490; J7030; J7050; J9999

== ENCOUNTER → 2024-12-31 13:13 | Outpatient (BNVA) | payer OTHER, SELFPAY | PROVIDERS: PCP Family Medicine; Visit Provider Family Medicine | DX: E11.9 Type 2 diabetes mellitus without complications (principal); M86.9 Osteomyelitis, unspecified; I95.1 Orthostatic hypotension; D64.9 Anemia, unspecified; Z89.421 Acquired absence of other right toe(s); Z89.419 Acquired absence of unspecified great toe; Z89.429 Acquired absence of other toe(s), unspecified side; Z79.4 Long term (current) use of insulin | CPT/HCPCS: 80048; 82607; 83540; 85025 ==

== ENCOUNTER → 2025-01-03 09:40 | Outpatient (BNVA) | payer OTHER, SELFPAY | PROVIDERS: PCP Family Medicine; Visit Provider Podiatrist Foot & Ankle Surgery | DX: E11.621 Type 2 diabetes mellitus with foot ulcer (principal); L97.519 Non-pressure chronic ulcer of other part of right foot with unspecified severity; S86.011A Strain of right Achilles tendon, initial encounter; E11.8 Type 2 diabetes mellitus with unspecified complications; I95.9 Hypotension, unspecified; Z89.421 Acquired absence of other right toe(s); X58.XXXA Exposure to other specified factors, initial encounter; Z79.4 Long term (current) use of insulin | CPT/HCPCS: 99213 ==

== ENCOUNTER 2025-01-10 15:39 | Outpatient (CLI) | payer OTHER, SELFPAY ==
--- NOTE | 2025-01-10 16:00 | MR_ITS ---
WS: [id number] MRI BRAIN WITHOUT AND WITH CONTRAST, ATTENTION DIRECTED TO THE PITUITARY GLAND HISTORY: MR brain showed possible pitituary lesion COMPARISON: 10/24/2024, CT head 10/22/2024 TECHNIQUE: Diffusion-weighted imaging, axial T2 sequence, and postcontrast images in 3 planes are performed. High-resolution coronal and sagittal imaging performed through the pituitary region with and without intravenous gadolinium. Seen best on the postcontrast sagittal sequence is a 3 x 4 mm area of decreased enhancement and low signal in the floor of the sella turcica. This may potentially represent a very tiny adenoma. Not definitely confirmed on the additional sequences. No displacement of the infundibulum or optic chiasm. The remaining pituitary is normal. Normal diffusion imaging. No acute infarct or hemorrhage. Mild small vessel disease is unchanged. There is also mild volume loss. Posterior fossa is normal. No hemorrhage. Heterogeneous mass with surrounding fluid in the LEFT maxillary sinus. Probably from inspissated sinus disease or mucous retention cyst. Normal mastoid air cells. Normal ventricles. MR/MR pituitary wo/w con* [id number] IMPRESSION: 1. Very tiny area of decreased enhancement in the floor the sella turcica mandeep uring 3 x 4 mm. Seen only on the post contrast sagittal sequence. Volume averag ing artifact versus a very tiny pituitary adenoma. 2. No acute infarct. 3. Mild small vessel disease and mild atrophy.
[2025-01-10] MEDS: gadobenate dimeglumine 20 mL vial 15 ML IV (16:59)
== END 2025-01-10 15:40 | disposition home or self-care (01) ==
LOC: RAD 15:40
PROVIDERS: PCP Family Medicine; Visit Provider Family Medicine
DX: D35.2 Benign neoplasm of pituitary gland (principal); I67.89 Other cerebrovascular disease
CPT/HCPCS: 70553; 99213

== ENCOUNTER → 2025-02-13 09:57 | Outpatient (BNVA) | payer OTHER, SELFPAY | PROVIDERS: PCP Family Medicine; Visit Provider Internal Medicine | DX: E11.65 Type 2 diabetes mellitus with hyperglycemia (principal); Z79.4 Long term (current) use of insulin; E78.5 Hyperlipidemia, unspecified; I77.9 Disorder of arteries and arterioles, unspecified; I73.9 Peripheral vascular disease, unspecified; D35.2 Benign neoplasm of pituitary gland | CPT/HCPCS: 99204 ==

== ENCOUNTER → 2025-03-05 15:44 | Outpatient (BNVA) | payer OTHER, SELFPAY | PROVIDERS: PCP Family Medicine; Visit Provider Family Medicine | DX: Z12.4 Encounter for screening for malignant neoplasm of cervix (principal) | CPT/HCPCS: 87624 ==

== ENCOUNTER → 2025-04-10 13:52 | Outpatient (BNVA) | payer OTHER, SELFPAY | PROVIDERS: PCP Family Medicine; Visit Provider Podiatrist Foot & Ankle Surgery | DX: E11.8 Type 2 diabetes mellitus with unspecified complications (principal); Z79.4 Long term (current) use of insulin; Z89.431 Acquired absence of right foot | CPT/HCPCS: 99213 ==

== ENCOUNTER 2025-04-25 08:33 | Outpatient (CLI) | payer OTHER, SELFPAY ==
[2025-04-25 09:55] LABS: Estmated Average Glucose 166; Hemoglobin A1C 7.4 % (4.0-6.0)
[2025-04-25 09:55] LABS: Creatinine Urine, Random 119 mg/dL (28-217)
[2025-04-25 09:56] LABS: Microalbum Creatinine Ratio Ur 59 mg/dL (0-20)
[2025-04-25 10:37] LABS: Alanine Aminotransferase 18 U/L (0-33); Albumin Level 4.3 g/dL (3.5-5.2); Alkaline Phosphatase 151 U/L (35-105); Anion Gap 17.9 (5-19); Aspartate Amino Transferase 33 U/L (0-32); Blood Urea Nitrogen 15 mg/dL (8-23); Calcium 9.5 mg/dL (8.5-10.5); Carbon Dioxide 25 mmol/L (22-29); Chloride 101 mmol/L (98-107); Cholesterol 295 mg/dL (0-200); Free T4 Free Thyroxine 1.03 ng/dL (0.82-1.77); Globulin 4.3 g/dL (1.3-4.6); Glucose 77 mg/dL (65-115); HDL Cholesterol 45 mg/dL (60-100); Osmolality Calculated 290 mOsm/kg (285-295); Potassium 3.9 mmol/L (3.5-5.1); Sodium 140 mmol/L (136-145); Thyroid Stimulating Hormone 0.94 uIU/mL (0.27-4.20); Total Protein 8.6 g/dL (6.6-8.7); Triglycerides 186 mg/dL (0-150)
== END 2025-04-25 08:34 | disposition home or self-care (01) ==
PROVIDERS: Absent Provider Family Medicine; PCP Family Medicine; Visit Provider Internal Medicine
DX: D35.2 Benign neoplasm of pituitary gland (principal); E11.65 Type 2 diabetes mellitus with hyperglycemia; Z79.4 Long term (current) use of insulin
CPT/HCPCS: 36415; 80053; 80061; 82044; 82533; 83036; 84146; 84305; 84439; 84443; 84681; 86337; 86341

== ENCOUNTER → 2025-05-27 14:27 | Outpatient (BNVA) | payer OTHER, SELFPAY | PROVIDERS: PCP Family Medicine; Visit Provider Podiatrist Foot & Ankle Surgery | DX: E11.8 Type 2 diabetes mellitus with unspecified complications (principal); L60.1 Onycholysis; L03.032 Cellulitis of left toe; Z79.4 Long term (current) use of insulin | CPT/HCPCS: 73630; 99214 ==